=== PATIENT | female | born 1955 | race Caucasian/White ===

== ENCOUNTER → 2019-06-28 09:50 | Outpatient (BNVA) | payer MEDICARE, SELFPAY | PROVIDERS: Family Provider Family Medicine; PCP Family Medicine; Visit Provider Psychiatry & Neurology Psychiatry | DX: F33.42 Major depressive disorder, recurrent, in full remission (principal); F01.50 Vascular dementia, unspecified severity, without behavioral disturbance, psychotic disturbance, mood disturbance, and anxiety; F17.210 Nicotine dependence, cigarettes, uncomplicated | CPT/HCPCS: 99214 ==

== ENCOUNTER → 2019-07-01 07:19 | Outpatient (BNVA) | payer MEDICARE, SELFPAY | PROVIDERS: Family Provider Family Medicine; PCP Family Medicine; Visit Provider Specialist | DX: G43.711 Chronic migraine without aura, intractable, with status migrainosus (principal); G40.109 Localization-related (focal) (partial) symptomatic epilepsy and epileptic syndromes with simple partial seizures, not intractable, without status epilepticus; Z87.891 Personal history of nicotine dependence | CPT/HCPCS: 64615; 95970; 96372; 99212; J0585; J1885 ==

== ENCOUNTER → 2019-07-19 09:55 | Outpatient (BNVA) | payer MEDICARE, SELFPAY | PROVIDERS: Family Provider Family Medicine; PCP Family Medicine; Visit Provider Psychiatry & Neurology Psychiatry | DX: F01.50 Vascular dementia, unspecified severity, without behavioral disturbance, psychotic disturbance, mood disturbance, and anxiety (principal); F33.42 Major depressive disorder, recurrent, in full remission; F17.210 Nicotine dependence, cigarettes, uncomplicated | CPT/HCPCS: 99213 ==

== ENCOUNTER → 2019-08-28 13:55 | Outpatient (BNVA) | payer MEDICARE, SELFPAY | PROVIDERS: Family Provider Family Medicine; PCP Nurse Practitioner; Visit Provider Nurse Practitioner | DX: R06.02 Shortness of breath (principal); R07.89 Other chest pain | CPT/HCPCS: 71046 ==

== ENCOUNTER → 2019-09-13 07:52 | Outpatient (BNVA) | payer MEDICARE, SELFPAY | PROVIDERS: Family Provider Family Medicine; PCP Nurse Practitioner; Visit Provider Psychiatry & Neurology Psychiatry | DX: F33.42 Major depressive disorder, recurrent, in full remission (principal); F17.210 Nicotine dependence, cigarettes, uncomplicated; F01.50 Vascular dementia, unspecified severity, without behavioral disturbance, psychotic disturbance, mood disturbance, and anxiety | CPT/HCPCS: 99213 ==

== ENCOUNTER → 2019-09-30 07:38 | Outpatient (BNVA) | payer MEDICARE, SELFPAY | PROVIDERS: Family Provider Family Medicine; PCP Nurse Practitioner; Visit Provider Specialist | DX: G43.711 Chronic migraine without aura, intractable, with status migrainosus (principal); G40.109 Localization-related (focal) (partial) symptomatic epilepsy and epileptic syndromes with simple partial seizures, not intractable, without status epilepticus | CPT/HCPCS: 64615; 99212; 99213; J0585; J1885; J2405 ==

== ENCOUNTER → 2019-10-11 08:08 | Outpatient (BNVA) | payer MEDICARE, SELFPAY | PROVIDERS: Family Provider Family Medicine; PCP Nurse Practitioner; Visit Provider Psychiatry & Neurology Psychiatry | DX: F33.42 Major depressive disorder, recurrent, in full remission (principal); F17.210 Nicotine dependence, cigarettes, uncomplicated; F01.50 Vascular dementia, unspecified severity, without behavioral disturbance, psychotic disturbance, mood disturbance, and anxiety | CPT/HCPCS: 99213 ==

== ENCOUNTER 2019-10-11 16:52 | Inpatient (IN) | payer MEDICARE, SELFPAY ==
[2019-10-11] VITALS (22 sets, daily range): BP systolic 131–162; BP diastolic 80–106; PULSE 96–136; RESP 16–22; TEMP 36.6; O2SAT 93–100; BMI 30.2
--- NOTE | 2019-10-11 17:22 | ECG_ITS ---
Measurements Intervals [place] Rate: 127 P: CO: 0 QRS: 47 QRSD: 82 T: 26 QT: 326 QTc: 474 ATRIAL FIBRILLATION WITH RAPID VENTRICULAR RESPONSE NONSPECIFIC ST & T-WAVE ABNORMALITY ABNORMAL RHYTHM ECG Compared to ECG 12/07/2014 09:43:21 T-wave abnormality now present Sinus rhythm no longer present Electronically Signed On 10-11-2019 18:48:00 CDT by Lesley Mack M.D. [email or web address]
--- NOTE | 2019-10-11 17:22 | XR_ITS ---
WS: [id number] PORTABLE CHEST HISTORY: dyspnea/cough COMPARISON: 08/28/2019 Vagal nerve stimulator projects over the LEFT thorax. Lungs are clear and well expanded. No pleural effusion or pneumothorax. Cardiac size: Normal. Mediastinum/Aorta: Normal mediastinum. No osseous abnormality seen. XR/XR chest 1V portable [id number] IMPRESSION: Unremarkable portable chest.
--- NOTE | 2019-10-11 17:53 | ED_ITS ---
Documented by User: Aramis Mar DO 10/12/19 06:02 HPI - SOB/Dyspnea General: Chief Complaint: Shortness of Breath/Dyspnea Stated Complaint: TROUBLE BREATHING Time Seen by Provider: 10/11/19 17:20 History of Present Illness: HPI Narrative: 62-year-old female who comes in complaining of shortness of breath. She was seen earlier today at the urgent care clinic. She has had dyspnea with exertion for the last 3 months almost continuously. She is been to the urgent care clinic several times had not found anything she is not on any anticoagulation medicines or any other medication she does not use any stimulants decongestants or nasal sprays. She states that she occasionally will get chest pain with this it seems to just spontaneously come and go she has not associated any particular activities is precipitating or re lieving. She has noticed sometimes it when she lays flat the chest pain will seem to increase. She not had any fever or cough she denies any abdominal pain no dysuria urgency frequency or flank pain no productive cough. She was previously on antihypertensive medications but stopped those because of side effects and is not currently taking anything. MD elicited complaint: shortness of breath Onset (ago): month(s) (3) Timing: constant Severity: moderate Exacerbating factors: lying flat Relieving factors: rest Known history of: other (Epilepsy) Associated symptoms: Deny abdominal pain, chest pain, fever(s), nausea, orthopnea or vomiting Review of Systems Const: Denies: fever, chills, body aches, change in appetite, fatigue or malaise ENMT: Denies: throat pain, ear pain, nasal discharge or nasal congestion Card: Denies: chest pain, edema, shortness of breath on exertion or shortness of breath when lying down Resp: Denies: shortness of breath, productive cough or non-productive cough GI: Denies: abdominal pain, nausea, vomiting, vomiting blood, coffee grounds in vomit, diarrhea, constipation, bloating, blood in stool or black tarry stool : Denies: flank pain, difficulty urinating, painful urination, urinary frequency or urinary urgency Skin/Breast: Denies: rash or itching PFSH ED PFSH: Medical History Chronic knee pain Cigarette nicotine dependence Major depression, recurrent, full remission Seizures Vascular dementia without behavioral disturbance Surgical History H/O brain surgery H/O section History of back surgery History of cholecystectomy Status post VNS (vagus nerve stimulator) placement Social History Smoking and tobacco status: former smoker Quit status (tobacco): has quit using tobacco Year quit tobacco: 2019 Smoking risk assessment/counseling performed?: Yes Tobacco counseling given: counseling >3 minutes Physical Exam Const: COMMON NORMALS: no apparent distress GENERAL APPEARANCE: cooperative and comfortable ORIENTATION/CONSCIOUSNESS: Yes awake, Yes oriented to person, Yes oriented to place and Yes oriented to time HENMT: COMMON NORMALS: normocephalic, head/scalp atraumatic, hearing grossly normal bilaterally, external ears normal, EAC's normal, TM's normal bilaterally, nasal mucous membranes and turbinates normal, moist oral mucous membranes and oropharynx normal HEAD & SCALP: normocephalic and atraumatic NOSE: nasal mucous membranes and turbinates normal EXTERNAL EAR: Yes external ears normal EXTERNAL AUDITORY CANAL: EAC's normal TYMPANIC MEMBRANE: TM's normal bilaterally Eye: COMMON NORMALS: PERRL, EOMs intact bilaterally, conjunctivae normal and no scleral icterus CONJUNCTIVA: Yes conjunctivae normal PUPIL: Yes PERRL Neck/C-Spine: COMMON NORMALS: full ROM, no lymphadenopathy, supple and no JVD Lymph: LYMPHATIC: no lymphadenopathy noted and no lymphedema noted Resp: COMMON NORMALS: normal respiratory effort, no retractions, no use of accessory muscles and clear to auscultation bilaterally AUSCULTATION: clear to auscultation bilaterally Cardio: COMMON NORMALS: no JVD and no murmurs RATE: tachycardic RHYTHM: abnormal rhythm irregularly irregular GI: COMMON NORMALS: soft to palpation and no hepatosplenomegaly AUSCULTATION: Yes normoactive bowel sounds PALPATION: Yes soft, No tender, No guarding and Yes no hepatosplenomegaly Extremity: COMMON NORMALS: normal to inspection, normal capillary refill, no clubbing, cyanosis or edema, no calf tenderness and no pedal edema Neuro: SENSORIUM/ORIENTATION: Yes oriented to person, Yes oriented to place and Yes oriented to time Skin: COMMON NORMALS: no rashes or lesions noted GENERAL SKIN EXAM: no rashes or lesions noted Course Vital Signs: Vital signs: Vital Signs Temperature 98.4 F 10/12/19 02:11 Pulse Rate 96 10/12/19 02:11 Respiratory Rate 20 H 10/12/19 02:11 Blood Pressure 128/77 10/12/19 02:11 Pulse Oximetry 96 10/12/19 02:11 MDM - SOB/Dyspnea MDM Narrative: Medical decision making narrative: Care transferred to Dr. Dr. Galeas at change of shift. Lab Data: Labs: Lab Results 10/11/19 10/11/19 10/11/19 Range/Units 17:44 17:44 17:44 WBC 7.1 (4.0-10.0) 10^3/ uL RBC 4.37 (4.1-5.3) 10^6/u L Hgb 10.6 L (11.5-15.3) g/dL Hct 35.8 L (37.0-47.0) % MCV 81.9 (81-99) fL MCH 24.3 L (28.0-34.0) pg MCHC 29.6 L (30.0-36.0) g/dL RDW 16.2 H (12.1-15.1) % Plt Count 305 (130-400) 10^3/c mm MPV 10.2 (7.4-10.4) fL Neut % (Auto) 64.6 % Lymph % (Auto) 27.1 % Burke % (Auto) 6.0 % Eos % (Auto) 1.3 % Baso % (Auto) 0.7 % Neut # (Auto) 4.6 (1.8-7.7) 10^3/u L Lymph # (Auto) 1.9 (0.8-4.8) 10^3/u L Burke # (Auto) 0.4 (0.2-0.9) 10^3/u L Eos # (Auto) 0.1 (0.0-0.8) 10^3/u L Baso # (Auto) 0.1 (0.0-0.1) 10^3/u L Nucleated RBC % (a uto) 0 % Nucleated RBCs # 0.0 /100WBC Sodium 135 L (136-145) mmol/L Potassium 4.3 (3.5-5.1) mmol/L Chloride 100 (98-107) mmol/L Carbon Dioxide 21 L (22-29) mmol/L Anion Gap 18.3 (5-19) BUN 10 (8-23) mg/dL Creatinine 0.8 (0.5-0.9) mg/dL GFR Calculation 72.7 L (90-130) mL/min Glucose 100 (65-115) mg/dL Calculated Osmolal ity 276 L (285-295) mOsm/k g Calcium 8.9 (8.5-10.5) mg/dL Total Bilirubin 0.3 (0.15-1.2) mg/dL AST 27 (0-32) U/L ALT 20 (0-33) U/L Alkaline Phosphata se 161 H (35-105) IU/L Troponin T Baselin e 14 H (0-10) ng/mL Troponin T 120 Min [place] (0-10) ng/mL Delta Troponin T (0-10) ABS# Total Protein 7.1 (6.6-8.7) g/dL Albumin 4.3 (3.5-5.2) g/dL Globulin 2.8 (1.3-4.6) g/dL TSH 2.19 (0.27-4.20) uIU/ mL Free T4 0.83 (0.82-1.77) ng/d L Urine Color (Yellow) Urine Appearance (CLEAR) Urine pH (5-7) Ur Specific Gravit y (1.005-1.030) Urine Protein (Negative) Urine Glucose (UA) (Normal) Urine Ketones (Negative) Urine Blood (Negative) Urine Nitrate (Negative) Urine Bilirubin (NEGATIVE) Urine Urobilinogen (Negative) mg/dL Ur Leukocyte Aracelis ase (Negative) 10/11/19 10/11/19 Range/Units 19:28 20:00 WBC (4.0-10.0) 10^3/ uL RBC (4.1-5.3) 10^6/u L Hgb (11.5-15.3) g/dL Hct (37.0-47.0) % MCV (81-99) fL MCH (28.0-34.0) pg MCHC (30.0-36.0) g/dL RDW (12.1-15.1) % Plt Count (130-400) 10^3/c mm MPV (7.4-10.4) fL Neut % (Auto) % Lymph % (Auto) % Burke % (Auto) % Eos % (Auto) % Baso % (Auto) % Neut # (Auto) (1.8-7.7) 10^3/u L Lymph # (Auto) (0.8-4.8) 10^3/u L Burke # (Auto) (0.2-0.9) 10^3/u L Eos # (Auto) (0.0-0.8) 10^3/u L Baso # (Auto) (0.0-0.1) 10^3/u L Nucleated RBC % (a uto) % Nucleated RBCs # /100WBC Sodium (136-145) mmol/L Potassium (3.5-5.1) mmol/L Chloride (98-107) mmol/L Carbon Dioxide (22-29) mmol/L Anion Gap (5-19) BUN (8-23) mg/dL Creatinine (0.5-0.9) mg/dL GFR Calculation (90-130) mL/min Glucose (65-115) mg/dL Calculated Osmolal ity (285-295) mOsm/k g Calcium (8.5-10.5) mg/dL Total Bilirubin (0.15-1.2) mg/dL AST (0-32) U/L ALT (0-33) U/L Alkaline Phosphata se (35-105) IU/L Troponin T Baselin e (0-10) ng/mL Troponin T 120 Min [place] 16.40 H (0-10) ng/mL Delta Troponin T 2.40 (0-10) ABS# Total Protein (6.6-8.7) g/dL Albumin (3.5-5.2) g/dL Globulin (1.3-4.6) g/dL TSH (0.27-4.20) uIU/ mL Free T4 (0.82-1.77) ng/d L Urine Color Yellow (Yellow) Urine Appearance Clear (CLEAR) Urine pH 5 (5-7) Ur Specific Gravit y 1.020 (1.005-1.030) Urine Protein Neg (Negative) Urine Glucose (UA) Norm (Normal) Urine Ketones Negative (Negative) Urine Blood Neg (Negative) Urine Nitrate Negative (Negative) Urine Bilirubin Neg (NEGATIVE) Urine Urobilinogen Norm (Negative) mg/dL Ur Leukocyte Aracelis ase Negative (Negative) Discharge Plan Discharge Patient Disposition: Admitted As Inpatient Admit Provider: Antonio Jaimes Clinical Impression: Atrial fibrillation, Anemia Condition: Stable Interventions: ED Discharge Assessment Last Done: 10/11/19 23:36 ED Charges Last Done: 10/11/19 23:36 Discharge Date/Time: 10/11/19 23:39 Coding Level of Care Code ED Editorial Intern for Chg Fwd Exam Comprehensive Documented by User: Gudelia Galeas MD 10/11/19 21:31 HPI - SOB/Dyspnea General: Chief Complaint: Shortness of Breath/Dyspnea Stated Complaint: TROUBLE BREATHING Time Seen by Provider: 10/11/19 17:20 [facility] ED PFSH: Medical History Chronic knee pain Cigarette nicotine dependence Major depression, recurrent, full remission Seizures Vascular dementia without behavioral disturbance Surgical History H/O brain surgery H/O section History of back surgery History of cholecystectomy Status post VNS (vagus nerve stimulator) placement Social History Smoking and tobacco status: former smoker Quit status (tobacco): has quit using tobacco Year quit tobacco: 2019 Smoking risk assessment/counseling performed?: Yes Tobacco counseling given: counseling >3 minutes Course Vital Signs: Vital signs: Vital Signs Temperature 98.4 F 10/12/19 02:11 Pulse Rate 96 10/12/19 02:11 Respiratory Rate 20 H 10/12/19 02:11 Blood Pressure 128/77 10/12/19 02:11 Pulse Oximetry 96 10/12/19 02:11 MDM - SOB/Dyspnea MDM Narrative: Medical decision making narrative: Patient presents here with palpitations along with dyspnea and is found to be in A. fib with RVR. Patient started on the Cardizem drip and has been well-appearing here. I spoke to Dr. Khalil and will admit Lab Data: Labs: Lab Results 10/11/19 10/11/19 10/11/19 Range/Units 17:44 17:44 17:44 WBC 7.1 (4.0-10.0) 10^3/ uL RBC 4.37 (4.1-5.3) 10^6/u L Hgb 10.6 L (11.5-15.3) g/dL Hct 35.8 L (37.0-47.0) % MCV 81.9 (81-99) fL MCH 24.3 L (28.0-34.0) pg MCHC 29.6 L (30.0-36.0) g/dL RDW 16.2 H (12.1-15.1) % Plt Count 305 (130-400) 10^3/c mm MPV 10.2 (7.4-10.4) fL Neut % (Auto) 64.6 % Lymph % (Auto) 27.1 % Burke % (Auto) 6.0 % Eos % (Auto) 1.3 % Baso % (Auto) 0.7 % Neut # (Auto) 4.6 (1.8-7.7) 10^3/u L Lymph # (Auto) 1.9 (0.8-4.8) 10^3/u L Burke # (Auto) 0.4 (0.2-0.9) 10^3/u L Eos # (Auto) 0.1 (0.0-0.8) 10^3/u L Baso # (Auto) 0.1 (0.0-0.1) 10^3/u L Nucleated RBC % (a uto) 0 % Nucleated RBCs # 0.0 /100WBC Sodium 135 L (136-145) mmol/L Potassium 4.3 (3.5-5.1) mmol/L Chloride 100 (98-107) mmol/L Carbon Dioxide 21 L (22-29) mmol/L Anion Gap 18.3 (5-19) BUN 10 (8-23) mg/dL Creatinine 0.8 (0.5-0.9) mg/dL GFR Calculation 72.7 L (90-130) mL/min Glucose 100 (65-115) mg/dL Calculated Osmolal ity 276 L (285-295) mOsm/k g Calcium 8.9 (8.5-10.5) mg/dL Total Bilirubin 0.3 (0.15-1.2) mg/dL AST 27 (0-32) U/L ALT 20 (0-33) U/L Alkaline Phosphata se 161 H (35-105) IU/L Troponin T Baselin e 14 H (0-10) ng/mL Troponin T 120 Min [place] (0-10) ng/mL Delta Troponin T (0-10) ABS# Total Protein 7.1 (6.6-8.7) g/dL Albumin 4.3 (3.5-5.2) g/dL Globulin 2.8 (1.3-4.6) g/dL TSH 2.19 (0.27-4.20) uIU/ mL Free T4 0.83 (0.82-1.77) ng/d L Urine Color (Yellow) Urine Appearance (CLEAR) Urine pH (5-7) Ur Specific Gravit y (1.005-1.030) Urine Protein (Negative) Urine Glucose (UA) (Normal) Urine Ketones (Negative) Urine Blood (Negative) Urine Nitrate (Negative) Urine Bilirubin (NEGATIVE) Urine Urobilinogen (Negative) mg/dL Ur Leukocyte Aracelis ase (Negative) 10/11/19 10/11/19 Range/Units 19:28 20:00 WBC (4.0-10.0) 10^3/ uL RBC (4.1-5.3) 10^6/u L Hgb (11.5-15.3) g/dL Hct (37.0-47.0) % MCV (81-99) fL MCH (28.0-34.0) pg MCHC (30.0-36.0) g/dL RDW (12.1-15.1) % Plt Count (130-400) 10^3/c mm MPV (7.4-10.4) fL Neut % (Auto) % Lymph % (Auto) % Burke % (Auto) % Eos % (Auto) % Baso % (Auto) % Neut # (Auto) (1.8-7.7) 10^3/u L Lymph # (Auto) (0.8-4.8) 10^3/u L Burke # (Auto) (0.2-0.9) 10^3/u L Eos # (Auto) (0.0-0.8) 10^3/u L Baso # (Auto) (0.0-0.1) 10^3/u L Nucleated RBC % (a uto) % Nucleated RBCs # /100WBC Sodium (136-145) mmol/L Potassium (3.5-5.1) mmol/L Chloride (98-107) mmol/L Carbon Dioxide (22-29) mmol/L Anion Gap (5-19) BUN (8-23) mg/dL Creatinine (0.5-0.9) mg/dL GFR Calculation (90-130) mL/min Glucose (65-115) mg/dL Calculated Osmolal ity (285-295) mOsm/k g Calcium (8.5-10.5) mg/dL Total Bilirubin (0.15-1.2) mg/dL AST (0-32) U/L ALT (0-33) U/L Alkaline Phosphata se (35-105) IU/L Troponin T Baselin e (0-10) ng/mL Troponin T 120 Min [place] 16.40 H (0-10) ng/mL Delta Troponin T 2.40 (0-10) ABS# Total Protein (6.6-8.7) g/dL Albumin (3.5-5.2) g/dL Globulin (1.3-4.6) g/dL TSH (0.27-4.20) uIU/ mL Free T4 (0.82-1.77) ng/d L Urine Color Yellow (Yellow) Urine Appearance Clear (CLEAR) Urine pH 5 (5-7) Ur Specific Gravit y 1.020 (1.005-1.030) Urine Protein Neg (Negative) Urine Glucose (UA) Norm (Normal) Urine Ketones Negative (Negative) Urine Blood Neg (Negative) Urine Nitrate Negative (Negative) Urine Bilirubin Neg (NEGATIVE) Urine Urobilinogen Norm (Negative) mg/dL Ur Leukocyte Aracelis ase Negative (Negative) Imaging Data^: CT Chest: Radiologist's impression: [id number] [id number] [address] Scan Report Signed Patient: Soumya Avila Unit #: [id number] : 1955 Age/Sex: 64 / F ADM Date: 10/11/19 Loc: ER Room/Bed: Attending Dr: Ordering Provider/Ordering MD: Gudelia Galeas MD Date of Service: 10/11/19 Procedure(s): CT angio chest PE protcl [id number] Accession Number(s): [id number] Report Number: [id number] PROCEDURE INFORMATION: Exam: CT Angiography Chest With Contrast Exam date and time: 10/11/2019 7:35 PM Age: 64 years old Clinical indication: Shortness of breath; Prior surgery; Surgery type: Vagal nerve stimulator; Patient HX: Worsening SOB over last month TECHNIQUE: Imaging protocol: Computed tomographic angiography of the chest with intravenous contrast. 3D rendering: MIP and/or 3D reconstructed images were created by the technologist. Radiation optimization: All CT scans at this facility use at least one of these dose optimization techniques: automated exposure control; mA and/or kV adjustment per patient size (includes targeted exams where dose is matched to clinical indication); or iterative reconstruction. Contrast material: OMNI 350; Contrast volume: 65 ml; Contrast route: 20G LAC; COMPARISON: CR XR chest 1V portable [id number] 2019-10-11 17:43 RADIATION DOSE METRICS: Total DLP: 538.65 mGy-cm FINDINGS: Pulmonary arteries: No filling defects in the pulmonary arteries to suggest pulmonary emboli. Aorta: Unremarkable. No aortic aneurysm. No aortic dissection. Inferior vena cava: Contrast refluxing into the inferior vena cava compatible with right cardiac dysfunction. Lungs: Mild bronchial wall thickening. Pleural space: Unremarkable. No pneumothorax. No pleural effusion. Heart: Small to medium size pericardial effusion. Mild moderate cardiac enlargement. Lymph nodes: Nonspecific mediastinal and hilar adenopathy with a subcarinal 2.6 cm lymph node. Bones/joints: Unremarkable. No acute fracture. Soft tissues: Unremarkable. Other findings: Midthoracic multiple minimal compression deformities. CT/CT angio chest PE protcl [id number] IMPRESSION: 1. Small to medium size pericardial effusion. 2. No filling defects in the pulmonary arteries to suggest pulmonary emboli. 3. Mild moderate cardiac enlargement. Contrast refluxing into the inferior vena cava compatible with right cardiac dysfunction. 4. Mild bronchial wall thickening. 5. Nonspecific mediastinal and hilar adenopathy with a subcarinal 2.6 cm lymph node. Discharge Plan Discharge Patient Disposition: Admitted As Inpatient Admit Provider: Antonio Jaimes Clinical Impression: Atrial fibrillation, Anemia Condition: Stable Interventions: ED Discharge Assessment Last Done: 10/11/19 23:36 ED Charges Last Done: 10/11/19 23:36 Discharge Date/Time: 10/11/19 23:39 Coding Level of Care Code ED Editorial Intern for Chg Fwd Exam Comprehensive
[2019-10-11 18:15] LABS: Basophils # 0.1 10^3/uL (0.0-0.1); Basophils % 0.7 %; Eosinophils # 0.1 10^3/uL (0.0-0.8); Eosinophils % 1.3 %; Hematocrit 35.8 % (37.0-47.0); Hemoglobin 10.6 g/dL (11.5-15.3); Lymphocytes # 1.9 10^3/uL (0.8-4.8); Lymphocytes % 27.1 %; Mean Corpuscular HGB Conc 29.6 g/dL (30.0-36.0); Mean Corpuscular Hemoglobin 24.3 pg (28.0-34.0); Mean Corpuscular Volume 81.9 fL (81-99); Mean Platelet Volume 10.2 fL (7.4-10.4); Monocytes # 0.4 10^3/uL (0.2-0.9); Neutrophils # 4.6 10^3/uL (1.8-7.7); Neutrophils % 64.6 %; Nucleated Red Blood Cells % 0 %; Platelet Count 305 10^3/cmm (130-400); Red Blood Count 4.37 10^6/uL (4.1-5.3); Red Cell Distribution Width 16.2 % (12.1-15.1); White Blood Count 7.1 10^3/uL (4.0-10.0)
[2019-10-11 18:28] LABS: Troponin(5th) Baseline 14 ng/mL (0-10)
--- NOTE | 2019-10-11 19:22 | ECG_ITS ---
Measurements Intervals [place] Rate: 104 P: SD: 0 QRS: 38 QRSD: 81 T: 110 QT: 352 QTc: 465 ATRIAL FIBRILLATION WITH RAPID VENTRICULAR RESPONSE NONSPECIFIC T-WAVE ABNORMALITY Compared to ECG 10/11/2019 17:10:52 No significant changes Electronically Signed On 10-12-2019 19:47:48 CDT by Mariel Chan M.D. [email or web address]
[2019-10-11 19:27] LABS: Alanine Aminotransferase 20 U/L (0-33); Albumin Level 4.3 g/dL (3.5-5.2); Alkaline Phosphatase 161 IU/L (35-105); Anion Gap 18.3 (5-19); Aspartate Amino Transferase 27 U/L (0-32); Blood Urea Nitrogen 10 mg/dL (8-23); Calcium 8.9 mg/dL (8.5-10.5); Carbon Dioxide 21 mmol/L (22-29); Chloride 100 mmol/L (98-107); Free T4 Free Thyroxine 0.83 ng/dL (0.82-1.77); Globulin 2.8 g/dL (1.3-4.6); Glomerular Filtration Rate 72.7 mL/min (90-130); Glucose 100 mg/dL (65-115); Osmolality Calculated 276 mOsm/kg (285-295); Potassium 4.3 mmol/L (3.5-5.1); Sodium 135 mmol/L (136-145); Thyroid Stimulating Hormone 2.19 uIU/mL (0.27-4.20); Total Bilirubin 0.3 mg/dL (0.15-1.2); Total Protein 7.1 g/dL (6.6-8.7)
--- NOTE | 2019-10-11 19:29 | PC.NURSE ---
Urine collected and sent to lab.
--- NOTE | 2019-10-11 19:31 | CTR_ITS ---
PROCEDURE INFORMATION: Exam: CT Angiography Chest With Contrast Exam date and time: 10/11/2019 7:35 PM Age: 64 years old Clinical indication: Shortness of breath; Prior surgery; Surgery type: Vagal nerve stimulator; Patient HX: Worsening SOB over last month TECHNIQUE: Imaging protocol: Computed tomographic angiography of the chest with intravenous contrast. 3D rendering: MIP and/or 3D reconstructed images were created by the technologist. Radiation optimization: All CT scans at this facility use at least one of these dose optimization techniques: automated exposure control; mA and/or kV adjustment per patient size (includes targeted exams where dose is matched to clinical indication); or iterative reconstruction. Contrast material: OMNI 350; Contrast volume: 65 ml; Contrast route: 20G LAC; COMPARISON: CR XR chest 1V portable [id number] 2019-10-11 17:43 RADIATION DOSE METRICS: Total DLP: 538.65 mGy-cm FINDINGS: Pulmonary arteries: No filling defects in the pulmonary arteries to suggest pulmonary emboli. Aorta: Unremarkable. No aortic aneurysm. No aortic dissection. Inferior vena cava: Contrast refluxing into the inferior vena cava compatible with right cardiac dysfunction. Lungs: Mild bronchial wall thickening. Pleural space: Unremarkable. No pneumothorax. No pleural effusion. Heart: Small to medium size pericardial effusion. Mild moderate cardiac enlargement. Lymph nodes: Nonspecific mediastinal and hilar adenopathy with a subcarinal 2.6 cm lymph node. Bones/joints: Unremarkable. No acute fracture. Soft tissues: Unremarkable. Other findings: Midthoracic multiple minimal compression deformities. CT/CT angio chest PE protcl [id number] IMPRESSION: 1. Small to medium size pericardial effusion. 2. No filling defects in the pulmonary arteries to suggest pulmonary emboli. 3. Mild moderate cardiac enlargement. Contrast refluxing into the inferior vena cava compatible with right cardiac dysfunction. 4. Mild bronchial wall thickening. 5. Nonspecific mediastinal and hilar adenopathy with a subcarinal 2.6 cm lymph node. Radiation Dose CTDIVOL = (mGy): DLP = 538.65 (mGy-cm)
--- NOTE | 2019-10-11 20:03 | PC.NURSE ---
REPORT RECEIVED FROM BENI, COMMERCIAL LENDING VICE PRESIDENT, AND CARE TRANSFERRED TO CLAUDE GRANADO
[2019-10-11 20:14] LABS: Add Urine Microscopic? NO
[2019-10-11 20:37] LABS: Bilirubin Urine Neg (NEGATIVE); Blood Urine Neg (Negative); Glucose Urine UA Norm (Normal); Ketones Urine Negative (Negative); Leukocyte Esterase Urine Negative (Negative); Nitrate Urine Negative (Negative); Protein Urine Neg (Negative); Urine Appearance Clear (CLEAR); Urine Color Yellow (Yellow); Urobilinogen Urine Norm (Negative); pH Urine 5 (5-7)
--- NOTE | 2019-10-11 20:42 | PC.NURSE ---
PATIENT TO CTA
[2019-10-11] MEDS: iohexol 350 mg/mL 100 mL Btl IV (20:50)
--- NOTE | 2019-10-11 20:54 | PC.NURSE ---
PATIENT BACK FROM CTA
--- NOTE | 2019-10-11 21:13 | PC.NURSE ---
PATIENT GIVEN SANDWICH PER HCP APPROVAL
--- NOTE | 2019-10-11 23:46 | P.HP_ITS ---
Providers/Chief Complaint Admitting Physician: Antonio Jaimes Primary Care Provider: GUERRERO Douglass Chief Complaint: TROUBLE BREATHING History of Present Illness Soumya Avila is a 64 year old female with past medical history of depression, seizure disorder who presents with complaints of palpitations and shortness of breath which started earlier today. It is moderate in intensity. The patient was found to have A. fib with RVR and was started on diltiazem drip. Heart rate initially was at 130 now has normalized at high 90s. She reports that her symptoms have resolved. She reports similar episodes on and off for last several months. She denies any associated lightheadedness, dizziness, tiredness. She denies any associated chest pain. No fevers or chills. No re cent changes to her medications. Review of Systems General: Reports: 10 or more systems reviewed and unremarkable except in HPI and below Medications/Allergies Home Medications Medication Instructions Recorded Confirmed Last Taken Type onabotulinumtoxinA 100 unit 200 unit IM .Q 3 months each 06/28/19 10/11/19 Unknown History solution for injection oxcarbazepine 600 mg tablet 1,200 mg PO BID 06/28/19 10/11/19 10/11/19 08:00 History zonisamide 100 mg capsule 300 mg PO BID 06/28/19 10/11/19 10/11/19 08:00 History sumatriptan succinate 100 mg tablet 100 mg PO .PRN #9 tab 07/01/19 10/11/19 Unknown Rx albuterol sulfate 90 mcg/actuation 2 puff INHALATION Q6H PRN #8.5 gm 08/09/19 10/11/19 Unknown Rx aerosol inhaler Effexor XR 75 mg PO DAILY 10/11/19 10/11/19 10/10/19 History Effexor XR 150 mg PO DAILY 10/11/19 10/11/19 10/10/19 History Valium 5 mg PO BEDTIME PRN 10/11/19 10/11/19 10/10/19 History mirtazapine 15 mg PO BEDTIME 10/11/19 10/11/19 10/10/19 History Allergies Allergy/AdvReac Type Severity Reaction Status Date / Time morphine Allergy unknown Verified 10/11/19 16:22 Penicillins Allergy Unknown Verified 05/11/20 16:22 phenytoin [From Dilantin] Allergy Unknown Verified 10/11/19 16:22 PFSH Acute PFSH: Medical History Chronic knee pain Cigarette nicotine dependence Major depression, recurrent, full remission Seizures Vascular dementia without behavioral disturbance Surgical History H/O brain surgery H/O section History of back surgery History of cholecystectomy Status post VNS (vagus nerve stimulator) placement Social History Smoking and tobacco status: former smoker Quit status (tobacco): has quit using tobacco Year quit tobacco: 2019 Smoking risk assessment/counseling performed?: Yes Tobacco counseling given: counseling >3 minutes Vitals/I&O/Wt Last Vital Signs Temp 97.8 F 10/11/19 17:06 Pulse 110 H 10/11/19 23:36 Resp 16 10/11/19 23:36 BP 139/96 10/11/19 23:36 Pulse Ox 97 10/11/19 23:36 10/11/19 10/11/19 10/12/19 14:59 22:59 06:59 Intake Total 9.75 / 9.75 Balance 9.75 / 9.75 Weight last 48 hrs Weight 87.628 kg Physical Exam Narrative: EXAM NARRATIVE: The patient is awake alert and oriented. No acute distress. Mood and affect are appropriate. Responses are adequate. Skin warm and dry. Moist extremities. Neck is supple. No JVD. Lungs clear bilaterally. No respiratory distress Heart S1, S2, irregularly irregular Abdomen soft, nontender, bowel sounds are present Extremities no edema cyanosis or calf tenderness bilaterally Neuro exam is nonfocal. Normal speech. Data : 10/11/19 17:44 10/11/19 17:44 Other Labs: Laboratory Results WBC 7.1 10^3/uL (4.0-10.0) 10/11/19 17:44 RBC 4.37 10^6/uL (4.1-5.3) 10/11/19 17:44 Hgb 10.6 g/dL (11.5-15.3) L 10/11/19 17:44 Hct 35.8 % (37.0-47.0) L 10/11/19 17:44 MCV 81.9 fL (81-99) 10/11/19 17:44 MCH 24.3 pg (28.0-34.0) L 10/11/19 17:44 MCHC 29.6 g/dL (30.0-36.0) L 10/11/19 17:44 RDW 16.2 % (12.1-15.1) H 10/11/19 17:44 Plt Count 305 10^3/cmm (130-400) 10/11/19 17:44 MPV 10.2 fL (7.4-10.4) 10/11/19 17:44 Neut % (Auto) 64.6 % 10/11/19 17:44 Lymph % (Auto) 27.1 % 10/11/19 17:44 [place] % (Auto) 6.0 % 10/11/19 17:44 Eos % (Auto) 1.3 % 10/11/19 17:44 Baso % (Auto) 0.7 % 10/11/19 17:44 Neut # (Auto) 4.6 10^3/uL (1.8-7.7) 10/11/19 17:44 Lymph # (Auto) 1.9 10^3/uL (0.8-4.8) 10/11/19 17:44 [place] # (Auto) 0.4 10^3/uL (0.2-0.9) 10/11/19 17:44 Eos # (Auto) 0.1 10^3/uL (0.0-0.8) 10/11/19 17:44 Baso # (Auto) 0.1 10^3/uL (0.0-0.1) 10/11/19 17:44 Nucleated RBC % (auto) 0 % 10/11/19 17:44 Nucleated RBCs # 0.0 /100WBC 10/11/19 17:44 Sodium 135 mmol/L (136-145) L 10/11/19 17:44 Potassium 4.3 mmol/L (3.5-5.1) 10/11/19 17:44 Chloride 100 mmol/L (98-107) 10/11/19 17:44 Carbon Dioxide 21 mmol/L (22-29) L 10/11/19 17:44 Anion Gap 18.3 (5-19) 10/11/19 17:44 BUN 10 mg/dL (8-23) 10/11/19 17:44 Creatinine 0.8 mg/dL (0.5-0.9) 10/11/19 17:44 GFR Calculation 72.7 mL/min (90-130) L 10/11/19 17:44 Glucose 100 mg/dL (65-115) 10/11/19 17:44 Calculated Osmolality 276 mOsm/kg (285-295) L 10/11/19 17:44 Calcium 8.9 mg/dL (8.5-10.5) 10/11/19 17:44 Total Bilirubin 0.3 mg/dL (0.15-1.2) 10/11/19 17:44 AST 27 U/L (0-32) 10/11/19 17:44 ALT 20 U/L (0-33) 10/11/19 17:44 Alkaline Phosphatase 161 IU/L (35-105) H 10/11/19 17:44 Troponin T Baseline 14 ng/mL (0-10) H 10/11/19 17:44 Troponin T 120 Minute 16.40 ng/mL (0-10) H 10/11/19 20:00 Delta Troponin T 2.40 ABS# (0-10) 10/11/19 20:00 Total Protein 7.1 g/dL (6.6-8.7) 10/11/19 17:44 Albumin 4.3 g/dL (3.5-5.2) 10/11/19 17:44 Globulin 2.8 g/dL (1.3-4.6) 10/11/19 17:44 TSH 2.19 uIU/mL (0.27-4.20) 10/11/19 17:44 Free T4 0.83 ng/dL (0.82-1.77) 10/11/19 17:44 Urine Color Yellow (Yellow) 10/11/19 19: Urine Appearance Clear (CLEAR) 10/11/19 19: Urine pH 5 (5-7) 10/11/19 19: Ur Specific [place] 1.020 (1.005-1.030) 10/11/19 19: Urine Protein Neg (Negative) 10/11/19 Urine Glucose (UA) Norm (Normal) 05/11/20 19:28 Urine Ketones Negative (Negative) 10/11/19 19:28 Urine Blood Neg (Negative) 10/11/19 19:28 Urine Nitrate Negative (Negative) 10/11/19 19:28 Urine Bilirubin Neg (NEGATIVE) 10/11/19 19:28 Urine Urobilinogen Norm mg/dL (Negative) 10/11/19 19:28 Ur Leukocyte Esterase Negative (Negative) 10/11/19 19:28 Impressions Chest CTA 10/11/19 19:31 IMPRESSION: 1. Small to medium size pericardial effusion. 2. No filling defects in the pulmonary arteries to suggest pulmonary emboli. 3. Mild moderate cardiac enlargement. Contrast refluxing into the inferior vena cava compatible with right cardiac dysfunction. 4. Mild bronchial wall thickening. 5. Nonspecific mediastinal and hilar adenopathy with a subcarinal 2.6 cm lymph node. Radiation Dose CTDIVOL = (mGy): DLP = 538.65 (mGy-cm) A&P Additional A&P Information This is a 64-year-old female with no significant past medical history of heart disease who presents with complaints of palpitations and shortness of breath. The patient was found to have A. fib with RVR. Heart rate is normalized with diltiazem drip. The patient is being admitted for observation to [facility]. We will continue the drip. Chads 2 score is 0-1 with low risk of CVA. However it can change in case of new findings such as hypertension, CHF, or diabetes. No anticoagulation at this time. Ordering echo, A1c, TSH. Please follow-up on the results. Will request cardiology consultation. Troponin is mildly elevated probably secondary to RVR. Aspirin low-dose. I will also check her fasting lipids. \Anemia. This is probably chronic. Will monitor. Additional testing might be necessary in outpatient settings which will be deferred to PCP. Mediastinal and hilar adenopathy. Additional testing probably is needed. Please notify the patient about this finding prior to discharge. History of seizure disorder and depression. Continue home medications. DVT prophylaxis. Lovenox. CODE STATUS. The patient wants to be full code. The plan of care was discussed with the patient. She verbalized understanding and agreement. 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
[2019-10-12] VITALS (7 sets, daily range): BP systolic 106–134; BP diastolic 59–85; PULSE 83–99; RESP 18–36; TEMP 36.3–36.9; O2SAT 95–98
[2019-10-12 00:37] LABS: Troponin 5 6HR 15.27 ng/mL (0-10); Troponin 5 6HR Delta 1.27 ng/L (0-12)
[2019-10-12 00:46] LABS: Thyroid Stimulating Hormone 2.71 uIU/mL (0.27-4.20)
[2019-10-12] MEDS: enoxaparin 40 mg/0.4 mL Syringe SUBCUT (00:54)
[2019-10-12] MEDS: atorvastatin 40 mg Tablet PO (00:54)
[2019-10-12] MEDS: carvedilol 3.125 mg Tablet PO (00:54)
[2019-10-12] MEDS: diazePAM 5 mg Tablet PO (00:54)
[2019-10-12] MEDS: zonisamide 100 MG Capsule 300 MG PO ×3 (01:11→17:27)
[2019-10-12] MEDS: venlafaxine ER (24HR) 75 mg Capsule 225 MG PO (01:11)
[2019-10-12] MEDS: OXcarbazepine 300 mg Tablet 1200 MG PO ×3 (01:11→17:28)
[2019-10-12 04:34] LABS: Basophils # 0.1 10^3/uL (0.0-0.1); Basophils % 0.7 %; Eosinophils # 0.2 10^3/uL (0.0-0.8); Eosinophils % 2.2 %; Hematocrit 33.7 % (37.0-47.0); Hemoglobin 10.3 g/dL (11.5-15.3); Lymphocytes # 1.9 10^3/uL (0.8-4.8); Lymphocytes % 27.2 %; Mean Corpuscular HGB Conc 30.6 g/dL (30.0-36.0); Mean Corpuscular Hemoglobin 24.8 pg (28.0-34.0); Mean Corpuscular Volume 81.2 fL (81-99); Mean Platelet Volume 10.7 fL (7.4-10.4); Monocytes # 0.4 10^3/uL (0.2-0.9); Monocytes % 5.7 %; Neutrophils # 4.4 10^3/uL (1.8-7.7); Neutrophils % 64.1 %; Nucleated Red Blood Cells % 0 %; Platelet Count 303 10^3/cmm (130-400); Red Blood Count 4.15 10^6/uL (4.1-5.3); Red Cell Distribution Width 16.3 % (12.1-15.1); White Blood Count 6.9 10^3/uL (4.0-10.0)
[2019-10-12 05:01] LABS: INR 1.12 (0.8-1.2)
[2019-10-12 05:02] LABS: Partial Thromboplastin Time 33.3 SECONDS (23.9-36.7)
[2019-10-12 05:08] LABS: Chol HDL Ratio 4.23 mg/dL (0.0-4.40); Cholesterol 199 mg/dL (0-200); HDL Cholesterol 47 mg/dL (60-100); LDL Cholesterol Calculated 131 mg/dL (50-129); LDL HDL Ratio 2.79 RATIO (0.00-3.22); Triglycerides 105 mg/dL (0-150)
[2019-10-12 05:43] LABS: Anion Gap 19.1 (5-19); Blood Urea Nitrogen 11 mg/dL (8-23); Carbon Dioxide 19 mmol/L (22-29); Chloride 102 mmol/L (98-107); Glomerular Filtration Rate 72.7 mL/min (90-130); Glucose 100 mg/dL (65-115); Magnesium 2.2 mg/dL (1.7-2.3); Osmolality Calculated 278 mOsm/kg (285-295); Potassium 4.1 mmol/L (3.5-5.1); Sodium 136 mmol/L (136-145)
[2019-10-12 05:48] LABS: Estmated Average Glucose 143; Hemoglobin A1C 6.6 % (4.0-6.0)
--- NOTE | 2019-10-12 08:01 | PC.NURSE ---
upon assessment patients IV found to be infiltrated IV discontinued cath intact min bleeding noted x1 attempt to regain IV access and patient stated If I don't have to have any medications through it right now I want to leave it out until I see the doctor. I would like to go home today patients wishes granted and will continue nursing cares and attempt to regain access at a later time.
[2019-10-12] MEDS: aspirin 81 mg EC Tablet PO (08:26)
[2019-10-12] MEDS: metoprolol tartrate 25 mg Tablet PO ×2 (08:26→17:28)
--- NOTE | 2019-10-12 10:21 | ECG_ITS ---
NAME OF STUDY: LEXISCAN SESTAMIBI STRESS TEST INDICATION: CHEST PAIN/NEW ONSET AFIB WITH RVR/SOB, LEXISCAN STRESS TEST ORDERING PHYSICIAN: Hospitalist CLINICAL INFORMATION: Chest pain INTERPRETATION: 1. The patient was brought to the laboratory where Lexiscan was infused over 20 seconds. The resting blood pressure was 135/83. Maximum blood pressure was 147/92. The resting heart rate was 98 beats per minute. The maximum heart rate is 111 beats per minute. 2. The baseline electrocardiogram reveals atrial fibrillation with nonspecific ST and T wave changes 3. With Lexiscan infusion, there were no ST segment changes to suggest ischemia. 4. The patient experienced no symptoms or arrhythmias during the examination. CONCLUSION: 1. Unremarkable Lexiscan infusion. 2. Nuclear imaging to follow. Electronically Signed On 10-13-2019 16:34:22 CDT by Donaldo Tobias M.D. [email or web address]
[2019-10-12 10:44] LABS: Glucose Point of Care 122 mg/dL (70-110)
[2019-10-12] MEDS: FUROsemide 10 mg/mL SDV 4mL 40 MG IVP ×2 (10:59→22:24)
[2019-10-12] MEDS: apixaban 5 mg Tablet PO ×2 (11:00→17:28)
[2019-10-12 11:18] LABS: NT Pro B Type Natriuretic Pept 1193 pg/mL (0-125)
--- NOTE | 2019-10-12 13:18 | PM.PN ---
Subjective Subjective: Interval history: This morning patient states that her breathing has improved, patient's states that for the past few months, she has been feeling short of breath, shortness of breath at rest with exertion, denies edema, denies orthopnea, denies paroxysmal nocturnal dyspnea, She does report chest pain, chest pain in the substernal location, dull achy pain, radiating down the left arm, lasts a few minutes, intermittently associate with exertion, no lightheadedness, no dizziness, no history of CAD, does have an extensive family history of CAD Patient is a smoker, greater than 30 years, quit a year ago Vitals/I&O/Wt Last Vital Signs Temp 97.6 F 10/12/19 10:54 Pulse 83 10/12/19 10:54 Resp 20 H 10/12/19 10:54 BP 106/59 10/12/19 10:54 Pulse Ox 96 10/12/19 10:54 10/11/19 10/12/19 10/12/19 22:59 06:59 14:59 Intake Total 9.75 / 9.75 458.083 / 467.833 720 / 720 Balance 9.75 / 9.75 458.083 / 467.833 720 / 720 Weight last 48 hrs Weight 87.628 kg Physical Exam Const: COMMON NORMALS: no apparent distress and oriented x3 HENMT: COMMON NORMALS: normocephalic HEAD & SCALP: normocephalic Neck/C-Spine: COMMON NORMALS: no JVD Resp: COMMON NORMALS: normal respiratory effort, no retractions, no use of accessory muscles and clear to auscultation bilaterally AUSCULTATION: clear to auscultation bilaterally Cardio: COMMON NORMALS: no JVD, regular rate, regular rhythm, S1 normal heart sound and S2 normal heart sound RATE: regular rate RHYTHM: regular rhythm HEART SOUNDS: S1 normal and S2 normal GI: COMMON NORMALS: normal to inspection, nondistended, normoactive bowel sounds, soft to palpation, non-tender, no hepatosplenomegaly, no masses and no bruits PALPATION: Yes soft and Yes no hepatosplenomegaly Extremity: COMMON NORMALS: normal capillary refill, no clubbing, cyanosis or edema, no calf tenderness and no pedal edema Neuro: COMMON NORMALS: oriented x3 Psych: COMMON NORMALS: mental status grossly normal Data : 10/12/19 03:25 10/12/19 03:25 A&P Assessment and plan (1) NSTEMI (non-ST elevated myocardial infarction): -Has complaints of chest pain, sounds cardiac in nature -Has extensive family history of CAD, mother from CAD in her 60s, greater than 30-year history of smoking -Baseline troponin XIV, 6-hour 15.27, delta 1.27 -EKG has no acute ST-T wave changes -Patient's BNP is 1193 Plan: -Continue to monitor for chest pain -Aspirin, statin -N.p.o. midnight, first cardiac stress test tomorrow morning Status: Acute (2) Atrial fibrillation: -New onset atrial fibrillation -Currently off Cardizem drip, or on oral metoprolol, rate control, but still in A. fib -Has symptoms of CHF, has complaints of chest pain, has extensive family history of CAD with her mother from CAD in her 60s Plan: -Continue telemetry monitoring -Metoprolol 25 mg twice daily -Otmna1oloz score is 2, Eliquis 5 mg twice daily -Cardiac echocardiogram Status: Acute Qualifiers: Atrial fibrillation type: unspecified Qualified Code(s): I48.91 - Unspecified atrial fibrillation (3) CHF (congestive heart failure): -Patient's symptoms do sound like CHF -BNP is 1193 Plan: -Daily dose Lasix, received 40 mg daily strict I's and O's -Follow cardiac echocardiogram Status: Acute (4) Anemia: Hemoglobin 10.3 Status: Acute (5) Type 2 diabetes mellitus: -New onset type 2 diabetes mellitus, hemoglobin A1c 6.6 Plan: -Diabetic education -Check blood sugar 3 times daily -Discharged on metformin Status: Acute (6) Hilar adenopathy: -Patient CT scan shows evidence of hilar adenopathy, patient is a smoker greater than 30 years -Will require outpatient follow-up with oncology Status: Acute (7) Partial epilepsy secondarily generalized: Has vagal nerve stimulator placed Status: Acute Attestations Medical Necessity Statement*: Patient requires hospitalization for A. fib, chest pain, CHF Coding Level of Care Code Acute [employer] Manager for [facility] Diagnoses NSTEMI (non-ST elevated myocardial infarction) I21.4 Atrial fibrillation I48.91 Atrial fibrillation type: unspecified CHF (congestive heart failure) I50.9 Anemia D64.9 Type 2 diabetes mellitus E11.9 Hilar adenopathy R59.0 Partial epilepsy secondarily generalized
[2019-10-12 16:29] LABS: Glucose Point of Care 125 mg/dL (70-110)
[2019-10-12 19:33] LABS: Glucose Point of Care 193 mg/dL (70-110)
--- NOTE | 2019-10-12 19:42 | XRR_ITS ---
PROCEDURE INFORMATION: Exam: XR Chest, 1 View Exam date and time: 10/12/2019 9:36 PM Age: 64 years old Clinical indication: Shortness of breath; Prior surgery; Surgery type: Vns; Additional info: Patient change TECHNIQUE: Imaging protocol: XR of the chest Views: 1 view. COMPARISON: CR XR chest 1V portable [id number] 10/11/2019 5:43 PM FINDINGS: Lungs: Unremarkable. No consolidation. Pleural space: Unremarkable. No pleural effusion. No pneumothorax. Heart/Mediastinum: Mild cardiomegaly. Bones/joints: Unremarkable. Other findings: Stable left vagus nerve stimulator. XR/XR chest 1V portable [id number] IMPRESSION: 1. Stable left vagus nerve stimulator. 2. Mild cardiomegaly.
--- NOTE | 2019-10-12 19:44 | ECG_ITS ---
Measurements Intervals [place] Rate: 95 P: MD: 0 QRS: 89 QRSD: 124 T: 63 QT: 416 QTc: 524 ATRIAL FIBRILLATION MODERATE INTRAVENTRICULAR CONDUCTION DELAY [110+ ms QRS DURATION] ABNORMAL RHYTHM ECG Compared to ECG 10/11/2019 23:42:47 Intraventricular conduction delay now present T-wave abnormality no longer present Electronically Signed On 10-13-2019 20:28:56 CDT by Lesley Mack M.D. [id number]
[2019-10-12] MEDS: albuterol 8 gm MDI 2 PUFF INHALATION (20:29)
[2019-10-12 20:36] LABS: Troponin T (5th) Once 14 ng/mL (0-10)
[2019-10-12 20:44] LABS: NT Pro B Type Natriuretic Pept 1433 pg/mL (0-125)
[2019-10-12 21:15] LABS: Glucose Point of Care 142 mg/dL (70-110)
--- NOTE | 2019-10-12 23:15 | PC.NURSE ---
[place] the pt yelling and found her on the floor next to her bed upon entering the room. She had no clothes on and was lying in a puddle of urine. When asked how she ended up on the floor she was unable to recall and seemed confused. No bruising or redness noted to her bosy and unsure if she hit her head. Vital signs taken and physician and family notified. Orders received.
--- NOTE | 2019-10-12 23:45 | USCV_ITS ---
Soumya Avila Age: 64 Gender: F : 1955 Exam Date: 10/12/2019 06:56 Ordering Phys: Antonio Jaimes MD Technologist: Pau Negrete [place] [facility] [place]: NEW ONSET AFIB BP: 128 / 77 HR: 99 Rhythm: Atrial fibrillation Technical Quality: Adequate MEASUREMENTS (Male / Female) Normal Values 2D ECHO LV Diastolic Diameter PLAX 2.4 cm 4.2 - 5.9 / 3.9 - 5.3 cm LV Systolic Diameter PLAX 2.1 cm LV Chamber Size 3.2 cm IVS Diastolic Thickness 1.4 cm 0.6 - 1.0 / 0.6 - 0.9 cm IVS Systolic Thickness 1.7 cm LVPW Diastolic Thickness 1.3 cm 0.6 - 1.0 / 0.6 - 0.9 cm LVPW Systolic Thickness 1.7 cm RV Chamber Size 3.3 cm LVOT Diameter 2.0 cm LV Ejection Fraction 2D Teich 28.4 % LV Ejection Fraction MOD 2C 56.0 % LV Ejection Fraction 2C AL 57.7 % LA Diameter 4.7 cm LA Width 4.4 cm LA Height 6.0 cm RA Width 3.3 cm RA Height 5.0 cm Aorta at Sinotubular Diameter 2.7 cm M-MODE LV Diastolic Diameter MM 4.3 cm 4.2 - 5.9 / 3.9 - 5.3 cm LV Systolic Diameter MM 3.2 cm LV Ejection Fraction MM Teich 50.7 % IVS Diastolic Thickness MM 1.0 cm 0.6 - 1.0 / 0.6 - 0.9 cm IVS Systolic Thickness MM 1.7 cm LVPW Diastolic Thickness MM 1.4 cm 0.6 - 1.0 / 0.6 - 0.9 cm LVPW Systolic Thickness MM 1.6 cm RV Diastolic Diameter MM 2.7 cm Aortic Annulus Diameter 2.6 cm LA Ao Ratio MM 1.8 MV E Point Septal Separation 0.2 cm DOPPLER AV Peak Velocity 135.0 cm/s LVOT Peak Velocity 70.0 cm/s AV Area Cont Eq vti 2.1 cm squared AV Area Cont Eq pk 1.7 cm squared MV Area PHT 2.7 cm squared MV E' Velocity 10.0 cm/s Mitral E to MV E' Ratio 20.1 Mitral E to LV E' Lateral Ratio 18.9 Mitral E to LV E' Septal Ratio 21.8 TR Peak Velocity 278.5 cm/s TR Peak Gradient 31.0 mmHg TR Mean Velocity 226.7 cm/s TR Mean Gradient 21.7 mmHg TR Velocity Time Integral 69.9 cm TV Peak E Velocity 97.0 cm/s Right Atrial Pressure 3.0 mmHg Pulmonary Artery Systolic Pressu 34.0 mmHg PV Peak Velocity 46.0 cm/s RV Acceleration Time 0.1 s RV Ejection Time 0.3 s RV AcT/ET 0.4 FINDINGS Left Ventricle Normal left ventricular cavity size. Mildly reduced left ventricular systolic function. Left ventricular ejection fraction is estimated at 50 %. In the presence of atrial fibrillation diastolic function and wall motion abnormailty cannot be assessed accurately. Due to [id number] variation in atrial fibrillation left ventricle ejection fraction may not be assessed accurately as well. Right Ventricle The right ventricle is normal in size and function. Right Atrium The right atrium is normal in size. Left Atrium Moderately increased left atrial size. Mitral Valve Moderately thickened mitral valve. Moderate mitral annular calcification. No mitral valve stenosis. Moderate mitral valve regurgitation. Aortic Valve Moderate aortic valve calcification. No aortic valve stenosis. Mild aortic valve regurgitation. Tricuspid Valve Thickened tricuspid valve. Severe tricuspid valve regurgitation. Pulmonic Valve Structurally normal pulmonic valve without significant stenosis. There is no pulmonic regurgitation. Pericardium Normal pericardium without effusion. Aorta Normal ascending aorta dimension. CONCLUSIONS 1-Normal left ventricular cavity size. Mildly reduced left ventricular systolic function. Left ventricular ejection fraction is estimated at 50 %. In the presence of atrial fibrillation diastolic function and wall motion abnormailty cannot be assessed accurately. Due to [id number] variation in atrial fibrillation left ventricle ejection fraction may not be assessed accurately as well. 2-Moderately increased left atrial size. 3-Moderately thickened mitral valve. Moderate mitral annular calcification. No mitral valve stenosis. Moderate mitral valve regurgitation. 4-Moderate aortic valve calcification. No aortic valve stenosis. Mild aortic valve regurgitation. 5-Thickened tricuspid valve. Severe tricuspid valve regurgitation. 6-There is no pericardial effusion. 7-Pulmonary artery systolic pressure is within normal limits. 8-Right atrial pressure is around 5 mm of mercury. 9-There are no prior echocardiogram studies to compare. Mariel Chan MD (Electronically Signed) Final Date: 13 Oct 2019 10:44 S
--- NOTE | 2019-10-12 23:51 | CTR_ITS ---
PROCEDURE INFORMATION: Exam: CT Head Without Contrast Exam date and time: 10/12/2019 11:52 PM Age: 64 years old Clinical indication: Injury or trauma; Fall; Initial encounter; Blunt trauma (contusions or hematomas); Consciousness not specified; Prior surgery; Additional info: Unwitnessed fall TECHNIQUE: Imaging protocol: Computed tomography of the head without contrast. Radiation optimization: All CT scans at this facility use at least one of these dose optimization techniques: automated exposure control; mA and/or kV adjustment per patient size (includes targeted exams where dose is matched to clinical indication); or iterative reconstruction. COMPARISON: CT head wo con* [id number] 12/14/2016 9:34 AM RADIATION DOSE METRICS: Total DLP: 874.31 mGy-cm FINDINGS: Brain: There is focal encephalomalacia in the left temporal lobe which may represent old infarct or postsurgical change. This is stable compared with 12/14/2016. There is small old lacunar infarct in the anterior limb of the left internal capsule. There is no intracranial mass, hemorrhage or edema. Ventricles: Normal. No ventriculomegaly. Bones/joints: There is old left temporal craniotomy not significantly changed. Sinuses: Visualized sinuses are unremarkable. No fluid levels. Mastoid air cells: Visualized mastoid air cells are well aerated. Soft tissues: Unremarkable. Other findings: Findings are not significantly changed from previous examination. CT/CT head wo con* [id number] IMPRESSION: 1. Chronic findings, stable compared with 12/14/2016. 2. No acute intracranial abnormality. Radiation Dose CTDIVOL = (mGy): DLP = 874.31 (mGy-cm)
[2019-10-13] VITALS (10 sets, daily range): BP systolic 108–152; BP diastolic 70–100; PULSE 84–121; RESP 18–32; TEMP 36.4–36.5; O2SAT 95–98
[2019-10-13 00:16] LABS: Basophils % 0.3 %; Eosinophils % 0.1 %; Hematocrit 38.6 % (37.0-47.0); Hemoglobin 11.7 g/dL (11.5-15.3); Lymphocytes # 1.3 10^3/uL (0.8-4.8); Lymphocytes % 13.4 %; Mean Corpuscular HGB Conc 30.3 g/dL (30.0-36.0); Mean Corpuscular Hemoglobin 24.8 pg (28.0-34.0); Mean Corpuscular Volume 81.8 fL (81-99); Mean Platelet Volume 10.3 fL (7.4-10.4); Monocytes # 0.4 10^3/uL (0.2-0.9); Monocytes % 4.3 %; Neutrophils # 7.9 10^3/uL (1.8-7.7); Neutrophils % 81.3 %; Nucleated Red Blood Cells % 0 %; Platelet Count 287 10^3/cmm (130-400); Red Blood Count 4.72 10^6/uL (4.1-5.3); Red Cell Distribution Width 16.6 % (12.1-15.1); White Blood Count 9.7 10^3/uL (4.0-10.0)
[2019-10-13 01:04] LABS: Alanine Aminotransferase 32 U/L (0-33); Albumin Level 4.4 g/dL (3.5-5.2); Alkaline Phosphatase 178 IU/L (35-105); Anion Gap 19.4 (5-19); Aspartate Amino Transferase 47 U/L (0-32); Blood Urea Nitrogen 21 mg/dL (8-23); Carbon Dioxide 22 mmol/L (22-29); Chloride 97 mmol/L (98-107); Glomerular Filtration Rate 50.3 mL/min (90-130); Glucose 143 mg/dL (65-115); Osmolality Calculated 277 mOsm/kg (285-295); Potassium 4.4 mmol/L (3.5-5.1); Sodium 134 mmol/L (136-145); Total Bilirubin 0.3 mg/dL (0.15-1.2); Total Protein 7.4 g/dL (6.6-8.7)
--- NOTE | 2019-10-13 01:04 | PHA.FALL ---
A Pharmacy Consult Was Conducted For Soumya Avila Due To: Roth Fall Scale Risk Level: High Fall Risk On 10/12/19 23:36 And A Medication Fall Risk Score Greater Than 10. The Recommendations Are As Follows:This patient is on the following medications on the [place] [employer] listof high-risk medications attributed to falls in older adults: Antidepressant: Venlafaxine;Long-acting benzodiazepine: Diazepam; Centrally-acting antihypertensive agent: Metoprolol and the following anticonvulsants: Levetiracetam, Oscarbaepine, Zonisamide. It is recommended that this patient would benefit from continued monitoring as to on going need and at least annually evaluation of dosages.
[2019-10-13 05:23] LABS: Basophils % 0.2 %; Hematocrit 34.2 % (37.0-47.0); Hemoglobin 10.5 g/dL (11.5-15.3); Lymphocytes # 1.1 10^3/uL (0.8-4.8); Lymphocytes % 17.9 %; Mean Corpuscular HGB Conc 30.7 g/dL (30.0-36.0); Mean Corpuscular Hemoglobin 24.9 pg (28.0-34.0); Mean Platelet Volume 10.6 fL (7.4-10.4); Monocytes # 0.2 10^3/uL (0.2-0.9); Monocytes % 3.7 %; Neutrophils # 4.7 10^3/uL (1.8-7.7); Neutrophils % 77.9 %; Nucleated Red Blood Cells % 0 %; Platelet Count 305 10^3/cmm (130-400); Red Blood Count 4.22 10^6/uL (4.1-5.3); Red Cell Distribution Width 16.6 % (12.1-15.1)
[2019-10-13 06:03] LABS: Alanine Aminotransferase 28 U/L (0-33); Albumin Level 4.1 g/dL (3.5-5.2); Alkaline Phosphatase 168 IU/L (35-105); Anion Gap 18.1 (5-19); Aspartate Amino Transferase 38 U/L (0-32); Blood Urea Nitrogen 20 mg/dL (8-23); Calcium 8.9 mg/dL (8.5-10.5); Carbon Dioxide 22 mmol/L (22-29); Chloride 100 mmol/L (98-107); Globulin 2.8 g/dL (1.3-4.6); Glomerular Filtration Rate 56.2 mL/min (90-130); Glucose 132 mg/dL (65-115); Magnesium 2.2 mg/dL (1.7-2.3); Osmolality Calculated 280 mOsm/kg (285-295); Potassium 4.1 mmol/L (3.5-5.1); Sodium 136 mmol/L (136-145); Total Bilirubin 0.3 mg/dL (0.15-1.2); Total Protein 6.9 g/dL (6.6-8.7)
--- NOTE | 2019-10-13 06:45 | PC.NURSE ---
STRESS TEST NOTE THIS NURSE CALLED TO SPEAK WITH THE PATIENT'S NURSE, BRUNA, REGARDING THE STRESS TEST ORDER. THE ORDER WAS PLACED BY DR SNOWDEN ON 10/12/19. THE PATIENTS DIAGNOSIS IS NSTEMI/NEW ONSET AFIB WITH RVR. THERE WAS AN ORDER PLACED BY DR RIVERA ON 10/11/19 FOR CARDIOLOGY CONSULT. THIS CONSULT HAD NOT BEEN DONE OF 0639 THIS AM ACCORDING TO DR OKEEFE. HE STATED THAT HE DID NOT RECEIVE THE CONSULT. BRUNA REPORTED AT 0657 THAT SHE TALKED WITH THE LAST MODEL MAKER HOSPITALIST AND WAS TOLD TO WAIT UNTIL THE DAY SHIFT HOSPITALIST GETS HERE AND SEE IF WE PROCEED WITH STRESS TEST OR CARDIOLOGY CONSULT 1ST. YARELIS, [place] Reklaim TECH, WAS NOTIFIED.
[2019-10-13 06:52] LABS: Glucose Point of Care 110 mg/dL (70-110)
--- NOTE | 2019-10-13 07:00 | NMCV_ITS ---
NM perri perf SPECT r/s* [id number] Soumya Avila Age: 64 Gender: F : 1955 Exam Date: 10/13/2019 07:29 Ordering Phys: Govind Sheridan MD Technologist: JESSICA Lee Exam Location: [facility] [place] Indications: SOB STRESS TEST Please see separate stress test report in [facility] for full findings IMAGE PROTOCOL Rest/Stress 1 Lexiscan Day Radiopharmaceutical Dose (mCi) Administration Site Administered by Rest: Tc-99m 10.5 IV JESSICA Sandoval Sestamibi Stress:Tc-99m 32.9 IV JESSICA Lee Sestamijanna Rest: 13-Oct-2019 60 Discovery 630 Stress: 13-Oct-2019 45 Discovery 630 0.4mg Lexiscan. Images obtained in supine and prone position. SPECT RESULTS Technical Quality: Good Raw Data Analysis: Normal Image Corrections: No attenuation or motion correction applied Summed Stress Score: 1 Summed Rest Score: 3 Summed Difference Score: 0 PERFUSION FINDINGS Patchy areas of decreased tracer uptake in the anterior wall and apical regions, with no significant reversibility FUNCTIONAL RESULTS (calculated via Gated SPECT) Stress Image LV EF (%): 50 Stress EDV (mL):44 TID: 1.04 Stress ESV (mL):22 FUNCTIONAL FINDINGS: Segmental wall motion analysis revealed no gross wall motion abnormalities IMPRESSIONS #1. Unremarkable myocardial perfusion imaging #2. Normal LV ejection fraction of 50% #3. LV wall motion analysis revealing no gross wall motion abnormalities #4. Normal LV volume No significant coronary ischemia, based on the above findings Dr Lesley Mack MD FACC (Electronically Signed) Final Date: 13 Oct 2019 14:55 S
--- NOTE | 2019-10-13 07:30 | PC.NURSE ---
STRESS TEST NOTE
--- NOTE | 2019-10-13 07:30 | PC.NURSE ---
STRESS TEST NOTE THIS NURSE CALLED DR SNOWDEN AT HIS REQUEST PER SCOTT [place] NURSE. DR SNOWDEN STATED THAT THE STRESS TEST ORDERED WILL BE DONE AND THAT HE DID NOT NEED A CARDIOLOGY CONSULT.
[2019-10-13] MEDS: regadenoson 0.4 Mg/5 ml Syringe IVP (08:03)
--- NOTE | 2019-10-13 08:55 | PC.RESP ---
Smoking Cessation information and a schedule of classes sent to pt.
[2019-10-13] MEDS: zonisamide 100 MG Capsule 300 MG PO ×2 (10:33→17:26)
[2019-10-13] MEDS: apixaban 5 mg Tablet PO ×2 (10:33→17:26)
[2019-10-13] MEDS: aspirin 81 mg EC Tablet PO (10:33)
[2019-10-13] MEDS: OXcarbazepine 300 mg Tablet 1200 MG PO ×2 (10:34→17:26)
[2019-10-13] MEDS: metoprolol tartrate 25 mg Tablet PO (10:34)
[2019-10-13 11:01] LABS: Glucose Point of Care 94 mg/dL (70-110)
--- NOTE | 2019-10-13 14:16 | PC.NURSE ---
The patient was unable to do the standing up blood pressure due to getting super dizzy and feeling like she was going to pass out.
--- NOTE | 2019-10-13 14:33 | PM.PN ---
Subjective Subjective: Interval history: Overnight patient was found on the floor, stated that she did not remember how she got there, CT head negative intracranial hemorrhage, or she says that she thinks she might of gotten out of bed to use the bathroom, and might of fell, and she just laid on the floor, she states that blood pressure medications typically do this to her, she feels very lightheaded and dizzy. Patient worked with physical therapy this afternoon, when they got her up to the side of the bed, she felt very lightheaded, dizzy, was not able to stand up on her own. Denies chest pain, shortness of breath, lightheadedness, dizziness, alert oriented x3, neurologically intact Vitals/I&O/Wt Last Vital Signs Temp 97.6 F 10/13/19 12:00 Pulse 92 10/13/19 14:07 Resp 19 H 10/13/19 12:00 BP 137/88 10/13/19 14:07 Pulse Ox 98 10/13/19 12:00 10/12/19 10/13/19 10/13/19 22:59 06:59 14:59 Intake Total 360 / 1080 Output Total 550 / 550 Balance 360 / 1080 -550 / 530 Weight last 48 hrs Weight 87.628 kg Physical Exam Const: COMMON NORMALS: no acute distress and patient oriented x3 HENMT: COMMON NORMALS: normocephalic HEAD & SCALP: normocephalic Neck/C-Spine: COMMON NORMALS: no JVD Resp: COMMON NORMALS: normal respiratory effort, No retractions, No use of accessory muscles and clear to auscultation bilaterally AUSCULTATION: clear to auscultation bilaterally Cardio: COMMON NORMALS: no JVD, regular rate, regular rhythm, S1 normal heart sound present and S2 normal heart sound present RATE: regular rate RHYTHM: regular rhythm HEART SOUNDS: S1 normal heart sound present and S2 normal heart sound present GI: COMMON NORMALS: Normal to inspection, nondistended, normoactive bowel sounds present, Soft to palpation, non-tender, No hepatosplenomegaly present, no masses and no bruits PALPATION: Yes Soft to palpation and Yes No hepatosplenomegaly present Extremity: COMMON NORMALS: capillary refill normal, no clubbing, cyanosis or edema, no calf tenderness and no pedal edema Neuro: COMMON NORMALS: patient oriented x3 Psych: COMMON NORMALS: mental status grossly normal Urinary Catheter Management^: Lomeli: Cath Placed During This Visit: yes Reason for Continuing Indwelling Catheter: Other Urinary Catheter Date of Insertion: 10/13/19 Urinary Catheter Time of Insertion: 00:45 Data : 10/13/19 04:46 10/13/19 04:46 A&P Assessment and plan (1) NSTEMI (non-ST elevated myocardial infarction): -Has complaints of chest pain, sounds cardiac in nature -Has extensive family history of CAD, mother from CAD in her 60s, greater than 30-year history of smoking -Baseline troponin XIV, 6-hour 15.27, delta 1.27 -EKG has no acute ST-T wave changes -Patient's BNP is 1193 Plan: -Continue to monitor for chest pain -Aspirin, statin -Patient is to have stress test today, follow results Status: Acute (2) Atrial fibrillation: -New onset atrial fibrillation -Currently off Cardizem drip, or on oral metoprolol, rate control, but still in A. fib -Has symptoms of CHF, has complaints of chest pain, has extensive family history of CAD with her mother from CAD in her 60s Plan: -Continue telemetry monitoring -Stop metoprolol, continue Cardizem 30 every 6 hours -[id number] score is 2, Eliquis 5 mg twice daily -Cardiac echocardiogram pending Status: Acute Qualifiers: Atrial fibrillation type: unspecified Qualified Code(s): I48.91 - Unspecified atrial fibrillation (3) CHF (congestive heart failure): -Patient's symptoms do sound like CHF -BNP is 1193 Plan: -Daily dose Lasix, received 40 mg daily strict I's and O's -Follow cardiac echocardiogram Status: Acute (4) Anemia: Hemoglobin 10.3 Status: Acute (5) Type 2 diabetes mellitus: -New onset type 2 diabetes mellitus, hemoglobin A1c 6.6 Plan: -Diabetic education -Check blood sugar 3 times daily -Discharged on metformin Status: Acute (6) Hilar adenopathy: -Patient CT scan shows evidence of hilar adenopathy, patient is a smoker greater than 30 years -Will require outpatient follow-up with oncology Status: Acute (7) Partial epilepsy secondarily generalized: Has vagal nerve stimulator placed Status: Acute (8) Fall: -Sounds like mechanical fall, related to possibly orthostatic hypotension related to blood pressure medications -We will give 500 cc bolus -Fall precautions, ambulate with assistance, PT OT, neurochecks -Orthostatic vitals -Stop beta-zofia Status: Acute Additional A&P Information DVT prophylaxis. eliquis CODE STATUS. The patient wants to be full code. The plan of care was discussed with the patient. She verbalized understanding and agreement. Attestations Medical Necessity Statement*: Patient requires continued hospitalization for atrial fibrillation, chest pain, orthostatic hypotension Coding Level of Care Code Acute Project Control Manager for [facility] Fwd Diagnoses NSTEMI (non-ST elevated myocardial infarction) I21.4 Atrial fibrillation I48.91 Atrial fibrillation type: unspecified CHF (congestive heart failure) I50.9 Anemia D64.9 Type 2 diabetes mellitus E11.9 Hilar adenopathy R59.0 Partial epilepsy secondarily generalized Fall W19.XXXA
[2019-10-13] MEDS: sodium chloride 0.9% 500 ML 999 ML IV (14:48)
--- NOTE | 2019-10-13 14:49 | PC.OT ---
OT EVALUATION ATTEMPTED. PATIENT SNORING AND SLEEPING SOUNDLY. WILL TRY AGAIN AT A LATER TIME.
[2019-10-13] MEDS: dilTIAZem 30 mg Tablet PO ×2 (14:51→21:32)
[2019-10-13 16:35] LABS: Glucose Point of Care 91 mg/dL (70-110)
[2019-10-13] MEDS: ondansetron 2 mg/ML SDV 2 mL 4 MG IVP (19:59)
--- NOTE | 2019-10-13 20:36 | PC.NURSE ---
Dr. Jaimes notified of patient having slurred and slow speech. Patient is able to tell me where she is at, however her speech is slow and slurred when she states it. 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 Patient is known to have odd behavior in past per report from other nurses. Able to get laying and sitting orthostatics. Able to get patient to stand for short period of time, however patient could not tolerate standing for a long enough period to get her blood pressure even with 2 assist.
--- NOTE | 2019-10-13 20:43 | PC.NURSE ---
Dr. Jaimes in room to see patient. Patient is having similar symptoms as previous night. Will continue to monitor. q4 hour neuro checks and q6 hour orthostatics.
[2019-10-13] MEDS: atorvastatin 40 mg Tablet PO (21:31)
[2019-10-13] MEDS: venlafaxine ER (24HR) 75 mg Capsule 225 MG PO (21:31)
[2019-10-13] MEDS: mirtazapine 15 mg Tablet PO (21:31)
--- NOTE | 2019-10-13 22:04 | PC.NURSE ---
Patient's bed alarm is set due to fall during hospital stay and dizziness upon standing.
--- NOTE | 2019-10-13 22:08 | PC.NURSE ---
Patient was educated not to get out of bed without assistance and verbalized understanding. Call light within reach and patient was showed her call light.
[2019-10-13 23:03] LABS: Glucose Point of Care 167 mg/dL (70-110)
[2019-10-14] VITALS (11 sets, daily range): BP systolic 116–151; BP diastolic 68–90; PULSE 61–118; RESP 15–24; TEMP 36.3–36.8; O2SAT 94–99
--- NOTE | 2019-10-14 | CT_ITS ---
WS: [id number] CT HEAD NONCONTRAST HISTORY: SLURRED SPEECH AND FACIAL DROOP TECHNIQUE: Contiguous axial imaging performed through the brain in 2.5 mm imaging. Bone and soft tiss ue windows. Sagittal and coronal reformats reviewed. All CT scans at [facility] use at ast one of these dose optimization techniques: automated exposure control; mA and/or kV adjustment pe r patient size (includes targeted exams where dose is matched to clinical indication); or iterative r econstruction. DLP: 1556.33 mGy.cm COMPARISON: 10/13/2019 No acute intracranial hemorrhage, midline shift or mass effect. Mild atrophy with a large remote LEFT temporal lobe infarct with encephalomalacia. Additional ischemi c changes surrounding the anterior horns of the lateral ventricles and in the caudate heads. Ventricles: Normal size with no hydrocephalus. No inferior displacement of cerebellar tonsils. Paranasal sinuses: As visualized are clear. Mastoid air cells: Well pneumatized. Calvarium and scalp: Large LEFT craniotomy. CT/CT head wo con* [id number] IMPRESSION: 1. No acute intracranial hemorrhage or edema. 2. 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
--- NOTE | 2019-10-14 02:48 | PC.NURSE ---
Patient's speech is more clear at this time than before. Patient is more awake and states that she feels better. Still unable to get standing blood pressure. Patient is very wobbly even with 2 assist when standing. Patient was able to stand with 2 assist, but not for a long enough period to get a blood pressure.
[2019-10-14] MEDS: dilTIAZem 30 mg Tablet PO ×2 (02:51→10:55)
--- NOTE | 2019-10-14 04:53 | PC.NURSE ---
Patient accidentally pulled IV out of left forearm. New IV started in right AC on first attempt. Linen change provided.
[2019-10-14 05:26] LABS: Basophils % 0.4 %; Eosinophils % 0.1 %; Hematocrit 36.2 % (37.0-47.0); Hemoglobin 11.2 g/dL (11.5-15.3); Lymphocytes # 2.4 10^3/uL (0.8-4.8); Lymphocytes % 28.3 %; Mean Corpuscular HGB Conc 30.9 g/dL (30.0-36.0); Mean Corpuscular Hemoglobin 25.3 pg (28.0-34.0); Mean Corpuscular Volume 81.7 fL (81-99); Mean Platelet Volume 10.6 fL (7.4-10.4); Monocytes # 0.4 10^3/uL (0.2-0.9); Monocytes % 4.2 %; Neutrophils # 5.7 10^3/uL (1.8-7.7); Neutrophils % 66.5 %; Nucleated Red Blood Cells % 0 %; Platelet Count 329 10^3/cmm (130-400); Red Blood Count 4.43 10^6/uL (4.1-5.3); Red Cell Distribution Width 16.8 % (12.1-15.1); White Blood Count 8.5 10^3/uL (4.0-10.0)
[2019-10-14 05:42] LABS: Alanine Aminotransferase 27 U/L (0-33); Albumin Level 3.9 g/dL (3.5-5.2); Alkaline Phosphatase 165 IU/L (35-105); Anion Gap 19.3 (5-19); Aspartate Amino Transferase 31 U/L (0-32); Blood Urea Nitrogen 21 mg/dL (8-23); Calcium 9.7 mg/dL (8.5-10.5); Carbon Dioxide 19 mmol/L (22-29); Chloride 99 mmol/L (98-107); Globulin 3.2 g/dL (1.3-4.6); Glomerular Filtration Rate 56.2 mL/min (90-130); Glucose 119 mg/dL (65-115); Magnesium 2.4 mg/dL (1.7-2.3); Osmolality Calculated 274 mOsm/kg (285-295); Phosphorus 4.1 mg/dL (2.5-4.5); Potassium 4.3 mmol/L (3.5-5.1); Sodium 133 mmol/L (136-145); Total Bilirubin 0.2 mg/dL (0.15-1.2); Total Protein 7.1 g/dL (6.6-8.7)
[2019-10-14 06:39] LABS: Glucose Point of Care 98 mg/dL (70-110)
--- NOTE | 2019-10-14 08:00 | PC.NURSE ---
patient rounding performed at 0715 and patient appeared to be sleeping upon entry at 0755 patient sitting up in bed attempting to eat breakfast patient asked how she was feeling patient reported sever dizziness and was unable to sit still in the bed patient unable to communicate thought to this nurse Doctor davidson notified and at bedside for assessment After assessment instructions given to take patient for a stat head and neck CTA patient transported by staff to CT.
[2019-10-14 08:27] LABS: Glucose Point of Care 105 mg/dL (70-110)
--- NOTE | 2019-10-14 08:39 | CT_ITS ---
WS: [id number] CT ANGIOGRAM CEREBRAL AND CAROTID ARTERIES HISTORY: slurred speech, left facial droop TECHNIQUE: CT angiogram is performed of the carotid and cerebral arteries. During arterial injection imaging is obtained from the skull vertex to the aortic arch in 1.25 mm imaging. Coronal and sagittal reformats are submitted. Additional multi planar reformats of the carotid and cerebral arteries are submitted, MIP imaging also reviewed. NASCET criteria utilized. All CT scans at [facility] use at least one of these dose optimization techniques: automated exposure control; mA and/or kV ad justment per patient size (includes targeted exams where dose is matched to clinical indication); or iterative reconstruction. CONTRAST: Omnipaque 350; 95 mL IV. DLP: 2323.79 mGy.cm COMPARISON: None available. Carotid Angiogram: Right carotid: Common carotid artery: Arises normally from the innominate artery. No significant plaque or stenosis. Internal carotid artery: At the bifurcation there is focal calcified plaque involving the proximal IC A. 57% stenosis. External carotid artery: Patent. Left carotid: Common carotid artery: Arises normally from the aorta. No significant plaque or stenosis. Internal carotid artery: No plaque or stenosis. External carotid artery: Patent. Right vertebral artery: Unremarkable. Left vertebral artery: Small caliber but patent. Arises normally from the subclavian artery. Subclavian arteries: No stenosis or significant abnormality. Upper thorax: Lungs are clear. Mildly prominent hilar lymphadenopathy measuring up to 9 mm. Thyroid gland: Normal. Osseous structures: Reversal the normal cervical lordosis. C3 and C4 anterolisthesis by 2 mm. No frac ture. CEREBRAL ANGIOGRAM: Intracranial vertebral arteries: Normal with no significant atherosclerosis. Basilar artery: No significant stenosis or occlusion. No aneurysm. Intracranial Internal carotid arteries: Demonstrates no significant stenosis or plaque. Middle cerebral arteries: Normal.01 Anterior cerebral arteries and ACOM: Normal. Posterior cerebral arteries and PCOM's: Normal. Dural venous sinuses are normally enhancing. Mastoid air cells: Normal. Paranasal sinuses: Normal. Calvarium: LEFT temporal craniotomy. CT/CT angio headneck* [id number] IMPRESSION: 1. Proximal RIGHT ICA stenosis 57%. 2. Unremarkable enterprise of [place].
[2019-10-14] MEDS: iohexol 350 mg/mL 100 mL Btl IV (09:01)
[2019-10-14 09:04] LABS: Glucose Point of Care 124 mg/dL (70-110)
[2019-10-14] MEDS: OXcarbazepine 300 mg Tablet 1200 MG PO ×2 (10:54→18:05)
[2019-10-14] MEDS: aspirin 81 mg EC Tablet PO (10:55)
[2019-10-14] MEDS: apixaban 5 mg Tablet PO ×2 (10:55→18:06)
[2019-10-14] MEDS: zonisamide 100 MG Capsule 300 MG PO ×2 (10:55→18:05)
--- NOTE | 2019-10-14 11:00 | PC.NURSE ---
patient face time with family family reports to this nurse that patient is not her self assured family that test was performed and awaiting results and that other doctors have been consulted on her case
--- NOTE | 2019-10-14 11:17 | PM.CONSULT ---
Providers/Reason For Consult Consulting Physican/Specialty*: Cardiovascular medicine Reason for Consult*: Atrial fibrillation Attending Physician: oGvind Sheridan MD Primary Care Provider: GUERRERO Douglass History of Present Illness History of Present Illness Soumya Avila is a 64 year old female who I was asked to see because of atrial fibrillation. She is a circumspect and reluctant historian at best. She arrived to the hospital 3 days ago on the but she cannot tell me exactly why she came in. She was apparently experiencing some shortness of breath and palpitations. She was found to be in atrial fibrillation. She was originally placed on a diltiazem drip. This was changed over to metoprolol and for some reason the metoprolol has been discontinued. She is now on short acting Cardizem every 6 hours. She has also been placed on Eliquis. The notes state that she has had a non-ST segment elevation CO and has had heart failure. I do not see documentation that would confirm either of those diagnoses necessarily. Her troponin was 14 and her chest x-ray did not show congestive heart failure. Her BNP was mildly elevated at 1433. Her heart rate has come under better control and is now running around upper 90s and low 100s. She is apparently told the commercial real estate appraiser that she is dizzy. She has been mildly orthostatic with a 10 to 15 mmHg drop in her blood pressure upon standing. She has not been hypotensive. In fact if anything she has been mildly hypertensive. When I talked to her today she told me that she just does not feel good. When I asked her what that means she cannot describe it. She states that she thinks she is sick to her stomach, has a headache and she states that she cannot walk. When I asked her why she cannot walk she says she does not know. She has no history of organic heart disease. She has had a multitude of testing since she has been here that includes an echo showing an ejection fraction of 50% with moderate mitral regurgitation and left atrial enlargement. She had a sestamibi examination which was normal. She has had [address] scans which were normal. She has had a head and neck CTA which showed a right internal carotid artery stenosis of 57%. I was asked to see her to determine whether it would be beneficial for her to undergo cardioversion. The chart states that she was found on the floor overnight. No one knows how she arrived on the floor. Review of Systems General: Reports: ROS unobtainable due to medical condition Meds/Allergies Home Medications and Allergies Home Medications Medication Instructions Recorded Confirmed Last Taken Type onabotulinumtoxinA 100 unit 200 unit IM .Q 3 months each 06/28/19 10/11/19 Unknown History solution for injection oxcarbazepine 600 mg tablet 1,200 mg PO BID 06/28/19 10/11/19 10/11/19 08:00 History zonisamide 100 mg capsule 300 mg PO BID 06/28/19 10/11/19 10/11/19 08:00 History sumatriptan succinate 100 mg tablet 100 mg PO .PRN #9 tab 07/01/19 10/11/19 Unknown Rx albuterol sulfate 90 mcg/actuation 2 puff INHALATION Q6H PRN #8.5 gm 08/09/19 10/11/19 Unknown Rx aerosol inhaler Effexor XR 75 mg PO DAILY 10/11/19 10/11/19 10/10/19 History Effexor XR 150 mg PO DAILY 10/11/19 10/11/19 10/10/19 History Valium 5 mg PO BEDTIME PRN 10/11/19 10/11/19 10/10/19 History mirtazapine 15 mg PO BEDTIME 10/11/19 10/11/19 10/10/19 History apixaban [Eliquis] 5 mg PO BID 30 Days #60 tab 10/13/19 Unknown Rx aspirin 81 mg PO DAILY 30 Days #30 tab 10/13/19 Unknown Rx atorvastatin 40 mg PO BEDTIME 30 Days #30 tab 10/13/19 Unknown Rx glucometer #1 ea 10/13/19 Unknown Rx metoprolol tartrate 25 mg PO BID 30 Days #60 tab 10/13/19 Unknown Rx nitroglycerin [Nitrostat] 0.4 mg SUBLINGUAL Q5M PRN 5 Days 10/13/19 Unknown Rx #5 tab Allergies Allergy/AdvReac Type Severity Reaction Status Date / Time morphine Allergy unknown Verified 10/11/19 16:22 Penicillins Allergy Unknown Verified 10/11/19 16:22 phenytoin [From Dilantin] Allergy Unknown Verified 10/11/19 16:22 Current Medications Current Medications Generic Name Dose Route Start Last Admin Trade Name Freq PRN Reason Stop Dose Admin Albuterol Sulfate 2 puff 10/11/19 23:59 10/12/19 20:29 Ventolin INHALATION 2 puff Q6H.RESPIRATORY PRN Administration shortness of breath or wheezing Apixaban 5 mg 10/12/19 10:30 10/14/19 10:55 Eliquis PO 5 mg BID DELANO Administration Aspirin 81 mg 10/12/19 09:00 10/14/19 10:55 Aspirin Ec PO 81 mg DAILY DELANO Administration Atorvastatin Calcium 40 mg 10/11/19 23:45 10/13/19 21:31 Lipitor PO 40 mg BEDTIME DELANO Administration Diltiazem HCl 30 mg 10/13/19 14:30 10/14/19 10:55 Cardizem PO 30 mg Q6H DELANO Administration Insulin Aspart 0 unit 10/12/19 12:00 10/14/19 07:14 Novolog SUBCUT Not Given TIDWM DELANO Protocol Mirtazapine 15 mg 10/12/19 21:00 10/13/19 21:31 Remeron PO 15 mg BEDTIME DELANO Administration Ondansetron HCl 4 mg 10/11/19 23:40 10/13/19 19:59 Zofran IVP 4 mg Q8H PRN Administration vomiting, or N/V if npo Oxcarbazepine 1,200 mg 10/12/19 00:45 10/14/19 10:54 Trileptal PO 1,200 mg BID DELANO Administration Venlafaxine HCl 225 mg 10/12/19 00:37 10/13/19 21:31 Effexor Xr PO 225 mg BEDTIME DELANO Administration Zonisamide 300 mg 10/12/19 00:31 10/14/19 10:55 Zonegran PO 300 mg BID DELANO Administration PFSH Acute PFSH: Medical History (Updated 10/14/19 @ 11:25 by Donaldo Tobias MD) Carotid stenosis Chronic knee pain Cigarette nicotine dependence Major depression, recurrent, full remission Seizures Vascular dementia without behavioral disturbance Surgical History H/O brain surgery H/O section History of back surgery History of cholecystectomy Status post VNS (vagus nerve stimulator) placement Social History Smoking and tobacco status: former smoker Quit status (tobacco): has quit using tobacco Year quit tobacco: 2019 Smoking risk assessment/counseling performed?: Yes Tobacco counseling given: counseling >3 minutes Vitals/I&O/Wt Last Vital Signs Temp 97.6 F 10/14/19 11:00 Pulse 107 H 10/14/19 11:00 Resp 17 10/14/19 11:00 BP 144/77 10/14/19 11:00 Pulse Ox 94 10/14/19 11:00 10/13/19 10/14/19 10/14/19 22:59 06:59 14:59 Intake Total 120 / 120 300 / 420 Balance 120 / 120 300 / 420 Physical Exam Narrative: EXAM NARRATIVE: GENERAL: In general she states that she does not feel well but looks in no distress HEENT: Exam within normal limits. NECK: Supple without jugular vein distention. The carotid upstroke is normal without bruits. BACK: Exam normal. LUNGS: Clear. HEART: Irregularly irregular rhythm ABDOMEN: Benign without organomegaly or tenderness. EXTREMITIES: No edema. NEUROLOGIC: Exam normal. SKIN: Unremarkable. Urinary Catheter Management^: Lomeli: Cath Placed During This Visit: yes, but has since been removed by the nurse Reason for Continuing Indwelling Catheter: Decision to DC Catheter Urinary Catheter Date of Insertion: 10/13/19 Urinary Catheter Time of Insertion: 00:45 Date Urinary Catheter Removed: 10/13/19 Time Urinary Catheter Discontinued: 12:00 Data Other Data: Other data: EKGs reveal atrial fibrillation initially with a rapid ventricular response now controlled. Head CT x2-. Sestamibi exam normal. Echocardiogram ejection fraction 50% with left atrial enlargement and moderate mitral regurgitation. Head and neck CTA reveals right internal carotid artery stenosis 57%. Troponin XIV. BNP 1433. Glomerular filtration rate 56 mL/min. A&P Assessment and plan (1) Chronic migraine without aura, intractable, with status migrainosus: Status: Acute (2) Temporal lobe epilepsy: Status: Acute (3) Major depression, recurrent, full remission: Status: Acute (4) Cigarette nicotine dependence: Status: Acute (5) Vascular dementia without behavioral disturbance: Status: Acute (6) Anemia: Status: Acute (7) Atrial fibrillation: Status: Acute Qualifiers: Atrial fibrillation type: unspecified Qualified Code(s): I48.91 - Unspecified atrial fibrillation (8) Type 2 diabetes mellitus: Status: Acute (9) Carotid stenosis: Status: Acute Additional A&P Information It is very difficult to tell whether the atrial fibrillation is causing any of her symptoms. She has so many other psychiatric and neurologic things going on that it is difficult to tell. At this point I would not cardiovert her since we would probably have to put her on an antiarrhythmic in order to do so. I fear the interaction of the antiarrhythmics to all of her psychiatric and neurologic medications. At this point those include Effexor, Remeron, Trileptal and Zonegran. I think the best thing is rate control and anticoagulation at this point. I doubt that her multitude of symptoms are specifically related to the atrial fibrillation so I do not think that cardioversion would benefit her at this point. I do not see the evidence for a myocardial infarction. With respect to congestive heart failure she could have had some volume overload related to the onset of atrial fibrillation with a rapid ventricular response contributed to by moderate mitral regurgitation. It seems she is intolerant to beta-blockers. [address] Valladares's note suggested that she was on Inderal in the past which did not help her headaches. Therefore I am going to increase her Cardizem to 60 mg 3 times daily in hopes that her blood pressure and heart rate come under better control. Consult Attestations Medical Necessity Statement: Not applicable Coding Level of Care Code New Pt Acute Pamphlet Distributor for [facility] Fwd Patient Type New History Detailed Exam Detailed Medical Decision Making Moderate Complexity Diagnoses Chronic migraine without aura, intractable, with status migrainosus G43.711 Temporal lobe epilepsy G40.109 Major depression, recurrent, full remission F33.42 Cigarette nicotine dependence F17.210 Vascular dementia without behavioral disturbance F01.50 Anemia D64.9 Atrial fibrillation I48.91 Atrial fibrillation type: unspecified Type 2 diabetes mellitus E11.9 Carotid stenosis I65.29
[2019-10-14 11:39] LABS: Glucose Point of Care 124 mg/dL (70-110)
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
--- NOTE | 2019-10-14 14:21 | P.PN_ITS ---
Subjective Subjective: Interval history: Overnight patient had episodes of slurred speech, forgetfulness, she was unsteady on her feet This morning when examined patient, she is forgetful at times, but is alert oriented x3, she has a mild dysarthria, no focal neurologic deficits, her NIH stroke scale was 1, no significant visual deficits, but still remains unsteady on her feet, some mild dysarthria at the end of her sentences, Patient denies any chest pain, any shortness of breath, any lightheadedness, any dizziness, states that she does not feel like herself today Vitals/I&O/Wt Last Vital Signs Temp 97.6 F 10/14/19 11:00 Pulse 107 H 10/14/19 11:00 Resp 17 10/14/19 11:00 BP 144/77 10/14/19 11:00 Pulse Ox 94 10/14/19 11:00 10/13/19 10/14/19 10/14/19 22:59 06:59 14:59 Intake Total 120 / 120 300 / 420 60 / 60 Output Total 200 / 200 Balance 120 / 120 300 / 420 -140 / -140 Physical Exam Const: COMMON NORMALS: no acute distress, patient oriented x3 and alert ORIENTATION/CONSCIOUSNESS: Yes oriented to person, Yes oriented to place and Yes oriented to time HENMT: COMMON NORMALS: normocephalic HEAD & SCALP: normocephalic Neck/C-Spine: COMMON NORMALS: no JVD Resp: COMMON NORMALS: normal respiratory effort, No retractions, No use of accessory muscles and clear to auscultation bilaterally AUSCULTATION: clear to auscultation bilaterally Cardio: COMMON NORMALS: no JVD, S1 normal heart sound present and S2 normal heart sound present RHYTHM: abnormal rhythm HEART SOUNDS: S1 normal heart sound present and S2 normal heart sound present GI: COMMON NORMALS: Normal to inspection, nondistended, normoactive bowel sounds present, Soft to palpation, non-tender, No hepatosplenomegaly present, no masses and no bruits PALPATION: Yes Soft to palpation and Yes No hepatosplenomegaly present Extremity: COMMON NORMALS: capillary refill normal, no clubbing, cyanosis or edema, no calf tenderness and no pedal edema Neuro: COMMON NORMALS: patient oriented x3, CN's II-XII intact bilaterally, moves all extremities, no focal motor deficits and no sensory deficits noted SENSORIUM/ORIENTATION: Yes alert, Yes oriented to person, Yes oriented to place, Yes oriented to time and Yes fluctuating sensorium SPEECH: Other neuro speech findings (Mild dysarthria) GAIT: Yes Ataxic gait present OTHER: [id number] abnormal bilaterally Psych: COMMON NORMALS: mental status grossly normal Urinary Catheter Management^: Lomeli: Cath Placed During This Visit: yes, but has since been removed by the nurse Reason for Continuing Indwelling Catheter: Decision to DC Catheter Urinary Catheter Date of Insertion: 10/13/19 Urinary Catheter Time of Insertion: 00:45 Date Urinary Catheter Removed: 10/13/19 Time Urinary Catheter Discontinued: 12:00 Data : 10/14/19 04:16 10/14/19 04:16 A&P Assessment and plan (1) Ataxic gait: -Has ataxic gait, physical therapy notes that she is quite unsteady on her feet, they are uncomfortable with any maneuvers on her feet, who states that she has a history of ataxia as outpatient, physical therapy -Has some dysarthria, especially at the end of her sentences, not real slurring of her speech -Does have bilateral cerebellar signs, positive finger to to nose, positive [id number] -Is having episodes of confusion -CT head when she felt was negative for intracranial bleed -CT head this morning negative for acute stroke, she does have focal encephalomalacia 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 Valladares, she thinks this is likely somatic, there is been stressors at home, her son recently returned home on Friday, patient is stressed, but there is a possibility of brainstem stroke Plan: -We will do MRI brain with and without contrast to rule out brainstem stroke, possible atypical Gullian Dunlap? -PT OT -Patient will likely require home health care on discharge Status: Acute (2) Altered mental status: -Patient has episodes of confusion, but after questioning is redirectable -I spoke to patient's daughter over the phone, who states that she does have episodes of confusion at home, has ataxia at home -During this hospitalization, patient has fallen once, has episodes of confusion -Remains afebrile, normotensive -UA unremarkable for UTI, chest x-ray negative for pneumonia -No other significant focal sources of infection -Patient had a CTA of the chest which was negative for pulmonary embolism -Likely patient has altered mental status secondary to early dementia, and thus being here in the hospital for the last 3 days has made her symptoms worse as she is in an unfamiliar environment -But if patient's symptomatology does not improve, will consult psychiatry Status: Acute (3) NSTEMI (non-ST elevated myocardial infarction): -Has complaints of chest pain, sounds cardiac in nature -Has extensive family history of CAD, mother from CAD in her 60s, greater than 30-year history of smoking -Cardiac stress test low probability of obstructive CAD Plan: -Continue to monitor for chest pain -Aspirin, statin Status: Acute (4) Atrial fibrillation: -New onset atrial fibrillation -Still remains unsteady on her feet even on Cardizem 30 every 6 hours, unable to perform orthostats as she is so unsteady -I will consult cardiology, for consideration of cardioversion as I feel that patient long-term is a poor candidate for rate control given her unsteadiness on her feet, and her risk of falls especially on anticoagulation, and as she remains quite unsteady on her feet even though she is on Cardizem Plan: -Continue telemetry monitoring - continue Cardizem 30 every 6 hours -[id number] score is 2, Eliquis 5 mg twice daily -Cardiology consulted Status: Acute Qualifiers: Atrial fibrillation type: unspecified Qualified Code(s): I48.91 - Unspecified atrial fibrillation (5) CHF (congestive heart failure): -Currently not in exacerbation Plan: -Lasix currently on hold, strict I's and O's, daily weights Status: Acute (6) Anemia: Hemoglobin 10.3 Status: Acute (7) Type 2 diabetes mellitus: -New onset type 2 diabetes mellitus, hemoglobin A1c 6.6 Plan: -Diabetic education -Check blood sugar 3 times daily -Discharged on metformin Status: Acute (8) Hilar adenopathy: -Patient CT scan shows evidence of hilar adenopathy, patient is a smoker greater than 30 years -Will require outpatient follow-up with oncology Status: Acute (9) Partial epilepsy secondarily generalized: Has vagal nerve stimulator placed Status: Acute (10) Fall: -Sounds like mechanical fall, related to possibly orthostatic hypotension related to blood pressure medications -We will give 500 cc bolus -Fall precautions, ambulate with assistance, PT OT, neurochecks -Orthostatic vitals -Stop beta-zofia Status: Acute Additional A&P Information DVT prophylaxis. eliquis CODE STATUS. The patient wants to be full code. The plan of care was discussed with the patient. She verbalized understanding and agreement. Attestations Medical Necessity Statement*: Patient requires continued hospitalization for A. fib, ataxic gait, altered mental status Coding Level of Care Code Acute [employer] Team Member for Chg Fwd Diagnoses Ataxic gait R26.0 Altered mental status R41.82 NSTEMI (non-ST elevated myocardial infarction) I21.4 Atrial fibrillation I48.91 Atrial fibrillation type: unspecified CHF (congestive heart failure) I50.9 Anemia D64.9 Type 2 diabetes mellitus E11.9 Hilar adenopathy R59.0 Partial epilepsy secondarily generalized Fall W19.XXXA
[2019-10-14] MEDS: sodium chloride 0.9% 1,000 ML 100 ML IV ×2 (14:28→23:29)
[2019-10-14 14:50] LABS: Urine Color Yellow (Yellow); pH Urine 5 (5-7)
[2019-10-14 14:51] LABS: Add Urine Microscopic? YES; Bilirubin Urine 1+ (NEGATIVE); Blood Urine 3+ (Negative); Glucose Urine UA Norm (Normal); Ketones Urine 1+ (Negative); Leukocyte Esterase Urine Negative (Negative); Nitrate Urine Negative (Negative); Protein Urine 1+ (Negative); Specific Gravity, Urine 1.015 (1.005-1.030); Urobilinogen Urine Norm (Negative)
[2019-10-14 14:52] LABS: Add Urine Culture? No; Bacteria Urine TRACE; RBC Urine 80-100 /hpf (0-2); Squamous Epithelial Cell Urine 0-4 (0-5); WBC Urine 0-4 /hpf (0-5)
[2019-10-14 18:29] LABS: Glucose Point of Care 116 mg/dL (70-110)
--- NOTE | 2019-10-14 19:39 | PC.NURSE ---
Patient's speech is clear at this time and patient is alert and oriented. Previous shift, patient had clear speech at times and at other times could not find her words and had slurred, slow speech. Will do neuro checks per order and continue to monitor.
--- NOTE | 2019-10-14 19:40 | PC.NURSE ---
Patient's bed alarm is set. Patient has been educated not to get up on her own and verbalized understanding.
[2019-10-14] MEDS: mirtazapine 15 mg Tablet PO (20:15)
[2019-10-14] MEDS: atorvastatin 40 mg Tablet PO (20:15)
[2019-10-14] MEDS: dilTIAZem 60 mg Tablet PO (20:15)
[2019-10-14] MEDS: venlafaxine ER (24HR) 75 mg Capsule 225 MG PO (20:15)
[2019-10-14 20:44] LABS: Glucose Point of Care 106 mg/dL (70-110)
--- NOTE | 2019-10-14 21:56 | PC.NURSE ---
Nurse felt unsafe getting patient out of bed even with 2 assist due to unstableness and weakness and jitteryness when sitting on side of bed. Bedpan used. Bed alarm reset.
[2019-10-15] VITALS (11 sets, daily range): BP systolic 124–180; BP diastolic 64–120; PULSE 75–120; RESP 16–22; TEMP 36.4–36.9; O2SAT 94–98
--- NOTE | 2019-10-15 00:59 | PC.NURSE ---
Dr. Jaimes notified of patient blood pressure of 180/120 and heart rate of 120. PO Cardizem not due until 3 AM. Manual and automatic blood pressure both tried with similar results. Ordered to give 10 mg IVP Labetalol q4 hr PRN for high heart rate or high blood pressure.
[2019-10-15] MEDS: labetalol 5 mg/mL SDV 20mL 10 MG IVP (01:08)
--- NOTE | 2019-10-15 01:11 | PC.NURSE ---
Patient accidentally pulled IV out of right AC and pulled heart monitor wires off. Heart monitor wires placed back on and new IV started in left AC.
[2019-10-15] MEDS: dilTIAZem 60 mg Tablet PO ×4 (03:31→19:38)
[2019-10-15 04:44] LABS: Basophils % 0.3 %; Eosinophils % 0.2 %; Hematocrit 32.2 % (37.0-47.0); Hemoglobin 9.8 g/dL (11.5-15.3); Lymphocytes # 1.6 10^3/uL (0.8-4.8); Lymphocytes % 15.2 %; Mean Corpuscular HGB Conc 30.4 g/dL (30.0-36.0); Mean Corpuscular Hemoglobin 24.4 pg (28.0-34.0); Mean Corpuscular Volume 80.1 fL (81-99); Mean Platelet Volume 10.5 fL (7.4-10.4); Monocytes # 0.4 10^3/uL (0.2-0.9); Monocytes % 4.1 %; Neutrophils # 8.2 10^3/uL (1.8-7.7); Neutrophils % 79.7 %; Nucleated Red Blood Cells % 0 %; Platelet Count 301 10^3/cmm (130-400); Red Blood Count 4.02 10^6/uL (4.1-5.3); Red Cell Distribution Width 16.5 % (12.1-15.1); White Blood Count 10.2 10^3/uL (4.0-10.0)
[2019-10-15 05:08] LABS: Alanine Aminotransferase 26 U/L (0-33); Albumin Level 3.9 g/dL (3.5-5.2); Alkaline Phosphatase 154 IU/L (35-105); Anion Gap 17.9 (5-19); Aspartate Amino Transferase 29 U/L (0-32); Blood Urea Nitrogen 22 mg/dL (8-23); Calcium 8.4 mg/dL (8.5-10.5); Carbon Dioxide 21 mmol/L (22-29); Chloride 102 mmol/L (98-107); Globulin 2.7 g/dL (1.3-4.6); Glomerular Filtration Rate 72.7 mL/min (90-130); Glucose 98 mg/dL (65-115); Magnesium 2.3 mg/dL (1.7-2.3); Osmolality Calculated 281 mOsm/kg (285-295); Phosphorus 2.7 mg/dL (2.5-4.5); Potassium 3.9 mmol/L (3.5-5.1); Sodium 137 mmol/L (136-145); Total Bilirubin 0.3 mg/dL (0.15-1.2); Total Protein 6.6 g/dL (6.6-8.7)
[2019-10-15 06:24] LABS: Glucose Point of Care 100 mg/dL (70-110)
--- NOTE | 2019-10-15 07:40 | PC.NURSE ---
Upon entering room, patient found to have urinated in bed and was removing all blankets, gown, and pulling at IV and telemetry. Complete bed change performed. Patient confused, repeatedly stating my head hurts. When asked to point to where it hurts the patient replies, it all does. Nurse unable to redirect patient. Patient unable to answer orientation questions. VS assessed. Dr. Sheridan notified. No intervention at this time. Nurse to continue to monitor.
--- NOTE | 2019-10-15 07:46 | P.PN_ITS ---
Subjective Subjective: Interval history: Patient continues to have symptoms. She states that she does not feel good. She cannot describe it further. She claims that she cannot walk. She continues to complain of headaches and multiple other neurologic symptoms. Dr. Valladares saw her yesterday. I agree there is a small possibility that the new onset atrial fibrillation could have caused a stroke but that seems unlikely. Cardioversion may actually make that worse at this time since we do not know how long she has been in atrial fibrillation. Her heart rate is been a little better controlled but still is running in the high 90s and occasionally slightly over 100. She is flat in bed this morning shaking. Vitals/I&O/Wt Last Vital Signs Temp 98.4 F 10/15/19 04:55 Pulse 107 H 10/15/19 04:55 Resp 22 H 10/15/19 04:55 BP 142/93 10/15/19 04:55 Pulse Ox 95 10/15/19 04:55 10/14/19 10/15/19 10/15/19 22:59 06:59 14:59 Intake Total 1101.667 / 1161.667 Output Total 250 / 450 Balance -250 / -390 1101.667 / 711.667 Weight last 48 hrs Weight 199 lb 8 oz Physical Exam Narrative: EXAM NARRATIVE: GENERAL: In general she is quiet lying in bed HEENT: Exam within normal limits. NECK: Supple without jugular vein distention. The carotid upstroke is normal without bruits. BACK: Exam normal. LUNGS: Clear. HEART: Irregular rate and rhythm ABDOMEN: Benign without organomegaly or tenderness. EXTREMITIES: No edema. NEUROLOGIC: Exam not done SKIN: Unremarkable. Urinary Catheter Management^: Lomeli: Cath Placed During This Visit: yes, but has since been removed by the nurse Reason for Continuing Indwelling Catheter: Decision to DC Catheter Urinary Catheter Date of Insertion: 10/13/19 Urinary Catheter Time of Insertion: 00:45 Date Urinary Catheter Removed: 10/13/19 Time Urinary Catheter Discontinued: 12:00 Data : 10/15/19 04:20 10/15/19 04:20 A&P Assessment and plan (1) Carotid stenosis: Status: Acute (2) Type 2 diabetes mellitus: Status: Acute (3) Atrial fibrillation: Status: Acute Qualifiers: Atrial fibrillation type: unspecified Qualified Code(s): I48.91 - Unspecified atrial fibrillation (4) Vascular dementia without behavioral disturbance: Status: Acute (5) Cigarette nicotine dependence: Status: Acute (6) Chronic migraine without aura, intractable, with status migrainosus: Status: Acute (7) Temporal lobe epilepsy: Status: Acute (8) Partial epilepsy secondarily generalized: Status: Acute (9) Altered mental status: Status: Acute (10) Anticoagulation adequate with anticoagulant therapy: Status: Acute Additional A&P Information Today I am going to increase her Cardizem to 60 mg every 6 hours. Once we get her heart rate under control then we will change her over to a long-acting form. I still believe rate control and anticoagulation is the best approach. Attestations Medical Necessity Statement*: Not applicable Coding Level of Care Code Established Pt Acute Title Assistant for Lisa Walker Patient Type Established History Detailed Exam Detailed Medical Decision Making Moderate Complexity Diagnoses Carotid stenosis I65.29 Type 2 diabetes mellitus E11.9 Atrial fibrillation I48.91 Atrial fibrillation type: unspecified Vascular dementia without behavioral disturbance F01.50 Cigarette nicotine dependence F17.210 Chronic migraine without aura, intractable, with status migrainosus G43.711 Temporal lobe epilepsy G40.109 Partial epilepsy secondarily generalized Altered mental status R41.82 Anticoagulation adequate with anticoagulant therapy Z79.01
[2019-10-15] MEDS: sulfamethoxazole-trimeth DS 160-800 mg Tablet 1 TAB PO ×2 (09:14→17:26)
[2019-10-15] MEDS: OXcarbazepine 300 mg Tablet 1200 MG PO ×2 (09:14→17:26)
[2019-10-15] MEDS: zonisamide 100 MG Capsule 300 MG PO ×2 (09:14→17:26)
[2019-10-15] MEDS: apixaban 5 mg Tablet PO ×2 (09:15→17:26)
[2019-10-15] MEDS: aspirin 81 mg EC Tablet PO (09:15)
[2019-10-15 09:40] LABS: Procalcitonin 0.07 ng/mL (0-0.5)
--- NOTE | 2019-10-15 09:45 | PC.NURSE ---
Physician notified of gaze preference, dilated pupils, slurred speech, confusion, increasing WBC. Physician at bedside; assessment performed. No new instructions ordered at this time.
[2019-10-15 09:50] LABS: C Reactive Protein 7.7 mg/L (0.0-4.9)
[2019-10-15 10:08] LABS: Erythrocyte Sedimentation Rate 21 mm/hr (0-15)
--- NOTE | 2019-10-15 10:50 | PC.NURSE ---
Willian heard from nurses station. nurse entered room. Patient stated she needed to pee. 2 nurse performed max assist to BSC. Patient could not maintain upright position on BSC without assistance. Patient assisted back to bed, bed alarm set.
--- NOTE | 2019-10-15 11:01 | PC.CHAP ---
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 foundation drill operator visit [] Patient/Family/Request visit [] Outpatient visit [] Follow-up visit [] Physician referral [] Code/Alert [] Routine visit [] Staff referral [] Actively dying [x] Patient sleeping [] Family support [] [] Out of room [] Palliative care [] [] Receiving care in room [] Pre-surgical visit [] Trauma [] Long length of stay [] ICU visit [x] Other: Follow up needed Relational/Emotional Strength [] Patient feels connected with others/family/visitors/staff [] Distress [] Loneliness/isolation [] Abandonment Spirituality of Patient [] Person of [place] [] Attends [employer] of their [place] [] Believes in Prayer [] Reads Bible or Mormonism materials [] There are Spiritual issues to be addressed Associate Manager Interventions [] Prayer [] Active listening [] Non-anxious presence [] Spiritual/emotional support [] Crisis/trauma care [] Spiritual counseling [] Bereavement support [] Provided bereavement packet [] Provided Bible/devotional materials [] Provided toy/stuffed animal, coloring book to patient or family member [] Provided Communion [] Anointing/[place] [] Salvation [] Completed spiritual assessment [] Other: Impact on Illness or Injury [] Angry [] Fearful [] Anxious [] Often cries [] Exhaustion [] Unable to work [] Unable to attend druze [] Unable to walk/stand [] Unable to read [] Unable to drive [] Unable to eat/drink [] Unable to sleep [] Unable to be with family [] Patient intubated [] Other: Summary Follow up needed Hernando Dejesus Time spent with patient 2 minutes
[2019-10-15 12:09] LABS: Glucose Point of Care 106 mg/dL (70-110)
--- NOTE | 2019-10-15 15:04 | P.CONIM_ITS ---
Providers/Reason for Consult Consulting Physican/Specialty*: psychiatry Reason for Consult*: altered mental status Attending Physician: Govind Sheridan MD Primary Care Provider: GUERRERO Douglass Psych Consult HPI History of Present Illness Soumya Avila is a 64 year old female who was admitted 3 days ago for palpitations and shortness of breath. Focus of attention was on treatment of her atrial fibrillation. She was started on a diltiazem drip. According to records, she reported that the symptoms improved with treatment. She reported that similar episodes had been had occurring off and on for the past several months. Prior to admission, she had been seeing on an outpatient basis and was found to be stable psychiatrically . She had been taking Effexor XR 225 mg daily, mirtazapine 15 mg at bedtime, and diazepam 5 mg as needed for anxiety. She was listed as having diagnoses of vascular dementia without behavioral disturbance and recurrent major depression?currently in remission. However following admission, she began having significant changes of mental status. According to records, she began to display some unexpected issues possibly associated with mental status. 10/13/2019: pt found on floor. Unknown how she got there. The chart states that she was found on the floor overnight. No one knows how she arrived on the floor. She was found on the floor beside her bed one morning. Investigatation ensued regarding the possibility that this may have been a syncopal event or associated with her atrial fibrillation. No contributing pathology was found to support the possibility that she may have had a stroke or a syncopal event. The next day she was noted by staff to have slurred speech and some confusion. 10/14/2019: slurred speech, forgetfulness; unsteady on her feet. Mild dysarthria but NIH scale =1 According to records, both of these events are unusual and not documented elsewhere in her medical record. In the excellent consult written by Dr. Valladares, a family reported that the patient was fine neurologically when she took her to the emergency department 4 days ago. She is on a rather high dose of oxcarbazepine but records indicate that she has been compliant with this dosage over a period of time. Venlafaxine was increased from 150mg to 225 mg earlier this year. No problems were reported on her last medication review 1 month ago. Meds Current Medications: Current Medications Generic Name Dose Route Start Last Admin Trade Name Freq PRN Reason Stop Dose Admin Albuterol Sulfate 2 puff 10/11/19 23:59 10/12/19 20:29 Ventolin INHALATION 2 puff Q6H.RESPIRATORY P RN Administration shortness of bashir th or wheezing Apixaban 5 mg 10/12/19 10:30 10/15/19 09:15 Eliquis PO 5 mg BID DELANO Administration Aspirin 81 mg 10/12/19 09:00 10/15/19 09:15 Aspirin Ec PO 81 mg DAILY DELANO Administration Atorvastatin Calci um 40 mg 10/11/19 23:45 10/14/19 20:15 Lipitor PO 40 mg BEDTIME DELANO Administration Diltiazem HCl 60 mg 10/15/19 08:00 10/15/19 13:50 Cardizem PO 60 mg Q6H DELANO Administration Insulin Aspart 0 unit 10/12/19 12:00 10/15/19 11:58 Novolog SUBCUT Not Given [facility] Protocol Labetalol HCl 10 mg 10/15/19 00:57 10/15/19 01:08 Trandate IVP 10 mg Q4H PRN Administration high BP or HR Mirtazapine 15 mg 10/12/19 21:00 10/14/19 20:15 Remeron PO 15 mg BEDTIME DELANO Administration Ondansetron HCl 4 mg 10/11/19 23:40 10/13/19 19:59 Zofran IVP 4 mg Q8H PRN Administration vomiting, or N/V if npo Oxcarbazepine 1,200 mg 10/12/19 00:45 10/15/19 09:14 Trileptal PO 1,200 mg BID DELANO Administration Trimethoprim/Sulfa methoxazole 1 tab 10/15/19 09:00 10/15/19 09:14 Bactrim Ds PO 1 tab BID DELANO Administration Protocol Venlafaxine HCl 225 mg 10/12/19 00:37 10/14/19 20:15 Effexor Xr PO 225 mg BEDTIME DELANO Administration Zonisamide 300 mg 10/12/19 00:31 10/15/19 09:14 Zonegran PO 300 mg BID DELANO Administration PFSH NPU PFSH: Medical History (Updated 10/15/19 @ 07:50 by Donaldo Tobias MD) Anticoagulation adequate with anticoagulant therapy Carotid stenosis Chronic knee pain Cigarette nicotine dependence Major depression, recurrent, full remission Seizures Vascular dementia without behavioral disturbance Surgical History H/O brain surgery H/O section History of back surgery History of cholecystectomy Status post VNS (vagus nerve stimulator) placement Social History Smoking and tobacco status: former smoker Quit status (tobacco): has quit using tobacco Year quit tobacco: 2019 Smoking risk assessment/counseling performed?: Yes Tobacco counseling given: counseling >3 minutes Mental Status Exam MSE Comments: The patient was encountered in mid afternoon by this physician in room 111. She was asleep on her left side. She was in no apparent physical or emotional distress. Breathing was even and unlabored. She was unarousable by verbal stimuli. She did not open her eyes. She did respond verbally that my sons not here . Otherwise, she was unable to participate in any type of a conversation. Vitals/I&O/Wt Last Vital Signs Temp 98.1 F 10/15/19 12:25 Pulse 101 H 10/15/19 12:25 Resp 17 10/15/19 12:25 BP 152/94 10/15/19 12:25 Pulse Ox 98 10/15/19 12:25 10/15/19 10/15/19 10/15/19 06:59 14:59 22:59 Intake Total 1101.667 / 6429.073 6928.333 / 1268.333 Output Total 175 / 175 Balance 1101.667 / 764.533 0605.333 / 1093.333 Weight last 48 hrs Weight 90.492 kg Physical Exam Urinary Catheter Management^: Lomeli: Cath Placed During This Visit: yes, but has since been removed by the nurse Reason for Continuing Indwelling Catheter: Decision to DC Catheter Urinary Catheter Date of Insertion: 10/13/19 Urinary Catheter Time of Insertion: 00:45 Date Urinary Catheter Removed: 10/13/19 Time Urinary Catheter Discontinued: 12:00 Data NPU Labs: Other Labs: Laboratory Tests 10/13/19 10/13/19 10/14/19 04:46 04:46 04:16 WBC 6.0 RBC Hgb Hct MCV Calcium 8.9 9.7 Phosphorus 10/14/19 10/15/19 10/15/19 04:16 04:20 04:20 WBC 8.5 10.2 H RBC 4.02 L Hgb 9.8 L Hct 32.2 L MCV 80.1 L Calcium 8.4 L Phosphorus 2.7 A&P Additional A&P Information Diagnosis: Delirium?of unknown etiology Assessment: The original concern was that some of her altered mental status presentation may be of a volitional or neurotic type. However at this time, the patient demonstrates obtundation. Her lack of arousal and inability to converse is not by choice of any kind. Reading records over time, this appears to be a progressive change in mental status. No clear etiology is apparent. Recommendations: It would be reasonable to reduce polypharmacy by discontinuing her mirtazapine and lowering her venlafaxine 250 mg daily. Avoiding her as needed dose of diazepam would further reduce potential for sedation. I will return to visit the patient tomorrow and continue support through the consultation service. The next physician in the service takes over in 48 hours and I will convey the presence of this issue to that physician on his arrival. Attestations NPU Medical Necessity Statement*: Patient's length of stay will be determined by the physician of record Coding Level of Care Code Acute Nurse Liaison for Lisa Walker
--- NOTE | 2019-10-15 15:21 | PM.PN ---
Subjective Subjective: Interval history: This morning patient states that she is not feeling well, is drowsy during my examination, I was able to have her sit up, she states that she cannot see anything, but when I held my fingers in front of her and said how my fingers on my holding up, she said 2, she states that she can see me, see the nurse, patient's affect is quite strange, she states that she feels lightheaded, follows commands, she is quite unsteady on her feet, [id number] is abnormal, but other than that her neurologic exam is relatively benign, at the end of her sentences she has some dysarthria, no falls, no injuries overnight, no headaches, no blurry vision, no neck stiffness, no fevers, no chills Vitals/I&O/Wt Last Vital Signs Temp 98.1 F 10/15/19 12:25 Pulse 101 H 10/15/19 12:25 Resp 17 10/15/19 12:25 BP 152/94 10/15/19 12:25 Pulse Ox 98 10/15/19 12:25 10/15/19 10/15/19 10/15/19 06:59 14:59 22:59 Intake Total 1101.667 / 2290.657 8642.333 / 1268.333 Output Total 175 / 175 Balance 1101.667 / 814.358 3031.333 / 1093.333 Weight last 48 hrs Weight 90.492 kg Physical Exam Const: COMMON NORMALS: no acute distress, patient oriented x3 and alert ORIENTATION/CONSCIOUSNESS: Yes oriented to person, Yes oriented to place and Yes oriented to time HENMT: COMMON NORMALS: normocephalic HEAD & SCALP: normocephalic Neck/C-Spine: COMMON NORMALS: no meningeal signs and no JVD Resp: COMMON NORMALS: normal respiratory effort, No retractions, No use of accessory muscles and clear to auscultation bilaterally AUSCULTATION: clear to auscultation bilaterally Cardio: COMMON NORMALS: no JVD, S1 normal heart sound present and S2 normal heart sound present RHYTHM: abnormal rhythm HEART SOUNDS: S1 normal heart sound present and S2 normal heart sound present GI: COMMON NORMALS: Normal to inspection, nondistended, normoactive bowel sounds present, Soft to palpation, non-tender, No hepatosplenomegaly present, no masses and no bruits PALPATION: Yes Soft to palpation and Yes No hepatosplenomegaly present Extremity: COMMON NORMALS: capillary refill normal, no clubbing, cyanosis or edema, no calf tenderness and no pedal edema Neuro: COMMON NORMALS: patient oriented x3, CN's II-XII intact bilaterally, moves all extremities, no focal motor deficits and no sensory deficits noted SENSORIUM/ORIENTATION: Yes alert, Yes oriented to person, Yes oriented to place and Yes oriented to time MENINGEAL SIGNS: Yes no meningeal signs and No nuccal rigidity SPEECH: Other neuro speech findings (Mild dysarthria) GAIT: Yes Ataxic gait present MOTOR EXAM: 5/5 motor strength present throughout OTHER: [id number] abnormal bilaterally Psych: COMMON NORMALS: mental status grossly normal Urinary Catheter Management^: Lomeli: Cath Placed During This Visit: yes, but has since been removed by the nurse Reason for Continuing Indwelling Catheter: Decision to DC Catheter Urinary Catheter Date of Insertion: 10/13/19 Urinary Catheter Time of Insertion: 00:45 Date Urinary Catheter Removed: 10/13/19 Time Urinary Catheter Discontinued: 12:00 Data : 10/15/19 04:20 10/15/19 04:20 A&P Assessment and plan (1) Ataxic gait: -Has ataxic gait, physical therapy notes that she is quite unsteady on her feet, they are uncomfortable with any maneuvers on her feet, who states that she has a history of ataxia as outpatient, physical therapy -Has some dysarthria, especially at the end of her sentences, not real slurring of her speech -Does have bilateral cerebellar signs, positive finger to to nose, positive [id number] -Is having episodes of confusion -CT head when she felt was negative for intracranial bleed -CT head this morning negative for acute stroke, she does have focal encephalomalacia 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 Valladares, she thinks this is likely somatic, there is been stressors at home, her son recently returned home on Friday, patient is stressed, but there is a possibility of brainstem stroke -Unfortunate MRI of the brain cannot be performed as she has a vagal nerve stimulator, it certainly possible that she had a brainstem stroke, given her ataxia, but patient would be extremely unlikely as she has been on aspirin, Eliquis and statin throughout her admission -I spoke to Dr. Valladares over the phone, she agrees to continue aspirin, statin, Eliquis, skilled nursing placement Plan: -Patient has agreed to skilled nursing placement -PT OT -Patient will likely require home health care on discharge Status: Acute (2) Altered mental status: -Patient has episodes of confusion, but after questioning is redirectable -I spoke to patient's daughter over the phone, who states that she does have episodes of confusion at home, has ataxia at home -During this hospitalization, patient has fallen once, has episodes of confusion -Remains afebrile, normotensive -UA unremarkable for UTI, chest x-ray negative for pneumonia -No other significant focal sources of infection -Patient had a CTA of the chest which was negative for pulmonary embolism -Likely patient has altered mental status secondary to early dementia, and thus being here in the hospital for the last 4 days has made her symptoms worse as she is in an unfamiliar environment -I think that the likelihood of meningitis or encephalitis is very unlikely, as patient has no significant leukocytosis, no significant CRP or ESR evaluation, no neck pain, no neck rigidity, no fevers -I have taking care of the patient for the last 4 days, patient's initial presenting symptom was shortness of breath and chest pain, she was alert oriented x3, she answered all questions appropriately, but what has evolved over the last few days has been confusing, she has remained afebrile, normotensive, chest x-ray negative for pneumonia, UA negative for UTI, although was started on Bactrim for possible UTI, no significant neck pain, no headaches, no blurry vision, inflammatory markers are negligible, -I could certainly entertain the notion of possible meningitis or normal pressure hydrocephalus, or other rare entities, but after discussion with Dr. Valladares we feel that likely patient has had a brainstem stroke to explain her unsteadiness, but her confusion is best explained by anxiety, depression and likely conversion disorder -We will have psychiatry come by and see the patient Status: Acute (3) NSTEMI (non-ST elevated myocardial infarction): -Has complaints of chest pain, sounds cardiac in nature -Has extensive family history of CAD, mother from CAD in her 60s, greater than 30-year history of smoking -Cardiac stress test low probability of obstructive CAD Plan: -Continue to monitor for chest pain -Aspirin, statin Status: Acute (4) Atrial fibrillation: -New onset atrial fibrillation -Still remains unsteady on her feet even on Cardizem 30 every 6 hours, unable to perform orthostats as she is so unsteady -I will consult cardiology, for consideration of cardioversion as I feel that patient long-term is a poor candidate for rate control given her unsteadiness on her feet, and her risk of falls especially on anticoagulation, and as she remains quite unsteady on her feet even though she is on Cardizem Plan: -Continue telemetry monitoring - continue Cardizem 30 every 6 hours -[id number] score is 2, Eliquis 5 mg twice daily -Cardiology consulted Status: Acute Qualifiers: Atrial fibrillation type: unspecified Qualified Code(s): I48.91 - Unspecified atrial fibrillation (5) CHF (congestive heart failure): -Currently not in exacerbation Plan: -Lasix currently on hold, strict I's and O's, daily weights Status: Acute (6) Anemia: Hemoglobin 10.3 Status: Acute (7) Type 2 diabetes mellitus: -New onset type 2 diabetes mellitus, hemoglobin A1c 6.6 Plan: -Diabetic education -Check blood sugar 3 times daily -Discharged on metformin Status: Acute (8) Hilar adenopathy: -Patient CT scan shows evidence of hilar adenopathy, patient is a smoker greater than 30 years -Will require outpatient follow-up with oncology Status: Acute (9) Partial epilepsy secondarily generalized: Has vagal nerve stimulator placed Status: Acute (10) Fall: -Patient had a fall during her hospitalization, was found on the floor, she is not sure how she got there, thought that maybe she got up to use the bathroom, and fell, and just was too weak to get off the floor -Sounds like mechanical fall, related to possibly orthostatic hypotension related to blood pressure medications -Fall precautions, ambulate with assistance, PT OT, neurochecks -Orthostatic vitals -Stop beta-zofia Status: Acute Additional A&P Information DVT prophylaxis. eliquis CODE STATUS. The patient wants to be full code. The plan of care was discussed with the patient. She verbalized understanding and agreement. Attestations Medical Necessity Statement*: Patient requires continued hospitalization for ataxic gait, altered mental status, atrial fibrillation Coding Level of Care Code Acute Lokie Engineer for g Fwd Diagnoses Ataxic gait R26.0 Altered mental status R41.82 NSTEMI (non-ST elevated myocardial infarction) I21.4 Atrial fibrillation I48.91 Atrial fibrillation type: unspecified CHF (congestive heart failure) I50.9 Anemia D64.9 Type 2 diabetes mellitus E11.9 Hilar adenopathy R59.0 Partial epilepsy secondarily generalized Fall W19.XXXA
--- NOTE | 2019-10-15 16:27 | PC.OT ---
PER P.T./NURSING/FOREST FIRE FIGHTER: PATIENT HAS BEEN VERY CONFUSED TODAY. IS CURRENTLY SLEEPING. WILL HOLD OT TREATMENT TODAY.
[2019-10-15 16:39] LABS: Glucose Point of Care 116 mg/dL (70-110)
[2019-10-15 21:28] LABS: Glucose Point of Care 115 mg/dL (70-110)
[2019-10-15] MEDS: atorvastatin 40 mg Tablet PO (21:33)
[2019-10-15] MEDS: venlafaxine ER (24HR) 150 mg Capsule PO (21:33)
[2019-10-15] MEDS: mirtazapine 15 mg Tablet PO (21:33)
[2019-10-16] VITALS (8 sets, daily range): BP systolic 115–163; BP diastolic 67–99; PULSE 96–107; RESP 14–41; TEMP 36.4–36.7; O2SAT 93–99
[2019-10-16] MEDS: dilTIAZem 60 mg Tablet PO ×3 (02:38→14:09)
[2019-10-16 05:15] LABS: Basophils % 0.3 %; Eosinophils # 0.1 10^3/uL (0.0-0.8); Eosinophils % 0.6 %; Hemoglobin 10.6 g/dL (11.5-15.3); Lymphocytes # 2.2 10^3/uL (0.8-4.8); Lymphocytes % 22.4 %; Mean Corpuscular HGB Conc 30.3 g/dL (30.0-36.0); Mean Corpuscular Hemoglobin 24.7 pg (28.0-34.0); Mean Corpuscular Volume 81.4 fL (81-99); Mean Platelet Volume 10.3 fL (7.4-10.4); Monocytes # 0.5 10^3/uL (0.2-0.9); Monocytes % 5.1 %; Neutrophils # 7.1 10^3/uL (1.8-7.7); Neutrophils % 71.1 %; Nucleated Red Blood Cells % 0 %; Platelet Count 326 10^3/cmm (130-400); Red Cell Distribution Width 16.8 % (12.1-15.1); White Blood Count 9.9 10^3/uL (4.0-10.0)
[2019-10-16 05:19] LABS: Alanine Aminotransferase 30 U/L (0-33); Albumin Level 4.2 g/dL (3.5-5.2); Alkaline Phosphatase 166 IU/L (35-105); Anion Gap 17.8 (5-19); Aspartate Amino Transferase 33 U/L (0-32); Blood Urea Nitrogen 19 mg/dL (8-23); Calcium 9.6 mg/dL (8.5-10.5); Carbon Dioxide 22 mmol/L (22-29); Chloride 102 mmol/L (98-107); Globulin 2.9 g/dL (1.3-4.6); Glomerular Filtration Rate 72.7 mL/min (90-130); Glucose 118 mg/dL (65-115); Magnesium 2.3 mg/dL (1.7-2.3); Osmolality Calculated 284 mOsm/kg (285-295); Phosphorus 2.7 mg/dL (2.5-4.5); Potassium 3.8 mmol/L (3.5-5.1); Sodium 138 mmol/L (136-145); Total Bilirubin 0.3 mg/dL (0.15-1.2); Total Protein 7.1 g/dL (6.6-8.7)
[2019-10-16 05:32] LABS: Vitamin B12 398 pg/mL (232-1245)
[2019-10-16 05:39] LABS: Folate Level 4.6 ng/mL (4.8-37.3)
[2019-10-16 06:36] LABS: Glucose Point of Care 92 mg/dL (70-110)
[2019-10-16] MEDS: apixaban 5 mg Tablet PO ×2 (09:14→17:57)
[2019-10-16] MEDS: sulfamethoxazole-trimeth DS 160-800 mg Tablet 1 TAB PO (09:14)
[2019-10-16] MEDS: aspirin 81 mg EC Tablet PO (09:15)
[2019-10-16] MEDS: OXcarbazepine 300 mg Tablet 1200 MG PO ×2 (09:15→17:58)
[2019-10-16] MEDS: zonisamide 100 MG Capsule 300 MG PO ×2 (09:16→17:57)
--- NOTE | 2019-10-16 09:22 | PM.NPN ---
Subjective NPU Subjective: Interval history: The patient was encountered today asleep on her left side. She was aroused by verbal stimuli. The patient states that she is in [place] at [facility]. She says she is here because she had an accident. She could not elaborate. She was asked if she had seen a psychiatrist before. She said yes but could not give the name. However she could not give a physical description. The same with her therapist. But she cannot state the name but could give if physical description. Mental Status Exam MSE Comments: Mental Status Exam: Patient is encountered lying on her left side in the hospital bed. She is in no apparent distress. Breathing is unlabored. She is aroused by verbal stimuli. Hygiene is appropriate for hospitalization. There were no tics or tremors. There is no attention to internal stimuli. Speech: Speech is slurred and of slow rate and normal rhythm and easily understood. Thought processes: Thought processes are concrete. Judgment is not adequate for safety. Psychotic processes: There is no indication of guarding or paranoia. There is no attention to the internal stimuli. He did not endorse the presence of auditory or visual hallucinations Judgment: Insight is unable to be assessed. Problem solving skills are not adequate for safety. Orientation: The patient is oriented to person, place and situation. She is not oriented to time Memory: Memory was difficult to assess. She was able to tell a reasonable story of her past history and where she grew up but we have no corroborating evidence. Attention: The patient is drowsy Language: Verbalizations are coherent. Fund of knowledge: Fund of knowledge is not assessed Affect/Mood: Affect and mood could not be assessed . Psychosis: perception impaired due to fatigue and general sedation. She was interviewed for approximately 5 minutes before she laid her head down and went back to sleep without any notice. Vitals/I&O/Wt Last Vital Signs Temp 97.6 F 10/16/19 08:13 Pulse 99 10/16/19 08:13 Resp 20 H 10/16/19 08:13 BP 145/88 10/16/19 08:13 Pulse Ox 99 10/16/19 08:13 10/15/19 10/16/19 10/16/19 22:59 06:59 14:59 Intake Total 120 / 1388.333 100 / 1488.333 120 / 120 Balance 120 / 1213.333 100 / 1313.333 120 / 120 Weight last 48 hrs Weight 90.718 kg Weight 90.492 kg Physical Exam Urinary Catheter Management^: Lomeli: Cath Placed During This Visit: yes, but has since been removed by the nurse Reason for Continuing Indwelling Catheter: Decision to DC Catheter Urinary Catheter Date of Insertion: 10/13/19 Urinary Catheter Time of Insertion: 00:45 Date Urinary Catheter Removed: 10/13/19 Time Urinary Catheter Discontinued: 12:00 Data NPU : 10/16/19 04:47 10/16/19 04:47 A&P Additional A&P Information Diagnosis: Delirium?of unknown etiology Assessment: Mentation is impaired by level of arousal. When aroused, she demonstrates significant anomia. However her mental status has improved from yesterday. Recommendations: Venlafaxine has been reduced. If it is felt that this medication is playing a significant role in the current mental status, it would be reasonable to discontinue this medication completely. Absence of this medication for up to a week will not seriously affect her treatment for depression. Continue to avoid use of diazepam unless agitated I will convey the presence of this consult to the next psychiatrist in the rotation on his arrival. Attestations NPU Medical Necessity Statement*: Physician of record will determine length of stay. Coding Level of Care Code Acute Sergeant Of Officers for Lisa Walker
--- NOTE | 2019-10-16 10:41 | P.PN_ITS ---
Subjective Subjective: Interval history: No acute events overnight. Today morning on examination patient lying comfortably in bed, not confused. On examination patient did have dysarthria. As per the RN taking care of patient patient is more awake, more conversant than in the past. Patient denies of having any nausea, vomiting, headache, abdominal pain. Telemetry, labs, vitals noted. Vitals/I&O/Wt Last Vital Signs Temp 97.6 F 10/16/19 08:13 Pulse 99 10/16/19 08:13 Resp 20 H 10/16/19 08:13 BP 145/88 10/16/19 08:13 Pulse Ox 99 10/16/19 08:13 10/15/19 10/16/19 10/16/19 22:59 06:59 14:59 Intake Total 120 / 1388.333 100 / 1488.333 120 / 120 Balance 120 / 1213.333 100 / 1313.333 120 / 120 Weight last 48 hrs Weight 90.718 kg Weight 90.492 kg Physical Exam Narrative: EXAM NARRATIVE: General: No acute distress, AO x3, anxious HEENT: PERRLA, pupils bilaterally equal and reactive Chest: Normal vesicular breath sounds, no added sounds, equal good air entry bilaterally CVS: S1-S2 regular, no murmurs, no tachycardia, no gallops, no rubs Abdomen: Soft, nontender, no organomegaly, bowel sounds present Neuro: No focal deficits, no facial deformity, AO x3, power 5/5 in all limbs, no nystagmus, atypical tremor present. Urinary Catheter Management^: Lomeli: Cath Placed During This Visit: yes, but has since been removed by the nurse Reason for Continuing Indwelling Catheter: Decision to DC Catheter Urinary Catheter Date of Insertion: 10/13/19 Urinary Catheter Time of Insertion: 00:45 Date Urinary Catheter Removed: 10/13/19 Time Urinary Catheter Discontinued: 12:00 Data : 10/17/19 04:32 10/17/19 04:32 A&P Assessment and plan (1) Ataxic gait: Status: Acute (2) Altered mental status: Status: Acute (3) NSTEMI (non-ST elevated myocardial infarction): Status: Acute (4) Atrial fibrillation: Status: Acute Qualifiers: Atrial fibrillation type: unspecified Qualified Code(s): I48.91 - Unspecified atrial fibrillation (5) CHF (congestive heart failure): -Currently not in exacerbation Plan: -Lasix currently on hold, strict I's and O's, daily weights Status: Acute (6) Anemia: Status: Acute (7) Type 2 diabetes mellitus: -New onset type 2 diabetes mellitus, hemoglobin A1c 6.6 Plan: -Diabetic education -Check blood sugar 3 times daily -Discharged on metformin Status: Acute (8) Hilar adenopathy: -Patient CT scan shows evidence of hilar adenopathy, patient is a smoker greater than 30 years -Will require outpatient follow-up with oncology Status: Acute (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 Patient is followed up with neurology, psychiatry. Greatly appreciate input from Dr. Mccoy and Dr. Valladares. Patient symptoms are most likely a combination of a possible brainstem stroke along with polypharmacy of her psych medications. For possible brainstem stroke: Patient had CTA head which was negative for any embolic event given her history of A. fib, carotid artery showed stenosis of around 57% in proximal ICA. MRI brain could not be done because of presence of vagal nerve stimulator. Patient is already on Eliquis, aspirin and statin. For polypharmacy: Medications have been changed as per recommendations from psychiatry. We will discontinue mirtazapine as well. AMS: Patient has had some episodes of confusion earlier in the admission. Her symptoms most likely a combination of anxiety, depression and likely conversion disorder. As described above CT head is negative, patient does not have significant leukocytosis, no significant elevation of CRP or ESR for chances of meningitis or encephalitis are less. Infectious source have been ruled out with a negative UA, negative chest imaging. Patient has remained hemodynamically stable. She is doing better since psych medications have been readjusted. Atrial fibrillation: Greatly appreciate cardiology recommendations. Heart rate better maintained after increasing the dose of Cardizem, but still increasing more than 100 bpm on mild exertion. Niranjan Vas score 2, continue Eliquis 5 mg twice daily. NSTEMI: Stress test earlier in the admission shows low probability of obstructive disease. Continue to monitor for chest pain. Continue with aspirin and statin. CHF: Not in acute exacerbation at present. Echocardiogram October 11 shows EF 50%, dilated LA, moderately thickened mitral valve mild aortic regurgitation.. PT/OT. Patient would need SNF placement for further rehabilitation. DVT prophylaxis. eliquis CODE STATUS. The patient wants to be full code. The plan of care was discussed with the patient. She verbalized understanding and agreement. Attestations Medical Necessity Statement*: Ataxia, altered mental status, atrial fibrillation Time Spent in Patient Care: Greater than 35 minutes Coding Level of Care Code Acute Forensic Materials Engineer for [facility] Diagnoses Ataxic gait R26.0 Altered mental status R41.82 NSTEMI (non-ST elevated myocardial infarction) I21.4 Atrial fibrillation I48.91 Atrial fibrillation type: unspecified CHF (congestive heart failure) I50.9 Anemia D64.9 Type 2 diabetes mellitus E11.9 Hilar adenopathy R59.0 Partial epilepsy secondarily generalized Fall W19.XXXA
[2019-10-16 11:36] LABS: Glucose Point of Care 119 mg/dL (70-110)
--- NOTE | 2019-10-16 11:37 | PC.SOCIAL ---
*IMM* Patient received (updated) Important Message from Medicare. patient signed, original in chart, copy gave to the patient
--- NOTE | 2019-10-16 13:28 | PC.OT ---
OT tx attempted at this time. Pt had just completed ambulation with Physical Therapy and had returned to bed. Pt too fatigued to participate in OT tx at this time.Will attempt to see pt again tomorrow.
--- NOTE | 2019-10-16 15:52 | P.PN_ITS ---
Subjective Subjective: Interval history: Last 24 hours: No acute events. Subjective: Patient complains of fatigue but denies having any chest pain or palpitation. Medications: Reviewed: Yes Vitals/I&O/Wt Last Vital Signs Temp 97.7 F 10/16/19 12:00 Pulse 96 10/16/19 13:14 Resp 14 10/16/19 13:14 BP 141/99 10/16/19 12:00 Pulse Ox 96 10/16/19 13:14 10/16/19 10/16/19 10/16/19 06:59 14:59 22:59 Intake Total 100 / 1488.333 120 / 120 Output Total 75 / 75 Balance 100 / 1313.333 45 / 45 Weight last 48 hrs Weight 200 lb Weight 199 lb 8 oz Physical Exam Const: COMMON NORMALS: no acute distress, average body habitus and alert HENMT: COMMON NORMALS: normocephalic and atraumatic HEAD & SCALP: normocephalic and atraumatic Eye: COMMON NORMALS: conjunctivae normal and no scleral icterus CONJUNCTIVA: Yes conjunctivae normal Resp: COMMON NORMALS: clear to auscultation bilaterally AUSCULTATION: clear to auscultation bilaterally, no crackles, no rales and no rhonchi Cardio: RHYTHM: abnormal rhythm irregularly irregular HEART SOUNDS: no gallops, no murmurs and no rubs Extremity: GENERAL: No clubbing, No edema and No pallor Neuro: SENSORIUM/ORIENTATION: Yes alert Urinary Catheter Management^: Lomeli: Cath Placed During This Visit: yes, but has since been removed by the nurse Reason for Continuing Indwelling Catheter: Decision to DC Catheter Urinary Catheter Date of Insertion: 10/13/19 Urinary Catheter Time of Insertion: 00:45 Date Urinary Catheter Removed: 10/13/19 Time Urinary Catheter Discontinued: 12:00 Data : 10/16/19 04:47 10/16/19 04:47 Other Imaging: Radiologist's impression: [facility] myocardial perfusion imaging 13 Oct 2019 IMPRESSIONS #1. Unremarkable myocardial perfusion imaging #2. Normal LV ejection fraction of 50% #3. LV wall motion analysis revealing no gross wall motion abnormalities #4. Normal LV volume No significant coronary ischemia, based on the above findings. TTE (10/12/19) CONCLUSIONS 1-Normal left ventricular cavity size. Mildly reduced left ventricular systolic function. Left ventricular ejection fraction is estimated at 50 %. In the presence of atrial fibrillation diastolic function and wall motion abnormailty cannot be assessed accurately. Due to [id number] variation in atrial fibrillation left ventricle ejection fraction may not be assessed accurately as well. 2-Moderately increased left atrial size. 3-Moderately thickened mitral valve. Moderate mitral annular calcification. No mitral valve stenosis. Moderate mitral valve regurgitation. 4-Moderate aortic valve calcification. No aortic valve stenosis. Mild aortic valve regurgitation. 5-Thickened tricuspid valve. Severe tricuspid valve regurgitation. 6-There is no pericardial effusion. 7-Pulmonary artery systolic pressure is within normal limits. 8-Right atrial pressure is around 5 mm of mercury. 9-There are no prior echocardiogram studies to compare. A&P Assessment and plan (1) Atrial fibrillation: Rate and control strategy for management. Heart rate running 90s to low 100s on telemetry. -Continue Eliquis and increase diltiazem to 120 mg am and 180 mg PM. -continue to closely monitor. Status: Acute Qualifiers: Atrial fibrillation type: unspecified Qualified Code(s): I48.91 - Unspecified atrial fibrillation (2) Temporal lobe epilepsy: Status: Acute (3) Chronic migraine without aura, intractable, with status migrainosus: Status: Acute (4) Cigarette nicotine dependence: Status: Acute (5) Type 2 diabetes mellitus: Status: Acute Additional A&P Information AMS Ataxia Anemia Attestations Medical Necessity Statement*: As per primary team Coding Level of Care Code Acute Refractory Specialist for [facility] Diagnoses Atrial fibrillation I48.91 Atrial fibrillation type: unspecified Temporal lobe epilepsy G40.109 Chronic migraine without aura, intractable, with status migrainosus G43.711 Cigarette nicotine dependence F17.210 Type 2 diabetes mellitus E11.9
[2019-10-16 16:54] LABS: Glucose Point of Care 103 mg/dL (70-110)
[2019-10-16 19:37] LABS: Glucose Point of Care 109 mg/dL (70-110)
[2019-10-16] MEDS: atorvastatin 40 mg Tablet PO (20:42)
[2019-10-16] MEDS: venlafaxine ER (24HR) 150 mg Capsule PO (20:43)
[2019-10-17] VITALS (7 sets, daily range): BP systolic 111–173; BP diastolic 70–95; PULSE 95–110; RESP 14–22; TEMP 36.5–36.7; O2SAT 94–98; BMI 31.4
[2019-10-17 04:59] LABS: Basophils % 0.5 %; Eosinophils # 0.1 10^3/uL (0.0-0.8); Eosinophils % 0.6 %; Hematocrit 33.8 % (37.0-47.0); Hemoglobin 10.2 g/dL (11.5-15.3); Lymphocytes # 1.4 10^3/uL (0.8-4.8); Lymphocytes % 16.4 %; Mean Corpuscular HGB Conc 30.2 g/dL (30.0-36.0); Mean Corpuscular Hemoglobin 24.1 pg (28.0-34.0); Mean Corpuscular Volume 79.9 fL (81-99); Mean Platelet Volume 10.2 fL (7.4-10.4); Monocytes # 0.4 10^3/uL (0.2-0.9); Monocytes % 5.2 %; Neutrophils # 6.4 10^3/uL (1.8-7.7); Neutrophils % 76.9 %; Nucleated Red Blood Cells % 0 %; Platelet Count 277 10^3/cmm (130-400); Red Blood Count 4.23 10^6/uL (4.1-5.3); Red Cell Distribution Width 16.5 % (12.1-15.1); White Blood Count 8.3 10^3/uL (4.0-10.0)
[2019-10-17 05:23] LABS: Alanine Aminotransferase 28 U/L (0-33); Albumin Level 3.9 g/dL (3.5-5.2); Alkaline Phosphatase 162 IU/L (35-105); Anion Gap 17.8 (5-19); Aspartate Amino Transferase 26 U/L (0-32); Blood Urea Nitrogen 15 mg/dL (8-23); Calcium 9.1 mg/dL (8.5-10.5); Carbon Dioxide 21 mmol/L (22-29); Chloride 101 mmol/L (98-107); Globulin 2.7 g/dL (1.3-4.6); Glomerular Filtration Rate 72.7 mL/min (90-130); Glucose 95 mg/dL (65-115); Osmolality Calculated 278 mOsm/kg (285-295); Potassium 3.8 mmol/L (3.5-5.1); Sodium 136 mmol/L (136-145); Total Bilirubin 0.3 mg/dL (0.15-1.2); Total Protein 6.6 g/dL (6.6-8.7)
[2019-10-17 07:54] LABS: Glucose Point of Care 96 mg/dL (70-110)
[2019-10-17 08:49] LABS: Glucose Point of Care 102 mg/dL (70-110)
[2019-10-17] MEDS: apixaban 5 mg Tablet PO ×2 (10:30→22:29)
[2019-10-17] MEDS: aspirin 81 mg EC Tablet PO (10:30)
[2019-10-17] MEDS: zonisamide 100 MG Capsule 300 MG PO ×2 (10:31→22:27)
[2019-10-17] MEDS: OXcarbazepine 300 mg Tablet 1200 MG PO ×2 (10:31→22:28)
--- NOTE | 2019-10-17 10:37 | PM.PN ---
Subjective Subjective: Interval history: No acute events overnight. Patient is more awake alert and conversant today as compared to yesterday. Denies of any nausea, vomiting, headache, dizziness. On examination sitting up in chair. Medications: Reviewed: Yes Vitals/I&O/Wt Last Vital Signs Temp 97.7 F 10/17/19 10:24 Pulse 108 H 10/17/19 10:24 Resp 20 H 10/17/19 10:24 BP 173/95 10/17/19 10:24 Pulse Ox 97 10/17/19 10:24 10/16/19 10/17/19 10/17/19 22:59 06:59 14:59 Intake Total 120 / 240 300 / 540 Output Total 275 / 350 Balance -155 / -110 300 / 190 Weight last 48 hrs Weight 90.832 kg Weight 90.718 kg Physical Exam Narrative: EXAM NARRATIVE: General: No acute distress, AO x3, more conversant than yesterday HEENT: PERRLA, pupils bilaterally equal and reactive Chest: Normal vesicular breath sounds, no added sounds, equal good air entry bilaterally CVS: S1-S2 regular, no murmurs, no tachycardia, no gallops, no rubs Abdomen: Soft, nontender, no organomegaly, bowel sounds present Neuro: No focal deficits, no facial deformity, AO x3, power 5/5 in all limbs, no nystagmus, atypical tremor present. Urinary Catheter Management^: Lomeli: Cath Placed During This Visit: yes, but has since been removed by the nurse Reason for Continuing Indwelling Catheter: Decision to DC Catheter Urinary Catheter Date of Insertion: 10/13/19 Urinary Catheter Time of Insertion: 00:45 Date Urinary Catheter Removed: 10/13/19 Time Urinary Catheter Discontinued: 12:00 Data : 10/17/19 04:32 10/17/19 04:32 A&P Assessment and plan (1) Ataxic gait: Status: Acute (2) Altered mental status: Status: Acute (3) NSTEMI (non-ST elevated myocardial infarction): Status: Acute (4) Atrial fibrillation: Status: Acute Qualifiers: Atrial fibrillation type: unspecified Qualified Code(s): I48.91 - Unspecified atrial fibrillation (5) CHF (congestive heart failure): Status: Acute (6) Anemia: Status: Acute (7) Type 2 diabetes mellitus: -New onset type 2 diabetes mellitus, hemoglobin A1c 6.6 Plan: -Diabetic education -Check blood sugar 3 times daily -Discharged on metformin Status: Acute (8) Hilar adenopathy: -Patient CT scan shows evidence of hilar adenopathy, patient is a smoker greater than 30 years -Will require outpatient follow-up with oncology Status: Acute (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 Patient is followed up with neurology, psychiatry. Greatly appreciate input from Dr. Mccoy and Dr. Valladares. Patient symptoms are most likely a combination of a possible brainstem stroke along with polypharmacy of her psych medications. For possible brainstem stroke: Patient had CTA head which was negative for any embolic event given her history of A. fib, carotid artery showed stenosis of around 57% in proximal ICA. MRI brain could not be done because of presence of vagal nerve stimulator. Patient is already on Eliquis, aspirin and statin. For polypharmacy: Medications have been changed as per recommendations from psychiatry. Patient is on oxcarbazepine and Effexor 225 mg bedtime. We will continue to monitor. Patient's mental status is improving. AMS: Patient has had some episodes of confusion earlier in the admission. Her symptoms most likely a combination of anxiety, depression and likely conversion disorder. As described above CT head is negative, patient does not have significant leukocytosis, no significant elevation of CRP or ESR for chances of meningitis or encephalitis are less. Infectious source have been ruled out with a negative UA, negative chest imaging. Patient has remained hemodynamically stable. She is doing better since psych medications have been readjusted. Atrial fibrillation: Greatly appreciate cardiology recommendations. Overnight heart rate going up to 110 on mild exertion. Continue with Cardizem 180 mg in a.m. and 120 mg at bedtime. Continue to monitor blood pressures. Niranjan Vas score 2, continue Eliquis 5 mg twice daily. NSTEMI: Stress test earlier in the admission shows low probability of obstructive disease. Patient remains chest pain-free Continue to monitor for chest pain. Continue with aspirin and statin. CHF: Not in acute exacerbation at present. Echocardiogram October 11 shows EF 50%, dilated LA, moderately thickened mitral valve mild aortic regurgitation.. Strict input output charting, daily weights. PT/OT. Patient would need SNF placement for further rehabilitation. DVT prophylaxis. eliquis CODE STATUS. The patient wants to be full code. Attestations Medical Necessity Statement*: Ataxia altered mental status atrial fibrillation, awaiting safe discharge Time Spent in Patient Care: Greater than 35 minutes Coding Level of Care Code Acute Corrugator Machine Operator for [facility] Diagnoses Ataxic gait R26.0 Altered mental status R41.82 NSTEMI (non-ST elevated myocardial infarction) I21.4 Atrial fibrillation I48.91 Atrial fibrillation type: unspecified CHF (congestive heart failure) I50.9 Anemia D64.9 Type 2 diabetes mellitus E11.9 Hilar adenopathy R59.0 Partial epilepsy secondarily generalized Fall W19.XXXA
--- NOTE | 2019-10-17 13:48 | PM.PN ---
Subjective Subjective: Interval history: Last 24 hours: No acute events. Subjective: Patient feels better today. Denies having any chest pain or palpitation. Medications: Reviewed: Yes Vitals/I&O/Wt Last Vital Signs Temp 97.7 F 10/17/19 10:24 Pulse 95 10/17/19 12:23 Resp 14 10/17/19 12:23 BP 133/70 10/17/19 10:47 Pulse Ox 96 10/17/19 12:23 10/16/19 10/17/19 10/17/19 22:59 06:59 14:59 Intake Total 120 / 240 300 / 540 480 / 480 Output Total 275 / 350 400 / 400 Balance -155 / -110 300 / 190 80 / 80 Weight last 48 hrs Weight 200 lb 4 oz Weight 200 lb Physical Exam Narrative: EXAM NARRATIVE: Const COMMON NORMALS: no acute distress, average body habitus and alert HENMT COMMON NORMALS: normocephalic and atraumatic HEAD & SCALP: normocephalic and atraumatic Eye COMMON NORMALS: conjunctivae normal and no scleral icterus CONJUNCTIVA: Yes conjunctivae normal Resp COMMON NORMALS: clear to auscultation bilaterally AUSCULTATION: clear to auscultation bilaterally, no crackles, no rales and no rhonchi Cardio RHYTHM: abnormal rhythm irregularly irregular HEART SOUNDS: no gallops, no murmurs and no rubs Extremity GENERAL: No clubbing, No edema and No pallor Neuro SENSORIUM/ORIENTATION: Yes alert Urinary Catheter Management^: Lomeli: Cath Placed During This Visit: yes, but has since been removed by the nurse Reason for Continuing Indwelling Catheter: Decision to DC Catheter Urinary Catheter Date of Insertion: 10/13/19 Urinary Catheter Time of Insertion: 00:45 Date Urinary Catheter Removed: 10/13/19 Time Urinary Catheter Discontinued: 12:00 Data : 10/17/19 04:32 10/17/19 04:32 A&P Assessment and plan (1) Atrial fibrillation: Rate and control strategy for management. Heart rate running 90s to low 100s on telemetry. -Continue Eliquis and diltiazem to 120 mg am and 180 mg PM. May increase diltiazem to 180 mg twice a day if she is tachycardic. -continue to closely monitor. Status: Acute Qualifiers: Atrial fibrillation type: unspecified Qualified Code(s): I48.91 - Unspecified atrial fibrillation (2) Temporal lobe epilepsy: Status: Acute (3) Chronic migraine without aura, intractable, with status migrainosus: Status: Acute (4) Cigarette nicotine dependence: Status: Acute (5) Type 2 diabetes mellitus: Status: Acute Additional A&P Information AMS Ataxia Anemia Attestations Medical Necessity Statement*: As per primary team. Coding Level of Care Code Acute Manager Of Sustainability for [facility] Diagnoses Atrial fibrillation I48.91 Atrial fibrillation type: unspecified Temporal lobe epilepsy G40.109 Chronic migraine without aura, intractable, with status migrainosus G43.711 Cigarette nicotine dependence F17.210 Type 2 diabetes mellitus E11.9
[2019-10-17 17:27] LABS: Glucose Point of Care 88 mg/dL (70-110)
[2019-10-17 20:48] LABS: Glucose Point of Care 97 mg/dL (70-110)
[2019-10-17] MEDS: atorvastatin 40 mg Tablet PO (22:26)
[2019-10-17] MEDS: venlafaxine ER (24HR) 150 mg Capsule PO (22:27)
[2019-10-18] VITALS (9 sets, daily range): BP systolic 124–164; BP diastolic 87–93; PULSE 99–115; RESP 16–24; TEMP 36.6–36.8; O2SAT 94–98
[2019-10-18 06:02] LABS: Basophils % 0.3 %; Eosinophils # 0.1 10^3/uL (0.0-0.8); Hematocrit 36.4 % (37.0-47.0); Hemoglobin 11.2 g/dL (11.5-15.3); Lymphocytes # 1.2 10^3/uL (0.8-4.8); Lymphocytes % 12.5 %; Mean Corpuscular HGB Conc 30.8 g/dL (30.0-36.0); Mean Corpuscular Hemoglobin 24.7 pg (28.0-34.0); Mean Corpuscular Volume 80.4 fL (81-99); Mean Platelet Volume 9.7 fL (7.4-10.4); Monocytes # 0.5 10^3/uL (0.2-0.9); Monocytes % 5.1 %; Neutrophils % 80.8 %; Nucleated Red Blood Cells % 0 %; Platelet Count 307 10^3/cmm (130-400); Red Blood Count 4.53 10^6/uL (4.1-5.3); Red Cell Distribution Width 16.6 % (12.1-15.1); White Blood Count 9.9 10^3/uL (4.0-10.0)
[2019-10-18 06:22] LABS: Alanine Aminotransferase 28 U/L (0-33); Albumin Level 4.1 g/dL (3.5-5.2); Alkaline Phosphatase 170 IU/L (35-105); Anion Gap 18.7 (5-19); Aspartate Amino Transferase 30 U/L (0-32); Blood Urea Nitrogen 10 mg/dL (8-23); Calcium 8.3 mg/dL (8.5-10.5); Carbon Dioxide 17 mmol/L (22-29); Chloride 102 mmol/L (98-107); Globulin 2.6 g/dL (1.3-4.6); Glomerular Filtration Rate 101.3 mL/min (90-130); Glucose 95 mg/dL (65-115); Osmolality Calculated 274 mOsm/kg (285-295); Potassium 3.7 mmol/L (3.5-5.1); Sodium 134 mmol/L (136-145); Total Bilirubin 0.4 mg/dL (0.15-1.2); Total Protein 6.7 g/dL (6.6-8.7)
[2019-10-18 07:12] LABS: Glucose Point of Care 92 mg/dL (70-110)
--- NOTE | 2019-10-18 08:20 | PM.PN ---
Subjective Subjective: Interval history: Events of the weekend were reviewed. She seems much more alert this morning. She is interactive. I actually carried on a conversation with her that made sense. No chest pain or shortness of breath. No palpitations. No dizziness. Medications: Reviewed: Yes Vitals/I&O/Wt Last Vital Signs Temp 98.0 F 10/18/19 04:00 Pulse 103 H 10/18/19 07:46 Resp 18 10/18/19 07:46 BP 124/89 10/18/19 04:00 Pulse Ox 98 10/18/19 07:46 10/17/19 10/18/19 10/18/19 22:59 06:59 14:59 Intake Total 240 / 720 Output Total 120 / 520 Balance 120 / 200 Weight last 48 hrs Weight 200 lb 4 oz Physical Exam Narrative: EXAM NARRATIVE: GENERAL: In general she looks and feels well HEENT: Exam within normal limits. NECK: Supple without jugular vein distention. The carotid upstroke is normal without bruits. BACK: Exam normal. LUNGS: Clear. HEART: Irregular rate and rhythm ABDOMEN: Benign without organomegaly or tenderness. EXTREMITIES: No edema. NEUROLOGIC: Exam normal. SKIN: Unremarkable. Urinary Catheter Management^: Lomeli: Cath Placed During This Visit: yes, but has since been removed by the nurse Reason for Continuing Indwelling Catheter: Decision to DC Catheter Urinary Catheter Date of Insertion: 10/13/19 Urinary Catheter Time of Insertion: 00:45 Date Urinary Catheter Removed: 10/13/19 Time Urinary Catheter Discontinued: 12:00 Data : 10/18/19 05:36 10/18/19 05:36 A&P Assessment and plan (1) Anticoagulation adequate with anticoagulant therapy: Status: Acute (2) Altered mental status: Status: Acute (3) Ataxic gait: Status: Acute (4) Toxic encephalopathy: Status: Acute (5) Carotid stenosis: Status: Acute (6) Type 2 diabetes mellitus: Status: Acute (7) CHF (congestive heart failure): Status: Acute (8) Atrial fibrillation: Status: Acute Qualifiers: Atrial fibrillation type: unspecified Qualified Code(s): I48.91 - Unspecified atrial fibrillation (9) Anemia: Status: Acute (10) Cigarette nicotine dependence: Status: Acute (11) Chronic migraine without aura, intractable, with status migrainosus: Status: Acute (12) Partial epilepsy secondarily generalized: Status: Acute Additional A&P Information She is now on a total of 300 mg of long-acting Cardizem. I think we should leave the dose as is. Too much medication will get her in trouble. For now I think her cardiac status is stable. No changes made today. Attestations Medical Necessity Statement*: Not applicable Coding Level of Care Code Established Pt Acute Marketing Content Coordinator for Chg Fwd Patient Type Established History Detailed Exam Detailed Medical Decision Making Moderate Complexity Diagnoses Anticoagulation adequate with anticoagulant therapy Z79.01 Altered mental status R41.82 Ataxic gait R26.0 Toxic encephalopathy G92 Carotid stenosis I65.29 Type 2 diabetes mellitus E11.9 CHF (congestive heart failure) I50.9 Atrial fibrillation I48.91 Atrial fibrillation type: unspecified Anemia D64.9 Cigarette nicotine dependence F17.210 Chronic migraine without aura, intractable, with status migrainosus G43.711 Partial epilepsy secondarily generalized
[2019-10-18] MEDS: aspirin 81 mg EC Tablet PO (09:27)
[2019-10-18] MEDS: apixaban 5 mg Tablet PO ×2 (09:27→20:38)
[2019-10-18] MEDS: OXcarbazepine 300 mg Tablet 1200 MG PO ×2 (09:27→20:37)
[2019-10-18 11:42] LABS: Glucose Point of Care 102 mg/dL (70-110)
[2019-10-18] MEDS: zonisamide 100 MG Capsule 300 MG PO ×2 (13:30→20:37)
--- NOTE | 2019-10-18 16:22 | PM.PN ---
Subjective Subjective: Interval history: Overnight. Overnight patient was shifted to another room. Today morning patient is confused while she is in the new room. Patient is overall more alert than yesterday. Having meaningful conversations. Denies of having any nausea, vomiting, headache, palpitations. Labs and vitals noted. Medications: Reviewed: Yes Vitals/I&O/Wt Last Vital Signs Temp 98.0 F 10/18/19 15:30 Pulse 115 H 10/18/19 15:30 Resp 18 10/18/19 15:30 BP 133/91 10/18/19 15:30 Pulse Ox 94 10/18/19 15:30 10/18/19 10/18/19 10/18/19 06:59 14:59 22:59 Intake Total 60 / 60 Balance 60 / 60 Weight last 48 hrs Weight 90.832 kg Physical Exam Narrative: EXAM NARRATIVE: General: No acute distress, AO x3, more conversant than yesterday HEENT: PERRLA, pupils bilaterally equal and reactive Chest: Normal vesicular breath sounds, no added sounds, equal good air entry bilaterally CVS: S1-S2 irregularly irregular , no murmurs, no tachycardia, no gallops, no rubs Abdomen: Soft, nontender, no organomegaly, bowel sounds present Neuro: No focal deficits, no facial deformity, AO x3, power 5/5 in all limbs, no nystagmus, atypical tremor present. Urinary Catheter Management^: Lomeli: Cath Placed During This Visit: yes, but has since been removed by the nurse Reason for Continuing Indwelling Catheter: Decision to DC Catheter Urinary Catheter Date of Insertion: 10/13/19 Urinary Catheter Time of Insertion: 00:45 Date Urinary Catheter Removed: 10/13/19 Time Urinary Catheter Discontinued: 12:00 Data : 10/18/19 05:36 10/18/19 05:36 A&P Assessment and plan (1) Ataxic gait: Status: Acute (2) Altered mental status: Status: Acute (3) Atrial fibrillation: Status: Acute Qualifiers: Atrial fibrillation type: unspecified Qualified Code(s): I48.91 - Unspecified atrial fibrillation (4) CHF (congestive heart failure): Status: Acute (5) Anemia: Status: Acute (6) Type 2 diabetes mellitus: -New onset type 2 diabetes mellitus, hemoglobin A1c 6.6 Plan: -Diabetic education -Check blood sugar 3 times daily -Discharged on metformin Status: Acute (7) Hilar adenopathy: -Patient CT scan shows evidence of hilar adenopathy, patient is a smoker greater than 30 years -Will require outpatient follow-up with oncology Status: Acute (8) Partial epilepsy secondarily generalized: Has vagal nerve stimulator placed Status: Acute (9) Fall: Status: Acute Additional A&P Information 64-year-old female past medical history of depression, seizure disorder who came in because of palpitations shortness of breath found to be newly diagnosed A. fib with RVR started on Cardizem and Eliquis. During admission had chest pain for which stress test was done and was deemed normal. During hospitalization patient developed ataxia, confusion for which she was seen by neurologist and psychiatrist. It is believed patient's ataxia could be because of mixture of polypharmacy because of psych and seizure medications along with possible brainstem stroke. Overall patient has been doing a lot better now. Ataxia: Patient has had extensive work-up for same. Patient is followed up with neurology, psychiatry. Greatly appreciate input from Dr. Hidalgo and Dr. Valladares. Patient symptoms are most likely a combination of a possible brainstem stroke along with polypharmacy of her psych medications. For possible brainstem stroke: Patient had CTA head which was negative for any embolic event given her history of A. fib, carotid artery showed stenosis of around 57% in proximal ICA. MRI brain could not be done because of presence of vagal nerve stimulator. Patient is already on Eliquis, aspirin and statin. For polypharmacy: Medications have been changed as per recommendations from psychiatry. Patient is on oxcarbazepine and Effexor 225 mg bedtime. We will continue to monitor. Patient's mental status is improving. AMS: Patient has had some episodes of confusion earlier in the admission. Her symptoms most likely a combination of anxiety, depression and likely conversion disorder. As described above CT head is negative, patient does not have significant leukocytosis, no significant elevation of CRP or ESR for chances of meningitis or encephalitis are less. Infectious source have been ruled out with a negative UA, negative chest imaging. Patient has remained hemodynamically stable. She is doing better since psych medications have been readjusted. Atrial fibrillation: Greatly appreciate cardiology recommendations. Overnight heart rate going up to 110 on mild exertion. Overall patient is on 300 mg of Cardizem with 180 mg in morning and [address] at bedtime[address] As per Dr. Tobias not to increase Cardizem dose any further. Continue to monitor blood pressures. Niranjan Vas score 2, continue Eliquis 5 mg twice daily. NSTEMI: Stress test earlier in the admission shows low probability of obstructive disease. Patient remains chest pain-free Continue to monitor for chest pain. Continue with aspirin and statin. CHF: Not in acute exacerbation at present. Echocardiogram October 11 shows EF 50%, dilated LA, moderately thickened mitral valve mild aortic regurgitation.. Strict input output charting, daily weights. PT/OT. Patient would need SNF placement for further rehabilitation. DVT prophylaxis. eliquis CODE STATUS. The patient wants to be full code. Dispo: Due to severe deconditioning because of prolonged hospitalization along with newly developed ataxia patient was seen by physical therapy and it is deemed that for safe discharge is important for patient to have SNF placement. Preauthorization awaited. Attestations Medical Necessity Statement*: Ataxia, A. fib with RVR, awaiting authorization for safe discharge. Time Spent in Patient Care: Greater than 35 minutes Coding Level of Care Code Acute Optimization Specialist for Chg Fwd Diagnoses Ataxic gait R26.0 Altered mental status R41.82 Atrial fibrillation I48.91 Atrial fibrillation type: unspecified CHF (congestive heart failure) I50.9 Anemia D64.9 Type 2 diabetes mellitus E11.9 Hilar adenopathy R59.0 Partial epilepsy secondarily generalized Fall W19.XXXA
[2019-10-18 20:26] LABS: Glucose Point of Care 90 mg/dL (70-110)
[2019-10-18] MEDS: atorvastatin 40 mg Tablet PO (20:38)
[2019-10-18] MEDS: venlafaxine ER (24HR) 150 mg Capsule PO (20:38)
[2019-10-19] VITALS (8 sets, daily range): BP systolic 128–167; BP diastolic 61–93; PULSE 100–115; RESP 16–29; TEMP 36.5–36.8; O2SAT 94–96
--- NOTE | 2019-10-19 05:05 | PC.NURSE ---
Patient was offered a bed bath. Patient was asked do you want a bed bath? Patient replied with I promised I'd eat.
--- NOTE | 2019-10-19 06:56 | PM.PN ---
Subjective Subjective: Interval history: Soumya is much less communicative this morning. She did not answer for the first few questions I asked her. When I asked her if she had pain she said yes . When I asked her where she said in my body . There was no more meaningful interaction. Heart rates consistently in the high 90s low 100s and increased with movement. Medications: Reviewed: Yes Vitals/I&O/Wt Last Vital Signs Temp 97.7 F 10/19/19 04:00 Pulse 115 H 10/19/19 04:00 Resp 19 H 10/19/19 04:00 BP 128/61 10/19/19 04:00 Pulse Ox 95 10/19/19 04:00 10/18/19 10/18/19 10/19/19 14:59 22:59 06:59 Intake Total 60 / 200 / 260 Balance 60 / 60 200 / 260 Physical Exam Narrative: EXAM NARRATIVE: GENERAL: Sleepy HEENT: Exam within normal limits. NECK: Supple without jugular vein distention. The carotid upstroke is normal without bruits. BACK: Exam normal. LUNGS: Clear. HEART: Regular rate and rhythm. ABDOMEN: Benign without organomegaly or tenderness. EXTREMITIES: No edema. NEUROLOGIC: Exam normal. SKIN: Unremarkable. Urinary Catheter Management^: Lomeli: Cath Placed During This Visit: yes, but has since been removed by the nurse Reason for Continuing Indwelling Catheter: Decision to DC Catheter Urinary Catheter Date of Insertion: 10/13/19 Urinary Catheter Time of Insertion: 00:45 Date Urinary Catheter Removed: 10/13/19 Time Urinary Catheter Discontinued: 12:00 Data : 10/18/19 05:36 10/18/19 05:36 A&P Assessment and plan (1) Anticoagulation adequate with anticoagulant therapy: Status: Acute (2) Altered mental status: Status: Acute (3) Ataxic gait: Status: Acute (4) Toxic encephalopathy: Status: Acute (5) Carotid stenosis: Status: Acute (6) Type 2 diabetes mellitus: Status: Acute (7) CHF (congestive heart failure): Status: Acute (8) Atrial fibrillation: Status: Acute Qualifiers: Atrial fibrillation type: unspecified Qualified Code(s): I48.91 - Unspecified atrial fibrillation (9) Anemia: Status: Acute (10) Cigarette nicotine dependence: Status: Acute (11) Chronic migraine without aura, intractable, with status migrainosus: Status: Acute (12) Partial epilepsy secondarily generalized: Status: Acute (13) Temporal lobe epilepsy: Status: Acute Additional A&P Information Today I will increase the Cardizem to 240 mg in the morning and leave the 120 mg evening dose the same. Attestations Medical Necessity Statement*: Not applicable Coding Level of Care Code Acute Motor Bus Driver for Devong Fwd History Detailed Exam Detailed Medical Decision Making Moderate Complexity Diagnoses Anticoagulation adequate with anticoagulant therapy Z79.01 Altered mental status R41.82 Ataxic gait R26.0 Toxic encephalopathy G92 Carotid stenosis I65.29 Type 2 diabetes mellitus E11.9 CHF (congestive heart failure) I50.9 Atrial fibrillation I48.91 Atrial fibrillation type: unspecified Anemia D64.9 Cigarette nicotine dependence F17.210 Chronic migraine without aura, intractable, with status migrainosus G43.711 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
[2019-10-19] MEDS: acetaminophen 325 mg Tablet 650 MG PO (09:01)
[2019-10-19] MEDS: apixaban 5 mg Tablet PO ×2 (09:02→21:18)
[2019-10-19] MEDS: aspirin 81 mg EC Tablet PO (09:02)
[2019-10-19] MEDS: OXcarbazepine 300 mg Tablet 1200 MG PO ×2 (09:02→21:18)
[2019-10-19] MEDS: zonisamide 100 MG Capsule 300 MG PO ×2 (09:02→21:17)
--- NOTE | 2019-10-19 11:09 | PM.PN ---
Subjective Subjective: Interval history: No acute events overnight. Today morning my evaluation patient is less talkative. Denies of having any nausea, vomiting, headache. Patient has not had no episodes of confusion overnight. Vitals and labs noted. Medications: Reviewed: Yes Vitals/I&O/Wt Last Vital Signs Temp 98.2 F 10/19/19 08:00 Pulse 101 H 10/19/19 08:00 Resp 29 H 10/19/19 08:00 BP 163/93 10/19/19 08:00 Pulse Ox 95 10/19/19 08:00 10/18/19 10/19/19 10/19/19 22:59 06:59 14:59 Intake Total 200 / 260 120 / 120 Balance 200 / 260 120 / 120 Physical Exam Narrative: EXAM NARRATIVE: General: No acute distress, AO x3, more conversant than yesterday HEENT: PERRLA, pupils bilaterally equal and reactive Chest: Normal vesicular breath sounds, no added sounds, equal good air entry bilaterally CVS: S1-S2 irregularly irregular , no murmurs, no tachycardia, no gallops, no rubs Abdomen: Soft, nontender, no organomegaly, bowel sounds present Neuro: No focal deficits, no facial deformity, AO x3, power 5/5 in all limbs, no nystagmus, atypical tremor present. Urinary Catheter Management^: Lomeli: Cath Placed During This Visit: yes, but has since been removed by the nurse Reason for Continuing Indwelling Catheter: Decision to DC Catheter Urinary Catheter Date of Insertion: 10/13/19 Urinary Catheter Time of Insertion: 00:45 Date Urinary Catheter Removed: 10/13/19 Time Urinary Catheter Discontinued: 12:00 Data : 10/18/19 05:36 10/18/19 05:36 A&P Assessment and plan (1) Ataxic gait: Status: Acute (2) Altered mental status: Status: Acute (3) Atrial fibrillation: Status: Acute Qualifiers: Atrial fibrillation type: unspecified Qualified Code(s): I48.91 - Unspecified atrial fibrillation (4) CHF (congestive heart failure): Status: Acute (5) Anemia: Status: Acute (6) Type 2 diabetes mellitus: -New onset type 2 diabetes mellitus, hemoglobin A1c 6.6 Sugars have been stable so have stopped checking AC and at bedtime blood sugars. We will continue to monitor through BMPs daily. Patient will be discharged on oral metformin. Status: Acute (7) Hilar adenopathy: -Patient CT scan shows evidence of hilar adenopathy, patient is a smoker greater than 30 years -Will require outpatient follow-up with oncology Status: Acute (8) Partial epilepsy secondarily generalized: Has vagal nerve stimulator placed Status: Acute (9) Fall: Status: Acute Additional A&P Information 64-year-old female past medical history of depression, seizure disorder who came in because of palpitations shortness of breath found to be newly diagnosed A. fib with RVR started on Cardizem and Eliquis. During admission had chest pain for which stress test was done and was deemed normal. During hospitalization patient developed ataxia, confusion for which she was seen by neurologist and psychiatrist. It is believed patient's ataxia could be because of mixture of polypharmacy because of psych and seizure medications along with possible brainstem stroke. Overall patient has been doing a lot better now. Ataxia: Patient has had extensive work-up for same. Patient is followed up with neurology, psychiatry. Greatly appreciate input from Dr. Hidalgo and Dr. Valladares. Patient symptoms are most likely a combination of a possible brainstem stroke along with polypharmacy of her psych medications. For possible brainstem stroke: Patient had CTA head which was negative for any embolic event given her history of A. fib, carotid artery showed stenosis of around 57% in proximal ICA. MRI brain could not be done because of presence of vagal nerve stimulator. Patient is already on Eliquis, aspirin and statin. For polypharmacy: Medications have been changed as per recommendations from psychiatry. Patient is on oxcarbazepine and Effexor 225 mg bedtime. We will continue to monitor. Patient's mental status is improving. AMS: Patient has had some episodes of confusion earlier in the admission. Her symptoms most likely a combination of anxiety, depression and likely conversion disorder. As described above CT head is negative, patient does not have significant leukocytosis, no significant elevation of CRP or ESR for chances of meningitis or encephalitis are less. Infectious source have been ruled out with a negative UA, negative chest imaging. Patient has remained hemodynamically stable. She is doing better since psych medications have been readjusted. C/w occasional re-orienting. Fall precautions. Atrial fibrillation: Greatly appreciate cardiology recommendations. Overall patient is on 300 mg of Cardizem with 180 mg in morning and 120 at bedtime. As per Dr. Tobias not to increase Cardizem dose any further. Continue to monitor blood pressures. Niranjan Vas score 2, continue Eliquis 5 mg twice daily. NSTEMI: Stress test earlier in the admission shows low probability of obstructive disease. Patient remains chest pain-free Continue to monitor for chest pain. Continue with aspirin and statin. CHF: Not in acute exacerbation at present. Echocardiogram October 11 shows EF 50%, dilated LA, moderately thickened mitral valve mild aortic regurgitation.. Strict input output charting, daily weights. PT/OT. Patient would need SNF placement for further rehabilitation. DVT prophylaxis. eliquis CODE STATUS. The patient wants to be full code. Dispo: Due to severe deconditioning because of prolonged hospitalization along with newly developed ataxia patient was seen by physical therapy and it is deemed that for safe discharge is important for patient to have SNF placement. Preauthorization awaited. Attestations Medical Necessity Statement*: A. fib with RVR, ataxia, awaiting authorization for safe discharge. Time Spent in Patient Care: 16 - 35 minutes Coding Level of Care Code Acute President And Chief Executive Officer for Chg Fwd Diagnoses Ataxic gait R26.0 Altered mental status R41.82 Atrial fibrillation I48.91 Atrial fibrillation type: unspecified CHF (congestive heart failure) I50.9 Anemia D64.9 Type 2 diabetes mellitus E11.9 Hilar adenopathy R59.0 Partial epilepsy secondarily generalized Fall W19.XXXA
[2019-10-19] MEDS: atorvastatin 40 mg Tablet PO (21:18)
[2019-10-19] MEDS: venlafaxine ER (24HR) 150 mg Capsule PO (21:18)
[2019-10-20] VITALS (8 sets, daily range): BP systolic 129–159; BP diastolic 59–95; PULSE 92–113; RESP 15–26; TEMP 36.4–36.7; O2SAT 95–98
[2019-10-20 05:05] LABS: Basophils % 0.3 %; Eosinophils # 0.1 10^3/uL (0.0-0.8); Eosinophils % 1.2 %; Hematocrit 38.1 % (37.0-47.0); Hemoglobin 11.6 g/dL (11.5-15.3); Lymphocytes # 1.1 10^3/uL (0.8-4.8); Mean Corpuscular HGB Conc 30.4 g/dL (30.0-36.0); Mean Corpuscular Hemoglobin 24.1 pg (28.0-34.0); Mean Platelet Volume 9.7 fL (7.4-10.4); Monocytes # 0.5 10^3/uL (0.2-0.9); Monocytes % 6.2 %; Neutrophils # 5.8 10^3/uL (1.8-7.7); Neutrophils % 76.9 %; Nucleated Red Blood Cells % 0 %; Platelet Count 284 10^3/cmm (130-400); Red Blood Count 4.82 10^6/uL (4.1-5.3); Red Cell Distribution Width 16.4 % (12.1-15.1); White Blood Count 7.5 10^3/uL (4.0-10.0)
[2019-10-20 05:24] LABS: Alanine Aminotransferase 22 U/L (0-33); Albumin Level 4.1 g/dL (3.5-5.2); Alkaline Phosphatase 165 IU/L (35-105); Anion Gap 17.8 (5-19); Aspartate Amino Transferase 20 U/L (0-32); Blood Urea Nitrogen 12 mg/dL (8-23); Calcium 9.6 mg/dL (8.5-10.5); Carbon Dioxide 21 mmol/L (22-29); Chloride 99 mmol/L (98-107); Globulin 3.3 g/dL (1.3-4.6); Glomerular Filtration Rate 101.3 mL/min (90-130); Glucose 102 mg/dL (65-115); Osmolality Calculated 274 mOsm/kg (285-295); Potassium 3.8 mmol/L (3.5-5.1); Sodium 134 mmol/L (136-145); Total Bilirubin 0.3 mg/dL (0.15-1.2); Total Protein 7.4 g/dL (6.6-8.7)
--- NOTE | 2019-10-20 06:14 | PM.PN ---
Subjective Subjective: Interval history: Soumya is slightly more communicative this morning. She answers simple questions with yes or no answers. She does not elaborate. She tends to pick at the bed close. The nurses states she is a little unsteady on her feet. Heart rates are in the same range around 100 bpm. Medications: Reviewed: Yes Vitals/I&O/Wt Last Vital Signs Temp 97.6 F 10/20/19 04:00 Pulse 92 10/20/19 04:00 Resp 15 10/20/19 04:00 BP 145/86 10/20/19 04:00 Pulse Ox 98 10/20/19 04:00 10/19/19 10/19/19 10/20/19 14:59 22:59 06:59 Intake Total 240 / 240 240 / 480 150 / 630 Balance 240 / 240 240 / 480 150 / 630 Physical Exam Narrative: EXAM NARRATIVE: GENERAL: In general she is about the same and is comfortable at rest HEENT: Exam within normal limits. NECK: Supple without jugular vein distention. The carotid upstroke is normal without bruits. BACK: Exam normal. LUNGS: Clear. HEART: Irregular rate and rhythm ABDOMEN: Benign without organomegaly or tenderness. EXTREMITIES: No edema. NEUROLOGIC: Exam normal. SKIN: Unremarkable. Urinary Catheter Management^: Lomeli: Cath Placed During This Visit: yes, but has since been removed by the nurse Reason for Continuing Indwelling Catheter: Decision to DC Catheter Urinary Catheter Date of Insertion: 10/13/19 Urinary Catheter Time of Insertion: 00:45 Date Urinary Catheter Removed: 10/13/19 Time Urinary Catheter Discontinued: 12:00 Data : 10/20/19 04:00 10/20/19 04:00 A&P Assessment and plan (1) Anticoagulation adequate with anticoagulant therapy: Status: Acute (2) Altered mental status: Status: Acute (3) Ataxic gait: Status: Acute (4) Toxic encephalopathy: Status: Acute (5) Carotid stenosis: Status: Acute (6) Type 2 diabetes mellitus: Status: Acute (7) Atrial fibrillation: Status: Acute Qualifiers: Atrial fibrillation type: unspecified Qualified Code(s): I48.91 - Unspecified atrial fibrillation (8) Anemia: Status: Acute (9) Cigarette nicotine dependence: Status: Acute (10) Chronic migraine without aura, intractable, with status migrainosus: Status: Acute (11) Partial epilepsy secondarily generalized: Status: Acute (12) Temporal lobe epilepsy: Status: Acute Additional A&P Information Today I am going to add low-dose digoxin. Her heart rate still needs to come down some. 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
[2019-10-20] MEDS: digoxin 125 mcg Tablet PO (08:46)
[2019-10-20] MEDS: zonisamide 100 MG Capsule 300 MG PO (08:46)
[2019-10-20] MEDS: aspirin 81 mg EC Tablet PO (08:47)
[2019-10-20] MEDS: OXcarbazepine 300 mg Tablet 1200 MG PO (08:47)
[2019-10-20] MEDS: apixaban 5 mg Tablet PO (08:47)
--- NOTE | 2019-10-20 09:05 | PC.SOCIAL ---
IMM Updated Page 2 of IMM updated and given to patient. Initialed, dated, and timed and placed back in chart.
--- NOTE | 2019-10-20 09:41 | PC.CHAP ---
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 retail sales merchandiser visit [] Patient/Family/Request visit [] Outpatient visit [] Follow-up visit [] Physician referral [] Code/Alert [x] Routine visit [] Staff referral [] Actively dying [] Patient sleeping [] Family support [] [] Out of room [] Palliative care [] [] Receiving care in room [] Pre-surgical visit [] Trauma [] Long length of stay [] ICU visit [] Other: Relational/Emotional Strength [] Patient feels connected with others/family/visitors/staff [] Distress [] Loneliness/isolation [] Abandonment Spirituality of Patient [] Person of [place] [] Attends Rastafari of their [place] [] Believes in Prayer [] Reads Bible or Yarsanism materials [] There are Spiritual issues to be addressed Trench Digger Interventions [x] Prayer [] Active listening [] Non-anxious presence [] Spiritual/emotional support [] Crisis/trauma care [] Spiritual counseling [] Bereavement support [] Provided bereavement packet [] Provided Bible/devotional materials [] Provided toy/stuffed animal, coloring book to patient or family member [] Provided Communion [] Anointing/[place] [] Salvation [x] Completed spiritual assessment [] Other: Impact on Illness or Injury [] Angry [] Fearful [] Anxious [] Often cries [] Exhaustion [] Unable to work [] Unable to attend buddhist [] Unable to walk/stand [] Unable to read [] Unable to drive [] Unable to eat/drink [] Unable to sleep [] Unable to be with family [] Patient intubated [] Other: Summary Patients breathing improving. Time spent with patient 10 min
--- NOTE | 2019-10-20 10:16 | P.PN_ITS ---
Subjective Subjective: Interval history: No acute events overnight. Today morning my evaluation patient is less talkative. Denies of having any nausea, vomiting, headache. Patient has not had no episodes of confusion overnight. Vitals and labs noted. Medications: Reviewed: Yes Vitals/I&O/Wt Last Vital Signs Temp 97.8 F 10/20/19 07:34 Pulse 96 10/20/19 08:46 Resp 21 H 10/20/19 07:34 BP 159/95 10/20/19 07:34 Pulse Ox 95 10/20/19 07:34 10/19/19 10/20/19 10/20/19 22:59 06:59 14:59 Intake Total 240 / 480 150 / 630 240 / 240 Balance 240 / 480 150 / 630 240 / 240 Physical Exam Narrative: EXAM NARRATIVE: General: No acute distress, AO x3, more conversant than yesterday HEENT: PERRLA, pupils bilaterally equal and reactive Chest: Normal vesicular breath sounds, no added sounds, equal good air entry bilaterally CVS: S1-S2 irregularly irregular , no murmurs, no tachycardia, no gallops, no rubs Abdomen: Soft, nontender, no organomegaly, bowel sounds present Neuro: No focal deficits, no facial deformity, AO x3, power 5/5 in all limbs, no nystagmus, atypical tremor present. Urinary Catheter Management^: Lomeli: Cath Placed During This Visit: yes, but has since been removed by the nurse Reason for Continuing Indwelling Catheter: Decision to DC Catheter Urinary Catheter Date of Insertion: 10/13/19 Urinary Catheter Time of Insertion: 00:45 Date Urinary Catheter Removed: 10/13/19 Time Urinary Catheter Discontinued: 12:00 Data : 10/20/19 04:00 10/20/19 04:00 A&P Assessment and plan (1) Ataxic gait: Status: Acute (2) Altered mental status: Status: Acute (3) Atrial fibrillation: Status: Acute Qualifiers: Atrial fibrillation type: unspecified Qualified Code(s): I48.91 - Unspecified atrial fibrillation (4) CHF (congestive heart failure): Status: Acute (5) Anemia: Status: Acute (6) Type 2 diabetes mellitus: -New onset type 2 diabetes mellitus, hemoglobin A1c 6.6 Sugars have been stable so have stopped checking AC and at bedtime blood sugars. We will continue to monitor through BMPs daily. Patient will be discharged on oral metformin. Status: Acute (7) Hilar adenopathy: -Patient CT scan shows evidence of hilar adenopathy, patient is a smoker greater than 30 years -Will require outpatient follow-up with oncology Status: Acute (8) Partial epilepsy secondarily generalized: Has vagal nerve stimulator placed Status: Acute (9) Fall: Status: Acute Additional A&P Information 64-year-old female past medical history of depression, seizure disorder who came in because of palpitations shortness of breath found to be newly diagnosed A. fib with RVR started on Cardizem and Eliquis. During admission had chest pain for which stress test was done and was deemed normal. During hospitalization patient developed ataxia, confusion for which she was seen by neurologist and psychiatrist. It is believed patient's ataxia could be because of mixture of polypharmacy because of psych and seizure medications along with possible brainstem stroke. Overall patient has been doing a lot better now. Ataxia: Patient has had extensive work-up for same. Patient is followed up with neurology, psychiatry. Greatly appreciate input from Dr. Hidalgo and Dr. Valladares. Patient symptoms are most likely a combination of a possible brainstem stroke along with polypharmacy of her psych medications. For possible brainstem stroke: Patient had CTA head which was negative for any embolic event given her history of A. fib, carotid artery showed stenosis of around 57% in proximal ICA. MRI brain could not be done because of presence of vagal nerve stimulator. Patient is already on Eliquis, aspirin and statin. For polypharmacy: Medications have been changed as per recommendations from psychiatry. Patient is on oxcarbazepine and Effexor 225 mg bedtime. We will continue to monitor. Patient's mental status is improving. AMS: Patient has had some episodes of confusion earlier in the admission. Her symptoms most likely a combination of anxiety, depression and likely conversion disorder. As described above CT head is negative, patient does not have significant leukocytosis, no significant elevation of CRP or ESR for chances of meningitis or encephalitis are less. Infectious source have been ruled out with a negative UA, negative chest imaging. Patient has remained hemodynamically stable. She is doing better since psych medications have been readjusted. C/w occasional re-orienting. Fall precautions. Atrial fibrillation: Greatly appreciate cardiology recommendations. Overall patient is on 300 mg of Cardizem with 180 mg in morning and 120 at bedtime[address] As per Dr. Tobias not to increase Cardizem dose any further. Continue to monitor blood pressures. Niranjan Vas score 2, continue Eliquis 5 mg twice daily. NSTEMI: Stress test earlier in the admission shows low probability of obstructive disease. Patient remains chest pain-free Continue to monitor for chest pain. Continue with aspirin and statin. CHF: Not in acute exacerbation at present. Echocardiogram October 11 shows EF 50%, dilated LA, moderately thickened mitral valve mild aortic regurgitation.. Strict input output charting, daily weights. PT/OT. Patient would need SNF placement for further rehabilitation. DVT prophylaxis. eliquis CODE STATUS. The patient wants to be full code. Dispo: Due to severe deconditioning because of prolonged hospitalization along with newly developed ataxia patient was seen by physical therapy and it is deemed that for safe discharge is important for patient to have SNF placement. Preauthorization awaited. 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
[2019-10-20] MEDS: albuterol 8 gm MDI 2 PUFF INHALATION (11:25)
[2019-10-20] MEDS: acetaminophen 325 mg Tablet 650 MG PO (14:11)
--- NOTE | 2019-10-20 16:26 | PM.DCS ---
Discharge Providers Date of Admission: 10/13/19 16:29 Date of Discharge: October 20, 2019 Attending Provider at Admission: Antonio Jaimes Attending Provider at Discharge: Mark Mojica MD Primary Care Provider: GUERRERO Douglass Diagnoses at Discharge Discharge Diagnosis (1) Ataxic gait: Status: Acute (2) Altered mental status: Status: Acute (3) Atrial fibrillation: Status: Acute Qualifiers: Atrial fibrillation type: unspecified Qualified Code(s): I48.91 - Unspecified atrial fibrillation (4) CHF (congestive heart failure): Status: Acute (5) Anemia: Status: Acute (6) Type 2 diabetes mellitus: Status: Acute (7) Hilar adenopathy: Status: Acute (8) Partial epilepsy secondarily generalized: Status: Acute (9) Fall: Status: Acute Reason for Visit Reason for Visit: Reason For Visit: TROUBLE BREATHING Hospital Course Discharge Summary: 64-year-old female past medical history of depression, seizure disorder who came in because of palpitations shortness of breath found to be newly diagnosed A. fib with RVR started on Cardizem and Eliquis. During hospitalization she is been followed by cardiology and her Cardizem has been uptitrated and digoxin has been added to control her heart rate. She underwent a echocardiogram which revealed an EF of 50% with moderate MR, dilated LA and severe TR. During admission had chest pain for which stress test was done and was deemed normal. Aspirin has been added for secondary prevention. Blood work also showed mixed dyslipidemia and newly diagnosed type 2 diabetes mellitus for which she is been started on statin and metformin. She has been advised to check fasting blood sugars at least 3 times a week and random blood sugar 3 times a week. Her hospitalization stay was also complicated by development of ataxia, confusion for which she was seen by neurologist and psychiatrist. Extensive work-up has been done to rule out causes of ataxia and confusion. She underwent to CT heads and a CTA head and neck which were negative for any acute stroke but CTA head and neck showed 50% stenosis of right ICA. It is believed patient's ataxia could be because of mixture of polypharmacy because of psych and seizure medications along with possible brainstem stroke. MRI brain could not be done because of presence of left vagal nerve stimulator but patient is already on Eliquis for A. fib and aspirin statin as stated above. For polypharmacy she was followed by psychiatry in-house and her medications were adjusted. Post adjustment of medications patient's ataxia and confusion improved. Patient has been at her baseline for last 4 to 5 days without any episodes of agitation/combative behavior. During hospitalization she was seen by physical therapy and due to severe deconditioning and unsteady gait it was deemed best that patient is discharged to SNF for further rehabilitation for safe discharge. 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 Tobias, neurologist?Dr. Valladares in 1 week. Physical Exam Narrative: EXAM NARRATIVE: General: No acute distress, AO x3, calm, lying comfortably in bed HEENT: PERRLA, pupils bilaterally equal and reactive Chest: Normal vesicular breath sounds, no added sounds, equal good air entry bilaterally CVS: S1-S2 irregularly irregular, pansystolic murmur at apex and parasternal region on the left for intercostal space, pansystolic murmur at apex radiating to mid clavicle ,no tachycardia, no gallops, no rubs Abdomen: Soft, nontender, no organomegaly, bowel sounds present Neuro: No focal deficits, no facial deformity, positive [id number] bilaterally more on right than left Urinary Catheter Management^: Lomeli: Cath Placed During This Visit: yes, but has since been removed by the nurse Reason for Continuing Indwelling Catheter: Decision to DC Catheter Urinary Catheter Date of Insertion: 10/13/19 Urinary Catheter Time of Insertion: 00:45 Date Urinary Catheter Removed: 10/13/19 Time Urinary Catheter Discontinued: 12:00 Discharge Data Data Completed and Pending: Completed Studies During Hospitalization Category Date Time Status CT angio chest PE protcl [id number] Urge nt Cat Scan 10/11/19 19:[address] angio headneck * [id number] Urge nt Cat Scan 10/14/19 08:[address] head wo con* 7 0450 Routine Cat Scan 10/14/[address] head wo con* 7 0450 Stat Cat Scan 10/12/19 23:51 Completed Sestamibi Stress Test Request Routi ne Exams 10/12/19 10:21 Completed XR chest 1V jaiden ble [id number] Stat Exams 10/11/19 17:22 Completed XR chest 1V jaiden ble [id number] Stat Exams 10/12/19 19:42 Completed NM perri perf SPECT r/s* [id number] Routin e Nuc Med 10/13/19 07:00 Completed CV echo complete* [id number] Routine Ultrasound 10/12/19 23:45 Completed Labs from last 24 hours 10/20/19 10/20/19 04:00 04:00 WBC 7.5 RBC 4.82 Hgb 11.6 Hct 38.1 MCV 79.0 L MCH 24.1 L MCHC 30.4 RDW 16.4 H Plt Count 284 MPV 9.7 Neut % (Auto) 76.9 Lymph % (Auto) 15.0 [place] % (Auto) 6.2 Eos % (Auto) 1.2 Baso % (Auto) 0.3 Neut # (Auto) 5.8 Lymph # (Auto) 1.1 [place] # (Auto) 0.5 Eos # (Auto) 0.1 Baso # (Auto) 0.0 Nucleated RBC % (a uto) 0 Nucleated RBCs # 0.0 Sodium 134 L Potassium 3.8 Chloride 99 Carbon Dioxide 21 L Anion Gap 17.8 BUN 12 Creatinine 0.6 GFR Calculation 101.3 Glucose 102 Calculated Osmolal ity 274 L Calcium 9.6 Total Bilirubin 0.3 AST 20 ALT 22 Alkaline Phosphata se 165 H Total Protein 7.4 Albumin 4.1 Globulin 3.3 Vitals: Last Vital Signs Temp 97.9 F 10/20/19 14:50 Pulse 93 10/20/19 14:50 Resp 22 H 10/20/19 14:50 BP 146/59 10/20/19 14:50 Pulse Ox 98 10/20/19 14:50 Discharge Plan Discharge Patient Disposition: Xfer SNF Condition: Stable Prescriptions: New atorvastatin 40 mg Tablet 40 mg PO BEDTIME 30 Days Qty: 30 RF: 0 aspirin 81 mg Tablet,Delayed Release (Dr/Ec) 81 mg PO DAILY 30 Days Qty: 30 RF: 0 Nitrostat 0.4 mg Tablet, Sublingual 0.4 mg sublingual Q5M PRN (Reason: Chest Pain) 5 Days Qty: 5 RF: 0 Eliquis 5 mg Tablet 5 mg PO BID 30 Days Qty: 60 RF: 0 metformin 1,000 mg tablet 1,000 mg PO DAILY 30 Days Qty: 30 RF: 0 (DME) glucometer See Rx Instructions .Route .MEDSUPPLY Qty: 1 RF: 0 Lasix 40 mg tablet 40 mg PO DAILY 30 Days Qty: 30 RF: 0 Klor-Con M20 20 mEq tablet,ER particles/crystals 20 meq PO DAILY 30 Days Qty: 30 RF: 0 digoxin 125 mcg (0.125 mg) Tablet 125 mcg PO DAILY Qty: 30 RF: 0 diltiazem HCl 60 mg Capsule,Extended Release 12 Hr 240 mg PO QAM Qty: 30 RF: 0 diltiazem HCl 60 mg Capsule,Extended Release 12 Hr 120 mg PO QPM Qty: 30 RF: 0 Continued zonisamide [Zonegran] 100 mg capsule 300 mg PO BID RF: 0 Botox 100 unit recon soln 200 unit IM .Q 3 months RF: 0 oxcarbazepine 600 mg tablet 1,200 mg PO BID RF: 0 sumatriptan succinate [Imitrex] 100 mg tablet 100 mg PO .PRN Qty: 9 RF: 3 albuterol sulfate [ProAir HFA] 90 mcg/actuation HFA aerosol inhaler 2 puff INHALATION Q6H PRN (Reason: shortness of breath or wheezing) Qty: 8.5 RF: 0 Effexor XR 75 mg capsule,extended release 24hr 75 mg PO DAILY RF: 0 Effexor XR 150 mg capsule,extended release 24hr 150 mg PO DAILY RF: 0 Discontinued mirtazapine 15 mg tablet 15 mg PO BEDTIME RF: 0 diazepam [Valium] 5 mg tablet 5 mg PO BEDTIME PRN (Reason: anxiety) RF: 0 Discharge Orders: Discharge Order (Routine); Ordered 10/20/19 Ordered By: Mark Mojica Other Ambulatory Orders: Complete Blood Count w/Auto (Routine) Timeframe: 1 Week Location: Determined by Patient Ordered By: Govind Sheridan Comprehensive Metabolic Panel (Routine) Timeframe: 1 Week Facility: [facility] - Location: Lab - Main Lab Ordered By: Govind Sheridan Referrals: [facility] [Outside] Izzy Valladares MD [Physician] - 1 week Donaldo Tobias MD [Physician] - 1 week Bianka Cobian FNP [Primary Care Provider] - Discharge Diet: Cardiac and Diabetic Discharge Activity: Resume usual activity Patient Instructions: Apixaban (By mouth), Heart Failure (GEN), Atrial Fibrillation (DC), How to Check Your Blood Sugar (DC), Diabetic Foot Care (DC), Diabetes Mellitus Type 2 in Adults (GEN), DASH Eating Plan (DC) Activity Restrictions/Additional Instructions: -Please take Lasix 40 mg, with Klor-Con 20 mEq once daily for heart failure For atrial fibrillation discharge-take metoprolol 25 twice daily, Eliquis 5 mg twice daily, with a follow-up with cardiology as outpatient -For new onset type 2 diabetes mellitus, check blood sugars atleast FBS every day and RBS 3 times a week, write blood sugars into a blood sugar log, if blood sugar greater than 500 call primary care if blood sugar less than 60 drink or juice call primary care -follow-up with primary care provider in 1 wee, F/w with cardiology/Neurology in 1 week Discharge Attestations Time Spent in Discharge Care*: greater than 30 min Specific Discharge Activities: Specific discharge activities: educating and/or supporting family/caregiver, discussing with pcp/other providers, discussing with watch caser/social workers/dc planners, documenting/other paperwork and evaluating patient/reviewing data Status at Discharge: Cognitive status at discharge: mildly impaired cognition, Behavioral status at discharge: cooperative, Functional status at discharge: other assisted ambulation Overall status at discharge: patient has a new baseline Quality Metrics Clinical Quality Measures During this hospital stay, did patient experience: Stroke Contraindication to Antithrombotic: Antithrombotic prescribed Contraindication to Anticoagulation: Anticoagulation prescribed Contraindication to Statin: Statin prescribed Contraindication to tPA: Treatment not indicated Coding Level of Care Code Acute Hybrid Derivatives Trader for g Fwd Diagnoses Ataxic gait R26.0 Altered mental status R41.82 Atrial fibrillation I48.91 Atrial fibrillation type: unspecified CHF (congestive heart failure) I50.9 Anemia D64.9 Type 2 diabetes mellitus E11.9 Hilar adenopathy R59.0 Partial epilepsy secondarily generalized Fall W19.XXXA
--- NOTE | 2019-10-20 17:23 | PC.NURSE ---
REPORT CALLED TO CYRUS HIGGINS AT [facility]. DAUGHTER, GINGER, NOTIFIED OF PATIENT'S DISCHARGE.
== END 2019-10-20 17:23 | disposition skilled nursing facility (03) | DRG 308 ==
LOC: ER 21:16 → MEDSURG 10-12 07:34 → CSU 10-14 16:48
PROVIDERS: Family Medicine; Admitting Provider Internal Medicine; PCP Nurse Practitioner; Visit Provider Student in an Organized Health Care Education/Training Program
DX: I48.91 Unspecified atrial fibrillation (principal); G92 Toxic encephalopathy; I63.9 Cerebral infarction, unspecified; G40.109 Localization-related (focal) (partial) symptomatic epilepsy and epileptic syndromes with simple partial seizures, not intractable, without status epilepticus; E11.9 Type 2 diabetes mellitus without complications; R59.9 Enlarged lymph nodes, unspecified; D64.9 Anemia, unspecified; Z91.81 History of falling; E78.2 Mixed hyperlipidemia; I65.21 Occlusion and stenosis of right carotid artery; G89.29 Other chronic pain; F01.50 Vascular dementia, unspecified severity, without behavioral disturbance, psychotic disturbance, mood disturbance, and anxiety; F32.5 Major depressive disorder, single episode, in full remission; I50.9 Heart failure, unspecified; Z96.82 Presence of neurostimulator; Z87.891 Personal history of nicotine dependence; Z82.49 Family history of ischemic heart disease and other diseases of the circulatory system; I34.0 Nonrheumatic mitral (valve) insufficiency; G43.711 Chronic migraine without aura, intractable, with status migrainosus; J44.9 Chronic obstructive pulmonary disease, unspecified; R29.701 NIHSS score 1; R26.0 Ataxic gait; R47.81 Slurred speech
CPT/HCPCS: 12345; 36415; 36416; 51702; 70450; 70496; 70498; 71045; 71275; 78452; 80048; 80053; 80061; 81001; 81003; 82607; 82746; 82962; 83036; 83735; 83880; 84100; 84145; 84439; 84443; 84484; 85025; 85610; 85651; 85730; 86140; 93005; 93017; 93306; 94640; 96372; 96375; 97110; 97116; 97162; 97167; 97530; 97535; 99213; 99284; A9500; G0378; J1650; J1940; J2405; J2785; J3490; J7030; J7040; Q9967

== ENCOUNTER 2019-10-26 23:17 | Emergency (ER) | payer MEDICARE, SELFPAY ==
--- NOTE | 2019-10-26 23:19 | CTR_ITS ---
PROCEDURE INFORMATION: Exam: CT Head Without Contrast Exam date and time: 10/26/2019 11:34 PM Age: 64 years old Clinical indication: Injury or trauma; Initial encounter; Blunt trauma (contusions or hematomas); Consciousness not specified; Injury details: Fall/injury, altered mental status; Prior surgery; Patient HX: HX stroke TECHNIQUE: Imaging protocol: Computed tomography of the head without contrast. Radiation optimization: All CT scans at this facility use at least one of these dose optimization techniques: automated exposure control; mA and/or kV adjustment per patient size (includes targeted exams where dose is matched to clinical indication); or iterative reconstruction. COMPARISON: CT head wo con* [id number] 10/13/2019 12:38 AM RADIATION DOSE METRICS: Total DLP: 921.82 mGy-cm FINDINGS: Brain: No acute intracranial hemorrhage or mass effect. There is decreased attenuation in the periventricular white matter, likely from microvascular disease. Suspect old lacunar infarcts in the basal ganglia/internal capsule regions bilaterally. No definite acute infarct by CT. Large area of chronic encephalomalacia again seen in the left temporal region. Ventricles: Ventricle size is normal for age. Bones/joints: No definite acute skull fracture. Prior left craniotomy. Sinuses: Included paranasal sinuses are essentially clear. Mastoid air cells: No significant acute finding. Vasculature: Vascular calcifications in the internal carotid arteries. CT/CT head wo con* [id number] IMPRESSION: 1. No acute intracranial hemorrhage or mass effect. 2. Changes of microvascular disease, and old lacunar infarcts. 3. Postsurgical/chronic changes as above. 4. Other findings discussed above. Radiation Dose CTDIVOL = (mGy): DLP = 921.82 (mGy-cm)
--- NOTE | 2019-10-26 23:19 | CTR_ITS ---
PROCEDURE INFORMATION: Exam: CT Cervical Spine Without Contrast Exam date and time: 10/26/2019 11:19 PM Age: 64 years old Clinical indication: Injury or trauma; Fall; Initial encounter; Blunt trauma; Additional info: All/injury TECHNIQUE: Imaging protocol: Computed tomography images of the cervical spine without contrast. Radiation optimization: All CT scans at this facility use at least one of these dose optimization techniques: automated exposure control; mA and/or kV adjustment per patient size (includes targeted exams where dose is matched to clinical indication); or iterative reconstruction. COMPARISON: CR Cervical Spine AP/Lat* [id number] 01/13/2013 12:48 PM RADIATION DOSE METRICS: Total DLP: 766.74 mGy-cm FINDINGS: Vertebrae: On axial CT images, no definite acute fracture is visible. Sagittal and coronal reconstructions show no fracture or subluxation. Mild to moderate degenerative disc changes and facet joint arthritis at several levels. Discs/Spinal canal/Neural foramina: No definite/significant disc herniation by CT, MRI could be more sensitive if clinically indicated. Lungs: No significant acute abnormality in the upper lungs. CT/CT cervical spin wo con* [id number] IMPRESSION: 1. No definite acute fracture or subluxation by CT. 2. Other findings discussed above. Radiation Dose CTDIVOL = (mGy): DLP = 766.74 (mGy-cm)
[2019-10-26 23:35] VITALS: BP 131/74; PULSE 85; RESP 18; TEMP 36.6; O2SAT 95; BMI 27.8
[2019-10-26 23:40] VITALS: BP 126/78; PULSE 86; RESP 16; O2SAT 94
--- NOTE | 2019-10-26 23:43 | ED_ITS ---
HPI - Fall General: Chief Complaint: Fall Stated Complaint: FALL Time Seen by Provider: 10/26/19 23:30 History of Present Illness: HPI Narrative: arrived via ambulance. [facility] staff found her down and thought she might be more confused. possibly hit head, unsure how long she had been down complaint: fall Onset (ago): unknown Fall from: other (unknown) Fall witnessed: no [facility] Loss of consciousness: Unsure Prolonged down time: unclear Context: history of frequent falls Severity: mild Associated symptoms-after fall: Reports no associated symptoms; Denies abdominal pain, chest pain or headache(s) Review of Systems Narrative: denies any pain c-collar in place, Const: Denies: fever(s), chills or body aches Eyes: Denies: change in vision or blurry vision ENMT: Denies: throat pain or nasal congestion Card: Denies: chest pain or dyspnea on exertion Resp: Denies: dyspnea, productive cough or non-productive cough GI: Denies: abdominal pain, nausea or vomiting Musc: Denies: extremity pain Skin/Breast: Denies: rash Neuro: Denies: headache(s) Psych: Denies: anxiety or depression Teja/Lymph: Denies: easy bruising PFSH ED PFSH: Medical History (Updated 10/21/19 @ 00:00 by ) Anticoagulation adequate with anticoagulant therapy Carotid stenosis Chronic knee pain Cigarette nicotine dependence Major depression, recurrent, full remission Seizures Vascular dementia without behavioral disturbance Surgical History H/O brain surgery H/O section History of back surgery History of cholecystectomy Status post VNS (vagus nerve stimulator) placement Social History Smoking and tobacco status: never smoked Quit status (tobacco): has quit using tobacco Year quit tobacco: 2019 Smoking risk assessment/counseling performed?: Yes Tobacco counseling given: counseling >3 minutes Physical Exam Narrative: EXAM NARRATIVE: no abrasion or bruising to scalp Const: COMMON NORMALS: no acute distress, average body habitus and alert ORIENTATION/CONSCIOUSNESS: Yes oriented to person, Yes oriented to place and Yes oriented to time HENMT: COMMON NORMALS: normocephalic HEAD & SCALP: normal to inspection and normocephalic FACE & SINUS: normal facial exam Eye: COMMON NORMALS: conjunctivae normal GENERAL EYE: appearance normal, both eyes and all related structures CONJUNCTIVA: Yes conjunctivae normal Neck/C-Spine: COMMON NORMALS: no JVD Chest: COMMONS NORMALS: normal inspection of the chest Resp: COMMON NORMALS: normal respiratory effort and clear to auscultation bilaterally AUSCULTATION: clear to auscultation bilaterally Cardio: COMMON NORMALS: no JVD, regular rate and regular rhythm RATE: regular rate RHYTHM: regular rhythm GI: COMMON NORMALS: Normal to inspection, nondistended, normoactive bowel sounds present Extremity: COMMON NORMALS: normal to inspection and full ROM Neuro: COMMON NORMALS: moves all extremities, no focal motor deficits and no sensory deficits noted SENSORIUM/ORIENTATION: Yes alert, Yes oriented to person, Yes oriented to place and Yes oriented to time Course Vital Signs: Vital signs: Vital Signs Temperature 97.8 F 10/26/19 23:35 Pulse Rate 86 10/26/19 23:40 Respiratory Rate 16 10/26/19 23:40 Blood Pressure 126/78 10/26/19 23:40 Pulse Oximetry 94 10/26/19 23:40 Discharge Plan Discharge Prescriptions: No Action zonisamide [Zonegran] 100 mg capsule 300 mg PO BID RF: 0 Botox 100 unit recon soln 200 unit IM .Q 3 months RF: 0 oxcarbazepine 600 mg tablet 1,200 mg PO BID RF: 0 sumatriptan succinate [Imitrex] 100 mg tablet 100 mg PO .PRN Qty: 9 RF: 3 albuterol sulfate [ProAir HFA] 90 mcg/actuation HFA aerosol inhaler 2 puff INHALATION Q6H PRN (Reason: shortness of breath or wheezing) Qty: 8.5 RF: 0 Effexor XR 75 mg capsule,extended release 24hr 75 mg PO DAILY RF: 0 Effexor XR 150 mg capsule,extended release 24hr 150 mg PO DAILY RF: 0 atorvastatin 40 mg Tablet 40 mg PO BEDTIME 30 Days Qty: 30 RF: 0 aspirin 81 mg Tablet,Delayed Release (Dr/Ec) 81 mg PO DAILY 30 Days Qty: 30 RF: 0 Eliquis 5 mg Tablet 5 mg PO BID 30 Days Qty: 60 RF: 0 metformin 1,000 mg tablet 1,000 mg PO DAILY 30 Days Qty: 30 RF: 0 (DME) glucometer See Rx Instructions .Route .MEDSUPPLY Qty: 1 RF: 0 Lasix 40 mg tablet 40 mg PO DAILY 30 Days Qty: 30 RF: 0 Klor-Con M20 20 mEq tablet,ER particles/crystals 20 meq PO DAILY 30 Days Qty: 30 RF: 0 digoxin 125 mcg (0.125 mg) Tablet 125 mcg PO DAILY Qty: 30 RF: 0 diltiazem HCl 60 mg Capsule,Extended Release 12 Hr 240 mg PO QAM Qty: 30 RF: 0 diltiazem HCl 60 mg Capsule,Extended Release 12 Hr 120 mg PO QPM Qty: 30 RF: 0 Coding Level of Care Code ED Outdoor Pursuits Instructor for Lisa Walker
[2019-10-26 23:55] VITALS: PULSE 84; RESP 14; O2SAT 96
[2019-10-27] MEDS: HYDROcodone-acetaminophen 5-325 mg Tablet 0.5 TAB PO (01:43)
[2019-10-27 01:44] VITALS: BP 127/75; PULSE 81; RESP 16; O2SAT 99
[2019-10-27 02:37] VITALS: BP 142/61; PULSE 83; RESP 17; O2SAT 97
[2019-10-27 03:04] VITALS: BP 119/57; PULSE 88; RESP 15; O2SAT 97
[2019-10-27 03:19] VITALS: BP 133/86; PULSE 85; RESP 16; O2SAT 97
[2019-10-27 21:06] LABS: Glucose Point of Care 121 mg/dL (70-110)
== END 2019-10-27 03:21 | disposition home or self-care (01) ==
LOC: ER 10-27 00:17
PROVIDERS: Emergency Provider Nurse Practitioner Family; PCP Nurse Practitioner
DX: R41.0 Disorientation, unspecified (principal); Z79.82 Long term (current) use of aspirin; Z79.01 Long term (current) use of anticoagulants; Z87.891 Personal history of nicotine dependence
CPT/HCPCS: 12345; 36416; 70450; 72125; 82962; 99283

== ENCOUNTER 2019-10-27 12:32 | Inpatient (IN) | payer MEDICARE, SELFPAY ==
[2019-10-27] VITALS (10 sets, daily range): BP systolic 122–172; BP diastolic 61–109; PULSE 82–118; RESP 18–24; TEMP 36.6–36.7; O2SAT 91–98; BMI 24.3
--- NOTE | 2019-10-27 12:33 | CT_ITS ---
WS: [id number] CT HEAD NONCONTRAST HISTORY: stroke alert TECHNIQUE: Contiguous axial imaging performed through the brain in 2.5 mm imaging. Bone and soft tiss ue windows. Sagittal and coronal reformats reviewed. All CT scans at [facility] use at le ast one of these dose optimization techniques: automated exposure control; mA and/or kV adjustment pe r patient size (includes targeted exams where dose is matched to clinical indication); or iterative r econstruction. DLP: 859.21 mGy-cm. COMPARISON: 10/26/2019 No acute intracranial hemorrhage, midline shift or mass effect. These findings have progressed since 2017 but are stable since 10/13/2019. Multiple lacunar infarcts bilaterally and chronic microvascular ischemic changes are stable. Ventricles: Normal size with no hydrocephalus. No inferior displacement of the cerebellar tonsils. Paranasal sinuses: As visualized are clear. Mastoid air cells: Well pneumatized. Calvarium and scalp: Moderate sized LEFT craniotomy defect. Notified Christin Perez MD [facility] [place] at 10/27/2019 12:[address]/CT head wo con* [id number] IMPRESSION: 1. No acute intracranial hemorrhage or edema. 2. 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 3. Numerous bilateral lacunar infarcts and chronic ischemic changes are stable .
--- NOTE | 2019-10-27 13:07 | ECG_ITS ---
Measurements Intervals [place] Rate: 88 P: 140 DE: 366 QRS: 48 QRSD: 95 T: 248 QT: 369 QTc: [address] DEVIATION AND MODERATE T-WAVE ABNORMALITY, CONSIDER ANTEROLATERAL ISCHEMIA ST DEVIATION AND MODERATE T-WAVE ABNORMALITY, CONSIDER INFERIOR ISCHEMIA ARTIFACT Compared to ECG 10/12/2019 20:01:10 T-wave abnormality now present Possible ischemia now present Atrial fibrillation no longer present Intraventricular conduction delay no longer present Electronically Signed On 10-27-2019 19:51:40 CDT by Dilcia Jovel M.D. [email or web address]
--- NOTE | 2019-10-27 13:08 | P.PNCC_ITS ---
Stroke Alert Activation ED Arrival Date: 10/27/19 Last Known Normal/at Baseline: 3-4 hours ago Other Last Known Well Infomation: I was called stat for stroke alert. I am familiar with this 64-year-old woman who was recently discharged after presenting with shortness of breath and new onset of atrial fibrillation. She had a prolonged hospital stay as several days into the admission she developed new complaint of ataxia, took a fall and was found on the floor. I was not sure that she had not had a brainstem stroke. We cannot do an MRI because she has a vagal nerve stimulator. Her CAT scan was negative. CT angiogram did not show any disease in her posterior circulation. She has nonsignificant carotid stenosis. She was still mildly obtunded when she left here. She was not herself throughout the hospitalization. She came in last night having been found on the floor and she said she fell and did not know why. CT of the head was negative. Stroke alert was called when she was at the long-term this morning and I am not sure why they activated stroke team. EMS said that she was more unsteady. She is encephalopathic on my arrival, saying repeatedly that she needs to pee. She is perseverating on this and raising her left leg repeatedly after the neuro exam. I talked with her daughter at the time of her previous admission. Kaylynn told me that the patient was fine neurologically when she took her to the emergency department. She was complaining of shortness of breath for several weeks. She got worse after her son arrived. Her oxygenation was fine in the emergency room and her stress test was negative. 2 days into hospitalization she developed a tremor that prevented her from walking. Her oxcarbazepine tablets in her bottle at home confirmed that she took exactly the correct number of tablets. All of her studies including B12 and TSH were unremarkable. Her exam showed [id number] ataxia on both sides and she seemed obtunded, never making good eye contact with me. This morning she is similar but worse. Stroke Alert Activated by: EMS NIH Stroke Scale Time: 13:00 NIH stroke score NIHSS: Level Of Consciousness Questions - 1b: One Correct Best Gaze - 2: Normal Facial Palsy - 4: Normal Motor Arm Right - 5: No Drift Motor Arm Left - 5: No Drift Motor Leg Right - 6: No Drift Motor Leg Left - 6: No Drift Limb Ataxia - 7: Present In Two Limbs (Ataxia in all 4 extremities.) Sensory - 8: Normal Best Language - 9: No Aphasia Dysarthia - 10: Normal (She seems sedated or intoxicated) Stroke Alert Data/Treatment CT Impression: Her CT scan is unchanged. She has complete left temporal lobectomy. There is a little bit of density in her mid basilar artery but that is unchanged. Stroke Risk Factors: atrial fibrillation (On Eliquis) and smoker (She quit) tPA Contraindication: tPA Contraindication: Treatment not indcated Other Information: Oxcarbazepine 600 mg twice daily has been her dose for years and is unchanged. I asked Dr. Dr. Gomes to run an oxcarbazepine level. 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
[2019-10-27 13:33] LABS: Basophils # 0.1 10^3/uL (0.0-0.1); Basophils % 0.3 %; Eosinophils % 0.1 %; Hematocrit 44.6 % (37.0-47.0); Hemoglobin 13.6 g/dL (11.5-15.3); Lymphocytes # 1.6 10^3/uL (0.8-4.8); Lymphocytes % 10.5 %; Mean Corpuscular HGB Conc 30.5 g/dL (30.0-36.0); Mean Corpuscular Hemoglobin 23.8 pg (28.0-34.0); Mean Corpuscular Volume 78.1 fL (81-99); Monocytes # 0.8 10^3/uL (0.2-0.9); Monocytes % 5.6 %; Neutrophils # 12.2 10^3/uL (1.8-7.7); Neutrophils % 83.1 %; Nucleated Red Blood Cells % 0 %; Platelet Count 311 10^3/cmm (130-400); Red Blood Count 5.71 10^6/uL (4.1-5.3); Red Cell Distribution Width 16.6 % (12.1-15.1); White Blood Count 14.7 10^3/uL (4.0-10.0)
[2019-10-27 13:44] LABS: INR 1.15 (0.8-1.2)
[2019-10-27 13:45] LABS: Partial Thromboplastin Time 32.7 SECONDS (23.9-36.7)
[2019-10-27 13:53] LABS: Alanine Aminotransferase 32 U/L (0-33); Albumin Level 4.5 g/dL (3.5-5.2); Alkaline Phosphatase 169 IU/L (35-105); Anion Gap 19.2 (5-19); Aspartate Amino Transferase 37 U/L (0-32); Blood Urea Nitrogen 23 mg/dL (8-23); Calcium 9.8 mg/dL (8.5-10.5); Carbon Dioxide 27 mmol/L (22-29); Chloride 94 mmol/L (98-107); Globulin 3.3 g/dL (1.3-4.6); Glomerular Filtration Rate 56.2 mL/min (90-130); Glucose 131 mg/dL (65-115); Osmolality Calculated 281 mOsm/kg (285-295); Potassium 4.2 mmol/L (3.5-5.1); Sodium 136 mmol/L (136-145); Total Bilirubin 0.2 mg/dL (0.15-1.2); Total Protein 7.8 g/dL (6.6-8.7)
[2019-10-27 14:20] LABS: Add Urine Microscopic? NO
[2019-10-27 14:29] LABS: Glucose Urine UA Norm (Normal); Protein Urine Neg (Negative); Specific Gravity, Urine 1.015 (1.005-1.030); Urine Appearance Clear (CLEAR); Urine Color Yellow (Yellow); pH Urine 5 (5-7)
[2019-10-27 14:30] LABS: Bilirubin Urine Neg (NEGATIVE); Blood Urine Neg (Negative); Ketones Urine Negative (Negative); Leukocyte Esterase Urine Negative (Negative); Nitrate Urine Negative (Negative); Urobilinogen Urine Norm (Negative)
[2019-10-27 14:38] LABS: Amphetamines Screen Urine Negative (Negative); Barbiturates Screen Urine Negative (Negative); Benzodiazepines Screen Urine Positive (Negative); Cocaine Screen Urine Negative (Negative); Opiate Screen Urine Negative (Negative); PCP Screen Urine Negative (Negative); THC Screen Urine Negative (Negative)
--- NOTE | 2019-10-27 17:53 | ED_ITS ---
HPI - Neuro Symptoms/Deficit General: Chief Complaint: Neuro Symptoms/Deficit Stated Complaint: AMS Time Seen by Provider: 10/27/19 12:33 History of Present Illness: Associated symptoms: Deny chest pain, headache(s), malaise, nausea, syncope, vertigo or vomiting Review of Systems Const: Denies: fever(s), chills, fatigue or malaise Eyes: Denies: change in vision or blurry vision ENMT: Denies: nasal congestion Card: Denies: chest pain, palpitations, irregular heart rhythm, syncope or pre-syncope Resp: Denies: dyspnea, productive cough, non-productive cough or wheezing GI: Denies: abdominal pain, nausea, vomiting, hematemesis, diarrhea, constipation, hematochezia or melena : Denies: flank pain, dysuria or urinary frequency Musc: Denies: neck pain or back pain Skin/Breast: Denies: rash Neuro: Denies: headache(s), dizziness or vertigo Psych: Denies: anxiety or depression Endo: Denies: polyuria or polydipsia PFSH ED PFSH: Medical History (Updated 10/27/19 @ 00:17 by GUERRERO Negrete) Anticoagulation adequate with anticoagulant therapy Carotid stenosis Chronic knee pain Cigarette nicotine dependence Major depression, recurrent, full remission Seizures Vascular dementia without behavioral disturbance Surgical History H/O brain surgery H/O section History of back surgery History of cholecystectomy Status post VNS (vagus nerve stimulator) placement Social History Smoking and tobacco status: unknown if ever smoked Quit status (tobacco): has quit using tobacco Year quit tobacco: 2019 Smoking risk assessment/counseling performed?: Yes Tobacco counseling given: counseling >3 minutes Course Vital Signs: Vital signs: Vital Signs Pulse Rate 89 10/27/19 15:55 Respiratory Rate 22 H 10/27/19 15:55 Blood Pressure 145/104 10/27/19 15:55 Pulse Oximetry 97 10/27/19 15:55 MDM - Neuro Symptoms/Deficit Lab Data: Labs: Lab Results 10/27/19 10/27/19 10/27/19 Range/Units 13:23 13:23 13:24 WBC 14.7 H (4.0-10.0) 10^3/ uL RBC 5.71 H (4.1-5.3) 10^6/u L Hgb 13.6 (11.5-15.3) g/dL Hct 44.6 (37.0-47.0) % MCV 78.1 L (81-99) fL MCH 23.8 L (28.0-34.0) pg MCHC 30.5 (30.0-36.0) g/dL RDW 16.6 H (12.1-15.1) % Plt Count 311 (130-400) 10^3/c mm MPV 10.0 (7.4-10.4) fL Neut % (Auto) 83.1 % Lymph % (Auto) 10.5 % [place] % (Auto) 5.6 % Eos % (Auto) 0.1 % Baso % (Auto) 0.3 % Neut # (Auto) 12.2 H (1.8-7.7) 10^3/u L Lymph # (Auto) 1.6 (0.8-4.8) 10^3/u L [place] # (Auto) 0.8 (0.2-0.9) 10^3/u L Eos # (Auto) 0.0 (0.0-0.8) 10^3/u L Baso # (Auto) 0.1 (0.0-0.1) 10^3/u L Nucleated RBC % (a uto) 0 % Nucleated RBCs # 0.0 /100WBC PT (10.5-13.3) SECO NDS INR (0.8-1.2) APTT (23.9-36.7) SECO NDS Sodium (136-145) mmol/L Potassium (3.5-5.1) mmol/L Chloride (98-107) mmol/L Carbon Dioxide (22-29) mmol/L Anion Gap (5-19) BUN (8-23) mg/dL Creatinine (0.5-0.9) mg/dL GFR Calculation (90-130) mL/min Glucose (65-115) mg/dL Calculated Osmolal ity (285-295) mOsm/k g Calcium (8.5-10.5) mg/dL Total Bilirubin (0.15-1.2) mg/dL AST (0-32) U/L ALT (0-33) U/L Alkaline Phosphata se (35-105) IU/L Total Protein (6.6-8.7) g/dL Albumin (3.5-5.2) g/dL Globulin (1.3-4.6) g/dL Urine Color Yellow (Yellow) Urine Appearance Clear (CLEAR) Urine pH 5 (5-7) Ur Specific Gravit y 1.015 (1.005-1.030) Urine Protein Neg (Negative) Urine Glucose (UA) Norm (Normal) Urine Ketones Negative (Negative) Urine Blood Neg (Negative) Urine Nitrate Negative (Negative) Urine Bilirubin Neg (NEGATIVE) Urine Urobilinogen Norm (Negative) mg/dL Ur Leukocyte Aracelis ase Negative (Negative) Urine Opiates Scre en Negative (Negative) ng/mL Ur Barbiturates Sc reen Negative (Negative) ng/mL Ur Phencyclidine S crn Negative (Negative) ng/mL Ur Amphetamines Sc reen Negative (Negative) ng/mL U Benzodiazepines Scrn Positive H (Negative) ng/mL Urine Cocaine Scre en Negative (Negative) ng/mL U Marijuana (THC) Screen Negative (Negative) ng/mL 10/27/19 10/27/19 Range/Units 13:24 13:24 WBC (4.0-10.0) 10^3/ uL RBC (4.1-5.3) 10^6/u L Hgb (11.5-15.3) g/dL Hct (37.0-47.0) % MCV (81-99) fL MCH (28.0-34.0) pg MCHC (30.0-36.0) g/dL RDW (12.1-15.1) % Plt Count (130-400) 10^3/c mm MPV (7.4-10.4) fL Neut % (Auto) % Lymph % (Auto) % [place] % (Auto) % Eos % (Auto) % Baso % (Auto) % Neut # (Auto) (1.8-7.7) 10^3/u L Lymph # (Auto) (0.8-4.8) 10^3/u L [place] # (Auto) (0.2-0.9) 10^3/u L Eos # (Auto) (0.0-0.8) 10^3/u L Baso # (Auto) (0.0-0.1) 10^3/u L Nucleated RBC % (a uto) % Nucleated RBCs # /100WBC PT 15.10 H (10.5-13.3) SECO NDS INR 1.15 (0.8-1.2) APTT 32.7 (23.9-36.7) SECO NDS Sodium 136 (136-145) mmol/L Potassium 4.2 (3.5-5.1) mmol/L Chloride 94 L (98-107) mmol/L Carbon Dioxide 27 (22-29) mmol/L Anion Gap 19.2 H (5-19) BUN 23 (8-23) mg/dL Creatinine 1.0 H (0.5-0.9) mg/dL GFR Calculation 56.2 L (90-130) mL/min Glucose 131 H (65-115) mg/dL Calculated Osmolal ity 281 L (285-295) mOsm/k g Calcium 9.8 (8.5-10.5) mg/dL Total Bilirubin 0.2 (0.15-1.2) mg/dL AST 37 H (0-32) U/L ALT 32 (0-33) U/L Alkaline Phosphata se 169 H (35-105) IU/L Total Protein 7.8 (6.6-8.7) g/dL Albumin 4.5 (3.5-5.2) g/dL Globulin 3.3 (1.3-4.6) g/dL Urine Color (Yellow) Urine Appearance (CLEAR) Urine pH (5-7) Ur Specific Gravit y (1.005-1.030) Urine Protein (Negative) Urine Glucose (UA) (Normal) Urine Ketones (Negative) Urine Blood (Negative) Urine Nitrate (Negative) Urine Bilirubin (NEGATIVE) Urine Urobilinogen (Negative) mg/dL Ur Leukocyte Aracelis ase (Negative) Urine Opiates Scre en (Negative) ng/mL Ur Barbiturates Sc reen (Negative) ng/mL Ur Phencyclidine S crn (Negative) ng/mL Ur Amphetamines Sc reen (Negative) ng/mL U Benzodiazepines Scrn (Negative) ng/mL Urine Cocaine Scre en (Negative) ng/mL U Marijuana (THC) Screen (Negative) ng/mL Discharge Plan Discharge Prescriptions: No Action zonisamide [Zonegran] 100 mg capsule 300 mg PO BID RF: 0 oxcarbazepine 600 mg tablet 1,200 mg PO BID RF: 0 sumatriptan succinate [Imitrex] 100 mg Tablet See Rx Instructions .ROUTE .COMPLEX PRN (Reason: Headache) RF: 0 magnesium hydroxide [Milk of Magnesia] 400 mg/5 mL Suspension 30 ml PO DAILY PRN (Reason: Constipation) RF: 0 meclizine 25 mg Tablet 25 mg PO TID PRN (Reason: Dizziness) RF: 0 bisacodyl [Dulcolax (bisacodyl)] 10 mg Suppository 10 mg DE DAILY PRN (Reason: Constipation) RF: 0 promethazine [Phenergan] 25 mg/mL Solution 12.5 mg IM PRN PRN (Reason: Nausea) RF: 0 Fleet Enema 19-7 gram/118 mL Enema 118 ml DE DAILY PRN (Reason: Constipation) RF: 0 nitroglycerin 0.4 mg Tablet, Sublingual 0.4 mg SUBLINGUAL Q5M PRN (Reason: Chest Pain) RF: 0 bisacodyl [Dulcolax (bisacodyl)] 5 mg Tablet,Delayed Release (Dr/Ec) 10 mg PO DAILY PRN (Reason: Constipation) RF: 0 albuterol sulfate [ProAir HFA] 90 mcg/actuation Hfa Aerosol Inhaler 2 puff INHALATION Q6H PRN (Reason: Shortness Of Breath) RF: 0 Tylenol 325 mg Tablet 650 mg PO Q6H PRN (Reason: Pain) RF: 0 Zofran 4 mg Tablet 4 mg PO PRN RF: 0 metoprolol tartrate 25 mg Tablet 25 mg PO BID RF: 0 diltiazem HCl 60 mg capsule,extended release 12 hr 120 mg PO BEDTIME RF: 0 venlafaxine [Effexor XR] 75 mg capsule,extended release 24hr 75 mg PO DAILY RF: 0 venlafaxine [Effexor XR] 150 mg capsule,extended release 24hr 150 mg PO DAILY RF: 0 atorvastatin 40 mg Tablet 40 mg PO BEDTIME 30 Days Qty: 30 RF: 0 aspirin 81 mg Tablet,Delayed Release (Dr/Ec) 81 mg PO DAILY 30 Days Qty: 30 RF: 0 Eliquis 5 mg Tablet 5 mg PO BID 30 Days Qty: 60 RF: 0 metformin 1,000 mg tablet 1,000 mg PO DAILY 30 Days Qty: 30 RF: 0 (DME) glucometer See Rx Instructions .Route .MEDSUPPLY Qty: 1 RF: 0 furosemide [Lasix] 40 mg tablet 40 mg PO DAILY 30 Days Qty: 30 RF: 0 potassium chloride [Klor-Con M20] 20 mEq tablet,ER particles/crystals 20 meq PO DAILY 30 Days Qty: 30 RF: 0 digoxin 125 mcg (0.125 mg) Tablet 125 mcg PO DAILY Qty: 30 RF: 0 diltiazem HCl 60 mg Capsule,Extended Release 12 Hr 240 mg PO QAM Qty: 30 RF: 0 Coding Level of Care Code ED 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
--- NOTE | 2019-10-27 18:20 | P.HP_ITS ---
Providers/Chief Complaint Primary Care Provider: GUERRERO Douglass Chief Complaint: AMS History of Present Illness Soumya Avila is a 64 year old female with a past medical history of depression, anxiety, partial epilepsy with vagal nerve stimulator, atrial fibrillation, slurred speech/ataxia secondary to polypharmacy/ depression and anxiety/possible brainstem stroke, CHF, anemia, type 2 diabetes mellitus, deconditioning, who presents [facility] due to altered mental status Of note patient was recently discharged from [facility] 2 weeks ago, during that admission patient had new onset atrial fibrillation, was put on Eliquis and rate control medications, had a negative cardiac stress test, she subsequently fell when getting out of bed, then had episodes of slurred speech, ataxia, confusion. Patient CT of the head showed no new acute stroke, chronic lacunar infarcts, CTA of the head and neck negative for any acute stroke, did show 50% stenosis of the right ICA, unfortunate patient could not have a MRI of the brain to evaluate for brainstem stroke as she had a vagal nerve stimulator, of note patient was on aspirin, statin, Eliquis throughout her admission, and her symptoms began 3 days into her hospital admission. The thought at that point was patient's ataxia, slurred speech, confusion was secondary to polypharmacy, anxiety depression, possible brainstem stroke. She was discharged on Eliquis, aspirin, statin. She was evaluated by multitude of physicians, including cardiology, psychiatry, neurology eventually discharged to [facility]. According to the [facility] patient was doing relatively well for the last week, alert oriented x3, had a minimal slurred speech, can ambulate with some assistance, was in a good mood, but last night she got up out of bed and fell. Again after the fall, she had episodes of worsening slurred speech, ataxia, confusion, now with tremor, was not acting her usual self so she was brought [facility] for further evaluation. 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 Patient was sent back to the [facility]. Nursing was [facility]. According to [facility] staff she was a bit better when they received her, slurring of her speech was minimal, she was responding appropriately, less ataxic, but not completely back to her normal self. According to nurse this afternoon, she went and checked up on her, and patient had a complete blank stare, she would not track appropriately, this is also noted by the physical therapy staff, noted to have a tremor, vitals remained within normal range, so she was sent back to [facility] for further evaluation. In the emergency room, there were concerns for a stroke, again had a repeat CT scan no acute intracranial bleed, Dr. Valladares was consulted, who saw the patient, Dr. Hardy called me for admission as he wanted patient to be chad tored for the next 24 hours, according to nurses her slurring of her speech has improved, she is alert a bit more alert, a bit more awake, answering more questions appropriately. Upon entering the room, patient is lying on her side, has almost a flapping tremor, she stares at me, why am I here, she does not remember me, although during her last admission I took care of her for a week, she does not track appropriately, but is able to answer questions such as to 2+2 = 4, follow commands such as wiggling her toes, smiling, grabbing my fingers, following a neurologic exam, knows that she is in [facility], knows her daughter's name, at times she will have a blank stare. When I asked her what is wrong, she states she does not feel well, something is wrong, but she is not able to elaborate. She states that she is not depressed, states that she is not anxious,, she states that she does not know what is wrong with her. Patient was able to follow all my commands, followed the entire neurologic exam, her [id number] was abnormal, immediately I was not able to notice slurring of her speech, deep into conversation, she would have intermittent episodes of slurred speech, certainly not on every phrase, her NIH stroke scale was 3. I spoke to Dr. Valladares over the phone, Dr. Valladares stated that she also noted a tremor that she is worried about, Dr. Valladares has known Lara Avila for the last 30 years, in November and was not able to remember her, which she found concerning, Dr. Valladares states that she is aged many years in the last month, she is not sure exactly what is going on with her, possibilities include acute encephalopathy, paraneoplastic syndromes, recurrent seizures. According to Dr. Valladares patient does have severe anxiety depression, she does act out, she does act, and the worry is that she might have some degree of conversion disorder. Review of Systems Const: Denies: fever(s), chills, fatigue or malaise Eyes: Denies: change in vision or blurry vision ENMT: Denies: nasal congestion Resp: Denies: dyspnea, productive cough, non-productive cough or wheezing GI: Denies: abdominal pain, nausea, vomiting, hematemesis, diarrhea, constipation, hematochezia or melena : Denies: flank pain, dysuria or urinary frequency Musc: Denies: neck pain or back pain Skin/Breast: Denies: rash Neuro: Denies: headache(s), dizziness or vertigo Psych: Denies: anxiety or depression Endo: Denies: polyuria or polydipsia Medications/Allergies Home Medications Medication Instructions Recorded Confirmed Last Taken Type oxcarbazepine 600 mg tablet 1,200 mg PO BID 06/28/19 10/27/19 10/27/19 07:11 History zonisamide 100 mg capsule 300 mg PO BID 06/28/19 10/27/19 10/27/19 07:11 History venlafaxine [Effexor XR] 75 mg PO DAILY 10/11/19 10/27/19 10/27/19 07:11 History venlafaxine [Effexor XR] 150 mg PO DAILY 10/11/19 10/27/19 10/27/19 07:11 History apixaban [Eliquis] 5 mg PO BID 30 Days #60 tab 10/13/19 10/27/19 10/26/19 Rx aspirin 81 mg PO DAILY 30 Days #30 tab 10/13/19 10/27/19 10/27/19 07:11 Rx atorvastatin 40 mg PO BEDTIME 30 Days #30 tab 10/13/19 10/27/19 10/26/19 19:02 Rx furosemide [Lasix] 40 mg PO DAILY 30 Days #30 tab 10/13/19 10/27/19 10/27/19 07:11 Rx glucometer #1 ea 10/13/19 10/27/19 Unknown Rx metformin 1,000 mg PO DAILY 30 Days #30 tab 10/13/19 10/27/19 10/27/19 07:11 Rx potassium chloride [Klor-Con M20] 20 meq PO DAILY 30 Days #30 tab 10/13/19 10/27/19 10/27/19 07:11 Rx digoxin 125 mcg PO DAILY #30 tab 10/20/19 10/27/19 10/27/19 07:47 Rx diltiazem HCl 240 mg PO QAM #30 cap 10/20/19 10/27/19 10/27/19 07:11 Rx albuterol sulfate [ProAir HFA] 2 puff INHALATION Q6H PRN 10/26/19 10/27/19 U nknown History bisacodyl [Dulcolax (bisacodyl)] 10 mg PO DAILY PRN 10/26/19 10/27/19 Unknown History bisacodyl [Dulcolax (bisacodyl)] 10 mg RI DAILY PRN 10/26/19 10/27/19 Unknown History magnesium hydroxide [Milk of 30 ml PO DAILY PRN 10/26/19 10/27/19 Unknown History Magnesia] meclizine 25 mg PO TID PRN 10/26/19 10/27/19 Unknown History nitroglycerin 0.4 mg SUBLINGUAL Q5M PRN 10/26/19 10/27/19 Unknown History promethazine [Phenergan] 12.5 mg IM PRN PRN 10/26/19 10/27/19 Unknown History sodium phosphates [Fleet Enema] 118 ml RI DAILY PRN 10/26/19 10/27/19 10/26/19 History sumatriptan succinate [Imitrex] See Rx Instructions .ROUTE 10/26/19 10/27/19 Unknown History .COMPLEX PRN acetaminophen [Tylenol] 650 mg PO Q6H PRN 10/27/19 10/27/19 Unknown History diltiazem HCl 120 mg PO BEDTIME 10/27/19 10/27/19 10/26/19 19:02 History metoprolol tartrate 25 mg PO BID 10/27/19 10/27/19 10/27/19 07:11 History ondansetron HCl [Zofran] 4 mg PO PRN 10/27/19 10/27/19 10/24/19 History Allergies Allergy/AdvReac Type Severity Reaction Status Date / Time morphine Allergy unknown Verified 10/11/19 16:22 Penicillins Allergy Unknown Verified 10/11/19 16:22 phenytoin [From Dilantin] Allergy Unknown Verified 10/11/19 16:22 PFSH Acute PFSH: Medical History (Updated 10/27/19 @ 00:17 by GUERRERO Negrete) Anticoagulation adequate with anticoagulant therapy Carotid stenosis Chronic knee pain Cigarette nicotine dependence Major depression, recurrent, full remission Seizures Vascular dementia without behavioral disturbance Surgical History H/O brain surgery H/O section History of back surgery History of cholecystectomy Status post VNS (vagus nerve stimulator) placement Social History Smoking and tobacco status: unknown if ever smoked Quit status (tobacco): has quit using tobacco Year quit tobacco: 2019 Smoking risk assessment/counseling performed?: Yes Tobacco counseling given: counseling >3 minutes Vitals/I&O/Wt Last Vital Signs Pulse 118 H 10/27/19 17:58 Resp 22 H 10/27/19 15:55 BP 122/95 10/27/19 17:58 Pulse Ox 98 10/27/19 17:58 Weight last 48 hrs Weight 72.575 kg Physical Exam Const: COMMON NORMALS: no acute distress and patient oriented x3 GENERAL APPEARANCE: cooperative and comfortable HENMT: COMMON NORMALS: normocephalic HEAD & SCALP: normocephalic Eye: COMMON NORMALS: Equal, round and reactive pupils present, EOMs intact bilaterally and no papilledema GENERAL EYE: appearance normal, both eyes and all related structures PUPIL: Yes Equal, round and reactive pupils present DIRECT OPHTHALMOSCOPY: Yes no papilledema Neck/C-Spine: COMMON NORMALS: full ROM, no lymphadenopathy, no JVD and Thyroid normal THYROID: Thyroid normal Lymph: LYMPHATIC: no lymphadenopathy noted Resp: COMMON NORMALS: normal respiratory effort, No retractions, No use of a ccessory muscles and clear to auscultation bilaterally AUSCULTATION: clear to auscultation bilaterally Cardio: COMMON NORMALS: no JVD, regular rate, regular rhythm, S1 normal heart sound present, S2 normal heart sound present, No gallops present (Cardio), No clicks present (Cardio) and No murmurs present (Cardio) RATE: regular rate RHYTHM: regular rhythm HEART SOUNDS: S1 normal heart sound present and S2 normal heart sound present GI: COMMON NORMALS: Normal to inspection, nondistended, normoactive bowel sounds present, Soft to palpation, non-tender and No hepatosplenomegaly present PALPATION: Yes Soft to palpation and Yes No hepatosplenomegaly present Extremity: COMMON NORMALS: normal to inspection, full ROM and no pedal edema Neuro: COMMON NORMALS: CN's II-XII intact bilaterally and moves all extremities SENSORIUM/ORIENTATION: Yes alert, Yes oriented to person, Yes oriented to place, No oriented to time and No Orientation impaired SPEECH: abnormal speech (Intermittent episodes of slurred speech) GAIT: Yes Ataxic gait present OTHER: Abnormal [id number], does not track objects Psych: APPEARANCE: Yes grossly normal ATTITUDE: Yes Withdrawn affect present and Yes bizarre SPEECH: Yes slurred (Intermittent slurred speech) Data : 10/27/19 13:24 10/27/19 13:24 A&P Assessment and plan (1) Altered mental status: -This is patient's second admission, her presentation is quite bizarre -At this point patient's had 3 CTs, no intracranial bleed, old lacunar infarcts, 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 -Continues to have intermittent slurred speech, ataxia, ophthalmoplegia is new, does not track which is new, the flapping tremor is new -Does have 50% carotid artery stenosis on the right - still is confused, but has intact intermittent episodes of normalcy, as according to [facility] she was doing well a week ago -In the last month patient has significantly declined, has had a diagnosis of atrial fibrillation, negative stress test, extensive laboratory work-up -Cannot have an MRI due to vagal nerve stimulator -Now has had 2 falls, especially getting up out of bed, and it seems as if patient symptoms typically come on when she falls out of bed Differential remains broad: Recurrent seizures, encephalopathy associate with paraneoplastic syndromes, normal pressure hydrocephalus, etc. Plan: -Admit to general medical floors -Needs a one-on-one sitter, patient should not climb up out of bed -Physical therapy observational therapy -Seizure precautions, neuro checks -Continue all home medications -Dr. Valladares feel that her acute encephalopathy is unlikely secondary to her zonisamide, Effexor, oxcarbazepine as she has been on these doses for many years -Plan is to do an EEG -If EEG is unremarkable, will plan to do a lumbar puncture tomorrow -UA negative for UTI, chest x-ray pending, U tox positive for benzos Status: Acute (2) Fall: Status: Acute Qualifiers: Encounter type: initial encounter Qualified Code(s): W19.XXXA - Unspecified fall, initial encounter (3) Carotid stenosis: Status: Acute (4) Hilar adenopathy: Status: Acute (5) Type 2 diabetes mellitus: Status: Acute (6) CHF (congestive heart failure): Status: Acute (7) Atrial fibrillation: Status: Acute Qualifiers: Atrial fibrillation type: unspecified Qualified Code(s): I48.91 - Unspecified atrial fibrillation (8) Major depression, recurrent, full remission: Status: Acute (9) Temporal lobe epilepsy: Status: Acute Attestations Medical Necessity Statement*: Patient requires hospitalization, outpatient with observation, for altered mental status Coding Level of Care Code Acute Target Worker for [facility] Diagnoses Altered mental status R41.82 Fall W19.XXXA Encounter type: initial encounter Carotid stenosis I65.29 Hilar adenopathy R59.0 Type 2 diabetes mellitus E11.9 CHF (congestive heart failure) I50.9 Atrial fibrillation I48.91 Atrial fibrillation type: unspecified Major depression, recurrent, full remission F33.42 Temporal lobe epilepsy G40.109
--- NOTE | 2019-10-27 19:04 | ED_ITS ---
HPI - Neuro Symptoms/Deficit General: Chief Complaint: Neuro Symptoms/Deficit Stated Complaint: AMS Time Seen by Provider: 10/27/19 12:33 Source: patient and EMS Mode of arrival: ambulatory Limitations: altered mental status History of Present Illness: HPI Narrative: 64-year-old female patient with a past medical history of seizures, depression, dementia, atrial fibrillation on anticoagulation who presents to the emergency department as a stroke alert. She was seen in this department late last night following a fall and loss of consciousness. At that time a head CT done was unremarkable. [facility]. About an hour prior to arrival did notice she was slurring her words and so she was sent down here for evaluation. It is impossible to obtain an accurate history from her as the patient is quite confused and is unable to answer most of the questions. She can follow only a few commands. Onset (ago): hour(s) (1) Location: speech Review of Systems General: Reports: ROS unobtainable due to mental status PFS ED PFSH: Medical History (Updated 10/27/19 @ 19:32 by Christin Perez MD, [facility]) Anticoagulation adequate with anticoagulant therapy Carotid stenosis Chronic knee pain Cigarette nicotine dependence Major depression, recurrent, full remission Seizures Vascular dementia without behavioral disturbance Surgical History H/O brain surgery H/O section History of back surgery History of cholecystectomy Status post VNS (vagus nerve stimulator) placement Social History Smoking and tobacco status: unknown if ever smoked Quit status (tobacco): has quit using tobacco Year quit tobacco: 2019 Smoking risk assessment/counseling performed?: Yes Tobacco counseling given: counseling >3 minutes NIH stroke score NIHSS: Level Of Consciousness - 1a: 0 Best Gaze - 2: Normal Facial Palsy - 4: Normal Motor Arm Right - 5: No Drift Motor Arm Left - 5: No Drift Motor Leg Right - 6: No Drift Motor Leg Left - 6: No Drift Physical Exam Const: COMMON NORMALS: no acute distress, average body habitus, no limitations, healthy appearing, alert and well nourished HENMT: COMMON NORMALS: normocephalic, atraumatic and moist oral mucous membranes HEAD & SCALP: normocephalic and atraumatic Eye: COMMON NORMALS: Equal, round and reactive pupils present, EOMs intact bilaterally, conjunctivae normal and no scleral icterus CONJUNCTIVA: Yes conjunctivae normal PUPIL: Yes Equal, round and reactive pupils present Neck/C-Spine: COMMON NORMALS: full ROM, supple, no meningeal signs, no JVD and No carotid bruits Resp: COMMON NORMALS: normal respiratory effort, No retractions, No use of accessory muscles, clear to auscultation bilaterally and percussion normal AUSCULTATION: clear to auscultation bilaterally PERCUSSION: percussion normal Cardio: COMMON NORMALS: no JVD, regular rate, regular rhythm, S1 normal heart sound present, S2 normal heart sound present, No gallops present (Cardio), No clicks present (Cardio), No murmurs present (Cardio), No rub (Cardio) and Peripheral pulses 2+ throughout RATE: regular rate RHYTHM: regular rhythm HEART SOUNDS: S1 normal heart sound present and S2 normal heart sound present PERIPHERAL PULSES: Peripheral pulses 2+ throughout GI: COMMON NORMALS: Normal to inspection, nondistended, normoactive bowel sounds present, Soft to palpation, non-tender, No hepatosplenomegaly present, no masses and no bruits PALPATION: Yes Soft to palpation and Yes No hepatosplenomegaly present : COMMON NORMALS: Yes no CVA tenderness BLADDER/KIDNEY EXAM: Yes no CVA tenderness Back/Pelvis: COMMON NORMALS: no CVA tenderness Extremity: COMMON NORMALS: normal to inspection, full ROM, capillary refill normal, no calf tenderness and no pedal edema Neuro: SENSORIUM/ORIENTATION: Yes alert and Yes Orientation impaired MENINGEAL SIGNS: Yes no meningeal signs OTHER: A complete neurologic exam ca nnot be performed as the patient is pretty confused and cannot follow full commands. An NIH SS could also not be completed because the patient could not follow all the commands. Skin: COMMON NORMALS: no rashes or lesions noted, no wounds, turgor normal, no jaundice, no petechiae and no mottling GENERAL SKIN EXAM: no rashes or lesions noted and turgor normal Course Consultations: Consultation #1: Dr. Valladares, neurologist. She evaluated the patient. The patient is well known to her. She does not believe this is an acute CVA. Vital Signs: Vital signs: Vital Signs Pulse Rate 114 H 05/27/20 18:37 Respiratory Rate 22 H 10/27/19 15:55 Blood Pressure 159/109 10/27/19 18:37 Pulse Oximetry 93 10/27/19 18:37 MDM - Neuro Symptoms/Deficit MDM Narrative: Medical decision making narrative: 64-year-old female patient with an unclear illness. She clearly appears encephalopathic but etiology is undetermined. Does not appear to be infectious in nature, and it is possibly medication related. A Trileptal level has been ordered and sent out. Since she has presented to the emergency department with similar symptoms twice in under 12 hours and with an unclear etiology she is being admitted for observation and further evaluation and management. The neurologists does not believe she has had a CVA and I agree with her. The patient has no focal symptoms. Medical Records: Attestation: I reviewed the patient's medical records. Lab Data: Attestation: I reviewed the patient's lab results. Labs: Lab Results 10/27/19 10/27/19 10/27/19 Range/Units 13:23 13:23 13:24 WBC 14.7 H (4.0-10.0) 10^3/ uL RBC 5.71 H (4.1-5.3) 10^6/u L Hgb 13.6 (11.5-15.3) g/dL Hct 44.6 (37.0-47.0) % MCV 78.1 L (81-99) fL MCH 23.8 L (28.0-34.0) pg MCHC 30.5 (30.0-36.0) g/dL RDW 16.6 H (12.1-15.1) % Plt Count 311 (130-400) 10^3/c mm MPV 10.0 (7.4-10.4) fL Neut % (Auto) 83.1 % Lymph % (Auto) 10.5 % [place] % (Auto) 5.6 % Eos % (Auto) 0.1 % Baso % (Auto) 0.3 % Neut # (Auto) 12.2 H (1.8-7.7) 10^3/u L Lymph # (Auto) 1.6 (0.8-4.8) 10^3/u L [place] # (Auto) 0.8 (0.2-0.9) 10^3/u L Eos # (Auto) 0.0 (0.0-0.8) 10^3/u L Baso # (Auto) 0.1 (0.0-0.1) 10^3/u L Nucleated RBC % (a uto) 0 % Nucleated RBCs # 0.0 /100WBC PT (10.5-13.3) SECO NDS INR (0.8-1.2) APTT (23.9-36.7) SECO NDS Sodium (136-145) mmol/L Potassium (3.5-5.1) mmol/L Chloride (98-107) mmol/L Carbon Dioxide (22-29) mmol/L Anion Gap (5-19) BUN (8-23) mg/dL Creatinine (0.5-0.9) mg/dL GFR Calculation (90-130) mL/min Glucose (65-115) mg/dL Calculated Osmolal ity (285-295) mOsm/k g Calcium (8.5-10.5) mg/dL Total Bilirubin (0.15-1.2) mg/dL AST (0-32) U/L ALT (0-33) U/L Alkaline Phosphata se (35-105) IU/L Total Protein (6.6-8.7) g/dL Albumin (3.5-5.2) g/dL Globulin (1.3-4.6) g/dL Urine Color Yellow (Yellow) Urine Appearance Clear (CLEAR) Urine pH 5 (5-7) Ur Specific Gravit y 1.015 (1.005-1.030) Urine Protein Neg (Negative) Urine Glucose (UA) Norm (Normal) Urine Ketones Negative (Negative) Urine Blood Neg (Negative) Urine Nitrate Negative (Negative) Urine Bilirubin Neg (NEGATIVE) Urine Urobilinogen Norm (Negative) mg/dL Ur Leukocyte Aracelis ase Negative (Negative) Urine Opiates Scre en Negative (Negative) ng/mL Ur Barbiturates Sc reen Negative (Negative) ng/mL Ur Phencyclidine S crn Negative (Negative) ng/mL Ur Amphetamines Sc reen Negative (Negative) ng/mL U Benzodiazepines Scrn Positive H (Negative) ng/mL Urine Cocaine Scre en Negative (Negative) ng/mL U Marijuana (THC) Screen Negative (Negative) ng/mL 10/27/19 10/27/19 Range/Units 13:24 13:24 WBC (4.0-10.0) 10^3/ uL RBC (4.1-5.3) 10^6/u L Hgb (11.5-15.3) g/dL Hct (37.0-47.0) % MCV (81-99) fL MCH (28.0-34.0) pg MCHC (30.0-36.0) g/dL RDW (12.1-15.1) % Plt Count (130-400) 10^3/c mm MPV (7.4-10.4) fL Neut % (Auto) % Lymph % (Auto) % [place] % (Auto) % Eos % (Auto) % Baso % (Auto) % Neut # (Auto) (1.8-7.7) 10^3/u L Lymph # (Auto) (0.8-4.8) 10^3/u L [place] # (Auto) (0.2-0.9) 10^3/u L Eos # (Auto) (0.0-0.8) 10^3/u L Baso # (Auto) (0.0-0.1) 10^3/u L Nucleated RBC % (a uto) % Nucleated RBCs # /100WBC PT 15.10 H (10.5-13.3) SECO NDS INR 1.15 (0.8-1.2) APTT 32.7 (23.9-36.7) SECO NDS Sodium 136 (136-145) mmol/L Potassium 4.2 (3.5-5.1) mmol/L Chloride 94 L (98-107) mmol/L Carbon Dioxide 27 (22-29) mmol/L Anion Gap 19.2 H (5-19) BUN 23 (8-23) mg/dL Creatinine 1.0 H (0.5-0.9) mg/dL GFR Calculation 56.2 L (90-130) mL/min Glucose 131 H (65-115) mg/dL Calculated Osmolal ity 281 L (285-295) mOsm/k g Calcium 9.8 (8.5-10.5) mg/dL Total Bilirubin 0.2 (0.15-1.2) mg/dL AST 37 H (0-32) U/L ALT 32 (0-33) U/L Alkaline Phosphata se 169 H (35-105) IU/L Total Protein 7.8 (6.6-8.7) g/dL Albumin 4.5 (3.5-5.2) g/dL Globulin 3.3 (1.3-4.6) g/dL Urine Color (Yellow) Urine Appearance (CLEAR) Urine pH (5-7) Ur Specific Gravit y (1.005-1.030) Urine Protein (Negative) Urine Glucose (UA) (Normal) Urine Ketones (Negative) Urine Blood (Negative) Urine Nitrate (Negative) Urine Bilirubin (NEGATIVE) Urine Urobilinogen (Negative) mg/dL Ur Leukocyte Aracelis ase (Negative) Urine Opiates Scre en (Negative) ng/mL Ur Barbiturates Sc reen (Negative) ng/mL Ur Phencyclidine S crn (Negative) ng/mL Ur Amphetamines Sc reen (Negative) ng/mL U Benzodiazepines Scrn (Negative) ng/mL Urine Cocaine Scre en (Negative) ng/mL U Marijuana (THC) Screen (Negative) ng/mL Imaging Data^: CT Head: Radiologist's impression: [place] [address] CT Scan Report Signed Patient: Soumya Avila #: [id number] : 8Acct#:[id number] Age/Sex: 64 / FADM Date: 10/27/19 Loc: ERRoom/Bed: Attending Dr: Ordering Provider/Ordering MD: Christin Perez MD, [facility] Date of Service: 10/27/19 Procedure(s): CT head wo con* [id number] Accession Number(s): [id number] Report Number: [id number] WS: [id number] CT HEAD NONCONTRAST HISTORY: stroke alert TECHNIQUE: Contiguous axial imaging performed through the brain in 2.5 mm imaging. Bone and soft tissue windows. Sagittal and coronal reformats reviewed. All CT scans at [facility] use at least one of these dose optimization techniques: automated exposure control; mA and/or kV adjustment per patient size (includes targeted exams where dose is matched to clinical indication); or iterative reconstruction. DLP: 859.21 mGy-cm. COMPARISON: 10/26/2019 No acute intracranial hemorrhage, midline shift or mass effect. These findings have progressed since 2017 but are stable since 10/13/2019. Multiple lacunar infarcts bilaterally and chronic microvascular ischemic changes are stable. Ventricles: Normal size with no hydrocephalus. No inferior displacement of the cerebellar tonsils. Paranasal sinuses: As visualized are clear. Mastoid air cells: Well pneumatized. Calvarium and scalp: Moderate sized LEFT craniotomy defect. Notified Christin Perez MD [facility] at 10/27/2019 12:[address]/CT head wo con* [id number] IMPRESSION: 1. No acute intracranial hemorrhage or edema. 2. 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 3. Numerous bilateral lacunar infarcts and chronic ischemic changes are stable. 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
[2019-10-27 19:55] LABS: Hepatitis A Antibody IgM Non-Reactive (Nonreactive); Hepatitis B Core AB, Total Non-Reactive (Nonreactive); Hepatitis B Surface AB 3.5 (0-8.5); Hepatitis B Surface Antigen Non-Reactive (Nonreactive); Hepatitis C Virus Antibody Non-Reactive (Nonreactive)
--- NOTE | 2019-10-27 20:20 | XR_ITS ---
WS: [id number] PORTABLE CHEST HISTORY: ams COMPARISON: 10/12/2019 Vagal nerve stimulator projects over the LEFT upper thorax. Lungs are clear and well expanded. No pleural effusion or pneumothorax. Cardiac size: Normal. Mediastinum/Aorta: Normal mediastinum. No osseous abnormality seen. XR/XR chest 1V portable [id number] IMPRESSION: Unremarkable portable chest.
[2019-10-27 20:41] LABS: HIV 1 & 2 Antibody Non-Reactive (Non-Reactiv); HIV 1 & 2 Antigen Non-Reactive (Non-Reactiv)
[2019-10-27 21:23] LABS: Rapid Plasma Reagin Syphilis Nonreactive (Nonreactive)
[2019-10-27] MEDS: OXcarbazepine 300 mg Tablet 1200 MG PO (21:38)
[2019-10-27] MEDS: metoprolol tartrate 25 mg Tablet PO (21:39)
[2019-10-27] MEDS: atorvastatin 40 mg Tablet PO (21:39)
[2019-10-27] MEDS: zonisamide 100 MG Capsule 300 MG PO (21:39)
--- NOTE | 2019-10-27 21:48 | PC.NURSE ---
patient on floor with ID band, ID band has correct patient name and but OV number does not match chart, called ER and obtained new one, patient blood sugar was already check by old OV number, blood sugar is 121 at 2100.
[2019-10-28] VITALS (19 sets, daily range): BP systolic 122–162; BP diastolic 61–80; PULSE 72–102; RESP 16–18; TEMP 36.3–36.7; O2SAT 92–98
[2019-10-28 05:47] LABS: Basophils # 0.1 10^3/uL (0.0-0.1); Basophils % 0.5 %; Eosinophils # 0.1 10^3/uL (0.0-0.8); Eosinophils % 0.7 %; Hematocrit 42.6 % (37.0-47.0); Hemoglobin 13.4 g/dL (11.5-15.3); Lymphocytes # 1.9 10^3/uL (0.8-4.8); Lymphocytes % 17.2 %; Mean Corpuscular HGB Conc 31.5 g/dL (30.0-36.0); Mean Corpuscular Hemoglobin 24.3 pg (28.0-34.0); Mean Corpuscular Volume 77.2 fL (81-99); Mean Platelet Volume 10.3 fL (7.4-10.4); Monocytes # 0.8 10^3/uL (0.2-0.9); Monocytes % 7.6 %; Neutrophils # 7.9 10^3/uL (1.8-7.7); Neutrophils % 73.7 %; Nucleated Red Blood Cells % 0 %; Platelet Count 265 10^3/cmm (130-400); Red Blood Count 5.52 10^6/uL (4.1-5.3); White Blood Count 10.8 10^3/uL (4.0-10.0)
[2019-10-28 06:01] LABS: Alanine Aminotransferase 28 U/L (0-33); Albumin Level 4.7 g/dL (3.5-5.2); Alkaline Phosphatase 172 IU/L (35-105); Anion Gap 23.5 (5-19); Blood Urea Nitrogen 30 mg/dL (8-23); Carbon Dioxide 25 mmol/L (22-29); Chloride 92 mmol/L (98-107); Globulin 2.8 g/dL (1.3-4.6); Glomerular Filtration Rate 50.3 mL/min (90-130); Glucose 109 mg/dL (65-115); Magnesium 2.1 mg/dL (1.7-2.3); Osmolality Calculated 280 mOsm/kg (285-295); Phosphorus 5.6 mg/dL (2.5-4.5); Potassium 4.5 mmol/L (3.5-5.1); Sodium 136 mmol/L (136-145); Total Bilirubin 0.2 mg/dL (0.15-1.2); Total Protein 7.5 g/dL (6.6-8.7)
[2019-10-28 06:08] LABS: Aspartate Amino Transferase 33 U/L (0-32)
[2019-10-28 06:33] LABS: Glucose Point of Care 103 mg/dL (70-110)
[2019-10-28] MEDS: zonisamide 100 MG Capsule 300 MG PO (08:29)
[2019-10-28] MEDS: OXcarbazepine 300 mg Tablet 1200 MG PO (08:30)
[2019-10-28] MEDS: digoxin 125 mcg Tablet PO (08:30)
[2019-10-28] MEDS: venlafaxine ER (24HR) 150 mg Capsule PO (08:30)
[2019-10-28] MEDS: FUROsemide 40 mg Tablet PO (08:30)
[2019-10-28] MEDS: apixaban 5 mg Tablet PO (08:30)
[2019-10-28] MEDS: aspirin 81 mg EC Tablet PO (08:30)
[2019-10-28] MEDS: metoprolol tartrate 25 mg Tablet PO (08:31)
[2019-10-28 11:02] LABS: Glucose Point of Care 138 mg/dL (70-110)
--- NOTE | 2019-10-28 11:17 | PC.CHAP ---
Pastoral Care Encounter/Spiritual Assessment Type of Contact [x] Declined continuous still operator visit [] Patient/Family/Request visit [] Outpatient visit [] Follow-up visit [] Physician referral [] Code/Alert [] Routine visit [] Staff referral [] Actively dying [] Patient sleeping [] Family support [] [] Out of room [] Palliative care [] [] Receiving care in room [] Pre-surgical visit [] Trauma [] Long length of stay [] ICU visit [] Other: Relational/Emotional Strength [] Patient feels connected with others/family/visitors/staff [] Distress [] Loneliness/isolation [] Abandonment Spirituality of Patient [] Person of [place] [] Attends [employer] of their [place] [] Believes in Prayer [] Reads Bible or Taoism materials [] There are Spiritual issues to be addressed Obstetrics Tech Interventions [] Prayer [] Active listening [] Non-anxious presence [] Spiritual/emotional support [] Crisis/trauma care [] Spiritual counseling [] Bereavement support [] Provided bereavement packet [] Provided Bible/devotional materials [] Provided toy/stuffed animal, coloring book to patient or family member [] Provided Communion [] Anointing/[place] [] Salvation [] Completed spiritual assessment [] Other: Impact on Illness or Injury [] Angry [] Fearful [] Anxious [] Often cries [] Exhaustion [] Unable to work [] Unable to attend congregation [] Unable to walk/stand [] Unable to read [] Unable to drive [] Unable to eat/drink [] Unable to sleep [] Unable to be with family [] Patient intubated [] Other: Summary Time spent with patient
--- NOTE | 2019-10-28 14:06 | PC.NURSE ---
Patient to [facility] at 1130 to have EEG.
--- NOTE | 2019-10-28 14:17 | P.CONIM_ITS ---
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 I took care of her 25 or 30 years ago and sent her for left temporal lobectomy for an arachnoid cyst. She moved back to [place] for 6 or 7 years and returned here at the end of 2011 and returned to my care. She has been on the same anticonvulsants, 2400 mg of oxcarbazepine and 600 mg of zonisamide since she returned here in August 2012. Her old records were discarded, so documentation of the medicines that she tried before her temporal lobectomy are lost but she could remember being on Tegretol, gabapentin, Dilantin. She does not remember having been on Keppra and that might have been avoided because of her tendency for depression. She has an odd history and that [place] [facility] [place] chest pain and shortness of breath with new onset of atrial fibrillation. She had a negative stress test. 2 days into her stay she developed ataxia and confusion. She was perseverating. The history was suspicious for aggravation of her depression because of social events and because she had been normal mentally and neurologically when she [place] [facility] I did not see any signs of seizure activity during my exam. 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 1-2 weeks ago daughter, Kaylynn, reports that Soumya was walking and talking completely fine then became lethargic while in the hospital for a heart or lung issue. She was discharged to [facility] for 4-5 days. On Friday and Friday she was talking and back to her normal self no slurring of her speech or repeating herself. She fell at [facility] Friday night and ever since then she has been having the same symptoms of repeating herself and slurred speech. She did have a period of time where she was her normal self. The nurse taking care of her today also reports having had a normal conversation with the patient this morning where she seemed alert and cogent and then suddenly fell somewhat dramatically onto the bed while she was up to urinate and after that started speaking gibberish again. We brought her to neurosciences this afternoon for an EEG. She had slowing and epileptiform activity in the left temporal lobe. 1 g of Keppra was given slow IV push as demanded by pharmacy and I stayed at the bedside and we continue to record EEG. Her VNS was turned off to eliminate any question of artifact and there was no significant change in the record. There were epochs of diffuse slowing and epochs of left temporal lobe epileptiform-appearing activity with sharp waves and slowing. The patient's behavior did not improve. I later performed a lumbar puncture at the bedside. On completion of that procedure, 1 mg of Ativan was given intravenously. There might of been slight improvement in her behavior. Review of Systems General: Reports: ROS unobtainable due to mental status (She has an odor not unlike gastrointestinal blood but no gross bleeding) Meds/Allergies Home Medications and Allergies Home Medications Medication Instructions Recorded Confirmed Last Taken Type oxcarbazepine 600 mg tablet 1,200 mg PO BID 06/28/19 10/27/19 10/27/19 07:11 Hi story zonisamide 100 mg capsule 300 mg PO BID 06/28/19 10/27/19 10/27/19 07:11 History venlafaxine [Effexor XR] 75 mg PO DAILY 10/11/19 10/27/19 10/27/19 07:11 History venlafaxine [Effexor XR] 150 mg PO DAILY 10/11/19 10/27/19 10/27/19 07:11 History apixaban [Eliquis] 5 mg PO BID 30 Days #60 tab 10/13/19 10/27/19 10/26/19 Rx aspirin 81 mg PO DAILY 30 Days #30 tab 10/13/19 10/27/19 10/27/19 07:11 Rx atorvastatin 40 mg PO BEDTIME 30 Days #30 tab 10/13/19 10/27/19 10/26/19 19:02 Rx furosemide [Lasix] 40 mg PO DAILY 30 Days #30 tab 10/13/19 10/27/19 10/27/19 07:11 Rx glucometer #1 ea 10/13/19 10/27/19 Unknown Rx metformin 1,000 mg PO DAILY 30 Days #30 tab 10/13/19 10/27/19 10/27/19 07:11 Rx potassium chloride [Klor-Con M20] 20 meq PO DAILY 30 Days #30 tab 10/13/19 10/27/19 10/27/19 07:11 Rx digoxin 125 mcg PO DAILY #30 tab 10/20/19 10/27/19 10/27/19 07:47 Rx diltiazem HCl 240 mg PO QAM #30 cap 10/20/19 10/27/19 10/27/19 07:11 Rx albuterol sulfate [ProAir HFA] 2 puff INHALATION Q6H PRN 10/26/19 10/27/19 Unknown History bisacodyl [Dulcolax (bisacodyl)] 10 mg PO DAILY PRN 10/26/19 10/27/19 Unknown History bisacodyl [Dulcolax (bisacodyl)] 10 mg DE DAILY PRN 10/26/19 10/27/19 Unknown History magnesium hydroxide [Milk of 30 ml PO DAILY PRN 10/26/19 10/27/19 Unknown History Magnesia] meclizine 25 mg PO TID PRN 10/26/19 10/27/19 Unknown History nitroglycerin 0.4 mg SUBLINGUAL Q5M PRN 10/26/19 10/27/19 Unknown History promethazine [Phenergan] 12.5 mg IM PRN PRN 10/26/19 10/27/19 Unknown History sodium phosphates [Fleet Enema] 118 ml DE DAILY PRN 10/26/19 10/27/19 10/26/19 History sumatriptan succinate [Imitrex] See Rx Instructions .ROUTE 10/26/19 10/27/19 Unknown History .COMPLEX PRN acetaminophen [Tylenol] 650 mg PO Q6H PRN 10/27/19 10/27/19 Unknown History diltiazem HCl 120 mg PO BEDTIME 10/27/19 10/27/19 10/26/19 19:02 History metoprolol tartrate 25 mg PO BID 10/27/19 10/27/19 10/27/19 07:11 History ondansetron HCl [Zofran] 4 mg PO PRN 10/27/19 10/27/19 10/24/19 History Allergies Allergy/AdvReac Type Severity Reaction Status Date / Time morphine Allergy unknown Verified 10/11/19 16:22 Penicillins Allergy Unknown Verified 10/11/19 16:22 phenytoin [From Dilantin] Allergy Unknown Verified 10/11/19 16:22 Current Medications Current Medications Generic Name Dose Route Start Last Admin Trade Name Pepito PRN Reason Stop Dose Admin Apixaban 5 mg 10/28/19 09:00 10/28/19 08:30 Eliquis PO 5 mg BID DELANO Administration Aspirin 81 mg 10/28/19 09:00 10/28/19 08:30 Aspirin Ec PO 81 mg DAILY DELANO Administration Atorvastatin Calcium 40 mg 10/27/19 21:00 10/27/19 21:39 Lipitor PO 40 mg BEDTIME DELANO Administration Digoxin 125 mcg 10/28/19 09:00 10/28/19 08:30 Lanoxin PO 125 mcg DAILY DELANO Administration Diltiazem HCl 120 mg 10/27/19 21:00 10/27/19 21:39 Cardizem Sr (12hr) PO 120 mg BEDTIME DELANO Administration Diltiazem HCl 240 mg 10/28/19 06:00 10/28/19 08:32 Cardizem Sr (12hr) PO 240 mg QAM DELANO Administration Furosemide 40 mg 10/28/19 09:00 10/28/19 08:30 Lasix PO 40 mg DAILY DELANO Administration Insulin Aspart 0 unit 10/27/19 20:20 10/28/19 08:08 Novolog SUBCUT Not Given TIDWM [facility] Protocol Metoprolol Tartrate 25 mg 10/27/19 20:20 10/28/19 08:31 Lopressor PO 25 mg BID DELANO Administration Oxcarbazepine 1,200 mg 10/27/19 20:20 10/28/19 08:30 Trileptal PO 1,200 mg BID DELANO Administration Potassium Chloride 20 meq 10/28/19 09:00 10/28/19 08:30 Klor-Con 10 PO 20 meq DAILY DELANO Administration Venlafaxine HCl 150 mg 10/28/19 09:00 10/28/19 08:30 Effexor Xr PO 150 mg DAILY DELANO Administration Zonisamide 300 mg 10/27/19 20:20 10/28/19 08:29 Zonegran PO 300 mg BID DELANO Administration PFSH Acute PFSH: Medical History Anticoagulation adequate with anticoagulant therapy Carotid stenosis Chronic knee pain Cigarette nicotine dependence Major depression, recurrent, full remission Seizures Vascular dementia without behavioral disturbance Surgical History H/O brain surgery H/O section History of back surgery History of cholecystectomy Status post VNS (vagus nerve stimulator) placement Social History Smoking and tobacco status: unknown if ever smoked Quit status (tobacco): has quit using tobacco Year quit tobacco: 2019 Smoking risk assessment/counseling performed?: Yes Tobacco counseling given: counseling >3 minutes Vitals/I&O/Wt Last Vital Signs Temp 97.7 F 10/28/19 12:00 Pulse 90 10/28/19 12:00 Resp 16 10/28/19 12:00 BP 155/80 10/28/19 12:00 Pulse Ox 95 10/28/19 11:03 10/27/19 10/28/19 10/28/19 22:59 06:59 14:59 Output Total 0 / 0 Balance 0 / 0 Weight last 48 hrs Weight 160 lb Physical Exam Narrative: EXAM NARRATIVE: General: Disheveled woman who looks much older than her age. HEENT: She has a craniotomy defect left anglican. Chest: Clear to auscultation. Cardiovascular: S1 and S2 normal. It sounds like she is in normal sinus rhythm. Abdomen: Soft and nontender. Extremities: No deformities Mental status exam: She recognizes and calls me by name. She follows simple commands only for me and would not for the nurse. She is inattentive. She perseverates. Her speech is slurred as if intoxicated. She does not make eye contact. Cranial nerves: She is uncooperative for visual field testing. Eye movements spontaneously full and she fixes and follows my face from side to side. Her facial movements are symmetric during speech. Tongue is midline in the mouth and she is managing her secretions without difficulty Motor: She is able to keep her arms outstretched but with a bobbing motion on both sides that somewhat resembles asterixis. This is different from her motor exam yesterday when she was perseverative and kept her left leg in the air throughout most of the visit. Right toe upgoing, left toe downgoing Data Other Data: Other data: Spinal fluid pending. She has progressive increasing creatinine and her anion gap is elevated today. A&P Assessment and plan (1) Encephalopathy acute: 64-year-old woman who presents with fluctuating encephalopathy. Her EEG is abnormal with diffuse slowing but she has focal epileptiform activity in the left temporal lobe. This does not definitely indicate that she is in partial complex status but it is of concern for that. A bolus of Keppra 1000 mg was given over 30 minutes while I remained at the bedside and continuous EEG was run. There was no influence on her or her EEG or her behavior. I turned her vagal stimulator up. I performed a spinal tap and sent spinal fluid. Opening pressure was not obtained because the patient was uncooperative and I was concerned about a traumatic tap. Procedure: Lumbar Puncture The patient was prepped and draped in sterile fashion. The procedure was performed in the left Lateral decubitus position but no CSF was obtained so she was shifted to upright sitting. CSF appearance: Clear not xanthochromic or bloody CSF was obtained 6 Mls CSF sent for: Cell count Glucose Protein Routine culture Fungal culture Status: Acute (2) Partial epilepsy secondarily generalized: VNS settings date: 10/28/2019 Output Current (mA): Initial 1.75 final 2 Signal Frequency (Hz): Initial 20 final 20 Pulse width (uS): Initial 250 final 250 Signal ON time (sec): Initial 30 final 21 Signal off time(min): Initial 1.1 final 0.8 Magnet current (mA): Initial 2 final 2 Magnet on time(sec): Initial 60 final 60 Magnet PW (uS): Initial 500 final 500 Autostim off Plan to treat her with Keppra 1000 mg 3 times a day. She can be transferred back to the group home with caution for falls. Await CSF results. Please call me over the weekend if you have any questions. I can be reached on my cell phone by text if not by phone. Status: Acute (3) Temporal lobe epilepsy: Status: Acute (4) Atrial fibrillation: Status: Acute Qualifiers: Atrial fibrillation type: unspecified Qualified Code(s): I48.91 - Unspecified atrial fibrillation Coding Level of Care Code Acute Risk Control Field Representative for [facility] Diagnoses Encephalopathy acute G93.40 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 Atrial fibrillation I48.91 Atrial fibrillation type: unspecified
[2019-10-28] MEDS: LORazepam 2 mg/mL INJ 1 mL 1 MG IVP ×2 (15:48→22:56)
--- NOTE | 2019-10-28 15:49 | P.PN_ITS ---
Subjective Subjective: Interval history: This morning patient was examined while working with physical therapy, is quite unsteady on her feet, quite ataxic, I did not see a tremor this morning, she still does not track, follows most commands, has intermittent slurring of her speech, alert oriented x2, she does not remember who I am, states that something is wrong with her but she does not know what Vitals/I&O/Wt Last Vital Signs Temp 97.7 F 10/28/19 12:00 Pulse 90 10/28/19 12:00 Resp 16 10/28/19 12:00 BP 155/80 10/28/19 12:00 Pulse Ox 95 10/28/19 11:03 Weight last 48 hrs Weight 72.575 kg Physical Exam Const: COMMON NORMALS: no acute distress and alert GENERAL APPEARANCE: cooperative and comfortable ORIENTATION/CONSCIOUSNESS: Yes oriented to person and Yes oriented to place; not oriented to time HENMT: COMMON NORMALS: normocephalic HEAD & SCALP: normocephalic Eye: COMMON NORMALS: Equal, round and reactive pupils present, EOMs intact bilaterally and no papilledema GENERAL EYE: appearance normal, both eyes and all related structures PUPIL: Yes Equal, round and reactive pupils present DIRECT OPHTHALMOSCOPY: Yes no papilledema Neck/C-Spine: COMMON NORMALS: full ROM, no lymphadenopathy, no JVD and Thyroid normal THYROID: Thyroid normal Lymph: LYMPHATIC: no lymphadenopathy noted Resp: COMMON NORMALS: normal respiratory effort, No retractions, No use of accessory muscles and clear to auscultation bilaterally AUSCULTATION: clear to auscultation bilaterally Cardio: COMMON NORMALS: no JVD, regular rate, regular rhythm, S1 normal heart sound present, S2 normal heart sound present, No gallops present (Cardio), No clicks present (Cardio) and No murmurs present (Cardio) RATE: regular rate RHYTHM: regular rhythm HEART SOUNDS: S1 normal heart sound present and S2 normal heart sound present GI: COMMON NORMALS: Normal to inspection, nondistended, normoactive bowel sounds present, Soft to palpation, non-tender and No hepatosplenomegaly present PALPATION: Yes Soft to palpation and Yes No hepatosplenomegaly present Extremity: COMMON NORMALS: normal to inspection, full ROM and no pedal edema Neuro: COMMON NORMALS: CN's II-XII intact bilaterally and moves all extremi ties SENSORIUM/ORIENTATION: Yes alert, Yes oriented to person, Yes oriented to place, No oriented to time and No Orientation impaired SPEECH: abnormal speech (Intermittent episodes of slurred speech) GAIT: Yes Ataxic gait present OTHER: Abnormal [id number], does not track objects Psych: APPEARANCE: Yes grossly normal ATTITUDE: Yes Withdrawn affect present and Yes bizarre SPEECH: Yes slurred (Intermittent slurred speech) Data : 10/28/19 04:45 10/28/19 04:45 A&P Assessment and plan (1) Altered mental status: -This is patient's second admission, her presentation is quite bizarre -At this point patient's had 3 CTs, no intracranial bleed, old lacunar infarcts, 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 -Continues to have intermittent slurred speech, ataxia, ophthalmoplegia is new, does not track which is new, the flapping tremor is new -Does have 50% carotid artery stenosis on the right - still is confused, but has intact intermittent episodes of normalcy, as according to detention she was doing well a week ago -In the last month patient has significantly declined, has had a diagnosis of atrial fibrillation, negative stress test, extensive laboratory work-up -Cannot have an MRI due to vagal nerve stimulator -Now has had 2 falls, especially getting up out of bed, and it seems as if patient symptoms typically come on when she falls out of bed Differential remains broad: Recurrent seizures, encephalopathy associate with paraneoplastic syndromes, normal pressure hydrocephalus, etc. Plan: -Admit to general medical floors -Needs a one-on-one sitter, patient should not climb up out of bed -Physical therapy observational therapy -Seizure precautions, neuro checks -Continue all home medications -Dr. Valladares feel that her acute encephalopathy is unlikely secondary to her zonisamide, Effexor, oxcarbazepine as she has been on these doses for many years -Plan is to do an EEG today -If EEG is unremarkable, will plan to do a lumbar puncture -UA negative for UTI, chest x-ray pending, U tox positive for benzos Status: Acute (2) Fall: Status: Acute Qualifiers: Encounter type: initial encounter Qualified Code(s): W19.XXXA - Unspecified fall, initial encounter (3) Carotid stenosis: Status: Acute (4) Hilar adenopathy: Status: Acute (5) Type 2 diabetes mellitus: Status: Acute (6) CHF (congestive heart failure): Status: Acute (7) Atrial fibrillation: Status: Acute Qualifiers: Atrial fibrillation type: unspecified Qualified Code(s): I48.91 - Unsp ecified atrial fibrillation (8) Major depression, recurrent, full remission: Status: Acute (9) Temporal lobe epilepsy: Status: Acute Attestations Medical Necessity Statement*: Requires continued hospitalization for altered mental status Coding Level of Care Code Acute Supervisor Water Softener Service for [facility] Fwd Diagnoses Altered mental status R41.82 Fall W19.XXXA Encounter type: initial encounter Carotid stenosis I65.29 Hilar adenopathy R59.0 Type 2 diabetes mellitus E11.9 CHF (congestive heart failure) I50.9 Atrial fibrillation I48.91 Atrial fibrillation type: unspecified Major depression, recurrent, full remission F33.42 Temporal lobe epilepsy G40.109
--- NOTE | 2019-10-28 16:48 | PC.NURSE ---
Patient was able to stand with min assist this morning and sit on BSC and void. When patient stood back up, she pitched herself forward and pushed forward. Had to secure patient with moderate assist to bed stand to sit and supine.
[2019-10-28 16:55] LABS: Glucose Point of Care 120 mg/dL (70-110)
--- NOTE | 2019-10-28 17:11 | PM.MISC ---
Miscellaneous Note Purpose of Documentation: EEG Note: ORDERING PHYSICIAN: [Dr. Valladares]/Dr. Sheridan. REASON FOR STUDY: Encephalopathy and history of seizures. STUDY: This was a 21 channel digital electroencephalogram performed using the 10-20 international system of electrode placement. This study was [non-sleep deprived] and the patient was awake, [and drowsy] [and asleep]. Photic stimulation was included. The patient has a craniotomy defect in the left rastafarian. FINDINGS: The background consisted of slowing in the theta and delta range with superimposed fast activity. A higher voltage fusion rhythm was present around the craniotomy in the left frontotemporal region. The patient was agitated and restless throughout and there was sweat artifact. There appeared to be an increase in left temporal spikes during photic stimulation. Hyperventilation was attempted but the patient was not cooperative. The EEG was reviewed on the monitor because the program was not functioning on my computer. There appeared to be fairly high voltage sharp waves in the left temporal lobe that were exaggerated on the monitor compared to my computer. 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 A gram of Keppra was obtained from the pharmacy and at the pharmacies requirement we injected it into a 100 mill bag of normal saline and injected it as rapidly as the pump would allow. The EEG was resumed, and continued for another 22 minutes (initial 26 minutes). During injection of Keppra the background continued to display diffuse slowing with high voltage sharp waves seen in the left temporal region, phase reversing around T3. The vagal nerve stimulator was turned off to rule out artifact from the VNS. There was no change in the record. VNS was resumed and the settings were increased. IMPRESSION: Diffuse slowing consistent with diffuse brain dysfunction, mild. High voltage slowing and sharp wave activity in the left temporal lobe suspicious for epilepsy partialis continua. Duration of EE.7
[2019-10-28 17:13] LABS: CSF Mononuclear # 0.001 10^3/uL (50-90); Mononuclear WBC CSF % 100 % (50-90); Polynuclear WBC CSF % 0 % (0-10); Red Blood Cell CSF 1 10^3/uL (0-0); White Blood Cell CSF 1 /uL (0-5)
--- NOTE | 2019-10-28 17:28 | PC.NURSE ---
Patient appears to be sleeping, was goven Ativan as ordered per DR. Valladares. Patient was unable to eat dinner and take 1800 medcations.
[2019-10-28 17:31] LABS: Appearance CSF CLEAR (CLEAR); Color CSF COLORLESS (COLORLESS)
[2019-10-28 17:38] LABS: Glucose CSF 82 mg/dL (40-70)
[2019-10-28] MEDS: sodium chloride 0.9% 1,000 ML 100 ML IV (18:06)
--- NOTE | 2019-10-28 18:40 | PC.NURSE ---
Patient sleeping most of day after returning from her EGG. Unable to give patient medication. Sitter at bedside to assist patient if she tries to stand.
[2019-10-28 22:03] LABS: Glucose Point of Care 105 mg/dL (70-110)
[2019-10-28 23:41] LABS: Glucose Point of Care 108 mg/dL (70-110)
[2019-10-29] VITALS (10 sets, daily range): BP systolic 115–159; BP diastolic 65–90; PULSE 76–105; RESP 14–17; TEMP 36.1–36.8; O2SAT 93–97
[2019-10-29 03:23] LABS: Glucose Point of Care 101 mg/dL (70-110)
[2019-10-29 05:37] LABS: Basophils # 0.1 10^3/uL (0.0-0.1); Basophils % 0.7 %; Eosinophils # 0.1 10^3/uL (0.0-0.8); Hematocrit 37.5 % (37.0-47.0); Hemoglobin 11.5 g/dL (11.5-15.3); Lymphocytes # 1.5 10^3/uL (0.8-4.8); Mean Corpuscular HGB Conc 30.7 g/dL (30.0-36.0); Mean Corpuscular Hemoglobin 23.8 pg (28.0-34.0); Mean Corpuscular Volume 77.5 fL (81-99); Mean Platelet Volume 11.1 fL (7.4-10.4); Monocytes # 0.7 10^3/uL (0.2-0.9); Monocytes % 7.6 %; Neutrophils # 6.6 10^3/uL (1.8-7.7); Neutrophils % 73.3 %; Nucleated Red Blood Cells % 0 %; Platelet Count 243 10^3/cmm (130-400); Red Blood Count 4.84 10^6/uL (4.1-5.3); Red Cell Distribution Width 16.7 % (12.1-15.1); White Blood Count 8.9 10^3/uL (4.0-10.0)
[2019-10-29 05:58] LABS: Alanine Aminotransferase 22 U/L (0-33); Albumin Level 3.8 g/dL (3.5-5.2); Alkaline Phosphatase 137 IU/L (35-105); Anion Gap 18.5 (5-19); Aspartate Amino Transferase 26 U/L (0-32); Blood Urea Nitrogen 30 mg/dL (8-23); Calcium 9.3 mg/dL (8.5-10.5); Carbon Dioxide 24 mmol/L (22-29); Chloride 96 mmol/L (98-107); Glomerular Filtration Rate 72.7 mL/min (90-130); Glucose 100 mg/dL (65-115); Osmolality Calculated 277 mOsm/kg (285-295); Phosphorus 3.6 mg/dL (2.5-4.5); Potassium 3.5 mmol/L (3.5-5.1); Sodium 135 mmol/L (136-145); Total Bilirubin 0.2 mg/dL (0.15-1.2); Total Protein 6.8 g/dL (6.6-8.7)
--- NOTE | 2019-10-29 06:04 | PC.NURSE ---
patient with episodes of incontinence during the night, patient continues to have bizarre behaviors, at times pupils become non reactive, patient becomes alert to only first name at random times throughout the night but then can remember her full name, , and that she is in a hospital, patient was able to also use bedside commode with x2 assist, tremors at times noted, at times patient can follow commands, and other times patient will only repeat the question, patient with wheezes in her lung bases which is a new onset, fluids stopped at this time. Dr. Velasquez notified of all events throughout the shift.
--- NOTE | 2019-10-29 07:29 | MR_ITS ---
WS: [id number] MRI HEAD WITH CONTRAST TECHNIQUE: Sagittal T1, T2 axial, T2 axial FLAIR, axial susceptibility weighted imaging, axial diffus ion weighted images, and coronal T2 images were obtained. Pre and post-T1 axial and post T1 coronal i mages. ADC and FSPGR images. CLINICAL INFORMATION: altered mental status, brainstem stroke?, has vagl nerve COMPARISON: None. FINDINGS: No evidence of restricted diffusion to suggest acute ischemia. Ventricular system and basal cisterns are patent. No particular no evidence of brainstem ischemia. Moderate small vessel changes with moder ate parenchymal volume loss. Chronic lacunar infarcts in the left conley radiata remote appearing pos toperative changes left temporal craniotomy with resection cavity in the anterior left temporal lobe. Associated underlying encephalomalacia and gliosis right temporal lobe appears normal with no T2 si gnal abnormality. Normal vascular flow voids at the skull base. Proximal 7th and 8th cranial nerves a ppear grossly normal. Gadolinium was administered but no significant gadolinium appreciated on the post gadolinium images. Post gadolinium imaging could be repeated if desired to assess enhancement. No hemosiderin on the susceptibility weighted images. Normal optic chiasm and pituitary infundibulum. MR/MR head wo/w con [id number] IMPRESSION: 1. No evidence of restricted diffusion to suggest acute ischemia. No brainstem ischemia. 2. Moderate small vessel changes with moderate parenchymal volume loss. 3. Chronic lacunar infarcts in the left conley radiata and left basal ganglia. 4. Prior postoperative changes left temporal craniotomy with partial temporal lobe resection. Underlying encephalomalacia and gliosis in the anterior left te mporal lobe. 5. Mesial right temporal lobe appears normal. No evidence of underlying edema or T2 signal abnormality to indicate encephalitis. 6. Gadolinium was administered although no significant enhancement appreciated on the post gadolinium imaging. This could be reattempted if desired to assess enhancement.
--- NOTE | 2019-10-29 07:32 | MR_ITS ---
WS: [id number] MRA HEAD TECHNIQUE: Axial 3-D TOF images obtained with axial images and axial, sagittal, and coronal 2-D refor matted images. CLINICAL INFORMATION: brainstem stroke COMPARISON: None. FINDINGS: Distal vertebral bodies are patent. Basilar artery is patent. Normal vascularity to the LEATH[employer]ODUCTION WORK[employer] territory bilaterally. Patent right posterior communicating artery. Both ICAs are patent at the skull base. Normal vascularity to the TASHI and MCA territories bilaterally . No evidence of high-grade proximal stenosis or aneurysm. Mild intracranial atheromatous disease wit hout flow-limiting stenosis. MR/MR angio head wo con [id number] IMPRESSION: Unremarkable intracranial MRA. No flow-limiting stenosis.
[2019-10-29] MEDS: aspirin 81 mg EC Tablet PO (08:45)
[2019-10-29] MEDS: zonisamide 100 MG Capsule 300 MG PO ×2 (08:45→17:16)
[2019-10-29] MEDS: metoprolol tartrate 25 mg Tablet PO ×2 (08:45→17:17)
[2019-10-29] MEDS: OXcarbazepine 300 mg Tablet 1200 MG PO (08:45)
[2019-10-29] MEDS: digoxin 125 mcg Tablet PO (08:46)
[2019-10-29] MEDS: FUROsemide 40 mg Tablet PO (08:46)
[2019-10-29] MEDS: venlafaxine ER (24HR) 150 mg Capsule PO (08:50)
--- NOTE | 2019-10-29 10:24 | PC.CHAP ---
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 physical science professor visit [] Patient/Family/Request visit [] Outpatient visit [] Follow-up visit [] Physician referral [] Code/Alert [x] Routine visit [] Staff referral [] Actively dying [] Patient sleeping [] Family support [] [] Out of room [] Palliative care [] [] Receiving care in room [] Pre-surgical visit [] Trauma [] Long length of stay [] ICU visit [] Other: Relational/Emotional Strength [] Patient feels connected with others/family/visitors/staff [] Distress [] Loneliness/isolation [] Abandonment Spirituality of Patient [] Person of [place] [] Attends Bahai of their [place] [] Believes in Prayer [] Reads Bible or Oriental Orthodox materials [] There are Spiritual issues to be addressed Grocery Clerk Interventions [x] Prayer [] Active listening [] Non-anxious presence [] Spiritual/emotional support [] Crisis/trauma care [] Spiritual counseling [] Bereavement support [] Provided bereavement packet [] Provided Bible/devotional materials [] Provided toy/stuffed animal, coloring book to patient or family member [] Provided Communion [] Anointing/[place] [] Salvation [x] Completed spiritual assessment [] Other: Impact on Illness or Injury [] Angry [] Fearful [] Anxious [] Often cries [] Exhaustion [] Unable to work [] Unable to attend baptist [] Unable to walk/stand [] Unable to read [] Unable to drive [] Unable to eat/drink [] Unable to sleep [] Unable to be with family [] Patient intubated [] Other: Summary Patient confused. Patient feels better than yesterday. Setter present. Time spent with patient 10 min
[2019-10-29 10:50] LABS: Glucose Point of Care 106 mg/dL (70-110)
[2019-10-29] MEDS: LORazepam 2 mg/mL INJ 1 mL 1 MG IVP (11:52)
--- NOTE | 2019-10-29 12:11 | PM.PN ---
Subjective Subjective: Interval history: Overnight patient has remained afebrile, normotensive, this morning upon entering the room I noticed that patient had a right resting tremor, left flapping tremor, did not follow me around in the room, does not tract object, remembers me, but not by name, follows commands such as squeezing my fingers, wiggling her toes, opening her mouth, closing her eyes, states that there is something wrong with her, states that she is going do some testing today, has intermittent slurring of her speech, pupils are dilated bilaterally, but responsive to light. Patient had a lumbar puncture yesterday afternoon, which which was relatively lackluster, culture so far unremarkable, EEG yesterday showed slowing and some spike wave forms in temporal lobe, was given Keppra thousand milligrams 3 times daily, with minimal improvement in symptomatology, was a bit drowsy after administration. In consultation with Dr. Valladares, plans to do an MRI/MRA of the brain, does have a vagal nerve stimulator, will see if vagal nerve stimulator is compatible with MRI Vitals/I&O/Wt Last Vital Signs Temp 97.0 F L 10/29/19 08:00 Pulse 105 H 10/29/19 08:46 Resp 16 10/29/19 08:00 BP 132/82 10/29/19 08:00 Pulse Ox 93 10/29/19 07:09 10/28/19 10/29/19 10/29/19 22:59 06:59 14:59 Intake Total 140 / 140 220 / 220 Output Total 0 / 0 100 / 100 Balance 0 / 0 140 / 140 120 / 120 Weight last 48 hrs Weight 72.575 kg Physical Exam Const: COMMON NORMALS: no acute distress and alert GENERAL APPEARANCE: cooperative and comfortable ORIENTATION/CONSCIOUSNESS: Yes oriented to person and Yes oriented to place; not oriented to time HENMT: COMMON NORMALS: normocephalic HEAD & SCALP: normocephalic Eye: COMMON NORMALS: Equal, round and reactive pupils present and EOMs intact bilaterally PUPIL: Yes Equal, round and reactive pupils present Neck/C-Spine: COMMON NORMALS: no JVD Lymph: LYMPHATIC: no lymphadenopathy noted Resp: COMMON NORMALS: normal respiratory effort, No retractions, No use of accessory muscles and clear to auscultation bilaterally AUSCULTATION: clear to auscultation bilaterally Cardio: COMMON NORMALS: no JVD, regular rate, regular rhythm, S1 normal heart sound present, S2 normal heart sound present, No gallops present (Cardio), No clicks present (Cardio) and No murmurs present (Cardio) RATE: regular rate RHYTHM: regular rhythm HEART SOUNDS: S1 normal heart sound present and S2 normal heart sound present GI: COMMON NORMALS: Normal to inspection, nondistended, normoactive bowel sounds present, Soft to palpation, non-tender and No hepatosplenomegaly present PALPATION: Yes Soft to palpation and Yes No hepatosplenomegaly present Extremity: COMMON NORMALS: normal to inspection, full ROM and no pedal edema Neuro: COMMON NORMALS: CN's II-XII intact bilaterally and moves all extremities SENSORIUM/ORIENTATION: Yes alert, Yes oriented to person, Yes oriented to place and No oriented to time SPEECH: abnormal speech (Intermittent episodes of slurred speech) GAIT: Yes Ataxic gait present OTHER: Abnormal [id number], does not track objects Psych: ATTITUDE: Yes Withdrawn affect present and Yes bizarre SPEECH: Yes slurred (Intermittent slurred speech) Data : 10/29/19 05:25 10/29/19 05:25 Micro: Microbiology 10/28/19 15:35 Gram Stain - Final Cerebrospinal Fluid A&P Assessment and plan (1) Altered mental status: -This is patient's second admission, her presentation is quite bizarre -At this point patient's had 3 CTs, no intracranial bleed, old lacunar infarcts, 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 -Continues to have intermittent slurred speech, ataxia, ophthalmoplegia is new, does not track which is new, the flapping tremor is new -Does have 50% carotid artery stenosis on the right - still is confused, but has intact intermittent episodes of normalcy, as according to [facility] she was doing well a week ago -In the last month patient has significantly declined, has had a diagnosis of atrial fibrillation, negative stress test, extensive laboratory work-up -Now has had 2 falls, especially getting up out of bed, and it seems as if patient symptoms typically come on when she falls out of bed -Lumbar puncture yesterday after he was lackluster, no opening pressure, culture so far unremarkable, 1 WBC, clear, colorless -EEG yesterday showed generalized slowing at temporal lobe lobectomy site, some spike wave forms, started on 1 g of Keppra 3 times daily, is drowsy after administration, no significant change in symptomatology -Plan is to perform MRI, MRA of the brain today has a vagal nerve stimulator in place, will find out if MRI compatible Differential remains broad: Recurrent seizures, encephalopathy associate with paraneoplastic syndromes, normal pressure hydrocephalus, etc. Plan: -Admit to general medical floors -Needs a one-on-one sitter, patient should not climb up out of bed -Physical therapy observational therapy -Seizure precautions, neuro checks -Continue all home medications, added Keppra thousand milligrams 3 times daily -Dr. Valladares feel that her acute encephalopathy is unlikely secondary to her zonisamide, Effexor, oxcarbazepine as she has been on these doses for many years -Plan is to do an MRI brain, MRI brain today, hopefully patient's vagal nerve stimulator is compatible, Dr. Valladares on consult Status: Acute (2) Fall: Status: Acute Qualifiers: Encounter type: initial encounter Qualified Code(s): W19.XXXA - Unspecified fall, initial encounter (3) Carotid stenosis: Status: Acute (4) Hilar adenopathy: Status: Acute (5) Type 2 diabetes mellitus: Status: Acute (6) CHF (congestive heart failure): Status: Acute (7) Atrial fibrillation: Status: Acute Qualifiers: Atrial fibrillation type: unspecified Qualified Code(s): I48.91 - Unspecified atrial fibrillation (8) Major depression, recurrent, full remission: Status: Acute (9) Temporal lobe epilepsy: Status: Acute Attestations Medical Necessity Statement*: Patient requires continued hospitalization due to altered mental status, getting IV hydration for MELANI, awaiting MRI MRA of the brain Coding Level of Care Code Acute Stock Saw Operator for [facility] Fwd Diagnoses Altered mental status R41.82 Fall W19.XXXA Encounter type: initial encounter Carotid stenosis I65.29 Hilar adenopathy R59.0 Type 2 diabetes mellitus E11.9 CHF (congestive heart failure) I50.9 Atrial fibrillation I48.91 Atrial fibrillation type: unspecified Major depression, recurrent, full remission F33.42 Temporal lobe epilepsy G40.109
--- NOTE | 2019-10-29 12:22 | PC.NURSE ---
Patient to MRI per ambulance transfer.
[2019-10-29] MEDS: apixaban 5 mg Tablet PO ×2 (13:37→17:17)
--- NOTE | 2019-10-29 13:53 | P.PN_ITS ---
Subjective Subjective: Interval history: This morning I investigated the performance of MRI in the presence of VNS. There is an extensive literature on this and an extensive history of lawsuits related to the performance of MRI with VNS. Dr. Luciano also reviewed this literature as did the medical delivery technician and we agreed to go ahead with MRI scan. I was at the ready to turn off the VNS and made several trips to the MRI unit before we could actually go through with the procedure. I stayed in the MRI while the patient was treated to make sure that her agitation did not prevent performance. She was actually quiet, said I just want to be quiet and she looked a little sleepy after a milligram of Ativan was given airport operations duty manager for the study. Her pupils were markedly dilated. She had no focal f indings. On completion of her MRI she was transferred back to a stretcher and I resumed her previous VNS settings. I have reviewed her MRI images and MRA, which appear unremarkable (previous left temporal lobectomy and some white matter changes) and Dr. Luciano is in the process of reading her images. I was called stat last night by the hospitalist on-call because the nurses said the patient was confused. By the hospitalist description there was no actual change Vitals/I&O/Wt Last Vital Signs Temp 97.0 F L 10/29/19 12:00 Pulse 105 H 10/29/19 12:00 Resp 16 10/29/19 12:00 BP 132/82 10/29/19 12:00 Pulse Ox 93 10/29/19 12:00 10/28/19 10/29/19 10/29/19 22:59 06:59 14:59 Intake Total 140 / 140 220 / 220 Output Total 0 / 0 100 / 100 Balance 0 / 0 140 / 140 120 / 120 Physical Exam Narrative: EXAM NARRATIVE: I saw her after she received Ativan airport operations duty manager for her MRI. She was calm and cooperative. She was able to tell me she is in [place] and could say my name. Eye movements full. Pupils dilated but reactive. Facial movements symmetric. Tongue midline in the mouth and managing her secretions Motor exam reveals no tremor. Reasonable strength in all 4 extremities. Neck/C-Spine: COMMON NORMALS: no JVD Chest: CHEST: Yes Symmetrical chest wall rise (Lungs clear) and Yes Pacemaker present (VNS left chest) Cardio: COMMON NORMALS: no JVD, S1 normal heart sound present and S2 normal heart sound present; negative for regular rhythm (Irregularly irregular) RHYTHM: abnormal rhythm (Irregularly irregular) HEART SOUNDS: S1 normal heart sound present and S2 normal heart sound present Data : 10/29/19 05:25 10/29/19 05:25 Micro: Microbiology 10/28/19 15:35 Gram Stain - Final Cerebrospinal Fluid A&P Assessment and plan (1) Encephalopathy acute: Acute encephalopathy of unclear origin. Had a nonfocal exam although it is interesting that her pupils are dilated. Dr. Sheridan says that he observed that yesterday or the day before but this is the first time I examined her in bright light. I want to minimize her anticonvulsants. Decreasing Zonegran to 300 mg daily. Change Keppra to 1500 mg twice daily. Set her up for outpatient repeat EEG. We will need to leave a message on the neuroscience answering machine at [phone] as the order is not direct Deejay transmitted to the my staff I talked with Dr. Park. I think the patient can return to the retirement. We gave contrast with her MRI so she should be hydrated before she goes. Her encephalopathy is presumed to be toxic. It is not infectious. It is not focal. She does not have brainstem ischemia. Her severe depression and is like sleep playing part but she also has to fuse slowing by EEG. I need to see her in my office within a couple of weeks. 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 10 AM?2 PM
--- NOTE | 2019-10-29 14:15 | PC.OT ---
Addendum entered by Phoebe Verduzco 10/29/19 15:23: CO-SIGNATURE Stacey GANN/Esther Original Note: OT TX ATTEMPTED AT THIS TIME. PATIENT HAS BEEN TO MRI AND REQUIRED MEDICATION FOR ANXIETY. SHE IS SLEEPING SOUNDLY AT THIS TIME AND NURSING REQUESTS THERAPIST TO HOLD OT TX.
[2019-10-29 17:03] LABS: Glucose Point of Care 109 mg/dL (70-110)
[2019-10-29] MEDS: sodium chloride 0.9% 1,000 ML 75 ML IV (17:16)
[2019-10-29] MEDS: levETIRAcetam 500 mg Tablet 1500 MG PO (17:17)
[2019-10-29 20:41] LABS: Glucose Point of Care 109 mg/dL (70-110)
[2019-10-29] MEDS: atorvastatin 40 mg Tablet PO (22:58)
[2019-10-30] VITALS (11 sets, daily range): BP systolic 110–152; BP diastolic 54–77; PULSE 78–99; RESP 16–22; TEMP 36.2–37.1; O2SAT 94–99
[2019-10-30 05:51] LABS: Basophils # 0.1 10^3/uL (0.0-0.1); Basophils % 0.6 %; Eosinophils # 0.1 10^3/uL (0.0-0.8); Eosinophils % 1.1 %; Hematocrit 36.8 % (37.0-47.0); Hemoglobin 11.2 g/dL (11.5-15.3); Lymphocytes # 1.6 10^3/uL (0.8-4.8); Mean Corpuscular HGB Conc 30.4 g/dL (30.0-36.0); Mean Corpuscular Hemoglobin 24.1 pg (28.0-34.0); Mean Corpuscular Volume 79.3 fL (81-99); Mean Platelet Volume 10.4 fL (7.4-10.4); Monocytes # 0.7 10^3/uL (0.2-0.9); Monocytes % 8.3 %; Neutrophils # 5.7 10^3/uL (1.8-7.7); Neutrophils % 70.5 %; Nucleated Red Blood Cells % 0 %; Platelet Count 222 10^3/cmm (130-400); Red Blood Count 4.64 10^6/uL (4.1-5.3); Red Cell Distribution Width 17.2 % (12.1-15.1); White Blood Count 8.2 10^3/uL (4.0-10.0)
[2019-10-30 06:34] LABS: Glucose Point of Care 124 mg/dL (70-110)
[2019-10-30 07:45] LABS: Alanine Aminotransferase 22 U/L (0-33); Albumin Level 3.7 g/dL (3.5-5.2); Alkaline Phosphatase 131 IU/L (35-105); Anion Gap 18.5 (5-19); Blood Urea Nitrogen 26 mg/dL (8-23); Calcium 9.3 mg/dL (8.5-10.5); Carbon Dioxide 26 mmol/L (22-29); Chloride 92 mmol/L (98-107); Globulin 2.8 g/dL (1.3-4.6); Glomerular Filtration Rate 84.8 mL/min (90-130); Glucose 87 mg/dL (65-115); Osmolality Calculated 272 mOsm/kg (285-295); Phosphorus 3.6 mg/dL (2.5-4.5); Potassium 3.5 mmol/L (3.5-5.1); Sodium 133 mmol/L (136-145); Total Bilirubin 0.3 mg/dL (0.15-1.2); Total Protein 6.5 g/dL (6.6-8.7)
[2019-10-30 08:20] LABS: Aspartate Amino Transferase 32 U/L (0-32)
[2019-10-30] MEDS: levETIRAcetam 500 mg Tablet 1500 MG PO ×2 (09:01→17:54)
[2019-10-30] MEDS: FUROsemide 40 mg Tablet PO (09:02)
[2019-10-30] MEDS: venlafaxine ER (24HR) 150 mg Capsule PO (09:02)
[2019-10-30] MEDS: zonisamide 100 MG Capsule 300 MG PO ×2 (09:02→17:53)
[2019-10-30] MEDS: metoprolol tartrate 25 mg Tablet PO ×2 (09:02→17:53)
[2019-10-30] MEDS: aspirin 81 mg EC Tablet PO (09:02)
[2019-10-30] MEDS: apixaban 5 mg Tablet PO ×2 (09:02→17:53)
[2019-10-30] MEDS: digoxin 125 mcg Tablet PO (09:02)
[2019-10-30] MEDS: OXcarbazepine 300 mg Tablet 1200 MG PO (09:03)
[2019-10-30 12:35] LABS: Glucose Point of Care 122 mg/dL (70-110)
--- NOTE | 2019-10-30 13:34 | PM.PN ---
Subjective Subjective: Interval history: Overnight apparently patient had seizure-like episodes, I have not noticed any seizure-like episodes during my examination today, I turned on the light, opened up all the blinds, patient is much more alert, states she is doing fine, has a resting tremor on the right, flapping tremor on the left, but disappears deep into conversation, says she wants to go back to the [facility], follows commands to squeeze my fingers, wiggling her toes smiling has intermittent slurring of her speech which has persisted, Vitals/I&O/Wt Last Vital Signs Temp 98.1 F 10/30/19 11:13 Pulse 80 10/30/19 11:13 Resp 18 10/30/19 11:13 BP 114/74 10/30/19 11:13 Pulse Ox 97 10/30/19 11:13 10/29/19 10/30/19 10/30/19 22:59 06:59 14:59 Intake Total 120 / 340 480 / 480 Output Total 0 / 100 Balance 120 / 240 0 / 240 480 / 480 Weight last 48 hrs Weight 85.593 kg Physical Exam Const: COMMON NORMALS: no acute distress and alert GENERAL APPEARANCE: cooperative and comfortable ORIENTATION/CONSCIOUSNESS: Yes oriented to person and Yes oriented to place; not oriented to time HENMT: COMMON NORMALS: normocephalic HEAD & SCALP: normocephalic Eye: COMMON NORMALS: Equal, round and reactive pupils present GENERAL EYE: appearance normal, both eyes and all related structures PUPIL: Yes Equal, round and reactive pupils present Neck/C-Spine: COMMON NORMALS: full ROM, no lymphadenopathy, no JVD and Thyroid normal THYROID: Thyroid normal Lymph: LYMPHATIC: no lymphadenopathy noted Resp: COMMON NORMALS: normal respiratory effort, No retractions, No use of accessory muscles and clear to auscultation bilaterally AUSCULTATION: clear to auscultation bilaterally Cardio: COMMON NORMALS: no JVD, regular rate, regular rhythm, S1 normal heart sound present, S2 normal heart sound present, No gallops present (Cardio), No clicks present (Cardio) and No murmurs present (Cardio) RATE: regular rate RHYTHM: regular rhythm HEART SOUNDS: S1 normal heart sound present and S2 normal heart sound present GI: COMMON NORMALS: Normal to inspection, nondistended, normoactive bowel sounds present, Soft to palpation, non-tender and No hepatosplenomegaly present PALPATION: Yes Soft to palpation and Yes No hepatosplenomegaly present Extremity: COMMON NORMALS: normal to inspection, full ROM and no pedal edema Neuro: COMMON NORMALS: CN's II-XII intact bilaterally and moves all extremities SENSORIUM/ORIENTATION: Yes alert, Yes oriented to person, Yes oriented to place, No oriented to time and No Orientation impaired SPEECH: abnormal speech (Intermittent episodes of slurred speech) GAIT: Yes Ataxic gait present OTHER: Abnormal [id number], does not track objects Psych: APPEARANCE: Yes grossly normal ATTITUDE: Yes Withdrawn affect present and Yes bizarre SPEECH: Yes slurred (Intermittent slurred speech) Data : 10/30/19 05:38 10/30/19 07:05 A&P Assessment and plan (1) Altered mental status: -This is patient's second admission, her presentation is quite bizarre -At this point patient's had 3 CTs, no intracranial bleed, old lacunar infarcts, 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 -Continues to have intermittent slurred speech, ataxia, ophthalmoplegia is new, does not track which is new, the flapping tremor is new -Does have 50% carotid artery stenosis on the right - still is confused, but has intact intermittent episodes of normalcy, as according to [facility] she was doing well a week ago -In the last month patient has significantly declined, has had a diagnosis of atrial fibrillation, negative stress test, extensive laboratory work-up -Now has had 2 falls, especially getting up out of bed, and it seems as if patient symptoms typically come on when she falls out of bed -Lumbar puncture was lackluster, no opening pressure, culture so far unremarkable, 1 WBC, clear, colorless -EEG yesterday showed generalized slowing at temporal lobe lobectomy site, some spike wave forms, started on 1.5 g twice daily -MRI of the brain showed no acute ischemia, no brainstem ischemia, chronic lacunar infarct in the left conley radiata and left basal ganglia, postoperative changes left temporal craniotomy with partial temporal lobe resection, no evidence of underlying edema or T2 signal abnormality indicate encephalitis, MRA no flow-limiting stenosis -Trileptal level pending -I have done an extensive medical work-up, I cannot find any organic reason for patient's intermittent encephalopathy, flapping tremor, ataxia, slurring speech -Certainly there are very rare entities that could be a possibility, I will leave this up to her outpatient physician Dr. Valladares to pursue, although I think it is frankly unlikely -Certainly she could be having some epileptiform activity in the area of her left temporal lobe, but she is zonisamide 300 mg twice daily, Trileptal dose decreased to 1200 mg p.o. daily, Keppra 1500 mg twice daily -During my extensive examination of the patient, her slurring of her speech, flapping tremor is very intermittent, deep into conversation it often disappears, she often repeats statements back to me, but when I pose certain questions to her such as how is her son doing, her symptoms worsen, versus other questions such as personal questions her symptoms frankly disappear -In addition often when I focus less on her, and her surroundings such as posing questions how is the weather outside, a lot of her symptoms dissipate, she is able to follow along my train of thinking to something external and responding appropriately -Patient's clinical case is very difficult, I personally feel that she has conversion disorder, and I feel that obtaining a early psychiatric consult would help her in the long-term, to decrease her risk of rehospitalization's, aggressive work-ups as she had continues to have intermittent systems, and symptoms varying symptomatologies throughout her hospital course without any clear organic etiology -Altered mental status likely secondary to conversion disorder, anxiety depression, seizure Plan: -Admit to general medical floors -Needs a one-on-one sitter, patient should not climb up out of bed -Physical therapy observational therapy -Seizure precautions, neuro checks, Keppra 1500 mg twice daily, Trileptal 1200 mg p.o. daily -Dr. Valladares feel that her acute encephalopathy is unlikely secondary to her zonisamide, Effexor, oxcarbazepine as she has been on these doses for many years -We will await COVID-19 testing, prior off from [facility], will discharge back to [facility] -Consult Dr. Flaherty Status: Acute (2) Fall: Status: Acute Qualifiers: Encounter type: initial encounter Qualified Code(s): W19.XXXA - Unspecified fall, initial encounter (3) Carotid stenosis: Status: Acute (4) Hilar adenopathy: Status: Acute (5) Type 2 diabetes mellitus: Status: Acute (6) CHF (congestive heart failure): Status: Acute (7) Atrial fibrillation: Status: Acute Qualifiers: Atrial fibrillation type: unspecified Qualified Code(s): I48.91 - Unspecified atrial fibrillation (8) Major depression, recurrent, full remission: Status: Acute (9) Temporal lobe epilepsy: Status: Acute Attestations Medical Necessity Statement*: Patient is waiting on [facility] placement Coding Level of Care Code Acute Waste Hand for [facility] Fwd Diagnoses Altered mental status R41.82 Fall W19.XXXA Encounter type: initial encounter Carotid stenosis I65.29 Hilar adenopathy R59.0 Type 2 diabetes mellitus E11.9 CHF (congestive heart failure) I50.9 Atrial fibrillation I48.91 Atrial fibrillation type: unspecified Major depression, recurrent, full remission F33.42 Temporal lobe epilepsy G40.109
[2019-10-30 15:00] LABS: Thyroid Stimulating Hormone 1.23 uIU/mL (0.27-4.20); Vitamin B12 314 pg/mL (232-1245)
[2019-10-30 15:01] LABS: Folate Level 2.7 ng/mL (4.8-37.3)
[2019-10-30] MEDS: folic acid 1 mg Tablet PO (18:30)
--- NOTE | 2019-10-30 18:32 | PC.NURSE ---
Patient more alert this afternoon. Was able to tell staff she needed to use bathroom. Sit up in a chair and tolerated well. She was able to eat some of her dinner including ice cream and a ham sandwich. Called her daughter Kaylynn and gave her an update on patients status.
[2019-10-30 21:07] LABS: Glucose Point of Care 121 mg/dL (70-110)
[2019-10-30] MEDS: atorvastatin 40 mg Tablet PO (21:18)
[2019-10-31] VITALS (8 sets, daily range): BP systolic 107–140; BP diastolic 66–82; PULSE 58–99; RESP 18–19; TEMP 35.8–36.7; O2SAT 95–98
[2019-10-31 05:55] LABS: Basophils # 0.1 10^3/uL (0.0-0.1); Basophils % 0.6 %; Eosinophils # 0.1 10^3/uL (0.0-0.8); Eosinophils % 1.3 %; Hematocrit 38.8 % (37.0-47.0); Hemoglobin 12.1 g/dL (11.5-15.3); Lymphocytes # 1.7 10^3/uL (0.8-4.8); Lymphocytes % 21.6 %; Mean Corpuscular HGB Conc 31.2 g/dL (30.0-36.0); Mean Corpuscular Hemoglobin 23.9 pg (28.0-34.0); Mean Corpuscular Volume 76.5 fL (81-99); Mean Platelet Volume 10.6 fL (7.4-10.4); Monocytes # 0.6 10^3/uL (0.2-0.9); Monocytes % 7.2 %; Neutrophils # 5.3 10^3/uL (1.8-7.7); Nucleated Red Blood Cells % 0 %; Platelet Count 226 10^3/cmm (130-400); Red Blood Count 5.07 10^6/uL (4.1-5.3); White Blood Count 7.7 10^3/uL (4.0-10.0)
[2019-10-31 06:08] LABS: Alanine Aminotransferase 26 U/L (0-33); Albumin Level 3.9 g/dL (3.5-5.2); Alkaline Phosphatase 149 IU/L (35-105); Anion Gap 17.4 (5-19); Aspartate Amino Transferase 32 U/L (0-32); Blood Urea Nitrogen 20 mg/dL (8-23); Calcium 10.4 mg/dL (8.5-10.5); Carbon Dioxide 27 mmol/L (22-29); Chloride 92 mmol/L (98-107); Globulin 3.4 g/dL (1.3-4.6); Glomerular Filtration Rate 72.7 mL/min (90-130); Glucose 98 mg/dL (65-115); Magnesium 1.9 mg/dL (1.7-2.3); Osmolality Calculated 273 mOsm/kg (285-295); Phosphorus 3.7 mg/dL (2.5-4.5); Potassium 3.4 mmol/L (3.5-5.1); Sodium 133 mmol/L (136-145); Total Bilirubin 0.3 mg/dL (0.15-1.2); Total Protein 7.3 g/dL (6.6-8.7)
--- NOTE | 2019-10-31 06:36 | PC.NURSE ---
Shift Summary pt has been confused tonight. pt unable to answer all questions during neuro checks. pt would get caught up on her name and birthday and start repeating answers and would not move on to answer other questions. pt was able to squeeze my hands and push/pull with her feet but would not follow any other directional cues. pt mostly incontinent throughout night. around 0600, pt tried climbing out of bed for the first time tonight, pt was getting up to BSC. this nurse and SALES OPERATIONS ASSISTANT helped pt to BSC, pt did well with minimal two assist and followed directional cues getting to and from BSC. no complaints of pain and pt overall slept well. pt swallowed meds whole but needed directional cues on swallowing.
[2019-10-31 06:39] LABS: Glucose Point of Care 98 mg/dL (70-110)
[2019-10-31] MEDS: metoprolol tartrate 25 mg Tablet PO ×2 (09:49→18:05)
[2019-10-31] MEDS: zonisamide 100 MG Capsule 300 MG PO ×2 (09:49→18:05)
[2019-10-31] MEDS: aspirin 81 mg EC Tablet PO (09:52)
[2019-10-31] MEDS: venlafaxine ER (24HR) 150 mg Capsule PO (09:52)
[2019-10-31] MEDS: FUROsemide 40 mg Tablet PO (09:53)
[2019-10-31] MEDS: OXcarbazepine 300 mg Tablet 1200 MG PO (09:53)
[2019-10-31] MEDS: cyanocobalamin 1,000 mcg Tablet 1000 MCG PO (09:53)
[2019-10-31] MEDS: levETIRAcetam 500 mg Tablet 1500 MG PO ×2 (09:53→18:05)
[2019-10-31] MEDS: folic acid 1 mg Tablet PO ×2 (09:53→18:05)
[2019-10-31] MEDS: apixaban 5 mg Tablet PO ×2 (09:54→18:05)
[2019-10-31] MEDS: digoxin 125 mcg Tablet PO (09:54)
--- NOTE | 2019-10-31 11:45 | DCPLANNER ---
Pg 2 of IM updated and reviewed with pt. No questions, copy provided.
--- NOTE | 2019-10-31 11:47 | P.PN_ITS ---
Subjective Subjective: Interval history: This morning patient is much more alert, alert oriented x3, she is smiling, no significant tremor noticed on exam, no slurring of the speech noticed on exam, she is enjoying the weather outside, we talked about her 3 granddaughters whose name is tattooed on her left shoulder, she is less forgetful, she is in much better mood, is getting ready to work with physical therapy Vitals/I&O/Wt Last Vital Signs Temp 97.7 F 10/31/19 08:00 Pulse 75 10/31/19 08:00 Resp 19 H 10/31/19 08:00 BP 122/82 10/31/19 08:00 Pulse Ox 97 10/31/19 08:00 10/30/19 10/31/19 10/31/19 22:59 06:59 14:59 Intake Total 120 / 600 0 / 0 Output Total 150 / 150 400 / 550 Balance -30 / 450 -400 / 50 0 / 0 Weight last 48 hrs Weight 85.593 kg Physical Exam Const: COMMON NORMALS: no acute distress and patient oriented x3 HENMT: COMMON NORMALS: normocephalic HEAD & SCALP: normocephalic Neck/C-Spine: COMMON NORMALS: no JVD Resp: COMMON NORMALS: normal respiratory effort, No retractions, No use of accessory muscles and clear to auscultation bilaterally AUSCULTATION: clear to auscultation bilaterally Cardio: COMMON NORMALS: no JVD, regular rate, regular rhythm, S1 normal heart sound present and S2 normal heart sound present RATE: regular rate RHYTHM: regular rhythm HEART SOUNDS: S1 normal heart sound present and S2 normal heart sound present GI: COMMON NORMALS: Normal to inspection, nondistended, normoactive bowel sounds present, Soft to palpation, non-tender, No hepatosplenomegaly present, no masses and no bruits PALPATION: Yes Soft to palpation and Yes No hepatosplenomegaly present Extremity: COMMON NORMALS: capillary refill normal, no clubbing, cyanosis or edema, no calf tenderness and no pedal edema Neuro: COMMON NORMALS: patient oriented x3 Psych: COMMON NORMALS: mental status grossly normal Data : 10/31/19 05:38 10/31/19 05:38 Micro: Microbiology 10/28/19 15:35 Gram Stain - Final Cerebrospinal Fluid CSF Culture - Preliminary A&P Assessment and plan (1) Altered mental status: -This is patient's second admission, her presentation is quite bizarre -At this point patient's had 3 CTs, no intracranial bleed, old lacunar infarcts, 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 -Continues to have intermittent slurred speech, ataxia, ophthalmoplegia is new, does not track which is new, the flapping tremor is new -Does have 50% carotid artery stenosis on the right - still is confused, but has intact intermittent episodes of normalcy, as according to group home she was doing well a week ago -In the last month patient has significantly declined, has had a diagnosis of atrial fibrillation, negative stress test, extensive laboratory work-up -Now has had 2 falls, especially getting up out of bed, and it seems as if patient symptoms typically come on when she falls out of bed -Lumbar puncture was lackluster, no opening pressure, culture so far unr emarkable, 1 WBC, clear, colorless -EEG yesterday showed generalized slowing at temporal lobe lobectomy site, some spike wave forms, started on 1.5 g twice daily -MRI of the brain showed no acute ischemia, no brainstem ischemia, chronic lacunar infarct in the left conley radiata and left basal ganglia, postoperative changes left temporal craniotomy with partial temporal lobe resection, no evidence of underlying edema or T2 signal abnormality indicate encephalitis, MRA no flow-limiting stenosis -Trileptal level pending -I have done an extensive medical work-up, I cannot find any organic reason for patient's intermittent encephalopathy, flapping tremor, ataxia, slurring speech -Certainly there are very rare entities that could be a possibility, I will leave this up to her outpatient physician Dr. Valladares to pursue, although I think it is frankly unlikely -Certainly she could be having some epileptiform activity in the area of her left temporal lobe, but she is zonisamide 300 mg twice daily, Trileptal dose decreased to 1200 mg p.o. daily, Keppra 1500 mg twice daily -Today is doing much better, no flapping tremor, no slurring of her speech, tracks objects, smiling, is in much better spirits -Patient's clinical case is very difficult, I personally feel that she has conversion disorder, and I feel that obtaining a early psychiatric consult would help her in the long-term, to decrease her risk of rehospitalization's, aggressive work-ups as she had continues to have intermittent systems, and symptoms varying symptomatologies throughout her hospital course without any clear organic etiology -Altered mental status likely secondary to conversion disorder, anxiety depression, seizure -I have ordered B1 levels, serum heavy metal screen, VDRL CSF pending, CSF cultures pending but so far negative, serum TIERNEY Plan: -Admit to general medical floors -Needs a one-on-one sitter, patient should not climb up out of bed, has a habit of falling when getting out of bed, now twice in the last 2 months, required 2 hospital admissions -Physical therapy observational therapy -Seizure precautions, neuro checks, Keppra 1500 mg twice daily, Trileptal 1200 mg p.o. daily -Dr. Valladares feel that her acute encephalopathy is unlikely secondary to her zonisamide, Effexor, oxcarbazepine as she has been on these doses for many years -We will await COVID-19 testing, prior off from group home, will discharge back to group home -Consult Dr. Flaherty Status: Acute (2) Fall: Status: Acute Qualifiers: Encounter type: initial encounter Qualified Code(s): W19.XXXA - Unspecified fall, initial encounter (3) Carotid stenosis: Status: Acute (4) Hilar adenopathy: Status: Acute (5) Type 2 diabetes mellitus: Status: Acute (6) CHF (congestive heart failure): Status: Acute (7) Atrial fibrillation: Status: Acute Qualifiers: Atrial fibrillation type: unspecified Qualified Code(s): I48.91 - Unspecified atrial fibrillation (8) Major depression, recurrent, full remission: Status: Acute (9) Temporal lobe epilepsy: Status: Acute Attestations Medical Necessity Statement*: Patient requested hospitalization due to altered mental status, waiting group home placement Coding Level of Care Code Acute Control Systems Designer for Lisa Walker Diagnoses Altered mental status R41.82 Fall W19.XXXA Encounter type: initial encounter Carotid stenosis I65.29 Hilar adenopathy R59.0 Type 2 diabetes mellitus E11.9 CHF (congestive heart failure) I50.9 Atrial fibrillation I48.91 Atrial fibrillation type: unspecified Major depression, recurrent, full remission F33.42 Temporal lobe epilepsy G40.109
--- NOTE | 2019-10-31 15:15 | PC.OT ---
Addendum entered by AZEEM Eason 10/31/19 16:04: CORRECTION; Nursing requests therapist not wake pt at this time. Original Note: OT tx attempted. Pt sleeping soundly and requests therapist not wake her at this time. OT tx to be attempted again later if possible
[2019-10-31] MEDS: atorvastatin 40 mg Tablet PO (20:57)
[2019-10-31 21:40] LABS: Glucose Point of Care 120 mg/dL (70-110)
[2019-10-31 21:40] LABS: Glucose Point of Care 134 mg/dL (70-110)
[2019-10-31 21:40] LABS: Glucose Point of Care 104 mg/dL (70-110)
[2019-11-01] VITALS: BP 137/82; PULSE 78; RESP 19; TEMP 36.4; O2SAT 96
[2019-11-01 01:33] LABS: Coronavirus Lab Test PTC SEE COMMENTS
[2019-11-01 04:00] VITALS: BP 96/64; PULSE 75; RESP 19; TEMP 36.6; O2SAT 96
[2019-11-01 06:02] LABS: Basophils # 0.1 10^3/uL (0.0-0.1); Basophils % 0.9 %; Eosinophils # 0.2 10^3/uL (0.0-0.8); Eosinophils % 2.5 %; Hematocrit 37.2 % (37.0-47.0); Hemoglobin 11.8 g/dL (11.5-15.3); Lymphocytes # 1.8 10^3/uL (0.8-4.8); Lymphocytes % 27.6 %; Mean Corpuscular HGB Conc 31.7 g/dL (30.0-36.0); Mean Corpuscular Hemoglobin 24.6 pg (28.0-34.0); Mean Corpuscular Volume 77.5 fL (81-99); Monocytes # 0.5 10^3/uL (0.2-0.9); Monocytes % 8.2 %; Neutrophils # 3.9 10^3/uL (1.8-7.7); Neutrophils % 60.5 %; Nucleated Red Blood Cells % 0 %; Platelet Count 217 10^3/cmm (130-400); Red Cell Distribution Width 16.8 % (12.1-15.1); White Blood Count 6.5 10^3/uL (4.0-10.0)
[2019-11-01 06:06] LABS: Alanine Aminotransferase 27 U/L (0-33); Albumin Level 3.8 g/dL (3.5-5.2); Alkaline Phosphatase 150 IU/L (35-105); Anion Gap 18.6 (5-19); Aspartate Amino Transferase 34 U/L (0-32); Blood Urea Nitrogen 18 mg/dL (8-23); Calcium 10.3 mg/dL (8.5-10.5); Carbon Dioxide 25 mmol/L (22-29); Chloride 94 mmol/L (98-107); Globulin 3.2 g/dL (1.3-4.6); Glomerular Filtration Rate 72.7 mL/min (90-130); Glucose 102 mg/dL (65-115); Magnesium 1.9 mg/dL (1.7-2.3); Osmolality Calculated 275 mOsm/kg (285-295); Potassium 3.6 mmol/L (3.5-5.1); Sodium 134 mmol/L (136-145); Total Bilirubin 0.3 mg/dL (0.15-1.2)
[2019-11-01 06:16] LABS: Glucose Point of Care 91 mg/dL (70-110)
[2019-11-01] MEDS: OXcarbazepine 300 mg Tablet 1200 MG PO (07:28)
[2019-11-01] MEDS: levETIRAcetam 500 mg Tablet 1500 MG PO (07:28)
[2019-11-01] MEDS: apixaban 5 mg Tablet PO (07:29)
[2019-11-01] MEDS: cyanocobalamin 1,000 mcg Tablet 1000 MCG PO (07:29)
[2019-11-01] MEDS: metoprolol tartrate 25 mg Tablet PO (07:29)
[2019-11-01] MEDS: digoxin 125 mcg Tablet PO (07:33)
[2019-11-01] MEDS: zonisamide 100 MG Capsule 300 MG PO (07:33)
[2019-11-01] MEDS: aspirin 81 mg EC Tablet PO (07:33)
[2019-11-01] MEDS: venlafaxine ER (24HR) 150 mg Capsule PO (07:34)
[2019-11-01] MEDS: folic acid 1 mg Tablet PO (07:34)
[2019-11-01] MEDS: FUROsemide 40 mg Tablet PO (07:34)
[2019-11-01 07:42] VITALS: BP 124/83; PULSE 93; RESP 18; TEMP 36.5; O2SAT 99
[2019-11-01 09:43] VITALS: PULSE 93; RESP 18; O2SAT 97
[2019-11-01 11:19] VITALS: BP 133/81; PULSE 89; RESP 18; TEMP 36.8; O2SAT 95
[2019-11-01 11:23] LABS: Glucose Point of Care 96 mg/dL (70-110)
--- NOTE | 2019-11-01 13:13 | PM.DCS ---
Discharge Providers Date of Admission: 10/28/19 15:50 Date of Discharge: November 01, 2019 Attending Provider at Admission: Govind Sheridan MD Attending Provider at Discharge: Mark Mojica MD Consults: Neuro: Dr. Valladares Primary Care Provider: GUERRERO Douglass Diagnoses at Discharge Discharge Diagnosis (1) Altered mental status: Status: Acute (2) Fall: Status: Acute Qualifiers: Encounter type: initial encounter Qualified Code(s): W19.XXXA - Unspecified fall, initial encounter (3) Carotid stenosis: Status: Acute (4) Hilar adenopathy: Status: Acute (5) Type 2 diabetes mellitus: Status: Acute (6) CHF (congestive heart failure): Status: Acute (7) Atrial fibrillation: Status: Acute Qualifiers: Atrial fibrillation type: unspecified Qualified Code(s): I48.91 - Unspecified atrial fibrillation (8) Major depression, recurrent, full remission: Status: Acute (9) Temporal lobe epilepsy: Status: Acute Reason for Visit Reason for Visit: Reason For Visit: AMS Hospital Course Discharge Summary: 64-year-old female past medical history of depression, seizure disorder who came in because of palpitations shortness of breath found to be newly diagnosed A. fib with RVR started on Cardizem and Eliquis. During hospitalization she is been followed by cardiology and her Cardizem has been uptitrated and digoxin has been added to control her heart rate. She underwent a echocardiogram which revealed an EF of 50% with moderate MR, dilated LA and severe TR who was recently admitted from October 10 to October 19 when she had a complicated prolonged stay in the hospital during which she had developed ataxia which was thought to be because of possible brainstem stroke and polypharmacy for her psychiatric medications which were adjusted on the last admission. She was admitted again on October 26. As per the care home patient was doing well was AO x3, had minimal slurred speech could ambulate with some assistance and was in good mood until the night prior to the admission when she fell out of bed and after that had episodes of worsening slurred speech, ataxia, confusion and some tremors because of which she was transferred back to [facility] for further evaluation. Patient was seen by Dr. Valladares from neurology. Due to concerns for the same patient underwent MRI of brain under close monitoring because of presence of VNS. Patient tolerated the procedure well. MRI of brain showed moderate small vessel changes with parenchymal volume loss, chronic lacunar infarct in the left conley radiata and left basal ganglia along with postoperative changes from left temporal craniotomy and partial temporal lobe resection. There were no indications to show encephalitis. MRA brain was unremarkable as well. EEG was done which showed diffuse slowing consistent with diffuse brain dysfunction, mild along with high voltage slowing and sharp wave activity in left temporal lobe suspicious of epilepsy partialis continua. Patient underwent lumbar puncture which is unremarkable. Her encephalopathy is presumed to be toxic. It is not infectious. It is not focal. She does not have brainstem ischemia. Her severe depression and is like sleep playing part but she also has to fuse slowing by EEG. Because of all above her anticonvulsant medications were modified after discussion with Dr. Valladares. Patient is been discharged in baseline mentation after COVID-19 has been ruled out with advised to follow-up with Dr. Valladares as an outpatient on November 15 for EEG. Appointment has already been made for the EEG. Physical Exam Narrative: EXAM NARRATIVE: General: No acute distress, AO x3, calm, lying comfortably in bed HEENT: PERRLA, pupils bilaterally equal and reactive, dilated Chest: Normal vesicular breath sounds, no added sounds, equal good air entry bilaterally CVS: S1-S2 irregularly irregular, pansystolic murmur at apex and parasternal region on the left for intercostal space, pansystolic murmur at apex radiating to mid clavicle ,no tachycardia, no gallops, no rubs Abdomen: Soft, nontender, no organomegaly, bowel sounds present Neuro: No focal deficits, no facial deformity, positive [id number] bilaterally more on right than left Discharge Data Data Completed and Pending: Completed Studies During Hospitalization Category Date Time Status CT head wo con* 7 0450 Urgent Cat Scan 10/27/19 12:33 Completed XR chest 1V jaiden ble 47693 Stat Exams 10/27/19 20:20 Completed MR angio head wo con 14005 Stat MRI 10/29/19 07:32 Completed MR head wo/w con 72162 Stat MRI 10/29/19 07:29 Completed Pending at discharge Category Date Time Status EEG electroenceph alogram Stat Exams 10/27/19 20:20 Ordered Angiotensin Conve rting Enzyme Routi ne Lab 10/31/19 05:38 Received CSF Culture & Gra m Stain Stat Lab 10/28/19 15:35 Results Complete Blood Co unt w/Auto AM LABS Lab 11/02/19 04:00 Ordered Comprehensive Met abolic Panel AM LA BS Lab 11/02/19 04:00 Ordered Copper Level Stat Lab 10/30/19 14:15 Received Fungal Culture no t HR/SK/BL Stat Lab 10/28/19 15:35 Received Magnesium AM LABS Lab 11/02/19 04:00 Ordered Miscellaneous Kellen t Routine Lab 10/30/19 14:15 Received Oxcarbazepine Met abolite Routine Lab 10/27/19 13:24 Received Phosphorus AM LAB S Lab 11/02/19 04:00 Ordered VDRL on CSF Urgen t Lab 10/28/19 15:35 Received Vitamin B1(Thiami n) Plas/Ser Stat Lab 10/30/19 17:58 Received MR head wo con* 7 0551 Stat MRI 10/29/19 14:30 Unverified Labs from last 24 hours 11/01/19 11/01/19 11/01/19 11:06 06:11 05:25 WBC RBC Hgb Hct MCV MCH MCHC RDW Plt Count MPV Neut % (Auto) Lymph % (Auto) Lyman % (Auto) Eos % (Auto) Baso % (Auto) Neut # (Auto) Lymph # (Auto) Lyman # (Auto) Eos # (Auto) Baso # (Auto) Nucleated RBC % (a uto) Nucleated RBCs # Sodium 134 L Potassium 3.6 Chloride 94 L Carbon Dioxide 25 Anion Gap 18.6 BUN 18 Creatinine 0.8 GFR Calculation 72.7 L Glucose 102 POC Glucose 96 91 Calculated Osmolal ity 275 L Calcium 10.3 Phosphorus 4.0 Magnesium 1.9 Total Bilirubin 0.3 AST 34 H ALT 27 Alkaline Phosphata se 150 H Total Protein 7.0 Albumin 3.8 Globulin 3.2 Nasal/Oral COVID-1 9 PCR 11/01/19 10/31/19 10/31/19 05:25 21:08 16:22 WBC 6.5 RBC 4.80 Hgb 11.8 Hct 37.2 MCV 77.5 L MCH 24.6 L MCHC 31.7 RDW 16.8 H Plt Count 217 MPV 11.0 H Neut % (Auto) 60.5 Lymph % (Auto) 27.6 Lyman % (Auto) 8.2 Eos % (Auto) 2.5 Baso % (Auto) 0.9 Neut # (Auto) 3.9 Lymph # (Auto) 1.8 Lyman # (Auto) 0.5 Eos # (Auto) 0.2 Baso # (Auto) 0.1 Nucleated RBC % (a uto) 0 Nucleated RBCs # 0.0 Sodium Potassium Chloride Carbon Dioxide Anion Gap BUN Creatinine GFR Calculation Glucose POC Glucose 120 104 Calculated Osmolal ity Calcium Phosphorus Magnesium Total Bilirubin AST ALT Alkaline Phosphata se Total Protein Albumin Globulin Nasal/Oral COVID-1 9 PCR 10/31/19 10/30/19 10:36 07:00 WBC RBC Hgb Hct MCV MCH MCHC RDW Plt Count MPV Neut % (Auto) Lymph % (Auto) Lyman % (Auto) Eos % (Auto) Baso % (Auto) Neut # (Auto) Lymph # (Auto) Lyman # (Auto) Eos # (Auto) Baso # (Auto) Nucleated RBC % (a uto) Nucleated RBCs # Sodium Potassium Chloride Carbon Dioxide Anion Gap BUN Creatinine GFR Calculation Glucose POC Glucose 134 Calculated Osmolal ity Calcium Phosphorus Magnesium Total Bilirubin AST ALT Alkaline Phosphata se Total Protein Albumin Globulin Nasal/Oral COVID-1 9 PCR See comments Vitals: Last Vital Signs Temp 98.3 F 11/01/19 11:19 Pulse 89 11/01/19 11:19 Resp 18 11/01/19 11:19 BP 133/81 11/01/19 11:19 Pulse Ox 95 11/01/19 11:19 Discharge Plan Discharge Patient Disposition: Xfer SNF Condition: Stable Prescriptions: New levetiracetam 500 mg Tablet 1,500 mg PO BID Qty: 60 RF: 0 folic acid 1 mg Tablet 1 mg PO BID Qty: 30 RF: 0 Continued zonisamide [Zonegran] 100 mg capsule 300 mg PO BID RF: 0 sumatriptan succinate [Imitrex] 100 mg Tablet See Rx Instructions .ROUTE .COMPLEX PRN (Reason: Headache) RF: 0 magnesium hydroxide [Milk of Magnesia] 400 mg/5 mL Suspension 30 ml PO DAILY PRN (Reason: Constipation) RF: 0 meclizine 25 mg Tablet 25 mg PO TID PRN (Reason: Dizziness) RF: 0 bisacodyl [Dulcolax (bisacodyl)] 10 mg Suppository 10 mg FL DAILY PRN (Reason: Constipation) RF: 0 promethazine [Phenergan] 25 mg/mL Solution 12.5 mg IM PRN PRN (Reason: Nausea) RF: 0 Fleet Enema 19-7 gram/118 mL Enema 118 ml FL DAILY PRN (Reason: Constipation) RF: 0 nitroglycerin 0.4 mg Tablet, Sublingual 0.4 mg SUBLINGUAL Q5M PRN (Reason: Chest Pain) RF: 0 bisacodyl [Dulcolax (bisacodyl)] 5 mg Tablet,Delayed Release (Dr/Ec) 10 mg PO DAILY PRN (Reason: Constipation) RF: 0 albuterol sulfate [ProAir HFA] 90 mcg/actuation Hfa Aerosol Inhaler 2 puff INHALATION Q6H PRN (Reason: Shortness Of Breath) RF: 0 Tylenol 325 mg Tablet 650 mg PO Q6H PRN (Reason: Pain) RF: 0 Zofran 4 mg Tablet 4 mg PO PRN RF: 0 metoprolol tartrate 25 mg Tablet 25 mg PO BID RF: 0 diltiazem HCl 60 mg capsule,extended release 12 hr 120 mg PO BEDTIME RF: 0 atorvastatin 40 mg Tablet 40 mg PO BEDTIME 30 Days Qty: 30 RF: 0 aspirin 81 mg Tablet,Delayed Release (Dr/Ec) 81 mg PO DAILY 30 Days Qty: 30 RF: 0 Eliquis 5 mg Tablet 5 mg PO BID 30 Days Qty: 60 RF: 0 metformin 1,000 mg tablet 1,000 mg PO DAILY 30 Days Qty: 30 RF: 0 furosemide [Lasix] 40 mg tablet 40 mg PO DAILY 30 Days Qty: 30 RF: 0 potassium chloride [Klor-Con M20] 20 mEq tablet,ER particles/crystals 20 meq PO DAILY 30 Days Qty: 30 RF: 0 digoxin 125 mcg (0.125 mg) Tablet 125 mcg PO DAILY Qty: 30 RF: 0 diltiazem HCl 60 mg Capsule,Extended Release 12 Hr 240 mg PO QAM Qty: 30 RF: 0 Changed Effexor XR 150 mg capsule,extended release 24hr 225 mg PO DAILY Qty: 30 RF: 0 Discontinued oxcarbazepine 600 mg tablet 1,200 mg PO BID RF: 0 venlafaxine [Effexor XR] 75 mg capsule,extended release 24hr 75 mg PO DAILY RF: 0 No Action (DME) glucometer See Rx Instructions .Route .MEDSUPPLY Qty: 1 RF: 0 Discharge Orders: Discharge Order (Routine); Ordered 11/01/19 Ordered By: Mark Mojica Referrals: Izzy Valladares MD [Physician] - 11/16/19 10:00 am (You have an appointment for an EEG at Dr. Bolanos's office on November 15 at 10:00am.) Donaldo Tobias MD [Physician] - 2 weeks Bianka Cobian FNP [Primary Care Provider] - 7-10 days Discharge Diet: Usual diet Discharge Activity: Resume usual activity Patient Instructions: Folic Acid (By mouth), Levetiracetam (By mouth), Altered Mental Status (GEN), Fall Prevention (DC) Activity Restrictions/Additional Instructions: Anticonvulsant medications have been adjusted. Patient is due for an EEG and appointment has been made. Please follow-up with rn allergy in 2 weeks. Please follow-up with primary care provider in 1 week. Discharge Attestations Time Spent in Discharge Care*: greater than 30 min Specific Discharge Activities: Specific discharge activities: educating patient, discussing with pcp/other providers, discussing with manager of case management/social workers/dc planners, documenting/other paperwork and evaluating patient/reviewing data Status at Discharge: Cognitive status at discharge: mildly impaired cognition, Behavioral status at discharge: cooperative, Functional status at discharge: other assisted ambulation Overall status at discharge: patient is back to baseline Quality Metrics Clinical Quality Measures During this hospital stay, did patient experience: None Coding Level of Care Code Acute Small Parts Assembler for Chg Fwd Diagnoses Altered mental status R41.82 Fall W19.XXXA Encounter type: initial encounter Carotid stenosis I65.29 Hilar adenopathy R59.0 Type 2 diabetes mellitus E11.9 CHF (congestive heart failure) I50.9 Atrial fibrillation I48.91 Atrial fibrillation type: unspecified Major depression, recurrent, full remission F33.42 Temporal lobe epilepsy G40.109
[2019-11-01 13:25] VITALS: BP 133/81; PULSE 89; RESP 18; TEMP 36.8; O2SAT 95
[2019-11-01 17:26] LABS: Oxcarbazepine Metabolite 95.8 mcg/mL (8.0-35.0)
[2019-11-02 16:17] LABS: Angiotensin Converting Enzyme 10 U/L (9-67)
[2019-11-02 21:55] LABS: VDRL on CSF NON-REACTIVE
[2019-11-04 10:51] LABS: Vitamin B1(Thiamin) Plas/Ser <7 nmol/L (8-30)
[2019-11-06 12:01] LABS: Copper Level 165 mcg/dL (70-175)
--- NOTE | 2019-11-10 08:47 | PC.SOCIAL ---
Spoke with daughter yesterday who indicates patient is returning home and needs a provider for follow up care. Appointment was made to see Tonia Velasco on 11/15/2019 at 1pm. Daughter aware. No further needs voiced.
== END 2019-11-01 19:00 | disposition skilled nursing facility (03) | DRG 947 ==
LOC: ER 13:22 → MEDSURG 18:38
PROVIDERS: Family Medicine; Specialist; Admitting Provider Family Medicine; PCP Nurse Practitioner; Visit Provider Student in an Organized Health Care Education/Training Program
DX: R41.82 Altered mental status, unspecified (principal); G92 Toxic encephalopathy; W06.XXXA Fall from bed, initial encounter; F33.42 Major depressive disorder, recurrent, in full remission; F41.9 Anxiety disorder, unspecified; G40.909 Epilepsy, unspecified, not intractable, without status epilepticus; Z96.82 Presence of neurostimulator; I48.91 Unspecified atrial fibrillation; I50.9 Heart failure, unspecified; D64.9 Anemia, unspecified; E11.9 Type 2 diabetes mellitus without complications; Z79.01 Long term (current) use of anticoagulants; I65.29 Occlusion and stenosis of unspecified carotid artery; G89.29 Other chronic pain; M25.569 Pain in unspecified knee; Z87.891 Personal history of nicotine dependence; G93.89 Other specified disorders of brain; R59.0 Localized enlarged lymph nodes; Z03.818 Encounter for observation for suspected exposure to other biological agents ruled out; Z79.84 Long term (current) use of oral hypoglycemic drugs
CPT/HCPCS: 12345; 36415; 36416; 70450; 70544; 70553; 71045; 72125; 80053; 80183; 80306; 80500; 81003; 82164; 82175; 82607; 82746; 82945; 82962; 83655; 83735; 83825; 84100; 84425; 84443; 85025; 85610; 85730; 86592; 86705; 86706; 86709; 86803; 87070; 87075; 87205; 87340; 87635; 87806; 89050; 93005; 94664; 96375; 97110; 97161; 97166; 97530; 97535; 99283; 99284; A9579; G0378; J1953; J2060; J7030

== ENCOUNTER → 2019-12-01 09:38 | Outpatient (BNVA) | payer MEDICARE, SELFPAY | PROVIDERS: PCP Nurse Practitioner; Visit Provider Specialist | DX: G40.109 Localization-related (focal) (partial) symptomatic epilepsy and epileptic syndromes with simple partial seizures, not intractable, without status epilepticus (principal); R29.90 Unspecified symptoms and signs involving the nervous system; G92 Toxic encephalopathy; G43.711 Chronic migraine without aura, intractable, with status migrainosus | CPT/HCPCS: 95816; 99214 ==

== ENCOUNTER → 2019-12-01 11:26 | Outpatient (BNVA) | payer MEDICARE, SELFPAY | PROVIDERS: PCP Nurse Practitioner; Visit Provider Specialist | DX: G40.109 Localization-related (focal) (partial) symptomatic epilepsy and epileptic syndromes with simple partial seizures, not intractable, without status epilepticus (principal); R29.90 Unspecified symptoms and signs involving the nervous system; G92 Toxic encephalopathy; G43.711 Chronic migraine without aura, intractable, with status migrainosus | CPT/HCPCS: 99214 ==

== ENCOUNTER → 2019-12-06 07:29 | Outpatient (BNVA) | payer MEDICARE, SELFPAY | PROVIDERS: PCP Nurse Practitioner; Visit Provider Psychiatry & Neurology Psychiatry | DX: F33.42 Major depressive disorder, recurrent, in full remission (principal); F17.210 Nicotine dependence, cigarettes, uncomplicated; F01.50 Vascular dementia, unspecified severity, without behavioral disturbance, psychotic disturbance, mood disturbance, and anxiety | CPT/HCPCS: 99214 ==

== ENCOUNTER 2019-12-14 10:50 | Outpatient (CLI) | payer MEDICARE, SELFPAY ==
--- NOTE | 2019-12-14 11:01 | XRR_ITS ---
PROCEDURE INFORMATION: Exam: XR Abdomen, 2 Views Exam date and time: 12/14/2019 11:23 AM Age: 64 years old Clinical indication: Abdominal pain; Prior surgery; Surgery type: Gb, c-sect, lumbar; Additional info: Bowel changes, abd pain, vomiting/diarrhea x 2 weeks TECHNIQUE: Imaging protocol: XR of the abdomen. Views: 2 Views. COMPARISON: No relevant prior studies available. FINDINGS: Gastrointestinal tract: No small bowel dilatation evident. Only small amounts of stool in portions of colon. Intraperitoneal space: Normal. No free air. Organs: Prior cholecystectomy. Bones/joints: Prior lumbar surgery with fixation hardware in place. XR/XR abdomen min 2V [id number] IMPRESSION: No acute process evident.
== END 2019-12-14 10:51 | disposition home or self-care (01) ==
LOC: RAD 10:55
PROVIDERS: PCP Nurse Practitioner; Visit Provider Nurse Practitioner Family
DX: R10.9 Unspecified abdominal pain (principal); R11.10 Vomiting, unspecified; R19.7 Diarrhea, unspecified
CPT/HCPCS: 74019

== ENCOUNTER → 2019-12-17 07:37 | Outpatient (BNVA) | payer MEDICARE, SELFPAY | PROVIDERS: PCP Nurse Practitioner; Visit Provider Psychiatry & Neurology Psychiatry | DX: F33.42 Major depressive disorder, recurrent, in full remission (principal); F17.210 Nicotine dependence, cigarettes, uncomplicated; F01.50 Vascular dementia, unspecified severity, without behavioral disturbance, psychotic disturbance, mood disturbance, and anxiety | CPT/HCPCS: 99214 ==

== ENCOUNTER 2019-12-31 08:56 | Day surgery (SDC) | payer MEDICARE, SELFPAY ==
[2019-12-29 12:08] VITALS: BMI 22.4
[2019-12-31 09:38] VITALS: BP 110/71; PULSE 83; RESP 16; TEMP 36.1; O2SAT 99
[2019-12-31] MEDS: sodium chloride 0.9% 1,000 ML 30 ML IV (09:45)
--- NOTE | 2019-12-31 09:55 | ANES.PREANE2 ---
Pre-Anesthetic Assessment Pre-Anesthetic Assessment: Height/Weight: Height 1.7 m Weight 64.864 kg Temp Pulse Resp BP Pulse Ox 97 F L 83 16 110/71 99 12/31/19 09:38 12/31/19 09:38 12/31/19 09:38 12/31/19 09:38 12/31/19 09:38 Proposed Procedure: Operation Date: 12/31/19 11:00 Proposed Procedures p EGD [id number] R10.9(Not Applicable) - Anthony Dupree MD s Colonoscopy(Not Applicable) - Anthony Dupree MD Last intake: Intake Last Liquid Date 12/30/19 Last Liquid Time 22:00 Last Solid Date 12/29/19 Last Solid Time 19:00 Social: Social History: Tobacco and No alcohol Exam: Pre-Anes Outpt Exam: alert, oriented x 3 and clear to auscultation bilaterally Additional Exam Findings (including area of procedure): irreg rhythm Airway: Submandibular: WNL Cervical ROM: WNL MP: 2 Dentition: Other (poor dentation) History/ROS: No significant history except as noted Pulmonary: Pulmonary: COPD and BUTLER CV/HEM: CV/HEM: Afib, CHF and HTN : : None reported Hepatic: Hepatic: None reported GI: GI: None reported Metabolic: Metabolic: Hyperlipidemia Musc/skel: Musc/skel: OA/DJD Neuropsych: Neuropsych: Anxiety, Depression and Seizure Anesthetic Plan: ASA status: 3 Anesthesia: Anesthesia Evaluation and MAC Risk of > 500 ml blood loss (7ml/kg in children): No Meds/Allergies Current Medications: Current Medications Generic Name Dose Route Start Last Admin Trade Name Freq PRN Reason Stop Dose Admin Sodium Chloride 1,000 mls @ 30 ml s/hr 12/31/19 09:30 12/31/19 09:45 Sodium Chloride 0.9% IV 01/01/20 09:29 30 mls/hr .Q24H DELANO Administration PFSH Anesthesia PFSH: Medical History (Updated 12/27/19 @ 14:26 by Tonia Velasco APRN) Anticoagulation adequate with anticoagulant therapy Carotid stenosis Chronic knee pain Cigarette nicotine dependence Major depression, recurrent, full remission Seizures Vascular dementia without behavioral disturbance Surgical History H/O brain surgery H/O section History of back surgery History of cholecystectomy Status post VNS (vagus nerve stimulator) placement Social History Smoking and tobacco status: former smoker Quit status (tobacco): has quit using tobacco Year quit tobacco: 2019 Smoking risk assessment/counseling performed?: Yes Tobacco counseling given: counseling >3 minutes Alcohol intake: never History of recent travel: No Data Anesthesia Cardiac Studies: No Data to Display
--- NOTE | 2019-12-31 11:26 | W.PM.OPSUD ---
Surgery/Procedure H&P Update DATE OF PROCEDURE: December 31, 2019 DATE H&P PERFORMED: 12/27/19 PLANNED PROCEDURE: Operation Date: 12/31/19 11:00 Proposed Procedures p EGD [id number] R10.9(Not Applicable) - Anthony Dupree MD s Colonoscopy(Not Applicable) - Anthony Dupree MD
[2019-12-31 12:06] VITALS: BP 104/51; PULSE 66; RESP 14; TEMP 36.4; O2SAT 100
[2019-12-31 12:21] VITALS: BP 119/64; PULSE 68; RESP 18; TEMP 36.6; O2SAT 99
--- NOTE | 2019-12-31 12:42 | ANE.PACU2 ---
Inpatient post-anesthesia follow up: Airway intact: Yes Vital signs: Temperature 97.9 F Pulse Rate 68 Respiratory Rate 18 Blood Pressure 119/64 Pulse Oximetry 99 Oxygen Delivery Me thod Room Air Oxygen Flow Rate 3 Fraction of Inspir ed Oxygen Hydration adequate: Yes Nausea and vomiting: No Mental status: Baseline
[2020-01-03 06:30] LABS: H. Pylori / CLO Test Negative
== END 2019-12-31 12:52 | disposition home or self-care (01) ==
PROVIDERS: PCP Nurse Practitioner Family; Visit Provider Internal Medicine
PROC: 0DJ08ZZ Inspection of Upper Intestinal Tract, Via Natural or Artificial Opening Endoscopic (ICD-10-PCS; CPT 43235; principal; 2019-12-31 11:00)
PROC: 0DJD8ZZ Inspection of Lower Intestinal Tract, Via Natural or Artificial Opening Endoscopic (ICD-10-PCS; CPT 45378; 2019-12-31 11:00)
DX: K52.9 Noninfective gastroenteritis and colitis, unspecified (principal); R10.9 Unspecified abdominal pain; R63.4 Abnormal weight loss; Z68.22 Body mass index [BMI] 22.0-22.9, adult; K90.49 Malabsorption due to intolerance, not elsewhere classified; R11.0 Nausea; D12.2 Benign neoplasm of ascending colon; D12.0 Benign neoplasm of cecum; D12.3 Benign neoplasm of transverse colon; K29.70 Gastritis, unspecified, without bleeding; J44.9 Chronic obstructive pulmonary disease, unspecified; I11.0 Hypertensive heart disease with heart failure; I50.9 Heart failure, unspecified; I48.91 Unspecified atrial fibrillation; E78.5 Hyperlipidemia, unspecified; M19.90 Unspecified osteoarthritis, unspecified site; Z87.891 Personal history of nicotine dependence
CPT/HCPCS: 12345; 43239; 45385; 82274; 83630; 87077; 87493; 87506; 88305; J2405; J2704; J7030

== ENCOUNTER 2020-01-05 13:57 | Outpatient (CLI) | payer MEDICARE, SELFPAY ==
[2020-01-05] MEDS: iohexol 300 mg/mL 50 mL Btl PO (14:06)
--- NOTE | 2020-01-05 15:00 | CT_ITS ---
WS: [id number] CT ABDOMEN CONTRAST TECHNIQUE: Contrast enhanced CT of the abdomen with coronal and sagittal reformatted images. CLINICAL INFORMATION: LEFT SIDED ABD PAIN, WEIGHT LOSS COMPARISON: None. DLP: 818.[address] scans at [facility] use at least one of these dose optimization techniques: automat ed exposure control; mA and/or kV adjustment per patient size (includes targeted exams where dose is matched to clinical indication); or iterative reconstruction. FINDINGS: Prior postoperative changes cholecystectomy and hysterectomy. Mild diffuse fatty infiltration liver. Normal portal vein and splenic vein. Peripheral enhancing Low-attenuation lesions along the falciform ligament 1.8 x 1.5 cm and near the gallbladder fossa measuring 2.2 x 1.7 cm. These lesions appear ne w since October 11, 2019 CTA chest and metastatic disease should be excluded. Additional presumed incidental tiny cysts along the undersurface of the right hepatic lobe. Normal GE junction. Normal spleen. Portal vein and splenic vein are patent. Tiny low-attenuation lesion involv ing the body of the pancreas measuring 4 mm too small to characterize but may represent a small pancr eatic cyst or sidebranch IPMN. This can be followed up with MRI. Normal caliber abdominal aorta. Adrenal glands are normal. Normal renal parenchymal enhancement. No hydronephrosis. No abdominal lymphadenopathy. Postoperative changes lumbar spine with pedicle screw f ixation L3-S1 with interconnecting rods. CT/CT abdomen w con* [id number] IMPRESSION: 1. Prior postoperative changes cholecystectomy and hysterectomy. 2. Peripheral enhancing low-attenuation lesions involving the left hepatic lob e the falciform ligament measuring 1.5 x 1.8 cm and undersurface of the right h epatic lobe near the gallbladder fossa measuring 2.2 x 1.7 cm. These lesions ar e nonspecific and metastatic disease is not excluded. Recommend further evaluat ion with ultrasound and/or gadolinium-enhanced liver MRI. 3. Diffuse fatty infiltration liver. Portal vein and splenic vein are patent. 4. Tiny low-attenuation lesion involving the body of the pancreas may represen t small hepatic cyst or sidebranch IPMN. This can be followed up with MRI. 5. No abdominal lymphadenopathy. 6. Prior postoperative changes L3-S1 with interbody fusion.
[2020-01-05] MEDS: iohexol 300 mg/mL 100 mL Btl IV (15:11)
== END 2020-01-05 13:58 | disposition home or self-care (01) ==
LOC: RADWPI 14:01
PROVIDERS: PCP Nurse Practitioner Family; Visit Provider Nurse Practitioner Family
DX: R63.4 Abnormal weight loss (principal); R10.9 Unspecified abdominal pain; K76.0 Fatty (change of) liver, not elsewhere classified; K76.9 Liver disease, unspecified
CPT/HCPCS: 74160; Q9967

== ENCOUNTER 2020-01-28 11:14 | Outpatient (CLI) | payer MEDICARE, SELFPAY ==
--- NOTE | 2020-01-28 11:45 | US_ITS ---
WS: [id number] Right upper quadrant ultrasound, 01/28/2020 Clinical Data: Acute lesion of liver Comparison: None. Findings: The gallbladder is absent. The common bile duct is 0.7 cm and there are no intrahepatic ductal abnormalities. The liver shows 2 areas of increased echogenicity. One is near the falciform ligament and measures 1 .50 x 2.89 x 3.96 cm and the other in the left lobe measuring 1.35 x 2.74 x 1.97 cm. These areas have the appearance of hepatic hemangiomas. There is minimal fatty infiltration of the liver. There are n o cysts. No metastatic lesions are seen. The portal vein shows normal flow. The pancreas is not obscured by overlying bowel gas and there is a area of decreased echogenicity in the body of the pancreas measuring 1.69 x 1.94 x 2.26 cm. The border is well-defined and this has the appearance of a simple pancreatic cyst. A low density pancreatic neoplasm is less likely. Right kidney measures 10.6 cm and no cyst, masses or hydronephrosis can be seen. The aorta and inferior vena cava show no vascular abnormalities. US/US liver [id number] Impression: 1. Absent gallbladder. 2. 2 areas of increased echogenicity in in the left lobe of the liver which hav e the appearance of hepatic hemangiomas. 3. Low-density lesion in body of the pancreas which has the appearance of a cys t although a low density neoplasm is also possible.
== END 2020-01-28 11:15 | disposition home or self-care (01) ==
LOC: US 11:14
PROVIDERS: PCP Nurse Practitioner Family; Visit Provider Nurse Practitioner Family
DX: K76.9 Liver disease, unspecified (principal); Z90.49 Acquired absence of other specified parts of digestive tract; D18.09 Hemangioma of other sites
CPT/HCPCS: 76705

== ENCOUNTER → 2020-02-03 10:46 | Outpatient (BNVA) | payer MEDICARE, SELFPAY | PROVIDERS: PCP Nurse Practitioner Family; Visit Provider Specialist | DX: G40.909 Epilepsy, unspecified, not intractable, without status epilepticus (principal); Z87.891 Personal history of nicotine dependence | CPT/HCPCS: 95970; 99213 ==

== ENCOUNTER → 2020-02-17 08:03 | Outpatient (BNVA) | payer MEDICARE, SELFPAY | PROVIDERS: PCP Nurse Practitioner Family; Visit Provider Psychiatry & Neurology Psychiatry | DX: F33.42 Major depressive disorder, recurrent, in full remission (principal); F17.210 Nicotine dependence, cigarettes, uncomplicated; F01.50 Vascular dementia, unspecified severity, without behavioral disturbance, psychotic disturbance, mood disturbance, and anxiety; F33.2 Major depressive disorder, recurrent severe without psychotic features | CPT/HCPCS: 99214 ==

== ENCOUNTER → 2020-03-09 08:12 | Outpatient (BNVA) | payer MEDICARE, SELFPAY | PROVIDERS: PCP Nurse Practitioner Family; Visit Provider Psychiatry & Neurology Psychiatry | DX: F33.42 Major depressive disorder, recurrent, in full remission (principal); F17.210 Nicotine dependence, cigarettes, uncomplicated; F01.50 Vascular dementia, unspecified severity, without behavioral disturbance, psychotic disturbance, mood disturbance, and anxiety | CPT/HCPCS: 99212 ==

== ENCOUNTER → 2020-05-08 10:00 | Outpatient (BNVA) | payer MEDICARE, SELFPAY | PROVIDERS: PCP Nurse Practitioner Family; Visit Provider Nurse Practitioner Family | DX: G43.711 Chronic migraine without aura, intractable, with status migrainosus (principal); R53.83 Other fatigue; F33.42 Major depressive disorder, recurrent, in full remission; I48.91 Unspecified atrial fibrillation; E11.9 Type 2 diabetes mellitus without complications; I50.9 Heart failure, unspecified; D64.9 Anemia, unspecified | CPT/HCPCS: 80053 ==

== ENCOUNTER → 2020-06-07 07:28 | Outpatient (BNVA) | payer MEDICARE, SELFPAY | PROVIDERS: PCP Nurse Practitioner Family; Visit Provider Psychiatry & Neurology Psychiatry | DX: F33.42 Major depressive disorder, recurrent, in full remission (principal); F17.210 Nicotine dependence, cigarettes, uncomplicated; F01.50 Vascular dementia, unspecified severity, without behavioral disturbance, psychotic disturbance, mood disturbance, and anxiety | CPT/HCPCS: 99213 ==

== ENCOUNTER → 2020-07-21 09:34 | Outpatient (BNVA) | payer MEDICARE, SELFPAY | PROVIDERS: PCP Nurse Practitioner Family; Visit Provider Specialist | DX: G40.109 Localization-related (focal) (partial) symptomatic epilepsy and epileptic syndromes with simple partial seizures, not intractable, without status epilepticus (principal); Z96.82 Presence of neurostimulator; Z87.891 Personal history of nicotine dependence | CPT/HCPCS: 95970; 99213 ==

== ENCOUNTER → 2020-09-05 08:12 | Outpatient (BNVA) | payer MEDICARE, SELFPAY | PROVIDERS: PCP Nurse Practitioner Family; Visit Provider Psychiatry & Neurology Psychiatry | DX: F33.42 Major depressive disorder, recurrent, in full remission (principal); F17.210 Nicotine dependence, cigarettes, uncomplicated; F01.50 Vascular dementia, unspecified severity, without behavioral disturbance, psychotic disturbance, mood disturbance, and anxiety | CPT/HCPCS: 99213 ==

== ENCOUNTER → 2021-02-27 07:26 | Outpatient (BNVA) | payer MEDICARE, SELFPAY | PROVIDERS: PCP Nurse Practitioner Family; Visit Provider Psychiatry & Neurology Psychiatry | DX: F33.42 Major depressive disorder, recurrent, in full remission (principal); F17.210 Nicotine dependence, cigarettes, uncomplicated; F01.50 Vascular dementia, unspecified severity, without behavioral disturbance, psychotic disturbance, mood disturbance, and anxiety | CPT/HCPCS: 99213 ==

== ENCOUNTER → 2021-04-24 12:22 | Outpatient (BNVA) | payer OTHER, SELFPAY | PROVIDERS: PCP Nurse Practitioner Family; Visit Provider Specialist | DX: G40.109 Localization-related (focal) (partial) symptomatic epilepsy and epileptic syndromes with simple partial seizures, not intractable, without status epilepticus (principal); Z96.82 Presence of neurostimulator | CPT/HCPCS: 95970; 99213 ==

== ENCOUNTER → 2021-05-21 07:43 | Outpatient (BNVA) | payer MEDICARE, OTHER, SELFPAY | PROVIDERS: PCP Nurse Practitioner Family; Visit Provider Psychiatry & Neurology Psychiatry | DX: F33.42 Major depressive disorder, recurrent, in full remission (principal); F17.210 Nicotine dependence, cigarettes, uncomplicated; F01.50 Vascular dementia, unspecified severity, without behavioral disturbance, psychotic disturbance, mood disturbance, and anxiety | CPT/HCPCS: 99213 ==

== ENCOUNTER → 2021-08-16 07:38 | Outpatient (BNVA) | payer MEDICARE, SELFPAY | PROVIDERS: PCP Nurse Practitioner Family; Visit Provider Psychiatry & Neurology Psychiatry | DX: F33.42 Major depressive disorder, recurrent, in full remission (principal); F17.210 Nicotine dependence, cigarettes, uncomplicated; F01.50 Vascular dementia, unspecified severity, without behavioral disturbance, psychotic disturbance, mood disturbance, and anxiety | CPT/HCPCS: 99213 ==

== ENCOUNTER → 2021-11-08 09:23 | Outpatient (BNVA) | payer MEDICARE, SELFPAY | PROVIDERS: PCP Nurse Practitioner Family; Visit Provider Psychiatry & Neurology Psychiatry | DX: J30.2 Other seasonal allergic rhinitis (principal); F33.42 Major depressive disorder, recurrent, in full remission; F17.210 Nicotine dependence, cigarettes, uncomplicated; F01.50 Vascular dementia, unspecified severity, without behavioral disturbance, psychotic disturbance, mood disturbance, and anxiety | CPT/HCPCS: 99214 ==

== ENCOUNTER 2021-12-12 14:12 | Observation (INO) | payer MEDICARE, SELFPAY ==
[2021-12-12] VITALS (11 sets, daily range): BP systolic 93–136; BP diastolic 55–89; PULSE 103–131; RESP 15–20; TEMP 37.2; O2SAT 95–100
--- NOTE | 2021-12-12 14:28 | ED_ITS ---
HPI - SOB/Dyspnea General: Chief Complaint: Shortness of Breath/Dyspnea Stated Complaint: Chest pain, sob Time Seen by Provider: 12/12/21 14:28 History of Present Illness: HPI Narrative: Ms. Avila is a 66-year-old lady with history of hypertension, hyperlipidemia, diabetes, CHF, atrial fibrillation, epilepsy who presents to the emergency department due to generalized illness. Onset of symptoms was approximately 2 weeks ago with upper respiratory symptoms. She subsequently developed mildly productive cough and shortness of breath. She still has congestion. 2 days ago she developed nonbloody nonbilious emesis as well as diarrhea with only minimal abdominal cramping. She endorses generalized aches and pains as well as a paresthesia type feeling in her extremities. She does note some associated chest pressure at times and irregular heartbeat. Of note the patient reports that she has been off her oral anticoagulation for approximately 2 months. Overall course of symptoms has worsened. Intensity is moderate to severe worse with exertion. No other specific changes in health, exacerbating, or alleviating factors identified. Onset (ago): week(s) Timing: progressively worsening Severity: moderate Exacerbating factors: lying flat and exertion Associated symptoms: Reports cough, myalgias, nausea, palpitations and vomiting Review of Systems General: Reports: 10 or more systems reviewed and unremarkable except in HPI and below Card: Reports: palpitations GI: Reports: nausea and vomiting [facility] ED PFSH: Medical History (Updated 12/20/21 @ 12:04 by GUERRERO Mckenzie) Anticoagulation adequate with anticoagulant therapy Atrial fibrillation Carotid stenosis Chronic knee pain Cigarette nicotine dependence Colon polyps Elevated INR Fall Gastritis Hyperlipidemia Lesion of pancreas Major depression, recurrent, full remission Microcytic anemia Psychiatric care Seasonal allergies Seizures Transaminitis Type 2 diabetes mellitus Vascular dementia Weight loss Surgical History H/O brain surgery H/O section History of back surgery History of cholecystectomy Status post VNS (vagus nerve stimulator) placement Social History Smoking and tobacco status: never smoked Quit status (tobacco): has quit using tobacco Year quit tobacco: 2019 Smoking risk assessment/counseling performed?: Yes Tobacco counseling given: counseling >3 minutes Alcohol intake: never History of recent travel: No Physical Exam Const: COMMON NORMALS: alert GENERAL APPEARANCE: cooperative, well developed and ill appearing (midly) HENMT: COMMON NORMALS: normocephalic and atraumatic HEAD & SCALP: normocephalic and atraumatic Eye: COMMON NORMALS: conjunctivae normal CONJUNCTIVA: Yes conjunctivae normal SCLERA: sclerae normal Neck/C-Spine: COMMON NORMALS: supple GENERAL: Yes trachea midline Resp: EFFORT & INSPECTION: Yes able to speak in complete sentences and Yes tachypneic AUSCULTATION: diminished lung sounds Cardio: RATE: tachycardic RHYTHM: abnormal rhythm irregularly irregular GI: COMMON NORMALS: Soft to palpation PALPATION: Yes Soft to palpation and No Tenderness to palpation present (GI) PERCUSSION: normal to percussion Extremity: GENERAL: Yes normal exam except as noted and Yes edema Neuro: COMMON NORMALS: moves all extremities SENSORIUM/ORIENTATION: Yes alert and No Orientation impaired Psych: COMMON NORMALS: mental status grossly normal and Normal thought process present THOUGHT PROCESS: Normal thought process present Course ED course: - Patient was seen and evaluated by me at bedside - Patient placed on cardiac monitors, IV access obtained - Initial evaluation notable for exam as above. A. fib with RVR. Some what ill-appearing. - Labs and xrays personally interpreted by me. EKG showing atrial fibrillation with rapid response. Nonspecific ST segment abnormalities. No STEMI. - Fluids, analgesia, and esmolol given - Labs notable for no leukocytosis, microcytic anemia. Metabolic panel with evidence of neurovascular dehydration. Transaminitis present. 2-hour troponin negative. BNP elevated. - Imaging notable for enlarged cardiac silhouette without lobar consolidation or pneumothorax. As patient has history of A. fib and has not been on her anticoagulation evaluation for pulmonary embolism he is supportive. Additionally CT imaging of the abdomen and pelvis which is given transaminitis of uncertain etiology. CT chest abdomen pelvis with evidence of volume overload - Upon serial reexamination after treatment the patient was mildly improved - Based on patient history, evaluation, and testing as interpreted the most likely cause of the patient's condition is A. fib with RVR contributing to acute on chronic heart failure with passive hepatic congestion resulting in hepatopathy. - The results of ED evaluation were discussed with the patient including plan for admission due to requirement for level of care not available if discharged to prevent significant worsening/deterioration. - Admitting service was contacted and Dr Velasquez with the hospitalist service agreed to admit the patient - Patient was admitted without further deterioration or significant events. Note: Click bubbles or prepopulated christiansen in note writing are used for assistance with data collection and billing and are inherently more limited than narrative and other text portions of this note. Please use narrative for additional clinical history and defer to narrative/free test for any case of contradictory information. If information appears in only free text or click bubble it should be considered present or absent as reported. Please contact note journalists and other writers for clarifications of clinical information or contradictory information. MDM is a brief summary, contradictory or erroneous seeming information should be clarified and full note should be reviewed. Vital Signs: Vital signs: Vital Signs Temperature 97.7 F 12/14/21 07:53 Pulse Rate 78 12/14/21 10:46 Respiratory Rate 16 12/14/21 10:46 Blood Pressure 124/70 12/14/21 10:46 Pulse Oximetry 100 12/14/21 10:46 MDM - SOB/Dyspnea Medical Decision Making 66-year-old lady presenting with generalized illness. Patient found to be in atrial fibrillation with rapid ventricular response likely contributing to decompensated heart. Admitted for further management. Medical Records I reviewed the patient's medical records. Lab Data I reviewed the patient's lab results. : 12/14/21 03:14 12/14/21 03:14 Labs/Radiology: Radiology Impressions Chest X-Ray 12/12/21 14:41 IMPRESSION: 1. Interval enlargement of cardiac silhouette size as described. Correlation with echocardiogram may be helpful. 2. No obvious acute consolidation. Suboptimal lung base assessment. Followup including lateral view may be obtained if clinically indicated. Chest/Abdomen/Pelvis CT 12/12/21 16:07 IMPRESSION: 1. No acute PE or significant lung disease. 2. Cardiac findings as described above. IMPRESSION: 1. Heterogeneous hepatic parenchyma and dilated IVC/hepatic veins. See discussion above. No cirrhosis or suspicious hepatic lesion. 2. Stable tiny hypodense pancreatic lesion measuring 3 mm, likely benign. 3. Colonic diverticulosis. No diverticulitis or other acute bowel findings. Laboratory Results WBC 8.6 10^3/uL (4.0-10.0) 12/12/21 14:49 RBC 3.93 10^6/uL (4.1-5.3) L 12/12/21 14:49 Hgb 7.8 g/dL (11.5-15.3) L 12/12/21 16:21 Hct 28.3 % (37.0-47.0) L 12/12/21 16:21 MCV 66.7 fl (81-99) L 12/12/21 14:49 MCH 20.1 pg (28.0-34.0) L 12/12/21 14:49 MCHC 30.2 g/dL (30.0-36.0) 12/12/21 14:49 RDW 17.8 % (12.1-15.1) H 12/12/21 14:49 Plt Count 260 10^3/cmm (130-400) 12/12/21 14:49 MPV 11.4 fL (7.4-10.4) H 12/12/21 14:49 Neut % (Auto) 63.8 % 12/12/21 14:49 Lymph % (Auto) 24.3 % 12/12/21 14:49 [place] % (Auto) 9.8 % 12/12/21 14:49 Eos % (Auto) 0.8 % 12/12/21 14:49 Baso % (Auto) 0.6 % 12/12/21 14:49 Neut # (Auto) 5.47 10^3/uL (1.8-7.7) 12/12/21 14:49 Lymph # (Auto) 2.1 10^3/uL (0.8-4.8) 12/12/21 14:49 [place] # (Auto) 0.8 10^3/uL (0.2-0.9) 12/12/21 14:49 Eos # (Auto) 0.1 10^3/uL (0.0-0.8) 12/12/21 14:49 Baso # (Auto) 0.1 10^3/uL (0.0-0.1) 12/12/21 14:49 Nucleated RBC % (auto) 0.4 % 12/12/21 14:49 Nucleated RBCs # 0.0 /100WBC 12/12/21 14:49 PT 22.20 SECONDS (12.1-14.9) H 12/12/21 14:49 INR 1.91 (0.8-1.2) H 12/12/21 14:49 APTT 30.7 SECONDS (23.9-36.7) 12/12/21 14:49 D-Dimer 2.08 ug/mIFEU (0-0.59) H 12/12/21 14:49 Sodium 132 mmol/L (136-145) L 12/12/21 14:49 Potassium 3.7 mmol/L (3.5-5.1) 12/12/21 14:49 Chloride 98 mmol/L (98-107) 12/12/21 14:49 Carbon Dioxide 20 mmol/L (22-29) L 12/12/21 14:49 Anion Gap 17.7 (5-19) 12/12/21 14:49 BUN 17 mg/dL (8-23) 12/12/21 14:49 Creatinine 0.9 mg/dL (0.5-0.9) 12/12/21 14:49 GFR Calculation 63.0 mL/min (90-130) L 12/12/21 14:49 Glucose 110 mg/dL (65-115) 12/12/21 14:49 Calculated Osmolality 276 mOsm/kg (285-295) L 12/12/21 14:49 Calcium 8.4 mg/dL (8.5-10.5) L 12/12/21 14:49 Iron 17 ug/dL (37-145) L 12/12/21 16:21 TIBC 408 mcg/dl 12/12/21 16:21 % Saturation 4.1 % (20-50) L 12/12/21 16:21 Unsat Iron Binding 391 ug/dL (112-347) H 12/12/21 16:21 Ferritin 35 ng/mL (15-150) 12/12/21 16:21 Total Bilirubin 1.9 mg/dL (0.15-1.2) H 12/12/21 14:49 AST 1073 U/L (0-32) H 12/12/21 14:49 ALT 996 U/L (0-33) H 12/12/21 14:49 Alkaline Phosphatase 186 IU/L (35-105) H 12/12/21 14:49 Troponin T Baseline 15 ng/L (0-10) H 12/12/21 14:49 Troponin T 120 Minute 15.67 ng/L (0-10) H 12/12/21 16:21 Delta Troponin T 0.67 ABS# (0-10) 12/12/21 16:21 C-Reactive Protein 46.9 mg/L (0.0-4.9) H 12/12/21 14:49 NT-Pro-B Natriuret Pep 1941 pg/mL (0-125) H 12/12/21 14:49 Total Protein 6.5 g/dL (6.6-8.7) L 12/12/21 14:49 Albumin 4.0 g/dL (3.5-5.2) 12/12/21 14:49 Globulin 2.5 g/dL (1.3-4.6) 12/12/21 14:49 Lipase 49 U/L (13-60) 12/12/21 14:49 Procalcitonin 0.11 ng/mL (0-0.5) 12/12/21 14:49 TSH 2.09 uIU/mL (0.27-4.20) 12/12/21 14:49 SARS-CoV-2 RNA (RT-PCR) Not detected (NOT DETECTED) 12/12/21 15:50 Blood Type B Positive 12/12/21 06:04 Rho(D) Type Positive 12/12/21 06:04 Antibody Screen Negative 12/12/21 06:04 Crossmatch See Detail 12/12/21 06:04 Critical Care Time Critical Care Time: Critical Care Time: Yes Total Critical Care Time: 45 Attestation: The high probability of a clinically significant, sudden or life threatening deterioration of the patient's cardiopulmonary system(s) required my full and direct attention, intervention and personal management. The critical care time is as shown. This time is in addition to time spent performing any reported procedures but includes the following: [x] Data and vital sign review and interpretation [x] Patient assessment, examination and intervention [x] Documentation [x] Medication orders and management Discharge Plan Discharge Patient Disposition: Admitted As Inpatient Admit Provider: Mariel Velasquez Clinical Impression: Atrial fibrillation with rapid ventricular response, Atrial fibrillation, Acute on chronic congestive heart failure, Microcytic anemia, Elevated INR, Transaminitis Condition: Stable Discharge Diet: Cardiac Discharge Activity: Increase activity as tolerated Coding Level of Care Code ED Senior Marketing Analyst for Chg Fwd Exam Comprehensive
--- NOTE | 2021-12-12 14:41 | XRR_ITS ---
PROCEDURE INFORMATION: Exam: XR Chest Exam date and time: 12/12/2021 2:56 PM Age: 66 years old Clinical indication: Shortness of breath; Additional info: SOB TECHNIQUE: Imaging protocol: Radiologic exam of the chest. Views: 1 view. COMPARISON: CR XR chest 1V portable [id number] 10/27/2019 8:49 PM FINDINGS: Tubes, catheters and devices: Left chest wall stimulator device with the wire traveling cephalad. Lungs: The lung bases are suboptimally assessed due to technique however the upper lungs are clear of focal consolidation. Pleural spaces: Unremarkable. No pleural effusion. No pneumothorax. Heart/Mediastinum: Cardiac silhouette is mildly enlarged, increased since prior exam. This may be related to cardiomegaly and/or pericardial effusion. No obvious vascular congestion.Single view was submitted. Bones/joints: No acute osseous findings. XR/XR chest 1V portable [id number] IMPRESSION: 1. Interval enlargement of cardiac silhouette size as described. Correlation with echocardiogram may be helpful. 2. No obvious acute consolidation. Suboptimal lung base assessment. Followup including lateral view may be obtained if clinically indicated.
--- NOTE | 2021-12-12 14:42 | ECG_ITS ---
[facility] Test Date: 2021-12-12 Pat Name: Soumya Avila Department: Room: Gender: Female Lavatory Attendant: : 1955 Requested By: Anthony Munoz Order Number: [id number] Elaine MD: Lesley Mack M.D. Measurements Intervals [place] Rate: 125 P: IN: QRS: 66 QRSD: 80 T: 93 QT: 325 QTc: 470 Interpretive Statements ATRIAL FIBRILLATION WITH RAPID VENTRICULAR RESPONSE NONSPECIFIC ST & T-WAVE ABNORMALITY ABNORMAL RHYTHM ECG Compared to ECG 10/27/2019 14:43:01 Possible ischemia no longer present T-wave abnormality still present Electronically Signed On 12-12-2021 23:41:12 CDT by Lesley Mack M.D. [id number]
[2021-12-12 15:03] LABS: Basophils # 0.1 10^3/uL (0.0-0.1); Basophils % 0.6 %; Eosinophils # 0.1 10^3/uL (0.0-0.8); Eosinophils % 0.8 %; Hematocrit 26.2 % (37.0-47.0); Hemoglobin 7.9 g/dL (11.5-15.3); Lymphocytes # 2.1 10^3/uL (0.8-4.8); Lymphocytes % 24.3 %; Mean Corpuscular HGB Conc 30.2 g/dL (30.0-36.0); Mean Corpuscular Hemoglobin 20.1 pg (28.0-34.0); Mean Corpuscular Volume 66.7 fl (81-99); Mean Platelet Volume 11.4 fL (7.4-10.4); Monocytes # 0.8 10^3/uL (0.2-0.9); Monocytes % 9.8 %; Neutrophils # 5.47 10^3/uL (1.8-7.7); Neutrophils % 63.8 %; Nucleated Red Blood Cells % 0.4 %; Platelet Count 260 10^3/cmm (130-400); Red Blood Count 3.93 10^6/uL (4.1-5.3); Red Cell Distribution Width 17.8 % (12.1-15.1); White Blood Count 8.6 10^3/uL (4.0-10.0)
[2021-12-12] MEDS: lactated ringers 1,000 ML 999 ML IV (15:09)
[2021-12-12] MEDS: esmolol drip 2,500 MG/250 ML PREMIX 23 MG IV (15:20)
[2021-12-12 15:25] LABS: Slide Review Slide Review Perform
[2021-12-12 15:37] LABS: Troponin(5th) Baseline 15 ng/L (0-10)
[2021-12-12 15:43] LABS: NT Pro B Type Natriuretic Pept 1941 pg/mL (0-125); Procalcitonin 0.11 ng/mL (0-0.5); Thyroid Stimulating Hormone 2.09 uIU/mL (0.27-4.20)
--- NOTE | 2021-12-12 15:43 | PM.HP ---
Providers/Chief Complaint Primary Care Provider: Tonia Salinas, GUERRERO-C Chief Complaint: Chest pain, sob History of Present Illness Soumya Avila is a 66 year old female who carries history of seizure disorder, vascular dementia, depression, A. fib, she was taking Eliquis and Cardizem, has been seen by top collar maker Dr. Varela, has EF 50%, she was diagnosed with temporal lobe epilepsy when she had slurred speech ataxia and confusion she was seen by Dr. Valladares, she has not been on anticoagulating agent since then, for her A. fib RVR metoprolol dose was increased to 50 mg in a.m. and 25 mg in p.m., digoxin was held She was treated with multiple medications through the years that failed to control her epilepsy including Tegretol, gabapentin, Zonegran, Dilantin and oxcarbazepine. ?She had focus resection completed with excision of arachnoid cyst in the left frontotemporal lobe at [facility] in [place], [place]. That failed to control her seizures. In April of 2001, a vagal nerve stimulator was placed with good results, Then she has been fighting with seasonal allergies, for last few weeks she has been getting more short of breath, she has been noticing stabbing discomfort in her chest with her palpitations and A. fib RVR. In last 24 hours she started experiencing nausea and vomiting. In total she has had 3-5 episodes so far, she has been compliant with rest of her medications. She has not noticed any fever, dysuria, diarrhea. Review of Systems Const: Denies: fever(s) Eyes: Denies: change in vision ENMT: Denies: throat pain Card: Denies: chest pain Resp: Reports: dyspnea GI: Reports: abdominal pain, nausea and vomiting : Denies: flank pain Musc: Denies: neck pain Skin/Breast: Denies: rash Neuro: Denies: headache(s) Psych: Reports: anxiety Endo: Denies: polyuria Teja/Lymph: Denies: easy bruising All/Imm: Denies: urticaria Medications/Allergies Home Medications Medication Instructions Recorded Confirmed Last Taken Type albuterol sulfate 90 mcg/actuation 2 puff INHALATION Q6H PRN #8.5 g 11/08/21 12/12/21 Unknown Rx aerosol inhaler (ProAir HFA) aspirin 81 mg tablet,delayed 81 mg PO DAILY@12/12/21 12/12/21 12/12/21 08:00 History release levetiracetam 500 mg tablet 1,500 mg PO DAILY@12/12/21 12/12/21 12/12/21 08:00 History mirtazapine 15 mg tablet (Remeron) 15 mg PO BEDTIME 12/12/21 12/12/21 12/11/21 History nitroglycerin 0.4 mg sublingual 0.4 mg SUBLINGUAL Q5M PRN 12/12/21 12/12/21 Unknown History tablet (Nitrostat) venlafaxine 150 mg 150 mg PO DAILY@12/12/21 12/12/21 12/12/21 08:00 History capsule,extended release 24 hr (Effexor XR) venlafaxine 75 mg capsule,extended 75 mg PO DAILY@12/12/21 12/12/21 12/12/21 08:00 History release 24 hr (Effexor XR) Allergies Allergy/AdvReac Type Severity Reaction Status Date / Time morphine Allergy unknown Verified 12/12/21 15:05 Penicillins Allergy Unknown Verified 12/12/21 15:05 phenytoin [From Dilantin] Allergy Unknown Verified 12/12/21 15:05 PFSH Acute PFSH: Medical History Anticoagulation adequate with anticoagulant therapy Carotid stenosis Chronic knee pain Cigarette nicotine dependence Fall Hyperlipidemia Major depression, recurrent, full remission Psychiatric care Seizures Weight loss Surgical History H/O brain surgery H/O section History of back surgery History of cholecystectomy Status post VNS (vagus nerve stimulator) placement Social History Smoking and tobacco status: never smoked Quit status (tobacco): has quit using tobacco Year quit tobacco: 2019 Smoking risk assessment/counseling performed?: Yes Tobacco counseling given: counseling >3 minutes Alcohol intake: never History of recent travel: No Vitals/I&O/Wt Last Vital Signs Temp 98.9 F 12/12/21 14:17 Resp 20 H 12/12/21 14:17 BP 112/89 12/12/21 14:17 Pulse Ox 99 12/12/21 14:17 12/12/21 12/12/21 12/12/21 06:59 14:59 22:59 Intake Total 8.242 / 8.242 Balance 8.242 / 8.242 Weight last 48 hrs Weight 76.657 kg Physical Exam Narrative: Patient was experiencing dry heaves when entered the room A. fib RVR heart rate in 140s Esmolol drip was being initiated No active chest pain Abdomen is soft Does not look fluid overload She looks pale Awake and alert Nonfocal neuro exam Saturating well on room air Data : 12/13/21 06:04 12/13/21 06:04 A&P Assessment and plan (1) Atrial fibrillation with rapid ventricular response: Status: Acute (2) Acute on chronic congestive heart failure: Status: Acute (3) Microcytic anemia: Status: Acute (4) Transaminitis: Status: Acute (5) Seasonal allergies: Status: Acute (6) Gastritis: Status: Acute (7) Colon polyps: Status: Acute (8) Lesion of pancreas: Status: Acute (9) Vascular dementia: Status: Acute Plan Symptomatic A. fib with RVR She was using Cardizem and digoxin in the past, her top collar maker put her on increased dose of metoprolol 50 mg a.m. and 25 mg at night She not a candidate for anticoagulation because of her risk of falls due to her temporal lobe seizure, she also has history of GI bleed Repeat echo Check magnesium and TSH Temporal epilepsy: Status post vagal nerve stimulator Follows up with Dr. Valladares no recent exacerbation Continue Keppra Carotid artery disease, No recent exacerbation no acute focal deficits Type 2 diabetes I would use full liquid diet for now Full code Sliding scale DVT prophylaxis SCDs I would avoid anticoagulation because of her anemia, previously she was diagnosed with GI bleed scope was done in 2019 which showed gastritis, right colon polyps were removed which were actively bleeding adenomatous polyps, tubular adenoma Attestations Medical Necessity Statement*: Anticipating discharge within 48 hours Time Spent in Patient Care: 35 Coding Level of Care Code Acute Endodontics Dentist for Chg Fwd Diagnoses Atrial fibrillation with rapid ventricular response I48.91 Acute on chronic congestive heart failure I50.9 Microcytic anemia D50.9 Transaminitis R74.01 Seasonal allergies J30.2 Gastritis K29.70 Colon polyps K63.5 Lesion of pancreas K86.9 Vascular dementia F01.50
[2021-12-12 16:00] LABS: Alkaline Phosphatase 186 IU/L (35-105); Anion Gap 17.7 (5-19); Blood Urea Nitrogen 17 mg/dL (8-23); C Reactive Protein 46.9 mg/L (0.0-4.9); Calcium 8.4 mg/dL (8.5-10.5); Carbon Dioxide 20 mmol/L (22-29); Chloride 98 mmol/L (98-107); Globulin 2.5 g/dL (1.3-4.6); Glucose 110 mg/dL (65-115); Osmolality Calculated 276 mOsm/kg (285-295); Potassium 3.7 mmol/L (3.5-5.1); Sodium 132 mmol/L (136-145); Total Bilirubin 1.9 mg/dL (0.15-1.2); Total Protein 6.5 g/dL (6.6-8.7)
[2021-12-12 16:02] LABS: INR 1.91 (0.8-1.2); Partial Thromboplastin Time 30.7 SECONDS (23.9-36.7)
[2021-12-12 16:06] LABS: D Dimer 2.08 ug/mIFEU (0-0.59)
--- NOTE | 2021-12-12 16:07 | CTR_ITS ---
PROCEDURE INFORMATION: Exam: CTA Chest With Contrast Exam date and time: 12/12/2021 5:04 PM Age: 66 years old Clinical indication: Other: See additional info section; Additional info: SOB, tachy, afib not on anticoagulation, abd pain n/v/d TECHNIQUE: Imaging protocol: Computed tomographic angiography of the chest with contrast. 3D rendering (Not supervised by radiologist): MIP and/or 3D reconstructed images were created by the technologist. Radiation optimization: All CT scans at this facility use at least one of these dose optimization techniques: automated exposure control; mA and/or kV adjustment per patient size (includes targeted exams where dose is matched to clinical indication); or iterative reconstruction. Contrast material: OMNIPAQUE 350; Contrast volume: 95 ml; Contrast route: INTRAVENOUS (IV); COMPARISON: CT angio chest PE protcl [id number] 10/11/2019 8:46 PM RADIATION DOSE METRICS: Total DLP (mGy-cm): 1536.68 FINDINGS: Pulmonary arteries: Normal. No pulmonary emboli. Aorta: No aortic aneurysm. No aortic dissection. Lungs: Unremarkable. No consolidation. No masses. Pleural spaces: Unremarkable. No pneumothorax. No pleural effusion. Heart: Mild 4 chamber cardiomegaly and small pericardial effusion. Pericardial effusion is unchanged versus 10/11/2019 exam but new since 01/05/2020 suggesting a recurrent process. Coronary calcification. Lymph nodes: Unremarkable. No enlarged lymph nodes. Bones/joints: No acute fracture. Soft tissues: Unremarkable. PROCEDURE INFORMATION: Exam: CT Abdomen And Pelvis With Contrast Exam date and time: 12/12/2021 5:04 PM Age: 66 years old Clinical indication: Other: See additional info section; Additional info: SOB, tachy, afib not on anticoagulation, abd pain n/v/d TECHNIQUE: Imaging protocol: Computed tomography of the abdomen and pelvis with contrast. Radiation optimization: All CT scans at this facility use at least one of these dose optimization techniques: automated exposure control; mA and/or kV adjustment per patient size (includes targeted exams where dose is matched to clinical indication); or iterative reconstruction. Contrast material: OMNIPAQUE 350; Contrast volume: 95 ml; Contrast route: INTRAVENOUS (IV); COMPARISON: CT abdomen w con* [id number] 01/05/2020 3:01 PM RADIATION DOSE METRICS: Total DLP (mGy-cm): 1536.68 FINDINGS: Liver: Normal liver size without cirrhosis or suspicious focal lesions. Heterogeneous hepatic parenchymal enhancement may be related to passive congestion or other diffuse parenchymal process. Hepatitis should also be excluded clinically. Mild dilatation of intrahepatic IVC and hips central hepatic veins suggesting passive congestion/right heart/tricuspid dysfunction. Gallbladder and bile ducts: Cholecystectomy clips. No abnormal bile duct dilatation. Pancreas: Again seen is a tiny hypodense/cystic lesion in the pancreatic body measuring about 3 mm, unchanged and is most likely benign. No pancreatic duct dilatation or other pancreatic mass. Spleen: Normal. No splenomegaly. Adrenal glands: Normal. No mass. Kidneys and ureters: No obstructing calculus. No hydronephrosis. Stomach and bowel: Colonic diverticulosis. Small to moderate stool burden. Appendix: No evidence of appendicitis. Intraperitoneal space: Unremarkable. No free air. No significant fluid collection. Vasculature: No abdominal aortic aneurysm. Lymph nodes: No enlarged lymph nodes. Urinary bladder: Unremarkable as visualized. Reproductive: Unremarkable as visualized. Absent uterus. Bones/joints: Posterior surgical fusion at L3 through S1 in good alignment. No acute osseous findings otherwise. Soft tissues: No acute findings. CT/CT angio chest w abd pel w con IMPRESSION: 1. No acute PE or significant lung disease. 2. Cardiac findings as described above. IMPRESSION: 1. Heterogeneous hepatic parenchyma and dilated IVC/hepatic veins. See discussion above. No cirrhosis or suspicious hepatic lesion. 2. Stable tiny hypodense pancreatic lesion measuring 3 mm, likely benign. 3. Colonic diverticulosis. No diverticulitis or other acute bowel findings.
[2021-12-12 16:11] LABS: Alanine Aminotransferase 996 U/L (0-33)
[2021-12-12 16:14] LABS: Aspartate Amino Transferase 1073 U/L (0-32)
[2021-12-12] MEDS: ondansetron 2 mg/ML SDV 2 mL 4 MG IVP (16:17)
[2021-12-12 16:35] LABS: Hematocrit 28.3 % (37.0-47.0); Hemoglobin 7.8 g/dL (11.5-15.3)
--- NOTE | 2021-12-12 16:42 | ECG_ITS ---
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 Measurements Intervals [place] Rate: 111 P: [place]: QRS: 79 QRSD: 92 T: 105 QT: 358 QTc: 487 Interpretive Statements ATRIAL FIBRILLATION WITH RAPID VENTRICULAR RESPONSE NONSPECIFIC T-WAVE ABNORMALITY ABNORMAL RHYTHM ECG Compared to ECG 12/12/2021 14:22:54 No significant changes Electronically Signed On 12-13-2021 22:47:58 CDT by Lesley Mack M.D. [id number]
[2021-12-12 17:08] LABS: Troponin 5 2HR 15.67 ng/L (0-10)
[2021-12-12 17:10] LABS: Troponin 5 2HR Delta 0.67 ABS# (0-10)
[2021-12-12 17:46] LABS: Lipase 49 U/L (13-60)
[2021-12-12] MEDS: LORazepam 0.5 mg Tablet PO (18:04)
[2021-12-12 18:27] LABS: Ferritin 35 ng/mL (15-150); Iron 17 ug/dL (37-145); Percent Saturation 4.1 % (20-50); Total Iron Binding Capacity 408 mcg/dl; Unsaturated Iron Binding 391 ug/dL (112-347)
[2021-12-12] MEDS: esmolol drip 2,500 MG/250 ML PREMIX 69.32 MG IV (19:45)
--- NOTE | 2021-12-12 20:42 | ECG_ITS ---
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 Measurements Intervals [place] Rate: 106 P: [place]: QRS: 61 QRSD: 92 T: 117 QT: 393 QTc: 524 Interpretive Statements ATRIAL FIBRILLATION WITH RAPID VENTRICULAR RESPONSE ABNORMAL RHYTHM ECG Compared to ECG 12/12/2021 18:35:52 T-wave abnormality no longer present Electronically Signed On 12-13-2021 22:50:39 CDT by Lesley Mack M.D. [id number]
--- NOTE | 2021-12-12 21:30 | PC.NURSE ---
EKG done at 2130 and shown to ER doctor
--- NOTE | 2021-12-12 21:51 | USCV_ITS ---
Soumya Avila Age: 66 Gender: F : 1955 Exam Date: 12/12/2021 23:07 Ordering Phys: Mariel Velasquez MD Technologist: TONY [place] [facility] [place]: CHF exacerbation. shortness of breath x 2 weeks. BP: 108 / 76 HR: 106 Rhythm: Atrial fibrillation with rapid ventricular response Technical Quality: Adequate MEASUREMENTS (Male / Female) Normal Values 2D ECHO LV Diastolic Diameter PLAX 3.2 cm 4.2 - 5.9 / 3.9 - 5.3 cm LV Systolic Diameter PLAX 2.2 cm IVS Diastolic Thickness 1.1 cm 0.6 - 1.0 / 0.6 - 0.9 cm IVS Systolic Thickness 1.4 cm LVPW Diastolic Thickness 1.2 cm 0.6 - 1.0 / 0.6 - 0.9 cm LVPW Systolic Thickness 1.7 cm LVOT Diameter 1.8 cm LV Ejection Fraction 2D Teich 62.6 % LV Ejection Fraction MOD 2C 74.1 % LV Ejection Fraction 2C AL 75.5 % LA Diameter 5.0 cm LA Width 4.7 cm LA Height 6.8 cm RA Width 4.8 cm RA Height 6.0 cm Aorta at Sinotubular Diameter 2.6 cm IVC Diameter 1.9 cm M-MODE Aortic Annulus Diameter 2.0 cm LA Ao Ratio MM 2.6 MV E Point Septal Separation 0.3 cm DOPPLER AV Peak Velocity 89.0 cm/s LVOT Peak Velocity 91.0 cm/s AV Area Cont Eq vti 2.0 cm squared AV Area Cont Eq pk 2.5 cm squared MV Peak Velocity 175.0 cm/s MV Area PHT 5.5 cm squared MV E' Velocity 94.0 cm/s Mitral E to MV E' Ratio 15.7 Mitral E to LV E' Lateral Ratio 15.7 Mitral E to LV E' Septal Ratio 15.8 TR Peak Velocity 361.0 cm/s TR Peak Gradient 52.1 mmHg TV Peak E Velocity 92.0 cm/s Right Atrial Pressure 10.0 mmHg Pulmonary Artery Systolic Pressu 62.1 mmHg PV Peak Velocity 70.0 cm/s RV Acceleration Time 0.1 s RV Ejection Time 0.3 s RV AcT/ET 0.5 FINDINGS Left Ventricle Normal left ventricular size and systolic function, EF 72 %. Mild left ventricular hypertrophy. Grade III/IV diastolic dysfunction (restrictive filling pattern), severely elevated filling pressures. Right Ventricle The right ventricle is normal in size and function. Right Atrium Moderately increased right atrial size. Left Atrium Moderately increased left atrial size. Mitral Valve Thickened mitral valve. Moderate-severe mitral valve regurgitation. Aortic Valve Thickened aortic valve. Tricuspid Valve Severe tricuspid valve regurgitation. Estimated pulmonary artery peak systolic pressure 62 mmHg Pulmonic Valve Mild pulmonary valve regurgitation. Pericardium Trivial pericardial effusion. Aorta Normal aortic annulus size. IVC Normal IVC dimension with <50% respiratory change of the inferior vena cava. CONCLUSIONS Normal left ventricular size and systolic function, EF 72 %. Mild left ventricular hypertrophy. Grade III/IV diastolic dysfunction (restrictive filling pattern), severely elevated filling pressures. Severe tricuspid valve regurgitation. Moderate pulmonary hypertension with an estimated pulmonary artery peak systolic pressure of 62 mmHg Moderate-severe mitral valve regurgitation. Mild pulmonary valve regurgitation. Moderate biatrial enlargement Trivial pericardial effusion. There are no intracardiac masses. Compared to the study from 10/12/2019, there is development of pulmonary hypertension and some worsening of the mitral regurgitation Dr Lesley Mack MD FAC (Electronically Signed) Final Date: 13 December 2021 09:43 S
[2021-12-12 22:07] LABS: Hepatitis A Antibody IgM Non-Reactive (Nonreactive); Hepatitis B Core IgM Non-Reactive (Nonreactive); Hepatitis B Surface Antigen Non-Reactive (Nonreactive); Hepatitis C Virus Antibody Non-Reactive (Nonreactive)
[2021-12-12] MEDS: FUROsemide 10 mg/mL SDV 10mL 60 MG IVP (22:22)
[2021-12-12 23:15] LABS: Troponin 5 6HR 16.13 ng/L (0-10); Troponin 5 6HR Delta 1.13 ng/L (0-12)
[2021-12-13] VITALS (17 sets, daily range): BP systolic 91–144; BP diastolic 50–91; PULSE 70–122; RESP 14–40; TEMP 36.4–36.8; O2SAT 96–100
[2021-12-13] MEDS: esmolol drip 2,500 MG/250 ML PREMIX 68.99 MG IV (00:18)
--- NOTE | 2021-12-13 00:29 | PC.NURSE ---
Unable to obtain blood for type and screen. Informed Dr Frost. No orders received at this time.
[2021-12-13 00:44] LABS: Add Urine Microscopic? YES; Bilirubin Urine Neg (Negative); Blood Urine Neg (Negative); Glucose Urine UA Norm (Normal); Ketones Urine Negative (Negative); Leukocyte Esterase Urine 1+ (Negative); Nitrate Urine Negative (Negative); Protein Urine Trace (Negative); Urine Appearance Clear (CLEAR); Urine Color Yellow (Yellow); Urobilinogen Urine 1 mg/dL (Negative); pH Urine 5 (5-7)
[2021-12-13 00:45] LABS: Add Urine Culture? No; Amorphous Sediment Urine 1+ /hpf; Bacteria Urine TRACE /hpf; RBC Urine 0-4 /hpf (0-2); Squamous Epithelial Cell Urine 0-4 /hpf (0-5); WBC Urine 15-25 /hpf (0-5)
--- NOTE | 2021-12-13 01:54 | PC.NURSE ---
Patient has orders to transfuse 1 unit [facility] however we are unable to get enough blood from her for type and screen. Informed Dr Frost and received order to request for respiratory to draw arterial with lab asssist.
--- NOTE | 2021-12-13 05:46 | PC.NURSE ---
Patient has pulled out her IV and her esmolol drip is not running. We are attempting to start new iv with ultrasound at this time. We will get lab for type and screen if successful. Informed Dr Frost .
[2021-12-13 06:18] LABS: Basophils % 0.2 %; Hematocrit 27.1 % (37.0-47.0); Hemoglobin 8.3 g/dL (11.5-15.3); Lymphocytes % 10.1 %; Mean Corpuscular HGB Conc 30.6 g/dL (30.0-36.0); Mean Corpuscular Hemoglobin 20.2 pg (28.0-34.0); Mean Corpuscular Volume 66.1 fl (81-99); Monocytes # 0.3 10^3/uL (0.2-0.9); Monocytes % 3.1 %; Neutrophils # 8.53 10^3/uL (1.8-7.7); Neutrophils % 85.6 %; Nucleated Red Blood Cells % 0.2 %; Platelet Count 204 10^3/cmm (130-400); Red Cell Distribution Width 18.1 % (12.1-15.1)
[2021-12-13] MEDS: esmolol drip 2,500 MG/250 ML PREMIX 45.99 MG IV (06:46)
[2021-12-13 06:49] LABS: Blood Urea Nitrogen 24 mg/dL (8-23); C Reactive Protein 44.5 mg/L (0.0-4.9); Calcium 8.6 mg/dL (8.5-10.5); Carbon Dioxide 17 mmol/L (22-29); Chloride 95 mmol/L (98-107); Glucose 141 mg/dL (65-115); Magnesium 1.9 mg/dL (1.7-2.3); Osmolality Calculated 284 mOsm/kg (285-295); Sodium 134 mmol/L (136-145)
[2021-12-13 06:51] LABS: Anion Gap 26.4 (5-19); Potassium 4.4 mmol/L (3.5-5.1)
[2021-12-13 07:20] LABS: Glucose Point of Care 182 mg/dL (70-110)
[2021-12-13] MEDS: insulin lispro 100 unit/1 mL SUBCUT ×3 (08:10→17:10)
[2021-12-13] MEDS: pantoprazole 40 mg SDV IVP ×2 (08:12→17:10)
[2021-12-13] MEDS: levETIRAcetam 500 mg Tablet 1500 MG PO (08:12)
[2021-12-13] MEDS: venlafaxine ER (24HR) 75 mg Capsule PO (08:12)
[2021-12-13] MEDS: metoprolol tartrate 50 mg Tablet PO (08:45)
[2021-12-13] MEDS: FUROsemide 10 mg/mL SDV 10mL 60 MG IVP (09:53)
--- NOTE | 2021-12-13 10:07 | PC.NURSE ---
0830 Iv in Left upper arm infusing esmolol was noted to be infiltrated, removed intact. Pt states site is not painful. MD notified.
--- NOTE | 2021-12-13 10:46 | PC.CHAP ---
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 visit [] Patient/Family/Request visit [] Outpatient visit [] Follow-up visit [] Physician referral [] Code/Alert [x] Routine visit [] Staff referral [] Actively dying [] Patient sleeping [] Family support [] [] Out of room [] Palliative care [] [x] Receiving care in room [] Pre-surgical visit [] Trauma [] Long length of stay [] ICU visit [] Other: Relational/Emotional Strength [x] Patient feels connected with others/family/visitors/staff [] Distress [] Loneliness/isolation [] Abandonment Spirituality of Patient [x] Person of [place] [] Attends [place]ondoism of their [place] [x] Believes in Prayer [] Reads Bible or Gnosticism materials [] There are Spiritual issues to be addressed Teacher Vocal Interventions [x] Prayer [x] Active listening [x] Non-anxious presence [x] Spiritual/emotional support [] Crisis/trauma care [x] Spiritual counseling [] Bereavement support [] Provided bereavement packet [] Provided Bible/devotional materials [] Provided toy/stuffed animal, coloring book to patient or family member [] Provided Communion [] Anointing/[place] [] Salvation [x] Completed spiritual assessment [] Other: Impact on Illness or Injury [] Angry [] Fearful [] Anxious [] Often cries [] Exhaustion [] Unable to work [] Unable to attend evangelical [] Unable to walk/stand [] Unable to read [] Unable to drive [] Unable to eat/drink [] Unable to sleep [] Unable to be with family [] Patient intubated [] Other: Summary very positive about heart may change some meds well be going home Time spent with patient 10 mins
[2021-12-13 11:10] LABS: Glucose Point of Care 153 mg/dL (70-110)
--- NOTE | 2021-12-13 11:54 | PM.PN ---
Subjective Subjective: Patient is endorsing feeling better, she did not receive any blood last night because of IV line infiltration Hemoglobin is stable 8.3 Hemodynamically stable Esmolol drip is being titrated off this morning I have started on metoprolol 50 mg in the morning and 20 5 at night Her daughter is in agreement She will be able to go home by tomorrow CT chest abdomen pelvis did show vascular congestion, congestive hepatopathy Echo showed EF 70% worsening of mitral valve regurgitation, indication for watchman device? Vitals/I&O/Wt Last Vital Signs Temp 97.9 F 12/13/21 11:06 Pulse 92 12/13/21 11:06 Resp 18 12/13/21 11:06 BP 91/50 12/13/21 11:06 Pulse Ox 96 12/13/21 11:06 12/12/21 12/13/21 12/13/21 22:59 06:59 14:59 Intake Total 1250.000 / 1250.000 740.000 / 4601.451 7502.652 / 1123.652 Output Total 1000 / 1000 700 / 700 Balance 1250.000 / 1250.000 -260.000 / 990.000 423.652 / 423.652 Weight last 48 hrs Weight 77.02 kg Weight 76.657 kg Physical Exam Narrative: A. fib RVR Hemodynamically stable Clinically does not look fluid overloaded Abdomen is soft Patient is awake and alert Satting well on room air Pleasant and cooperative Nonfocal neuro exam Bilateral breath sounds without adventitious rhonchi or crackles Data : 12/13/21 06:04 12/13/21 06:04 Micro: Microbiology 12/12/21 15:40 Blood Culture - Preliminary Blood SPECIMEN COLLECTED 12/12/21 15:34 Blood Culture - Preliminary Blood SPECIMEN COLLECTED A&P Assessment and plan (1) Atrial fibrillation with rapid ventricular response: Status: Acute (2) Acute on chronic congestive heart failure: Status: Acute (3) Microcytic anemia: Status: Acute (4) Transaminitis: Status: Acute (5) Seasonal allergies: Status: Acute (6) Hyperlipidemia: Status: Acute Qualifiers: Hyperlipidemia type: unspecified Qualified Code(s): E78.5 - Hyperlipidemia, unspecified (7) Gastritis: Status: Acute (8) Colon polyps: Status: Acute (9) Lesion of pancreas: Status: Acute (10) Vascular dementia: Status: Acute (11) Carotid stenosis: Status: Acute Qualifiers: Laterality: right Qualified Code(s): I65.21 - Occlusion and stenosis of right carotid artery (12) Type 2 diabetes mellitus: Status: Acute Qualifiers: Diabetes mellitus shelter insulin use: unspecified shelter insulin use status Plan Preserve ejection fraction heart failure exacerbation paroxysmal A. fib RVR contributing to her CHF exacerbation Patient stopped taking her medications as per her daughter [id number] High risk for stroke Not a candidate for anticoagulation due to history of GI bleed and active anemia Without receiving any blood transfusion last night hemoglobin has remained stable 8.3 Stool sample is pending She might be a candidate for watchman device placement, will ask her to follow-up with Dr. Mckeon outpatient her mitral valve regurgitation has worsened, EF 70% grade 3 diastolic dysfunction Moderate pulmonary hypertension She is currently saturating well on room air Esmolol drip to be titrated off Metoprolol 25 mg at night and 50 mg in the morning Congestive hepatopathy secondary to heart failure Start p.o. diuretics instead of IV today Acute on chronic microcytic anemia Hemoglobin has remained stable Consistent with iron deficiency anemia She does carry history of gastritis and colonic polyp Not a candidate for anticoagulation because of active history of GI bleed, temporal epilepsy, she is at risk of falls as well She is DNR/DNI She is diabetic I will advance her diet to cardiac consistent carb this morning She lives with her daughter Attestations Medical Necessity Statement*: Discharge tomorrow Time Spent in Patient Care: 35 Coding Level of Care Code Acute Supervisor Liquid Yeast for [facility] Fwd Diagnoses Atrial fibrillation with rapid ventricular response I48.91 Acute on chronic congestive heart failure I50.9 Microcytic anemia D50.9 Transaminitis R74.01 Seasonal allergies J30.2 Hyperlipidemia E78.5 Hyperlipidemia type: unspecified Gastritis K29.70 Colon polyps K63.5 Lesion of pancreas K86.9 Vascular dementia F01.50 Carotid stenosis I65.21 Laterality: right Type 2 diabetes mellitus E11.9 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
[2021-12-13] MEDS: bumetanide 1 mg Tablet PO (12:35)
[2021-12-13 14:24] LABS: Quest SARS-CoV-2 RNA NOT DETECTED (NOT DETECTED)
[2021-12-13 17:08] LABS: Glucose Point of Care 165 mg/dL (70-110)
[2021-12-13] MEDS: metoprolol tartrate 25 mg Tablet PO (19:52)
[2021-12-13 20:51] LABS: Glucose Point of Care 141 mg/dL (70-110)
[2021-12-14] VITALS: BP 112/52; PULSE 81; RESP 19; TEMP 36.4; O2SAT 96
[2021-12-14 00:03] LABS: Glucose Point of Care 114 mg/dL (70-110)
[2021-12-14 03:19] LABS: Basophils % 0.3 %; Eosinophils # 0.1 10^3/uL (0.0-0.8); Eosinophils % 0.9 %; Lymphocytes # 3.7 10^3/uL (0.8-4.8); Lymphocytes % 23.6 %; Mean Corpuscular Hemoglobin 20.1 pg (28.0-34.0); Monocytes # 1.3 10^3/uL (0.2-0.9); Monocytes % 8.1 %; Neutrophils # 10.43 10^3/uL (1.8-7.7); Neutrophils % 66.7 %; Nucleated Red Blood Cells # 0.1 /100WBC; Nucleated Red Blood Cells % 0.6 %; Platelet Count 222 10^3/cmm (130-400); Red Blood Count 4.48 10^6/uL (4.1-5.3); Red Cell Distribution Width 18.4 % (12.1-15.1); White Blood Count 15.7 10^3/uL (4.0-10.0)
[2021-12-14 03:20] LABS: Mean Platelet Volume 10.3 fL (7.4-10.4)
[2021-12-14 03:35] LABS: Blood Urea Nitrogen 32 mg/dL (8-23); Calcium 8.4 mg/dL (8.5-10.5); Carbon Dioxide 23 mmol/L (22-29); Chloride 97 mmol/L (98-107); Glomerular Filtration Rate 45.2 mL/min (90-130); Glucose 91 mg/dL (65-115); Magnesium 1.9 mg/dL (1.7-2.3); Osmolality Calculated 282 mOsm/kg (285-295); Sodium 133 mmol/L (136-145)
[2021-12-14 03:36] LABS: Anion Gap 16.6 (5-19); Potassium 3.6 mmol/L (3.5-5.1)
[2021-12-14 04:00] VITALS: BP 118/84; PULSE 103; RESP 18; TEMP 36.7; O2SAT 94
[2021-12-14 05:59] VITALS: PULSE 77
[2021-12-14 06:13] LABS: Glucose Point of Care 105 mg/dL (70-110)
[2021-12-14 07:53] VITALS: BP 120/70; PULSE 79; RESP 13; TEMP 36.5; O2SAT 98
[2021-12-14] MEDS: venlafaxine ER (24HR) 75 mg Capsule PO (08:56)
[2021-12-14] MEDS: bumetanide 1 mg Tablet PO (08:56)
[2021-12-14] MEDS: levETIRAcetam 500 mg Tablet 1500 MG PO (08:57)
[2021-12-14] MEDS: metoprolol tartrate 50 mg Tablet PO (08:59)
--- NOTE | 2021-12-14 09:13 | PC.NURSE ---
Pantoprazole 40mg ivp was not given due to non patent iv, primary nurse notified. iv in right arm was removed, catheter was intact, pressure dressing applied.
[2021-12-14 09:24] VITALS: PULSE 83; RESP 16; O2SAT 100
[2021-12-14 10:46] VITALS: BP 124/70; PULSE 78; RESP 16; O2SAT 100
--- NOTE | 2021-12-14 10:48 | P.DS_ITS ---
Discharge Providers Date of Admission: 12/12/21 18:14 Date of Discharge: December 14, 2021 Attending Provider at Admission: Mariel Velasquez MD Attending Provider at Discharge: Mariel Velasquez MD Primary Care Provider: BIN Flores Diagnoses at Discharge Discharge Diagnosis (1) Atrial fibrillation with rapid ventricular response: Status: Acute (2) Acute on chronic congestive heart failure: Status: Acute (3) Microcytic anemia: Status: Acute (4) Transaminitis: Status: Acute (5) Seasonal allergies: Status: Acute (6) Hyperlipidemia: Status: Acute Qualifiers: Hyperlipidemia type: unspecified Qualified Code(s): E78.5 - Hyperlipidemia, unspecified (7) Gastritis: Status: Acute (8) Colon polyps: Status: Acute (9) Lesion of pancreas: Status: Acute (10) Vascular dementia: Status: Acute (11) Carotid stenosis: Status: Acute Qualifiers: Laterality: right Qualified Code(s): I65.21 - Occlusion and stenosis of right carotid artery (12) Type 2 diabetes mellitus: Status: Acute Qualifiers: Diabetes mellitus skilled nursing insulin use: unspecified skilled nursing insulin use status Reason for Visit Reason for Visit: Chest pain, sob Hospital Course Hospital Course 66-year female with history of temporal lobe epilepsy, preserved ejection fraction heart failure, chronic A. fib, colonic polyp bleed in the past, who lives with her daughter, was admitted to the hospital for chief complaint of worsening shortness of breath and dry heaves. She was diagnosed with A. fib RVR at the time of admission, she required esmolol drip which was weaned off gradually, she was started on metoprolol 50 mg in the daytime and 25 mg of the night which improved her heart rate, [id number] score is 4, echo showed EF 70% worsening of mitral valve regurgitation, is a nonvalvular A. fib, I am not sure whether she would be an ideal candidate for watchman device because of her history of GI bleed, during this hospitalization her hemoglobin was low at the time of admission I requested 1 unit PRBC however this unit was not administered because of her poor IV access however next day her hemoglobin was around 8.3 and at the time of discharge around 9, she remained hemodynamically stable, as per her daughter she stopped taking her medication at home. She is not a good candidate for anticoagulating agent because of her history of temporal lobe epilepsy and GI bleed. I have discontinued her aspirin and started Plavix. She was also diagnosed with preserved ejection fraction heart failure exacerbation and required IV diuresis her BNP was 1900, she has remained afebrile, she does seem to have UTI component, she will get Levaquin 5-day course. Her previous colonoscopy revealed bleeding polyps, she does have tubular adenoma fragments of sessile serrated adenoma with dysplasia, she will need colonoscopy in next 2 years as follow-up. CT scan of abdomen pelvis chest revealed pancreatic lesion 3 mm likely benign, colonic diverticulosis, congestive hepatopathy. She follows up with Dr. Jovel, I did discuss watchman device indication with the patient, I have given her referral to see Dr. Varela within 4 to 7 days Physical Exam Narrative: A. fib without RVR Hemodynamically stable Clinically does not look fluid overloaded Abdomen is soft Patient is awake and alert Satting well on room air Pleasant and cooperative Nonfocal neuro exam Bilateral breath sounds without adventitious rhonchi or crackles Discharge Data Studies Completed and Pending Completed Studies During Hospitalization Category Date Time Status CTA chest CT abdomen pelvis [CT angio chest w abd pel w Cat Scan 12/12/21 16:07 Completed con] Stat XR chest 1V portable [id number] Urgent Exams 12/12/21 14:41 Completed CV. echo complete* [id number] Routine Ultrasound 12/12/21 21:51 Completed Pending at discharge Category Date Time Status Blood Culture Stat Lab 12/12/21 15:40 Results Occult Blood Stool [Immunochemical Fecal OCB] Routine Lab 12/13/21 09:13 Uncollected PRBC [Leukocyte Reduced RBC] Routine Lab 12/12/21 06:04 Results Type and Screen Routine Lab 12/12/21 06:04 Results Radiology Impressions Chest X-Ray 12/12/21 14:41 IMPRESSION: 1. Interval enlargement of cardiac silhouette size as described. Correlation with echocardiogram may be helpful. 2. No obvious acute consolidation. Suboptimal lung base assessment. Followup including lateral view may be obtained if clinically indicated. Chest/Abdomen/Pelvis CT 12/12/21 16:07 IMPRESSION: 1. No acute PE or significant lung disease. 2. Cardiac findings as described above. IMPRESSION: 1. Heterogeneous hepatic parenchyma and dilated IVC/hepatic veins. See discussion above. No cirrhosis or suspicious hepatic lesion. 2. Stable tiny hypodense pancreatic lesion measuring 3 mm, likely benign. 3. Colonic diverticulosis. No diverticulitis or other acute bowel findings. Laboratory Results WBC 15.7 10^3/uL (4.0-10.0) H 12/14/21 03:14 RBC 4.48 10^6/uL (4.1-5.3) 12/14/21 03:14 Hgb 9.0 g/dL (11.5-15.3) L 12/14/21 03:14 Hct 30.0 % (37.0-47.0) L 12/14/21 03:14 MCV 67.0 fl (81-99) L 12/14/21 03:14 MCH 20.1 pg (28.0-34.0) L 12/14/21 03:14 MCHC 30.0 g/dL (30.0-36.0) 12/14/21 03:14 RDW 18.4 % (12.1-15.1) H 12/14/21 03:14 Plt Count 222 10^3/cmm (130-400) 12/14/21 03:14 MPV 10.3 fL (7.4-10.4) 12/14/21 03:14 Neut % (Auto) 66.7 % 12/14/21 03:14 Lymph % (Auto) 23.6 % 12/14/21 03:14 [place] % (Auto) 8.1 % 12/14/21 03:14 Eos % (Auto) 0.9 % 12/14/21 03:14 Baso % (Auto) 0.3 % 12/14/21 03:14 Neut # (Auto) 10.43 10^3/uL (1.8-7.7) H 12/14/21 03:14 Lymph # (Auto) 3.7 10^3/uL (0.8-4.8) 12/14/21 03:14 [place] # (Auto) 1.3 10^3/uL (0.2-0.9) H 12/14/21 03:14 Eos # (Auto) 0.1 10^3/uL (0.0-0.8) 12/14/21 03:14 Baso # (Auto) 0.0 10^3/uL (0.0-0.1) 12/14/21 03:14 Nucleated RBC % (auto) 0.6 % 12/14/21 03:14 Nucleated RBCs # 0.1 /100WBC 12/14/21 03:14 PT 22.20 SECONDS (12.1-14.9) H 12/12/21 14:49 INR 1.91 (0.8-1.2) H 12/12/21 14:49 APTT 30.7 SECONDS (23.9-36.7) 12/12/21 14:49 D-Dimer 2.08 ug/mIFEU (0-0.59) H 12/12/21 14:49 Sodium 133 mmol/L (136-145) L 12/14/21 03:14 Potassium 3.6 mmol/L (3.5-5.1) 12/14/21 03:14 Chloride 97 mmol/L (98-107) L 12/14/21 03:14 Carbon Dioxide 23 mmol/L (22-29) 12/14/21 03:14 Anion Gap 16.6 (5-19) 12/14/21 03:14 BUN 32 mg/dL (8-23) H 12/14/21 03:14 Creatinine 1.2 mg/dL (0.5-0.9) H 12/14/21 03:14 GFR Calculation 45.2 mL/min (90-130) L 12/14/21 03:14 Glucose 91 mg/dL (65-115) 12/14/21 03:14 POC Glucose 105 mg/dL (70-110) 12/14/21 03:42 Calculated Osmolality 282 mOsm/kg (285-295) L 12/14/21 03:14 Calcium 8.4 mg/dL (8.5-10.5) L 12/14/21 03:14 Magnesium 1.9 mg/dL (1.7-2.3) 12/14/21 03:14 Iron 17 ug/dL (37-145) L 12/12/21 16:21 TIBC 408 mcg/dl 12/12/21 16:21 % Saturation 4.1 % (20-50) L 12/12/21 16:21 Unsat Iron Binding 391 ug/dL (112-347) H 12/12/21 16:21 Ferritin 35 ng/mL (15-150) 12/12/21 16:21 Total Bilirubin 1.9 mg/dL (0.15-1.2) H 12/12/21 14:49 AST 1073 U/L (0-32) H 12/12/21 14:49 ALT 996 U/L (0-33) H 12/12/21 14:49 Alkaline Phosphatase 186 IU/L (35-105) H 12/12/21 14:49 Troponin T Baseline 15 ng/L (0-10) H 12/12/21 14:49 Troponin T 120 Minute 15.67 ng/L (0-10) H 12/12/21 16:21 Delta Troponin T 0.67 ABS# (0-10) 12/12/21 16:21 Troponin T Hi Sens 6Hr 16.13 ng/L (0-10) H 12/12/21 22:09 Troponin T Hi Sens 6Hr Delta 1.13 ng/L (0-12) 12/12/21 22:09 C-Reactive Protein 44.5 mg/L (0.0-4.9) H 12/13/21 06:04 NT-Pro-B Natriuret Pep 1941 pg/mL (0-125) H 12/12/21 14:49 Total Protein 6.5 g/dL (6.6-8.7) L 12/12/21 14:49 Albumin 4.0 g/dL (3.5-5.2) 12/12/21 14:49 Globulin 2.5 g/dL (1.3-4.6) 12/12/21 14:49 Lipase 49 U/L (13-60) 12/12/21 14:49 Procalcitonin 0.11 ng/mL (0-0.5) 12/12/21 14:49 TSH 2.09 uIU/mL (0.27-4.20) 12/12/21 14:49 Urine Color Yellow (Yellow) 12/13/21 00:25 Urine Appearance Clear (CLEAR) 12/13/21 00:25 Urine pH 5 (5-7) 12/13/21 00:25 Ur Specific [place] 1.010 (1.005-1.030) 12/13/21 00:25 Urine Protein Trace (Negative) 12/13/21 00:25 Urine Glucose (UA) Norm (Normal) 12/13/21 00:25 Urine Ketones Negative (Negative) 12/13/21 00:25 Urine Blood Neg (Negative) 12/13/21 00:25 Urine Nitrate Negative (Negative) 12/13/21 00:25 Urine Bilirubin Neg (Negative) 12/13/21 00:25 Urine Urobilinogen 1 mg/dL (Negative) H 12/13/21 00:25 Ur Leukocyte Esterase 1+ (Negative) H 12/13/21 00:25 Urine RBC 0-4 /hpf (0-2) H 12/13/21 00:25 Urine WBC 15-25 /hpf (0-5) H 12/13/21 00:25 Ur Squamous Epith Cells 0-4 /hpf (0-5) H 12/13/21 00:25 Amorphous Sediment 1+ /hpf 12/13/21 00:25 Urine Bacteria Trace /hpf (NONE) 12/13/21 00:25 Hepatitis A IgM Ab Non-reactive (Nonreactive) 12/12/21 18:25 Hep Bs Antigen Non-reactive (Nonreactive) 12/12/21 18:25 Hep B Core IgM Ab Non-reactive (Nonreactive) 12/12/21 18:25 Hepatitis C Antibody Non-reactive (Nonreactive) 12/12/21 18:25 SARS-CoV-2 RNA (RT-PCR) Not detected (NOT DETECTED) 12/12/21 15:50 Blood Type B Positive 12/12/21 06:04 Rho(D) Type Positive 12/12/21 06:04 Antibody Screen Negative 12/12/21 06:04 Crossmatch See Detail 12/12/21 06:04 Vitals Last Vital Signs Temp 97.7 F 12/14/21 07:53 Pulse 78 12/14/21 10:46 Resp 16 12/14/21 10:46 BP 124/70 12/14/21 10:46 Pulse Ox 100 12/14/21 10:46 Discharge Plan Discharge Patient Disposition: Home Condition: Stable Prescriptions: New metoprolol tartrate 50 mg Tablet 50 mg PO 0900 Qty: 90 1RF bumetanide 1 mg Tablet 1 mg PO DAILY Qty: 90 1RF metoprolol tartrate 25 mg Tablet 25 mg PO 2100 Qty: 90 1RF Plavix 75 mg tablet 75 mg PO DAILY Qty: 90 3RF levofloxacin 750 mg tablet 750 mg PO DAILY 7 Days Qty: 7 0RF Continued albuterol sulfate [ProAir HFA] 90 mcg/actuation HFA aerosol inhaler 2 puff INHALATION Q6H PRN (Reason: Shortness Of Breath) Qty: 8.5 0RF Nitrostat 0.4 mg Tablet, Sublingual 0.4 mg SUBLINGUAL Q5M PRN (Reason: Chest Pain) 0RF Rx Instructions: do not exceed 3 doses per episode Effexor XR 75 mg capsule,extended release 24hr 75 mg PO DAILY@08 0RF Rx Instructions: TAKE WITH 150MG UK=813GB levetiracetam 500 mg tablet 1,500 mg PO DAILY@08 0RF Effexor XR 150 mg capsule,extended release 24hr 150 mg PO DAILY@08 0RF Rx Instructions: TAKE WITH 75MG TO =225MG Remeron 15 mg tablet 15 mg PO BEDTIME 0RF Discontinued aspirin 81 mg tablet,delayed release (DR/EC) 81 mg PO DAILY@08 0RF Discharge Orders: Discharge Order (Routine); Ordered 12/14/21 Ordered By: Mariel Velasquez Referrals: Tonia Salinas FNP-C [Primary Care Provider] - 2 weeks (appointment sheduled :November time of 1:00 pm ) Dilcia Jovel MD [Physician] - 4-7 days Discharge Diet: Cardiac Discharge Activity: Increase activity as tolerated Patient Instructions: Metoprolol (By mouth), Bumetanide (By mouth) (Bumex), Clopidogrel (By mouth), Opioid Safety Discharge Attestations Time Spent in Discharge Care*: less than 30 min Status at Discharge: Cognitive status at discharge: mildly impaired cognition , Behavioral status at discharge: cooperative , Quality Metrics Clinical Quality Measures [ No reported AMI, CVA or VTE this stay] Coding Level of Care Code Acute Chg FW DC note Diagnoses Atrial fibrillation with rapid ventricular response I48.91 Acute on chronic congestive heart failure I50.9 Microcytic anemia D50.9 Transaminitis R74.01 Seasonal allergies J30.2 Hyperlipidemia E78.5 Hyperlipidemia type: unspecified Gastritis K29.70 Colon polyps K63.5 Lesion of pancreas K86.9 Vascular dementia F01.50 Carotid stenosis I65.21 Laterality: right Type 2 diabetes mellitus E11.9 Diabetes mellitus director long term care insulin use: unspecified skilled nursing insulin use status
[2021-12-14 11:52] LABS: Glucose Point of Care 125 mg/dL (70-110)
== END 2021-12-14 11:45 | disposition home or self-care (01) ==
LOC: ER 18:37 → MEDSURG 19:02
PROVIDERS: Admitting Provider Internal Medicine; Emergency Provider Emergency Medicine; PCP Nurse Practitioner Family; Visit Provider Internal Medicine
DX: I48.20 Chronic atrial fibrillation, unspecified (principal); I50.33 Acute on chronic diastolic (congestive) heart failure; D50.9 Iron deficiency anemia, unspecified; R74.01 Elevation of levels of liver transaminase levels; J30.2 Other seasonal allergic rhinitis; E78.5 Hyperlipidemia, unspecified; K29.70 Gastritis, unspecified, without bleeding; K63.5 Polyp of colon; K86.9 Disease of pancreas, unspecified; F01.50 Vascular dementia, unspecified severity, without behavioral disturbance, psychotic disturbance, mood disturbance, and anxiety; I65.21 Occlusion and stenosis of right carotid artery; E11.9 Type 2 diabetes mellitus without complications; Z79.4 Long term (current) use of insulin; Z66 Do not resuscitate; R06.02 Shortness of breath
CPT/HCPCS: 36415; 36416; 71045; 71275; 74177; 80048; 80053; 80074; 81001; 82728; 82962; 83540; 83550; 83690; 83735; 83880; 84145; 84443; 84484; 85014; 85018; 85025; 85378; 85610; 85730; 86140; 86850; 86900; 86920; 87040; 87635; 93005; 93306; 96365; 96366; 96372; 96375; 99285; C9113; G0378; J1815; J1940; J2405; J3490; Q9967

== ENCOUNTER → 2021-12-20 10:48 | Outpatient (BNVA) | payer MEDICARE, SELFPAY | PROVIDERS: PCP Nurse Practitioner Family; Visit Provider Nurse Practitioner Family | DX: I48.91 Unspecified atrial fibrillation (principal); I50.32 Chronic diastolic (congestive) heart failure; E78.5 Hyperlipidemia, unspecified; R94.31 Abnormal electrocardiogram [ECG] [EKG] | CPT/HCPCS: 80048; 83880; 93005; 99214 ==

== ENCOUNTER → 2021-12-26 13:20 | Outpatient (BNVA) | payer MEDICARE, SELFPAY | PROVIDERS: PCP Nurse Practitioner Family; Visit Provider Nurse Practitioner Family | DX: D50.9 Iron deficiency anemia, unspecified (principal); K76.9 Liver disease, unspecified | CPT/HCPCS: 80053; 85025 ==

== ENCOUNTER 2022-01-07 07:13 | Day surgery (SDC) | payer MEDICARE, SELFPAY ==
[2022-01-03 13:05] VITALS: BMI 24.5
[2022-01-07 07:52] VITALS: BP 162/98; PULSE 99; RESP 18; TEMP 36.2; O2SAT 95
[2022-01-07] MEDS: sodium chloride 0.9% 1,000 ML 30 ML IV (07:57)
--- NOTE | 2022-01-07 08:15 | W.PM.OPSFHP ---
Same Day Surgery H&P Indication for Procedure/HPI DATE OF PROCEDURE: January 07, 2022 CHIEF COMPLAINT/INDICATIONFOR SURGICAL PROCEDURE: History of polyps and iron deficiency anemia PREOP DIAGNOSIS: History of polyps and iron deficiency history of polyps and iron deficiency PLANNED PROCEDURE: Operation Date: 01/07/22 09:00 Proposed Procedures p EGD and colonoscopy 94577,73912,D50.9(Not Applicable) - Anthony Dupree MD s Colonoscopy(Not Applicable) - Anthony Dupree MD Medications/Allergies* Home Medications Medication Instructions Recorded Confirmed Type levetiracetam 500 mg tablet 1,500 mg PO DAILY@12/12/21 01/07/22 History mirtazapine 15 mg tablet (Remeron) 15 mg PO BEDTIME 12/12/21 01/07/22 History nitroglycerin 0.4 mg sublingual 0.4 mg sublingual Q5M PRN Chest 12/12/21 01/03/22 History tablet (Nitrostat) Pain venlafaxine 150 mg 150 mg PO DAILY@12/12/21 01/07/22 History capsule,extended release 24 hr (Effexor XR) venlafaxine 75 mg capsule,extended 75 mg PO DAILY@12/12/21 01/07/22 History release 24 hr (Effexor XR) Allergies/Adverse Reactions Allergy/AdvReac Type Severity Reaction Status Date / Time morphine Allergy unknown Verified 01/07/22 07:57 Penicillins Allergy Unknown Verified 01/07/22 07:57 phenytoin [From Dilantin] Allergy Unknown Verified 01/07/22 07:57 Current Medications: Generic Name Dose Route Start Last Admin Trade Name Freq PRN Reason Stop Dose Admin Sodium Chloride 1,000 mls @ 30 mls/hr 01/07/22 08:00 01/07/22 07:57 Sodium Chloride 0.9% IV 01/08/22 07:59 30 mls/hr .Q24H DELANO Administration Pertinent History/Comorbid Conditions* Medical History (Updated 12/26/21 @ 13:13 by BIN Flores) Anticoagulation adequate with anticoagulant therapy Atrial fibrillation Carotid stenosis Chronic knee pain Cigarette nicotine dependence Colon polyps Elevated INR Fall Gastritis Hyperlipidemia Lesion of pancreas Major depression, recurrent, full remission Microcytic anemia Psychiatric care Seasonal allergies Seizures Transaminitis Type 2 diabetes mellitus Vascular dementia Weight loss Surgical History (Updated 06/25/19 @ 16:38 by Anthony De Leon LPN) H/O brain surgery H/O section History of back surgery History of cholecystectomy Status post VNS (vagus nerve stimulator) placement Social History Smoking and tobacco status: former smoker Quit status (tobacco): has quit using tobacco Year quit tobacco: 2019 Second hand smoke exposure: No Alcohol intake: never History of recent travel: No Pertinent Exam Findings alert, oriented x 3, clear to auscultation bilaterally, regular rate & rhythm, operative site marked and procedure specific exam findings Recommendations Surgery/Procedure today Coding Level of Care Code Acute Clinical Trials Data Coordinator for Lisa Walker
--- NOTE | 2022-01-07 08:55 | ANES.PREANE2 ---
Pre-Anesthetic Assessment Height/Weight: Height 1.7 m Weight 71.214 kg Temp Pulse Resp BP Pulse Ox O2 Del Method 97.1 F L 99 18 162/98 95 01/07/22 07:52 01/07/22 07:52 01/07/22 07:52 01/07/22 07:52 01/07/22 07:52 01/07/22 07:52 Preop Diagnosis: History of polyps and iron deficiency history of polyps and iron deficiency Operation Date: 01/07/22 09:00 Proposed Procedures p EGD and colonoscopy 72837,98991,D50.9(Not Applicable) - Anthony Dupree MD s Colonoscopy(Not Applicable) - Anthony Dupree MD Familial anesthetic complications: None Was Beta Kemar taken within 24 hours: Yes Was Clonidine taken within 24 hours: N/A Last intake: Intake Last Liquid Date 01/06/22 Last Liquid Time 19:30 Last Solid Date 01/05/22 Last Solid Time 22:00 Social No alcohol and No tobacco Exam alert, oriented x 3, clear to auscultation bilaterally and regular rate & rhythm Airway Mallampati: Class III Dentition: full Pulmonary None reported CV/HEM Atrial Fibrillation, Anemia, Congestive Heart Failure (grade II diastolic dysfunction, Sevcere TVR, mod pulm HTN, mod to severe MVR) and Hypertension GI gastritis Metabolic Diabetes Mellitus Neuropsych recent encephalopathy admission Anesthetic Plan ASA status: 4 Anesthesia: MAC Risk of > 500 ml blood loss (7ml/kg in children): No Medications/Allergies Home Medications Medication Instructions Recorded Confirmed Last Taken Type levetiracetam 500 mg tablet 1,500 mg PO DAILY@12/12/21 01/07/22 01/07/22 06:30 History mirtazapine 15 mg tablet (Remeron) 15 mg PO BEDTIME 12/12/21 01/07/22 01/06/22 History nitroglycerin 0.4 mg sublingual 0.4 mg sublingual Q5M PRN Chest 12/12/21 01/03/22 Unknown History tablet (Nitrostat) Pain venlafaxine 150 mg 150 mg PO DAILY@12/12/21 01/07/22 01/06/22 History capsule,extended release 24 hr (Effexor XR) venlafaxine 75 mg capsule,extended 75 mg PO DAILY@12/12/21 01/07/22 01/06/22 History release 24 hr (Effexor XR) bumetanide 1 mg tablet 1 mg PO DAILY #90 tabs 12/14/21 01/07/22 01/06/22 Rx clopidogrel 75 mg tablet (Plavix) 75 mg PO DAILY #90 tabs 12/14/21 01/03/22 Unknown Rx metoprolol tartrate 25 mg tablet 25 mg PO 2100 #90 tabs 12/14/21 01/07/22 01/06/22 Rx metoprolol tartrate 50 mg tablet 50 mg PO 0900 #90 tabs 12/14/21 01/07/22 01/07/22 06:30 Rx potassium chloride 10 mEq 10 meq PO DAILY #93 tabs 12/20/21 01/07/22 01/06/22 Rx tablet,extended release(part/cryst) (Klor-Con M) ferrous gluconate 324 mg (38 mg 324 mg PO DAILY #30 tabs 12/26/21 01/07/22 01/06/22 Rx iron) tablet peg 3350-electrolytes 236 240 ml PO Q10M #4,000 mL 12/31/21 01/07/22 01/06/22 Rx gram-22.74 gram-6.74 gram-5.86 gram solution (Golytely) Allergies Allergy/AdvReac Type Severity Reaction Status Date / Time morphine Allergy unknown Verified 01/07/22 07:57 Penicillins Allergy Unknown Verified 01/07/22 07:57 phenytoin [From Dilantin] Allergy Unknown Verified 01/07/22 07:57 Current Medications Generic Name Dose Route Start Last Admin Trade Name Freq PRN Reason Stop Dose Admin Sodium Chloride 1,000 mls @ 30 mls/hr 01/07/22 08:00 01/07/22 07:57 Sodium Chloride 0.9% IV 01/08/22 07:59 30 mls/hr .Q24H DELANO Administration PFSH Anesthesia Medical History Anticoagulation adequate with anticoagulant therapy Atrial fibrillation Carotid stenosis Chronic knee pain Cigarette nicotine dependence Colon polyps Elevated INR Fall Gastritis Hyperlipidemia Lesion of pancreas Major depression, recurrent, full remission Microcytic anemia Psychiatric care Seasonal allergies Seizures Transaminitis Type 2 diabetes mellitus Vascular dementia Weight loss Surgical History H/O brain surgery H/O section History of back surgery History of cholecystectomy Status post VNS (vagus nerve stimulator) placement Social History Smoking and tobacco status: former smoker Quit status (tobacco): has quit using tobacco Year quit tobacco: 2019 Second hand smoke exposure: No Alcohol intake: never History of recent travel: No Data Anesthesia Cardiac Studies: Echocardiogram 12/12/21 Echocardiogram Ultrasound 10/12/19 Sestamibi Stress Test (Cardiology) 10/12/19
[2022-01-07 09:21] VITALS: BP 102/70; PULSE 82; RESP 18; TEMP 36.4; O2SAT 100
--- NOTE | 2022-01-07 09:24 | ANE.PACU2 ---
Inpatient post-anesthesia follow up: Airway intact: Yes Vital signs: Temperature 97.1 F Pulse Rate 99 Respiratory Rate 18 Blood Pressure 162/98 Pulse Oximetry 95 Oxygen Delivery Me thod Room Air Oxygen Flow Rate Fraction of Inspir ed Oxygen Hydration adequate: Yes Nausea and vomiting: No Pain level: 1 Mental status: Baseline
[2022-01-07 09:31] VITALS: BP 113/58; PULSE 75; RESP 18; O2SAT 100
[2022-01-07 09:39] VITALS: BP 119/86; PULSE 75; RESP 18; O2SAT 100
[2022-01-08 13:05] LABS: H. Pylori / CLO Test Negative
== END 2022-01-07 09:55 | disposition home or self-care (01) ==
PROVIDERS: PCP Nurse Practitioner Family; Visit Provider Internal Medicine
PROC: 0DJ08ZZ Inspection of Upper Intestinal Tract, Via Natural or Artificial Opening Endoscopic (ICD-10-PCS; CPT 43235; principal; 2022-01-07 09:00)
PROC: 0DJD8ZZ Inspection of Lower Intestinal Tract, Via Natural or Artificial Opening Endoscopic (ICD-10-PCS; CPT 45378; 2022-01-07 09:00)
DX: D50.9 Iron deficiency anemia, unspecified (principal); K29.70 Gastritis, unspecified, without bleeding; I48.91 Unspecified atrial fibrillation; I11.0 Hypertensive heart disease with heart failure; I50.9 Heart failure, unspecified; E11.9 Type 2 diabetes mellitus without complications; E78.5 Hyperlipidemia, unspecified; Z87.891 Personal history of nicotine dependence
CPT/HCPCS: 43239; 45378; 87077; J2704; J7030

== ENCOUNTER → 2022-01-14 16:05 | Outpatient (BNVA) | payer MEDICARE, SELFPAY | PROVIDERS: PCP Nurse Practitioner Family; Visit Provider Internal Medicine | DX: D50.9 Iron deficiency anemia, unspecified (principal); K76.9 Liver disease, unspecified; K90.9 Intestinal malabsorption, unspecified | CPT/HCPCS: 83550; 85025 ==

== ENCOUNTER → 2022-01-31 11:02 | Outpatient (BNVA) | payer MEDICARE, SELFPAY | PROVIDERS: PCP Nurse Practitioner Family; Visit Provider Internal Medicine Cardiovascular Disease | DX: I48.91 Unspecified atrial fibrillation (principal); Z79.01 Long term (current) use of anticoagulants; I50.32 Chronic diastolic (congestive) heart failure; G40.109 Localization-related (focal) (partial) symptomatic epilepsy and epileptic syndromes with simple partial seizures, not intractable, without status epilepticus; F17.210 Nicotine dependence, cigarettes, uncomplicated | CPT/HCPCS: 99214 ==

== ENCOUNTER → 2022-02-14 13:10 | Outpatient (BNVA) | payer MEDICARE, SELFPAY | PROVIDERS: PCP Nurse Practitioner Family; Visit Provider Internal Medicine | DX: D50.9 Iron deficiency anemia, unspecified (principal); K76.9 Liver disease, unspecified; K90.9 Intestinal malabsorption, unspecified | CPT/HCPCS: 36415; 82728; 83020; 85014; 85018; 85041 ==

== ENCOUNTER → 2022-04-15 08:01 | Outpatient (BNVA) | payer MEDICARE, SELFPAY | PROVIDERS: Visit Provider Specialist | DX: G40.109 Localization-related (focal) (partial) symptomatic epilepsy and epileptic syndromes with simple partial seizures, not intractable, without status epilepticus (principal); Z45.42 Encounter for adjustment and management of neurostimulator; Z96.82 Presence of neurostimulator | CPT/HCPCS: 95970; 99213 ==

== ENCOUNTER 2022-06-11 09:55 | Outpatient (CLI) | payer MEDICARE, SELFPAY ==
--- NOTE | 2022-06-11 10:09 | ECG_ITS ---
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 Interpretive Statements NAME OF STUDY: LEXISCAN SESTAMIBI STRESS TEST INDICATION: BUTLER/ABNORMAL EKG, PROCEDURE: At the baseline, the EKG revealed atrial fibrillation with rapid ventricular rate of 106 bpm. Some nonspecific T wave changes. The baseline heart was 106 bpm with a blood pressue of 157/97 mm of Hg Lexiscan was infused over a period of 20 seconds. A total of 0.4 milligrams of Lexiscan was infused. The stress phase was continued for a total of 5 minutes. Heart rate at the end of the stress phase was 119 bpm with a blood pressure of 155/85 mm of Hg. The EKG at the peak infusion revealed no significant changes. Sestamibi was injected 20 seconds after the Lexiscan infusion. Heart rate at the end of the recovery phase was 118 bpm with a blood pressure of 138/86 mm of Hg. CONCLUSION: 1. No significant EKG changes with the LexiScan infusion 2. No LexiScan induced chest pain or cardiac arrhythmia 3. Normal blood pressure and heart rate response 4. Sestamibi/sestamibi perfusion scan pending; see separate report. Electronically Signed On 06-14-2022 11:44:34 COMPUTERIZED MILL MILL RECORDER by Lesley Mack M.D. [id number]
--- NOTE | 2022-06-11 10:09 | NMCV_ITS ---
NM perri perf SPECT r/s* [id number] Soumya Avila Age: 66 Gender: F : 1955 Exam Date: 06/11/2022 11:05 Ordering Phys: Daphnie Barba Technologist: JESSICA Sandoval Exam Location: [facility] Indications: AFIB STRESS TEST Please see separate stress test report in [facility] for full findings IMAGE PROTOCOL Rest/Stress 1 Lexiscan Day Radiopharmaceutical Dose (mCi) Administration Site Administered by Rest: Tc-99m 10.5 IV JESSICA Lee Sestamibi Stress:Tc-99m 32.9 IV JESSICA Lee Sestamibi Rest: 11-Jun-2022 60 Discovery 630 Stress: 11-Jun-2022 30 Discovery 630 0.4mg Lexiscan. Images obtained in supine and prone position. SPECT RESULTS Technical Quality: Excellent Raw Data Analysis: Normal Image Corrections: No attenuation or motion correction applied Summed Stress Score: 2 Summed Rest Score: 1 Summed Difference Score: 1 PERFUSION FINDINGS A small area of slightly decreased tracer uptake was noted in the mid inferolateral and apical lateral regions. Subtle area of reversibility was noted in the inferolateral region, with the supine imaging. With the prone imaging, there was no significant reversible defects. FUNCTIONAL RESULTS (calculated via Gated SPECT) Stress Image LV EF (%): 79 Stress EDV (mL):47 TID: 0.85 Stress ESV (mL):10 FUNCTIONAL FINDINGS: Segmental wall motion analysis revealing no gross wall motion abnormalities IMPRESSIONS 1. Myocardial perfusion imaging revealing a small area of decreased tracer uptake in the apical lateral and inferolateral regions with a subtle area of inconsistent reversibility, possibly artifactual. 2. Normal LV ejection fraction 79%. 3. LV wall motion analysis revealing no gross wall motion abnormalities. 4. Normal LV volume Possibly no significant coronary ischemia, based on the above findings. Compared to the previous study from 10/13/2019, there may not be significant change Dr Lesley Mack MD [facility] (Electronically Signed) Final Date: 11 June 2022 13:07 S
[2022-06-11 10:30] VITALS: BMI 25.5
[2022-06-11] MEDS: regadenoson 0.4 Mg/5 ml Syringe IVP (11:40)
[2022-06-11 12:13] VITALS: BP 148/82; PULSE 109
== END 2022-06-11 09:56 | disposition home or self-care (01) ==
PROVIDERS: PCP Specialist; Visit Provider Nurse Practitioner Family
DX: R06.09 Other forms of dyspnea (principal); R94.31 Abnormal electrocardiogram [ECG] [EKG]
CPT/HCPCS: 36415; 78452; 93017; 96374; A9500; J2785

== ENCOUNTER → 2022-08-01 13:14 | Outpatient (BNVA) | payer MEDICARE, MEDICAID, OTHER, SELFPAY | PROVIDERS: PCP Specialist; Visit Provider Nurse Practitioner Family | DX: I48.91 Unspecified atrial fibrillation (principal); F33.42 Major depressive disorder, recurrent, in full remission; L65.9 Nonscarring hair loss, unspecified; I11.0 Hypertensive heart disease with heart failure; I50.32 Chronic diastolic (congestive) heart failure; Z87.891 Personal history of nicotine dependence; Z79.01 Long term (current) use of anticoagulants; E78.5 Hyperlipidemia, unspecified | CPT/HCPCS: 80048; 83880; 84439; 84443; 84481; 99214 ==

== ENCOUNTER → 2022-10-15 09:01 | Outpatient (BNVA) | payer MEDICARE, SELFPAY | PROVIDERS: PCP Specialist; Visit Provider Specialist | DX: G40.109 Localization-related (focal) (partial) symptomatic epilepsy and epileptic syndromes with simple partial seizures, not intractable, without status epilepticus (principal); Z45.42 Encounter for adjustment and management of neurostimulator; Z96.82 Presence of neurostimulator; G40.409 Other generalized epilepsy and epileptic syndromes, not intractable, without status epilepticus | CPT/HCPCS: 95970; 99214 ==

== ENCOUNTER → 2022-10-24 13:48 | Outpatient (BNVA) | payer MEDICARE, SELFPAY | PROVIDERS: PCP Specialist; Visit Provider Internal Medicine Cardiovascular Disease | DX: I48.91 Unspecified atrial fibrillation (principal); I11.0 Hypertensive heart disease with heart failure; I50.32 Chronic diastolic (congestive) heart failure; Z87.891 Personal history of nicotine dependence; Z79.01 Long term (current) use of anticoagulants | CPT/HCPCS: 99214 ==

== ENCOUNTER → 2022-10-31 13:41 | Outpatient (BNVA) | payer MEDICARE, SELFPAY | PROVIDERS: PCP Specialist; Visit Provider Thoracic Surgery (Cardiothoracic Vascular Surgery) | DX: G40.109 Localization-related (focal) (partial) symptomatic epilepsy and epileptic syndromes with simple partial seizures, not intractable, without status epilepticus (principal); Z96.89 Presence of other specified functional implants | CPT/HCPCS: 99203 ==

== ENCOUNTER 2022-11-26 05:31 | Day surgery (SDC) | payer MEDICARE, SELFPAY ==
[2022-11-25 12:18] VITALS: BMI 31.3
[2022-11-26] VITALS (7 sets, daily range): BP systolic 120–180; BP diastolic 87–113; PULSE 78–122; RESP 17–18; TEMP 36.1–36.2; O2SAT 93–100
--- NOTE | 2022-11-26 06:19 | W.PM.OPSUD ---
Surgery/Procedure H&P Update DATE OF PROCEDURE: November 26, 2022 DATE H&P PERFORMED: 10/31/22 H&P UPDATE INFORMATION: I have reviewed H&P completed within last 30 days, I have examined patient prior to procedure and No changes to prior documentation PREOP DIAGNOSIS: Vagal nerve stimulator generator end of service PLANNED PROCEDURE: Operation Date: 11/26/22 07:00 Proposed Procedures p VNS Generator Exchange [id number] G40.109(Not Applicable) - Arsen Salinas MD
[2022-11-26] MEDS: sodium chloride 0.9% 1,000 ML 30 ML IV (06:27)
[2022-11-26 06:37] LABS: Basophils # 0.1 10^3/uL (0.0-0.1); Basophils % 0.7 %; Eosinophils # 0.1 10^3/uL (0.0-0.8); Eosinophils % 1.8 %; Hematocrit 40.1 % (37.0-47.0); Hemoglobin 12.6 g/dL (11.5-15.3); Lymphocytes # 2.1 10^3/uL (0.8-4.8); Lymphocytes % 28.9 %; Mean Corpuscular HGB Conc 31.4 g/dL (30.0-36.0); Mean Corpuscular Hemoglobin 25.1 pg (28.0-34.0); Mean Platelet Volume 9.7 fL (7.4-10.4); Monocytes # 0.5 10^3/uL (0.2-0.9); Monocytes % 6.6 %; Neutrophils # 4.54 10^3/uL (1.8-7.7); Neutrophils % 61.6 %; Nucleated Red Blood Cells % 0 %; Platelet Count 272 10^3/cmm (130-400); Red Blood Count 5.01 10^6/uL (4.1-5.3); Red Cell Distribution Width 18.2 % (12.1-15.1); White Blood Count 7.4 10^3/uL (4.0-10.0)
--- NOTE | 2022-11-26 06:39 | ANES.PREANE2 ---
Pre-Anesthetic Assessment Height/Weight: Height 1.7 m Weight 90.718 kg Temp Pulse Resp BP Pulse Ox O2 Del Method 97 F L 122 H 18 180/113 97 Room Air 11/26/22 06:06 11/26/22 06:06 11/26/22 06:06 11/26/22 06:06 11/26/22 06:06 11/26/22 06:06 Preop Diagnosis: Vagal nerve stimulator generator end of service Operation Date: 11/26/22 07:00 Proposed Procedures p VNS Generator Exchange 36926 G40.109(Not Applicable) - Arsen Salinas MD Familial anesthetic complications: None Was Beta Kemar taken within 24 hours: Yes Was Clonidine taken within 24 hours: N/A Last intake: Intake Last Liquid Date 11/25/22 Last Liquid Time 20:00 Last Solid Date 11/25/22 Last Solid Time 17:00 Social No alcohol and No tobacco Exam alert, oriented x 3, clear to auscultation bilaterally and regular rate & rhythm Airway Mallampati: Class II Dentition: full CV/HEM Atrial Fibrillation, Anemia and Congestive Heart Failure Severe TVR, Mod pulm HTN, EF 50% Metabolic Diabetes Mellitus Neuropsych epilepsy Anesthetic Plan ASA status: 3 Anesthesia: MAC Risk of > 500 ml blood loss (7ml/kg in children): No Medications/Allergies Home Medications Medication Instructions Recorded Confirmed Last Taken Type nitroglycerin 0.4 mg sublingual 0.4 mg sublingual Q5M PRN Chest 01/31/22 11/26/22 Unknown Rx tablet (Nitrostat) Pain #25 tabs potassium chloride 10 mEq 10 meq PO DAILY #90 tabs 04/16/22 11/26/22 11/25/22 Rx tablet,extended release(part/cryst) (Klor-Con M) mirtazapine 15 mg tablet (Remeron) 15 mg PO BEDTIME #30 tabs 05/09/22 11/26/22 11/25/22 Rx venlafaxine 150 mg 150 mg PO QAM #30 caps 05/09/22 11/26/22 11/25/22 Rx capsule,extended release 24 hr (Effexor XR) bumetanide 1 mg tablet 1 mg PO DAILY #90 tabs 06/12/22 11/26/22 11/25/22 Rx metoprolol tartrate 25 mg tablet 25 mg PO 2100 #90 tabs 06/12/22 11/26/22 11/25/22 Rx metoprolol tartrate 50 mg tablet 50 mg PO 0900 #90 tabs 06/12/22 11/26/22 11/25/22 Rx valsartan 40 mg tablet 40 mg PO DAILY #90 tabs 08/01/22 11/26/22 11/25/22 Rx venlafaxine 75 mg capsule,extended 75 mg PO QAM #30 caps 08/13/22 11/26/22 11/25/22 Rx release 24 hr (Effexor XR) apixaban 5 mg tablet (Eliquis) 5 mg PO BID #180 tabs 09/27/22 11/25/22 11/23/22 Rx levetiracetam 500 mg 1,500 mg PO DAILY 10/24/22 11/26/22 11/25/22 History tablet,extended release 24 hr Allergies Allergy/AdvReac Type Severity Reaction Status Date / Time morphine Allergy unknown Verified 10/31/22 14:06 Penicillins Allergy Unknown Verified 10/31/22 14:06 phenytoin [From Dilantin] Allergy Unknown Verified 10/31/22 14:06 Current Medications Generic Name Dose Route Start Last Admin Trade Name Freq PRN Reason Stop Dose Admin Sodium Chloride 1,000 mls @ 30 mls/hr 11/26/22 06:00 11/26/22 06:27 Sodium Chloride 0.9% IV 11/27/22 05:59 30 mls/hr .Q24H DELANO Administration PFSH Anesthesia Medical History Anticoagulation adequate with anticoagulant therapy Atrial fibrillation Carotid stenosis Chronic knee pain Cigarette nicotine dependence Colon polyps Elevated INR Fall Gastritis Hyperlipidemia Hypertension Lesion of pancreas Major depression, recurrent, full remission Microcytic anemia Psychiatric care Seasonal allergies Seizures Transaminitis Type 2 diabetes mellitus Vascular dementia Weight loss Surgical History H/O brain surgery H/O section History of back surgery History of cholecystectomy Status post VNS (vagus nerve stimulator) placement Social History Smoking and tobacco status: former smoker Quit status (tobacco): has quit using tobacco Year quit tobacco: 2019 Second hand smoke exposure: No Alcohol intake: never Substance/Drug Use: current Data Anesthesia 11/26/22 06:28 11/26/22 06:28 Short CBC 11/26/22 Range/Units 06:28 WBC 7.4 (4.0-10.0) 10^3/uL Hgb 12.6 (11.5-15.3) g/dL Hct 40.1 (37.0-47.0) % MCV 80.0 L (81-99) fl Plt Count 272 (130-400) 10^3/cmm Neut % (Auto) 61.6 % Neut # (Auto) 4.54 (1.8-7.7) 10^3/uL Cardiac Studies: Echocardiogram 12/12/21 Echocardiogram Ultrasound 10/12/19 Sestamibi Stress Test (Cardiology) 06/11/22
[2022-11-26] MEDS: vancomycin 1,500 MG/300 ML PIGGYBACK 200 MG IV (06:43)
[2022-11-26 06:53] LABS: Anion Gap 16.1 (5-19); Blood Urea Nitrogen 17 mg/dL (8-23); Calcium 9.3 mg/dL (8.5-10.5); Carbon Dioxide 25 mmol/L (22-29); Chloride 105 mmol/L (98-107); Glomerular Filtration Rate 55.6 mL/min (90-130); Glucose 121 mg/dL (65-115); Osmolality Calculated 297 mOsm/kg (285-295); Potassium 4.1 mmol/L (3.5-5.1); Sodium 142 mmol/L (136-145)
[2022-11-26 06:55] LABS: Add Urine Microscopic? YES; Bilirubin Urine Neg (Negative); Blood Urine Neg (Negative); Glucose Urine UA Norm (Normal); Ketones Urine Negative (Negative); Leukocyte Esterase Urine 2+ (Negative); Nitrate Urine Negative (Negative); Protein Urine Neg (Negative); Urine Appearance SL Hazy (CLEAR); Urine Color Yellow (Yellow); Urobilinogen Urine Norm (Negative); pH Urine 5 (5-7)
[2022-11-26 07:04] LABS: RBC Urine RARE /hpf (0-2); WBC Urine 55-80 /hpf (0-5)
[2022-11-26 07:05] LABS: Add Urine Culture? Yes; Bacteria Urine 2+ /hpf; Hyaline Casts Urine RARE /lpf; Mucus Urine TRACE /hpf
[2022-11-26] MEDS: lidocaine 1% INJ 10 mL (per mL) 20 ML INJECTION (07:20)
[2022-11-26] MEDS: vancomycin 1,000 MG SDV 1000 MG IRRIGATION (07:26)
--- NOTE | 2022-11-26 07:50 | PM.OP ---
Operative Report Date of procedure: November 26, 2022 Pre-op diagnosis: Preop Diagnosis Vagal nerve stimulator generator end of service Post-op diagnosis: same Procedure done: Vagal nerve stimulator exchange Implants: Vagal nerve stimulator Specimens removed/disposition: Old generator Pathology: none sent Surgeon: Arsen Salinas Anesthesia: MAC and Local Complications: None Condition: stable Disposition: same day Brief History: Ms. Avila is a 57-year-old female with seizure disorder followed by Dr. Valladares. She had original vagal nerve stimulator placed in 2000 and subsequent generator exchange in 2019. Current generator is at end of service and replacement is been requested. She does have atrial fibrillation and is on Eliquis, which has been held 3 days prior to the planned procedure. Details and risks of procedure were carefully and frankly discussed. Particular related to infection, injury to the VNS lead, pain after surgery, and continued need for long-term follow-up. All questions were answered. Appropriate consents have been reviewed and signed. Procedure: Ms. Avila was taken to the operating room theater and Positioned on the OR table over protective padding. She underwent IV conscious sedation with anesthesia monitoring. Her entire left chest was sterilely prepped and draped. Appropriate timeout was completed and confirmed. 1% lidocaine was infiltrated at the area of the prior incision for device implantation. #15 scalpel blade was utilized to incise the skin down to the subcutaneous tissues. Careful dissection was then performed utilizing scalpel, Metzenbaum scissors, and cautery if required to reach the pseudocapsule. Care was taken to identify the course of the VNS wire. The pseudocapsule was then opened utilizing #15 scalpel blade exposing the generator which was subsequently delivered. Antibiotic soaked gauze was placed in the wound. Setscrews were released to remove the VNS wires and the old generator was removed from the field. The new generator was then connected to the VNS wires and the setscrews was secured with good contact confirmed with axial traction. Wound was carefully irrigated with antibiotic solution. Hemostasis confirmed. The device was then placed back into the pseudocapsule pocket. On the table interrogation was then performed with appropriate parameters confirmed. Once completed, the incision was then closed with 2 layers of 3-0 Vicryl suture. Skin was reapproximated in a subcuticular manner with 4-0 Monocryl suture. Dermal glue was then applied followed by sterile double dressing and pressure dressing. Procedure was well-tolerated and she was awakened from IV conscious sedation and then transferred to Outpatient Surgery department in stable condition. Model: 1000-D Serial # [id number]
--- NOTE | 2022-11-26 13:54 | ANE.PACU2 ---
Inpatient post-anesthesia follow up: Airway intact: Yes Vital signs: Temperature 97.1 F Pulse Rate 78 Respiratory Rate 18 Blood Pressure 142/109 Pulse Oximetry 96 Oxygen Delivery Me thod Room Air Oxygen Flow Rate 6 Fraction of Inspir ed Oxygen Hydration adequate: Yes Nausea and vomiting: No Pain level: 1 Mental status: Baseline
== END 2022-11-26 08:50 | disposition home or self-care (01) ==
PROVIDERS: PCP Specialist; Visit Provider Thoracic Surgery (Cardiothoracic Vascular Surgery)
PROC: (CPT 61885; principal; 2022-11-26 07:00)
DX: G40.109 Localization-related (focal) (partial) symptomatic epilepsy and epileptic syndromes with simple partial seizures, not intractable, without status epilepticus (principal); I48.91 Unspecified atrial fibrillation; Z79.01 Long term (current) use of anticoagulants; I08.1 Rheumatic disorders of both mitral and tricuspid valves; Z87.891 Personal history of nicotine dependence; E78.5 Hyperlipidemia, unspecified; E11.9 Type 2 diabetes mellitus without complications; I11.0 Hypertensive heart disease with heart failure; I50.9 Heart failure, unspecified; Z79.899 Other long term (current) drug therapy
CPT/HCPCS: 61885; 36415; 80048; 81001; 85025; 87086; C1823; J2704; J3010; J3370; J7030

== ENCOUNTER → 2022-11-29 11:41 | Outpatient (BNVA) | payer MEDICARE, SELFPAY | PROVIDERS: Visit Provider Specialist | DX: Z45.42 Encounter for adjustment and management of neurostimulator (principal); Z96.82 Presence of neurostimulator; G40.109 Localization-related (focal) (partial) symptomatic epilepsy and epileptic syndromes with simple partial seizures, not intractable, without status epilepticus | CPT/HCPCS: 95970; 99213 ==

== ENCOUNTER → 2023-01-01 09:16 | Outpatient (BNVA) | payer MEDICARE, SELFPAY | PROVIDERS: Visit Provider Specialist | DX: G40.909 Epilepsy, unspecified, not intractable, without status epilepticus (principal); Z96.82 Presence of neurostimulator | CPT/HCPCS: 95970; 99214 ==

== ENCOUNTER → 2023-12-25 14:09 | Outpatient (BNVA) | payer MEDICARE, SELFPAY | PROVIDERS: Visit Provider Internal Medicine Cardiovascular Disease | DX: I08.1 Rheumatic disorders of both mitral and tricuspid valves (principal); I48.19 Other persistent atrial fibrillation; I11.0 Hypertensive heart disease with heart failure; I50.32 Chronic diastolic (congestive) heart failure; Z79.01 Long term (current) use of anticoagulants; I27.20 Pulmonary hypertension, unspecified; Z87.891 Personal history of nicotine dependence | CPT/HCPCS: 99214 ==

== ENCOUNTER → 2024-02-04 14:36 | Outpatient (BNVA) | payer MEDICARE, SELFPAY | PROVIDERS: Visit Provider Specialist | DX: R29.90 Unspecified symptoms and signs involving the nervous system (principal) | CPT/HCPCS: 95970; 99213 ==

== ENCOUNTER 2024-02-06 06:18 | Outpatient (CLI) | payer MEDICARE, SELFPAY ==
--- NOTE | 2024-02-06 06:45 | USCV_ITS ---
Soumya Avila Age: 68 Gender: F : 1955 Exam Date: 02/06/2024 06:31 Ordering Phys: Lesley Mack MD ([email or web address]) Technologist: JULIA Exam Location: [facility] – [place] Indication: MR,TR, PULM HTN BP: 123 / 74 HR: 87 Rhythm: Atrial fibrillation Technical Quality: Adequate MEASUREMENTS (Male / Female) Normal Values 2D ECHO LV Diastolic Diameter PLAX 5.7 cm 4.2 - 5.9 / 3.9 - 5.3 cm IVS Diastolic Thickness 1.2 cm 0.6 - 1.0 / 0.6 - 0.9 cm IVS Systolic Thickness 1.9 cm LVPW Diastolic Thickness 1.3 cm 0.6 - 1.0 / 0.6 - 0.9 cm LVPW Systolic Thickness 2.2 cm LVOT Diameter 2.0 cm LV Ejection Fraction 2D Teich 66.9 % LV Ejection Fraction MOD 4C 57.9 % LV Ejection Fraction MOD 2C 60.9 % LV Ejection Fraction 2C AL 60.9 % LA Diameter 4.4 cm RA Systolic Volume 4C AL 29.9 ml RA Systolic Volume 4C MOD 28.7 ml LA Sys Volume AL 62.5 cm cubed LA Sys Volume Index AL 30.3 cm cubed/m squared Aorta at Sinotubular Diameter 2.3 cm IVC Diameter 1.0 cm M-MODE LA Ao Ratio MM 1.4 AV Cusp Separation MM 1.2 cm DOPPLER AV Peak Velocity 222.7 cm/s LVOT Peak Velocity 88.0 cm/s AV Area Cont Eq vti 2.2 cm squared MV Peak Velocity 259.0 cm/s MV Area PHT 1.9 cm squared Mitral E to A Ratio 0.0 TR Peak Velocity 207.0 cm/s TR Peak Gradient 17.1 mmHg TR Mean Velocity 173.0 cm/s TR Mean Gradient 12.4 mmHg TR Velocity Time Integral 68.6 cm TV Peak E Velocity 47.0 cm/s Right Atrial Pressure 3.0 mmHg Pulmonary Artery Systolic Pressu 20.1 mmHg PV Peak Velocity 102.0 cm/s RV Ejection Time 0.3 s FINDINGS Left Ventricle Normal left ventricular size and systolic function, EF 61% . Grade III/IV diastolic dysfunction (restrictive filling pattern), severely elevated filling pressures. Right Ventricle The right ventricle is normal in size and function. Right Atrium Mildly increased right atrial size. Left Atrium Moderately increased left atrial size. Mitral Valve Grade 2 bileaflet prolapse.moderate-severe mitral valve regurgitation. Mild mitral valve stenosis with a valve area 1.93 cm squared Aortic Valve Trace aortic valve regurgitation. Tricuspid Valve Trace tricuspid valve regurgitation. Estimated pulmonary artery peak systolic pressure 20 mmHg Pulmonic Valve No gross abnormalities noted Pericardium No pericardial effusion. Aorta Normal aortic annulus size. IVC Normal inferior vena cava. CONCLUSIONS Normal left ventricular size and systolic function, EF 61% . Grade III/IV diastolic dysfunction (restrictive filling pattern), severely elevated filling pressures. Moderate-severe mitral valve regurgitation. Moderately increased left atrial size. Mildly increased right atrial size. Grade 2 bileaflet prolapse of the mitral valve. Mild mitral valve stenosis with a valve area 1.93 cm squared Trace of aortic and tricuspid regurgitation Estimated pulmonary artery peak systolic pressure 20 mmHg There is no pericardial effusion. There are no intracardiac masses. Compared to the study from 12/12/2021, there is significant resolution of tricuspid regurgitation and the pulmonary hypertension. The mitral regurgitation has not changed much. Dr Lesley Mack MD [facility] (Electronically Signed) Final Date: 06 February 2024 11:51 S
== END 2024-02-06 06:19 | disposition home or self-care (01) ==
PROVIDERS: Visit Provider Internal Medicine Cardiovascular Disease
DX: I34.0 Nonrheumatic mitral (valve) insufficiency (principal); I50.30 Unspecified diastolic (congestive) heart failure; I34.1 Nonrheumatic mitral (valve) prolapse
CPT/HCPCS: 93306; 99214

== ENCOUNTER → 2024-06-29 08:45 | Outpatient (BNVA) | payer MEDICARE, SELFPAY | PROVIDERS: Visit Provider Nurse Practitioner Family | DX: I48.19 Other persistent atrial fibrillation (principal); I11.0 Hypertensive heart disease with heart failure; I50.32 Chronic diastolic (congestive) heart failure; I08.1 Rheumatic disorders of both mitral and tricuspid valves; I27.20 Pulmonary hypertension, unspecified; Z87.891 Personal history of nicotine dependence; Z79.01 Long term (current) use of anticoagulants | CPT/HCPCS: 99213 ==

== ENCOUNTER → 2024-08-03 11:19 | Outpatient (BNVA) | payer MEDICARE, SELFPAY | PROVIDERS: Visit Provider Specialist | DX: R29.90 Unspecified symptoms and signs involving the nervous system (principal); Z96.89 Presence of other specified functional implants | CPT/HCPCS: 99213 ==

== ENCOUNTER → 2025-01-05 09:05 | Outpatient (BNVA) | payer MEDICARE, SELFPAY | PROVIDERS: Visit Provider Internal Medicine Cardiovascular Disease | DX: I48.20 Chronic atrial fibrillation, unspecified (principal); Z79.01 Long term (current) use of anticoagulants; I11.0 Hypertensive heart disease with heart failure; I50.9 Heart failure, unspecified; I08.1 Rheumatic disorders of both mitral and tricuspid valves; I27.20 Pulmonary hypertension, unspecified; Z87.891 Personal history of nicotine dependence | CPT/HCPCS: 99214 ==

== ENCOUNTER 2025-03-17 06:22 | Outpatient (CLI) | payer MEDICARE, SELFPAY ==
--- NOTE | 2025-03-17 06:30 | USCV_ITS ---
Soumya Avila Age: 69 Gender: F : 1955 Exam Date: 03/17/2025 07:05 Ordering Phys: Lesley Mack MD ([email or web address]) Technologist: [email or web address] Exam Location: [facility] [place] Indication: MR/TR BP: 181 / 90 HR: 98 Rhythm: Sinus Technical Quality: Adequate MEASUREMENTS (Male / Female) Normal Values 2D ECHO LV Diastolic Diameter PLAX 5.1 cm 4.2 - 5.9 / 3.9 - 5.3 cm IVS Diastolic Thickness 1.1 cm 0.6 - 1.0 / 0.6 - 0.9 cm IVS Systolic Thickness 1.5 cm LVPW Diastolic Thickness 1.3 cm 0.6 - 1.0 / 0.6 - 0.9 cm LVPW Systolic Thickness 1.5 cm LVOT Diameter 1.9 cm LV Ejection Fraction 2D Teich 57.9 % LV Ejection Fraction MOD 4C 58.7 % LV Ejection Fraction MOD 2C 62.9 % LV Ejection Fraction 2C AL 62.7 % LA Diameter 4.4 cm RA Systolic Volume 4C AL 34.1 ml RA Systolic Volume 4C MOD 32.9 ml LA Sys Volume AL 64.9 cm cubed LA Sys Volume Index AL 33.7 cm cubed/m squared Aorta at Sinotubular Diameter 2.2 cm IVC Diameter 1.9 cm M-MODE LA Ao Ratio MM 2.1 AV Cusp Separation MM 1.3 cm DOPPLER AV Peak Velocity 115.0 cm/s LVOT Peak Velocity 94.0 cm/s AV Area Cont Eq vti 3.6 cm squared AV Area Cont Eq pk 2.4 cm squared MV Peak Velocity 152.0 cm/s MV Area PHT 2.0 cm squared Mitral E to A Ratio 2.2 TR Peak Velocity 101.0 cm/s TR Peak Gradient 4.1 mmHg TV Peak E Velocity 75.0 cm/s PV Peak Velocity 101.0 cm/s FINDINGS Left Ventricle Normal left ventricular size, systolic function and wall thickness, with no regional wall motion abnormalities. Left ventricular ejection fraction is estimated at 60 %. Grade III/IV diastolic dysfunction (restrictive filling pattern), severely elevated filling pressures. Right Ventricle Normal right ventricular size and systolic function. Right Atrium Normal right atrial size. Left Atrium Moderately increased left atrial size. IA Septum Normal appearance of the interatrial septum. Mitral Valve Mildly thickened mitral valve. Mild mitral valve prolapse. No mitral valve stenosis. Moderate-severe mitral valve regurgitation. Aortic Valve Normal aortic valve structure. No aortic valve stenosis or regurgitation. Tricuspid Valve Normal tricuspid valve structure. No tricuspid valve stenosis or regurgitation. Normal pulmonary pressure. Pulmonic Valve Normal pulmonic valve structure. No pulmonic valve stenosis or regurgitation. Pericardium No pericardial effusion. Aorta Normal diameter of the aortic root and ascending thoracic aorta. IVC Normal IVC diameter. CONCLUSIONS Normal left ventricular size, systolic function and wall thickness, with no regional wall motion abnormalities. Left ventricular ejection fraction is estimated at 60 %. Grade III/IV diastolic dysfunction (restrictive filling pattern), severely elevated filling pressures. Moderately increased left atrial size. Mildly thickened mitral valve. Mild mitral valve prolapse. No mitral valve stenosis. Moderate-severe mitral valve regurgitation. There is no pericardial effusion. Right atrial pressure is around 5 mm of mercury. Mariel Chan MD (Electronically Signed) Final Date: 27 March 2025 00:53 S
== END 2025-03-17 06:23 | disposition home or self-care (01) ==
LOC: RAD 06:24
PROVIDERS: PCP Specialist; Visit Provider Internal Medicine Cardiovascular Disease
DX: I34.0 Nonrheumatic mitral (valve) insufficiency (principal); I50.30 Unspecified diastolic (congestive) heart failure; I51.7 Cardiomegaly; I34.1 Nonrheumatic mitral (valve) prolapse; I34.9 Nonrheumatic mitral valve disorder, unspecified
CPT/HCPCS: 93306